=== PATIENT | female | born 1965 | race African-American/Black ===

== ENCOUNTER 2018-06-09 01:32 | Inpatient (IN) | payer OTHER ==
--- NOTE | 2018-06-09 01:49 | PDOC ---
History of Present Illness - General Chief Complaint: Altered Mental Status Stated Complaint: AMS Time Seen by Provider: 06/09/18 01:48 History Source: Long Term Records Exam Limitations: Clinical Condition - History of Present Illness Initial Comments: HPI: 52 y/o female BIBEMS to [facility] for altered mental status and fever. EMS reported the pt was altered, tachycardic, and felt warm to the touch. Unable to interview pt secondary to clinical condition. Medical history and current medications obtained from transfer paperwork. Past History - Past Medical History Allergies/Adverse Reactions: Allergies Allergy/AdvReac Type Severity Reaction Status Date / Time prednisone Allergy Mild GI UPSET Verified 06/09/18 01:53 Home Medications: Ambulatory Orders Albuterol So4/Ipratropium [Combivent Inhaler -] 1 inh PO QID 11/11/11 Baclofen 20 mg PO QID 11/11/11 Docusate Sodium [Colace -] 100 mg PO HS PRN 11/11/11 Gabapentin [Neurontin -] 600 mg PO Q8H 11/11/11 Oxybutynin Chloride [Ditropan Xl] 10 mg PO DAILY 11/11/11 Polyethylene Glycol 3350 [Miralax] 17 gm PO DAILY 11/11/11 clonazePAM [Klonopin -] 0.5 mg PO BID 11/11/11 Benztropine Mesylate [Cogentin -] 0.5 mg PO DAILY tablet 11/28/14 Acetaminophen [Tylenol -] 650 mg PO Q4H PRN 06/09/18 Bisacodyl [Dulcolax] 10 mg PO DAILY 06/09/18 Calcium Carbonate [Calcium] 1,200 mg PO DAILY 06/09/18 Fluoxetine HCl [Prozac] 40 mg PO DAILY 06/09/18 Haloperidol [Haldol -] 5 mg PO DAILY 06/09/18 Latanoprost 0.005% Eye Drops [Xalatan 0.005% Eye Drops -] 1 drop OU HS 06/09/18 Linaclotide [Linzess] 72 mcg PO HS 06/09/18 Mineral Oil Enema [Fleet Mineral Oil Rectal Enema] 133 ml RC DAILY PRN 06/09/18 Montelukast Sodium [Singulair] 10 mg PO DAILY 06/09/18 Simethicone 80 mg PO Q8H PRN 06/09/18 clonazePAM [Klonopin -] 0.5 mg PO HS 06/09/18 Anemia: No Asthma: No Cancer: No Cardiac Disorders: No CVA: No COPD: No CHF: No Dementia: No Diabetes: Yes GI Disorders: Yes (SEMI CONTINENT) Disorders: Yes (NEUROGENIC BLADDER) HTN: No Hypercholesterolemia: Yes Liver Disease: No Seizures: No Thyroid Disease: No - Surgical History Abdominal Surgery: No Appendectomy: No Cardiac Surgery: No Cholecystectomy: No Lung Surgery: No Neurologic Surgery: No Orthopedic Surgery: No - Suicide/Smoking/Psychosocial Hx Smoking Status: Yes Smoking History: Current every day smoker Have you smoked in the past 12 months: Yes Number of Cigarettes Smoked Daily: 3 'Breaking Loose' booklet given: 11/24/14 Hx Alcohol Use: No Drug/Substance Use Hx: No Substance Use Type: None Review of Systems - Review of Systems Able to Perform ROS?: No (Pt condition) *Physical Exam - Vital Signs Vital Signs (72 hours) 06/09/18 06/09/18 01:33 03:18 Temperature 98.2 F 104.2 F H Pulse Rate 142 H 144 H Respiratory 24 H 20 Rate Blood Pressure 121/91 O2 Sat by Pulse 96 97 Oximetry (%) - Physical Exam Comments: Constitutional: Toxic appearing adult female in acute distress. Found semi- fowlers on hospital bed. Alert but disoriented. Unable to answer questions. Head: Normocephalic. No obvious external signs of trauma. Nose: No nasal discharge. Neck: Supple, trachea is midline. Spontaneously moving neck without obvious discomfort or nuchal rigidity. Cardiovascular / Chest: Tachycardic rate and regular rhythm. No murmur, rubs, clicks, or gallops. Peripheral pulses: radial pulses full. Respiratory: Tachypneic, shallow breathing. Equal chest rise and fall. Diffuse trace wheezing. No stridor or rhonchi. Gastrointestinal: abdomen is distended and taut. Pt grimaces when palpated in all four quadrants. No pulsatile masses. No overlying skin lesions or obvious signs of trauma. Neuro: Alert and completely disoriented. Moving all four extremities spontaneously. Skin: Hot and diaphoretic. No bruising, rashes, or other lesions. Procedures - Central Line Central Line Lumen: triple Central Line Position: femoral (L) Post Central Line Insertion: sutured, good blood return ED Treatment Course - LABORATORY CBC & Chemistry Diagram: 06/09/18 02:21 06/09/18 02:21 - ADDITIONAL ORDERS Additional order review: 06/09/18 08:23 06/09/18 06/09/18 06/09/18 04:46 02:45 02:21 PT with INR INR PTT (Actin FS) Anticoagulation Therapy No Result Required. Puncture Site No Result Required. ABG pH 7.39 ABG pCO2 at Pt Temp 35.9 ABG pO2 at Pt Temp 174.0 H* ABG HCO3 21.1 L ABG O2 Sat (Measured) 99.2 H ABG O2 Content 13.1 L ABG Base Excess -2.9 L Matthew Test No Result Required. Carboxyhemoglobin 0.7 Methemoglobin 0.6 O2 Delivery Device No Result Required. Oxygen Flow Rate No Result Required. Vent Mode No Result Required. Vent Rate No Result Required. Mechanical Rate No Result Required. Pressure Support Vent No Result Required. Sodium Potassium Chloride Carbon Dioxide Anion Gap BUN Creatinine Creat Clearance w eGFR Random Glucose Lactic Acid Calcium Total Bilirubin AST ALT Alkaline Phosphatase Troponin I < 0.02 Total Protein Albumin Urine Color Sussy Urine Appearance Slcloudy Urine pH 5.0 Ur Specific [place] 1.020 Urine Protein 1+ H Urine Glucose (UA) Negative Urine Ketones 1+ H Urine Blood Negative Urine Nitrite Negative Urine Bilirubin Negative Urine Urobilinogen 2.0 H Ur Leukocyte Esterase Negative Urine WBC (Auto) 6 Urine RBC (Auto) 1 Ur Epithelial Cells Rare Urine Mucus Few 06/09/18 06/09/18 06/09/18 02:21 02:21 02:21 PT with INR 16.50 H INR 1.39 H PTT (Actin FS) 29.1 Anticoagulation Therapy Puncture Site ABG pH ABG pCO2 at Pt Temp ABG pO2 at Pt Temp ABG HCO3 ABG O2 Sat (Measured) ABG O2 Content ABG Base Excess Matthew Test Carboxyhemoglobin Methemoglobin O2 Delivery Device Oxygen Flow Rate Vent Mode Vent Rate Mechanical Rate Pressure Support Vent Sodium 139 Potassium 3.4 L Chloride 105 Carbon Dioxide 22 Anion Gap 12 BUN 18 Creatinine 0.9 Creat Clearance w eGFR > 60 Random Glucose 187 H Lactic Acid 1.6 Calcium 10.0 Total Bilirubin 0.5 AST 26 ALT 18 Alkaline Phosphatase 116 Troponin I Total Protein 7.7 Albumin 3.4 Urine Color Urine Appearance Urine pH Ur Specific [place] Urine Protein Urine Glucose (UA) Urine Ketones Urine Blood Urine Nitrite Urine Bilirubin Urine Urobilinogen Ur Leukocyte Esterase Urine WBC (Auto) Urine RBC (Auto) Ur Epithelial Cells Urine Mucus 06/09/18 02:21 RBC 4.58 MCV 75.7 L MCHC 33.4 RDW 16.5 H MPV 8.1 Neutrophils % 79.3 Lymphocytes % 6.2 L D Monocytes % 14.3 H Eosinophils % 0.1 D Basophils % 0.1 - RADIOLOGY Radiology Studies Ordered: Category Date Time Status ABDOMEN & PELVIS CT W/O CONTR [CT] Stat CT Scan 06/09/18 02:[address] WITHOUT CONTRAST [CT] Stat CT Scan 06/09/18 02:24 Completed CHEST - PA [RAD] Stat Radiology 06/09/18 02:23 Completed Radiograph Interpretation: Non-con CT of Chest, Abdomen, and Pelvis ADDENDUM Comments: Dylan Childs MD wrote on Jun 09, 2018 at 05:36 AM: Referring Physician: BISHOP VAUGHN MELLISA GOEL Findings discussed with Dr. Jones at 5:34 AM Eastern One or more of the following dose reduction techniques were used: automated exposure control, adjustment of the mA and/or kV according to patient size, use of iterative reconstructive technique. THIS DOCUMENT HAS BEEN ELECTRONICALLY SIGNED Dylan Childs MD 06/09/2018 05:35 EST M.D. Please call Imaging Odd Bundle Worker [phone] ([phone]) with questions. Dylan Childs MD Comments: Dylan Childs MD wrote on Jun 09, 2018 at 05:26 AM: Referring Physician: BISHOP VAUGHN Patient Name: MELLISA GOEL THIS IS A PRELIMINARY REPORT FROM IMAGING BOTTLE BLOWING MACHINE TENDER DATE OF SERVICE: 2018-06-09 04:17:36 IMAGES: [id number] EXAM: CT chest abdomen and pelvis without contrast HISTORY: Sepsis altered mental status distended abdomen COMPARISON: None. FINDINGS: Chest: Limited by breathing motion artifact. No pulmonary infiltrates or pleural effusions. No pneumothorax or pneumomediastinum. There is a lobulated soft tissue mass in the right supraclavicular fossa partially included on the scan. I cannot determine if this is an enlarged thyroid, lymphadenopathy or mass. Recommend follow-up. Abdomen and pelvis: Positive for a sigmoid volvulus causing severe dilatation of the colon proximal to the volvulus. There is also free intraperitoneal air as well as air extending down into the right groin from the peritoneal cavity. Suspect bowel perforation related to the volvulus. No free fluid. Em catheter is noted. I cannot definitively confirm that the Em catheter balloon is in the urinary bladder or vagina. Please check for urine returned. No acute abnormalities of the liver, spleen, pancreas, or adrenal glands. No urinary tract obstruction. Prior spine surgery. One or more of the following dose reduction techniques were used: automated exposure control, adjustment of the mA and/or kV according to patient size, use of iterative reconstructive technique. THIS DOCUMENT HAS BEEN ELECTRONICALLY SIGNED Dylan Childs MD 06/09/2018 05:26 EST - Medications Given in the ED: ED Medications Discontinued Medications Generic Name Dose Route Start Last Admin Trade Name Freq PRN Reason Stop Dose Admin Acetaminophen 650 mg 06/09/18 04:46 06/09/18 04:59 Tylenol Suppository - KS 06/09/18 04:47 650 mg ONCE ONE Administration Sodium Chloride 3,402 mls @ 1,701 mls/hr 06/09/18 02:23 06/09/18 04:12 Normal Saline - 30 ml/kg infuse over 2 hr (3402 ml) 06/09/18 04:22 1,701 mls/hr IV Administration ONCE ONE Vancomycin HCl 1,500 mg/ 500 mls @ 250 mls/hr 06/09/18 04:09 06/09/18 05:37 Dextrose IVPB 06/09/18 06:08 250 mls/hr ONCE ONE Administration Protocol Piperacillin Sod/Tazobactam 50 mls @ 100 mls/hr 06/09/18 04:10 06/09/18 05:16 Sod 3.375 gm/ Dextrose IVPB 06/09/18 04:39 100 mls/hr ONCE ONE Administration Protocol Lorazepam 2 mg 06/09/18 05:30 06/09/18 06:23 Ativan Injection - IVPUSH 06/09/18 05:31 Not Given ONCE ONE Medical Decision Making - Medical Decision Making *Reviewed vital signs, nursing notes, and prior visit documentation (if available). 52 y/o paraplegic, schizophrenic female presenting with altered mental status, fever, tachycardia, and acute abdominal findings. Initiated ED sepsis protocol. Vancomycin and Zosyn were administered to broad spectrum antibiotics. Acetaminophen administered KS. Non-contrast CT of chest, abdomen, and pelvis was ordered to further evaluate. Left femoral central line and em catheter were placed. CBC revealed leukocytosis with left shift. Initial lactic acid was not elevated. No significant derangement in electrolytes, LFTs, or BUN/Cr. 05:34 Telephone conversation with [facility] radiologist for critical findings. Reports a sigmoid volvulus with perforation. Pneumoperitoneum with extension into the right groin. 05:[address] Vaughan, general surgery service. Verbally appraised of the pts HPI, ED course, and current plan of management. Requested placement of NG tube. Will evaluate the pt. 05:46 Microblog sent to [facility] for admission. Page sent to ICU pager. 06:14 Telephone consultation with resident Dr. Kelly. Verbally appraised of the pts HPI, ED course, and current plan of management. Will have day team evaluate pt. Pt to be admitted to ICU for attending Dr. Wilkinson. 06:18 Telephone consultation with MARCO Carvajal. Verbally appraised of the pts HPI, ED course, and current plan of management. Will admit pt to ICU for Dr. Jones. 06:33 Telephone conversation with pts father, listed as an emergency contact in [facility]. Briefly discussed findings of CT scan and likely need for an urgent operation. Will dress and come to the hospital. Attempted to place NG tube for >20 minutes. Pt would not tolerate placement. *DC/Admit/Observation/Transfer Diagnosis at time of Disposition: Sigmoid volvulus, Pneumoperitoneum Altered mental status Qualifiers: Altered mental status type: disorientation Qualified Code(s): R41.0 - Disorientation, unspecified - Discharge Dispostion Condition at time of disposition: Guarded Decision to Admit order: Yes - Referrals - Patient Instructions - Post Discharge Activity
[2018-06-09] MEDS ORDERED: SODIUM CHLORIDE 3,402 ML IV ONE (02:23)
[2018-06-09 02:51] LABS: BASO % 0.1 % (0-2.0); EOS % 0.1 % (0-4.5); HEMATOCRIT 34.7 % (32.4-45.2); HEMOGLOBIN 11.6 GM/dL (10.7-15.3); LYMPH % 6.2 % (8-40); MCH 25.3 pg (25.7-33.7); MCHC 33.4 g/dl (32.0-36.0); MEAN CELL VOLUME 75.7 fl (80-96); MEAN PLT VOLUME 8.1 fl (7.5-11.1); MONO % 14.3 % (3.8-10.2); NEUT % 79.3 % (42.8-82.8); PLATELET COUNT 512 K/MM3 (134-434); RBC 4.58 M/mm3 (3.60-5.2); RDW 16.5 % (11.6-15.6); WHITE BLOOD COUNT 15.6 K/mm3 (4.0-10.0)
[2018-06-09 03:01] LABS: URINE APPEARANCE SLCLOUDY; URINE BILIRUBIN NEGATIVE (<2.0 mg/dL); URINE COLOR AMBER; URINE GLUCOSE (UA) NEGATIVE (NEGATIVE); URINE KETONE 1+ (NEGATIVE); URINE LEUK ESTERASE NEGATIVE (NEGATIVE); URINE NITRITE NEGATIVE (NEGATIVE); URINE PROTEIN 1+ (NEGATIVE)
[2018-06-09 03:04] LABS: INR 1.39 (0.83-1.09); PROTHROMBIN TIME (PATIENT) 16.5 SEC (9.7-13.0)
[2018-06-09 03:06] LABS: ACTIVATED PTT 29.1 SECONDS (25.2-36.5)
[2018-06-09 03:07] LABS: EPI CELLS RARE /HPF (FEW); URINE MUCUS FEW
[2018-06-09 03:18] LABS: ALBUMIN 3.4 g/dl (3.4-5.0); ALK PHOS 116 U/L (45-117); ANION GAP 12 MMOL/L (8-16); BILIRUBIN,TOTAL 0.5 mg/dL (0.2-1); BLOOD UREA NITROGEN 18 mg/dL (7-18); CHLORIDE 105 mmol/L (98-107); CO2 22 mmol/L (21-32); CREATININE 0.9 mg/dL (0.55-1.3); GLUCOSE,RANDOM 187 mg/dL (74-106); POTASSIUM 3.4 mmol/L (3.5-5.1); SGOT/AST 26 U/L (15-37); SGPT/ALT 18 U/L (13-61); SODIUM 139 mmol/L (136-145); TOT PROT 7.7 g/dl (6.4-8.2)
[2018-06-09] MEDS ORDERED: VANCOMYCIN HCL 1,500 MG in DEXTROSE 5%-WATER - 500 ML IVPB ONE (04:09)
[2018-06-09] MEDS ORDERED: PIPERACILLIN/TAZOB 3.375 GM 3.375 GM in DEXTROSE 5%-WATER - 50 ML IVPB ONE (04:10)
[2018-06-09] MEDS ORDERED: ACETAMINOPHEN 650 MG SUPP.RECT PR ONE (04:46)
[2018-06-09] MEDS ORDERED: ACETAMINOPHEN 650 MG SUPP.RECT ONE (04:52)
[2018-06-09 05:25] LABS: ARTERIAL BLD GAS O2 SATURATION 99.2 % (90-98.9); ARTERIAL BLOOD GAS BASE EXCESS -2.9 meq/l (-2-2); ARTERIAL BLOOD GAS PCO2 35.9 mmHg (35-45); ARTERIAL BLOOD GAS pH 7.39 (7.35-7.45); CARBOXYHEMOGLOBIN 0.7 gm% (0.5-2.0)
--- NOTE | 2018-06-09 05:40 | PDOC ---
Attending Attestation - Resident Resident Name: Horace Jones - ED Attending Attestation I have performed the following: I have examined & evaluated the patient, The case was reviewed & discussed with the resident, I agree w/resident's findings & plan - HPI HPI: 06/09/18 05:36 52-year-old female with altered mental status and fever sent from a halfway for further evaluation. Patient has a history of paraplegia. Patient arrives confused, history unobtainable. - Physicial Exam PE: 06/09/18 05:37 Agree with resident's exam - Critical Care Time Total Critical Care Time: 120 Critical Care Statement: The care of this patient involved high complexity decision making to prevent further life threatening deterioration of the patient 's condition and/or to evaluate & treat vital organ system(s) failure or risk of failure. - Medical Decision Making 06/09/18 05:39 [id number] female with altered mental status fever and abdominal distention on exam CT scan of the chest abdomen and pelvis were performed and were significant for a perforated sigmoid volvulus with a large amount of free air Zosyn and vancomycin have been given IV access established, left femoral after failed attempts at the right internal jugular Call placed immediately to surgery for further management
[2018-06-09 05:57] LABS: ANISOCYTOSIS 2+; MACROCYTOSIS 1+; PLATELET ESTIMATE NORMAL
[2018-06-09] MEDS ORDERED: DEXTROSE 5%-0.45% SALINE 1,000 ML IV SCH (06:30)
[2018-06-09] MEDS ORDERED: fentaNYL CITRATE 250 MCG/5 ML VIAL ONE (06:59)
[2018-06-09] MEDS ORDERED: ROCURONIUM BROMIDE 50 MG/5 ML VIAL ONE ×5 (06:59→11:49)
[2018-06-09] MEDS ORDERED: SUCCINYLCHOLINE CHLORIDE 200 MG/10 ML VIAL ONE (06:59)
[2018-06-09] MEDS ORDERED: MIDAZOLAM HCL 2 MG/2 ML SINGLE DOSE VIAL ONE ×3 (06:59→10:42)
[2018-06-09] MEDS ORDERED: PROPOFOL 20 ML ONE ×2 (06:59→11:50)
[2018-06-09] MEDS ORDERED: ETOMIDATE 20 MG/10 ML AMPUL IVPUSH ONE (07:00)
[2018-06-09] MEDS ORDERED: ceFAZolin SODIUM 1 GM VIAL ONE (07:00)
[2018-06-09] MEDS ORDERED: LIDOCAINE HCL/PF 2% SDV 5ML VIAL ONE ×2 (07:31→11:49)
[2018-06-09] MEDS ORDERED: GLYCOPYRROLATE 0.2 MG/1 ML VIAL ONE (07:33)
[2018-06-09] MEDS ORDERED: DEXAMETHASONE SOD PHOSPHATE 4 MG/1 ML VIAL ONE ×2 (07:33→11:49)
[2018-06-09] MEDS ORDERED: KETOROLAC TROMETHAMINE 30 MG/1 ML VIAL ONE ×3 (07:33→11:51)
--- NOTE | 2018-06-09 07:55 | CONSULT ---
- Consultation REQUESTING PROVIDER: Bishop QUIJANO/Eliel KERN CONSULT REQUEST: We have been asked to surgically evaluate this patient for management of abdominal pain. PCP:José Miguel Jones HISTORY OF PRESENT ILLNESS: CTSP who is a 52 y/o A/A/female who is a resident of [facility] who was xferred to the [facility] ER for change in mental status and abdominal pain and abdominal distention; w/u in the ER revelas sigmoid volvulus and pneumoperitoneum. PMHx: schizophrenia and paraplegia due to a fall. PSHx: none Home Medications Medication Instructions Recorded Albuterol So4/Ipratropium 1 inh PO QID 11/11/11 [Combivent Inhaler -] Baclofen 20 mg PO QID 11/11/11 Docusate Sodium [Colace -] 100 mg PO HS PRN 11/11/11 Gabapentin [Neurontin -] 600 mg PO Q8H 11/11/11 Oxybutynin Chloride [Ditropan Xl] 10 mg PO DAILY 11/11/11 Polyethylene Glycol 3350 [Miralax] 17 gm PO DAILY 11/11/11 clonazePAM [Klonopin -] 0.5 mg PO BID 11/11/11 Benztropine Mesylate [Cogentin -] 0.5 mg PO DAILY tablet 11/28/14 Acetaminophen [Tylenol -] 650 mg PO Q4H PRN 06/09/18 Bisacodyl [Dulcolax] 10 mg PO DAILY 06/09/18 Calcium Carbonate [Calcium] 1,200 mg PO DAILY 06/09/18 Fluoxetine HCl [Prozac] 40 mg PO DAILY 06/09/18 Haloperidol [Haldol -] 5 mg PO DAILY 06/09/18 Latanoprost 0.005% Eye Drops 1 drop OU HS 06/09/18 [Xalatan 0.005% Eye Drops -] Linaclotide [Linzess] 72 mcg PO HS 06/09/18 Mineral Oil Enema [Fleet Mineral 133 ml RC DAILY PRN 06/09/18 Oil Rectal Enema] Montelukast Sodium [Singulair] 10 mg PO DAILY 06/09/18 Simethicone 80 mg PO Q8H PRN 06/09/18 clonazePAM [Klonopin -] 0.5 mg PO HS 06/09/18 Allergies Allergy/AdvReac Type Severity Reaction Status Date / Time prednisone Allergy Mild GI UPSET Verified 06/09/18 01:53 REVIEW OF SYSTEMS: not obtainable e/f old charts and reviewed PHYSICAL EXAM: GENERAL: Awake, alert, and not fully oriented, in acute distress. HEAD: Normal with no signs of trauma. EYES: PERRL, sclera anicteric, conjunctiva clear. NECK: Normal ROM, supple without lymphadenopathy, JVD, or masses. ABDOMEN: Soft, tender, markedly distended distended, absent bowel sounds, guarding is present, rebound is present, no masses. No organomegaly. ? umbilical hernia and ? RIH. MUSCULOSKELETAL: No CVA tenderness. UPPER EXTREMITIES: 2+ pulses, warm, well-perfused. No cyanosis. Cap refill <2 seconds. No peripheral edema. LOWER EXTREMITIES: 2+ pulses, warm, well-perfused. No calf tenderness. No peripheral edema. NEUROLOGICAL: Abnormal speech, gait not observed. PSYCH: Unooperative. Poor eye contact. Appropriate mood and affect due to pain. SKIN: Warm, dry, normal turgor, no rashes or lesions noted. Vital Signs Temperature 102.4 F H 06/09/18 07:09 Pulse Rate 127 H 06/09/18 07:09 Respiratory Rate 28 H 06/09/18 07:09 Blood Pressure 134/87 06/09/18 07:09 O2 Sat by Pulse Oximetry (%) 100 06/09/18 07:09 Lab Results WBC 15.6 K/mm3 (4.0-10.0) H 06/09/18 02:21 RBC 4.58 M/mm3 (3.60-5.2) 06/09/18 02:21 Hgb 11.6 GM/dL (10.7-15.3) 06/09/18 02:21 Hct 34.7 % (32.4-45.2) 06/09/18 02:21 MCV 75.7 fl (80-96) L 06/09/18 02:21 MCHC 33.4 g/dl (32.0-36.0) 06/09/18 02:21 RDW 16.5 % (11.6-15.6) H 06/09/18 02:21 Plt Count 512 K/MM3 (134-434) H D 06/09/18 02:21 Sodium 139 mmol/L (136-145) 06/09/18 02:21 Potassium 3.4 mmol/L (3.5-5.1) L 06/09/18 02:21 Chloride 105 mmol/L (98-107) 06/09/18 02:21 Carbon Dioxide 22 mmol/L (21-32) 06/09/18 02:21 Anion Gap 12 MMOL/L (8-16) 06/09/18 02:21 BUN 18 mg/dL (7-18) 06/09/18 02:21 Creatinine 0.9 mg/dL (0.55-1.3) 06/09/18 02:21 Random Glucose 187 mg/dL (74-106) H 06/09/18 02:21 Calcium 10.0 mg/dL (8.5-10.1) 06/09/18 02:21 INR 1.39 (0.83-1.09) H 06/09/18 02:21 CT scan a/p images and reports reviewed. IMP: pneumoperitoneum w/sigmoid volvulus PLAN: For ex-lap; possible Bella's procedure; possible subtotal colectomy and ileostomy; r/b/t/a's of these procedures d/w the patients father Stanley Meadows by telephone; he will be coming to the hospital to give informed consent; I explained to him if she has an ostomy it may be permanent; he understands this. Michael Vaughan MD FACS
[2018-06-09] MEDS ORDERED: BENZOIN TINCTURE SWABSTICK TP ONE (08:55)
[2018-06-09] MEDS ORDERED: PHENYLEPHRINE HCL 10 MG/1 ML SINGLE DOSE VIAL ONE ×2 (09:11→09:12)
[2018-06-09] MEDS ORDERED: VASOPRESSIN 20 UNITS/ML VIAL IV ONE ×2 (09:30→13:28)
[2018-06-09] MEDS ORDERED: SODIUM CHLORIDE 0.9% P/F 10 ML VIAL IJ ONE (09:30)
[2018-06-09] MEDS ORDERED: SODIUM BICARBONATE 8.4% - 100 ML ONE (09:43)
[2018-06-09] MEDS ORDERED: ACETAMINOPHEN 1000 MG/100 ML VIAL (NON FORMULARY) IVPB PRN ×3 (10:10→23:55)
--- NOTE | 2018-06-09 10:10 | HP ---
Admitting History and Physical - Primary Care Physician PCP: José Miguel Jones - Admission Chief Complaint: Abdominal pain. Sepsis. Perforated colon History of Present Illness: CTSP who is a 52 y/o A/A/female who is a resident of [facility] who was xferred to the [facility] ER for change in mental status and abdominal pain and abdominal distention; w/u in the ER revelas sigmoid volvulus and pneumoperitoneum. History Source: Medical Record Limitations to Obtaining History: Clinical Condition - Past Medical History COMFORT ADVISOR: Yes: Other (spinal cord trauma) Renal/: Yes: Neurogenic Bladder, UTI Psych: Yes: Addictions (tobacco abuse), Depression, Other (hx suicide attempt resulting in pt becoming a paraglegic) Dermatology: Yes: Other (L hallux ulcer, gluteal ulcer) - Past Surgical History Past Surgical History: Yes: , Tonsillectomy - Smoking History Smoking history: Current every day smoker Have you smoked in the past 12 months: Yes Aproximately how many cigarettes per day: 3 - Alcohol/Substance Use Hx Alcohol Use: No - Social History ADL: Support Services 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, 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 Home Medications - Allergies Allergies/Adverse Reactions: Allergies Allergy/AdvReac Type Severity Reaction Status Date / Time prednisone Allergy Mild GI UPSET Verified 06/09/18 01:53 - Home Medications Home Medications: Ambulatory Orders Albuterol So4/Ipratropium [Combivent Inhaler -] 1 inh PO QID 11/11/11 Baclofen 20 mg PO QID 11/11/11 Docusate Sodium [Colace -] 100 mg PO HS PRN 11/11/11 Gabapentin [Neurontin -] 600 mg PO Q8H 11/11/11 Oxybutynin Chloride [Ditropan Xl] 10 mg PO DAILY 11/11/11 Polyethylene Glycol 3350 [Miralax] 17 gm PO DAILY 11/11/11 clonazePAM [Klonopin -] 0.5 mg PO BID 11/11/11 Benztropine Mesylate [Cogentin -] 0.5 mg PO DAILY tablet 11/28/14 Acetaminophen [Tylenol -] 650 mg PO Q4H PRN 06/09/18 Bisacodyl [Dulcolax] 10 mg PO DAILY 06/09/18 Calcium Carbonate [Calcium] 1,200 mg PO DAILY 06/09/18 Fluoxetine HCl [Prozac] 40 mg PO DAILY 06/09/18 Haloperidol [Haldol -] 5 mg PO DAILY 06/09/18 Latanoprost 0.005% Eye Drops [Xalatan 0.005% Eye Drops -] 1 drop OU HS 06/09/18 Linaclotide [Linzess] 72 mcg PO HS 06/09/18 Mineral Oil Enema [Fleet Mineral Oil Rectal Enema] 133 ml RC DAILY PRN 06/09/18 Montelukast Sodium [Singulair] 10 mg PO DAILY 06/09/18 Simethicone 80 mg PO Q8H PRN 06/09/18 clonazePAM [Klonopin -] 0.5 mg PO HS 06/09/18 Family Disease History - Family Disease History Family Disease History: Diabetes: Mother, Brother Review of Systems Unable to obtain ROS, reason: AMS Physical Examination Vital Signs: Vital Signs Temperature 102.4 F H 06/09/18 07:09 Pulse Rate 127 H 06/09/18 07:09 Respiratory Rate 28 H 06/09/18 07:09 Blood Pressure 134/87 06/09/18 07:09 O2 Sat by Pulse Oximetry (%) 100 06/09/18 07:09 Constitutional: Yes: Well Nourished, No Distress, Obese Cardiovascular: Yes: Regular Rate and Rhythm Labs: CBC, BMP 06/09/18 02:21 06/09/18 02:21 Imaging - Results Chest X-ray: Report Reviewed Cat Scan: Report Reviewed Problem List - Problems (1) Altered mental status Assessment/Plan: -2/2 sepsis -IV abx -ID consult -Seen by Surgery -BC/UC pending -Acetaminophen IV for fever over 100.0F -Cooling blanket if needed for fever over 101.0F -monitor labs -lactic acid normal -IVF -will need ICU monitoring -possible Bella's procedure; possible subtotal colectomy and ileostomy Code(s): R41.82 - ALTERED MENTAL STATUS, UNSPECIFIED Qualifiers: Altered mental status type: disorientation Qualified Code(s): R41.0 - Disorientation, unspecified (2) Pneumoperitoneum Assessment/Plan: -IV abx -ID consult -Seen by Surgery -BC/UC pending -Acetaminophen IV for fever over 100.0F -Cooling blanket if needed for fever over 101.0F -monitor labs -lactic acid normal -IVF -will need ICU monitoring -possible Bella's procedure; possible subtotal colectomy and ileostomy Code(s): K66.8 - OTHER SPECIFIED DISORDERS OF PERITONEUM (3) Sigmoid volvulus Code(s): K56.2 - VOLVULUS (4) Diabetes Assessment/Plan: -BGM AC HS -On D5 1/2N/S+ KCl 20 meq @ 75 cc/hr -check A1c -Novolog sliding scale Code(s): E11.9 - TYPE 2 DIABETES MELLITUS WITHOUT COMPLICATIONS (5) Paraplegia Code(s): G82.20 - PARAPLEGIA, UNSPECIFIED (6) Hypokalemia Assessment/Plan: -2/2 to NPO status -replace as needed -Change IVF to D5 1/2N/S + KCl20 meq @ 75 cc/hr -monitor trend Code(s): E87.6 - HYPOKALEMIA Assessment/Plan see problem list
[2018-06-09] MEDS ORDERED: D5-1/2NS+20 MEQ KCL - 20 MEQ/1,000 ML INFUS.BAG IV SCH (10:15)
[2018-06-09] MEDS ORDERED: NOREPINEPHRINE BITARTRATE 4 MG/4 ML ML IV ONE (11:07)
--- NOTE | 2018-06-09 12:03 | OP ---
Operative Note - Note: Operative Date: 06/09/18 Pre-Operative Diagnosis: pneumoperitoneum Operation: Hartmans procedure Findings: obstructing sigmoid volvulus; redundant dilated sigmoid colon. Post-Operative Diagnosis: Other (obstructing sigmoid volvulus) Surgeon: Michael Vaughan Dna Analyst: Beau Terrazas Anesthesia: General Specimens Removed: redundant sigmoid colon Estimated Blood Loss (mls): 50 Drains & Tubes with Location: 10 mm DAISHA in pelvis
[2018-06-09] MEDS: NOREPINEPHRINE BITARTRATE 4,000 MCG in DEXTROSE 5%-WATER - 496 ML IV SCH (12:15)
[2018-06-09] MEDS ORDERED: LACTATED RINGERS SOLUTION 1,000 ML IV SCH (13:00)
--- NOTE | 2018-06-09 13:11 | CONSULT ---
Consultation: REQUESTING PROVIDER: CONSULT REQUEST: We have been asked to medically evaluate this patient for postoperative management, ICU admission. HISTORY OF PRESENT ILLNESS: Patient is a 52 year old female with history of paraplegia (after falling from elevated height from attempted suicide), major depressive disorder, anxiety, chronic obstructive pulmonary disease, diabetes mellitus, gastroesophageal reflus disease, glaucoma, presented to [facility] ED with altered mental status and fever. Workup including CT abdomen, pelvis showed sigmoid volvulus with severe dilation of proximal colon, and free intraperitoneal air, concerning for bowel perforation. Patient was evaluated by general surgery and underwent Bella's procedure. Estimated blood loss 50mL. Upon my encounter, patient remains residually sedated from intra-operative sedation. She is intubated, and mechanically ventilated. Patient is not responsive to name or sternal rub. REVIEW OF SYSTEMS: Unable to obtain, Patient is sedated, intubated. PHYSICAL EXAMINATION Vital Signs - 24 hr 06/09/18 06/09/18 06/09/18 01:33 03:18 07:09 Temperature 98.2 F 104.2 F H 102.4 F H Pulse Rate 142 H 144 H Pulse Rate [ 127 H Right] Respiratory 24 H 20 28 H Rate Blood Pressure 121/91 Blood Pressure 134/87 [Left Arm] O2 Sat by Pulse 96 97 100 Oximetry (%) GENERAL: female, sedated and intubated. HEENT: Normocephalic, atraumatic. PERRL, conjunctiva clear. Neck is supple without lymphadenopathy LUNGS: Intubated. Mechanical breath sounds equal, clear to auscultation bilaterally. No wheezes, and no crackles. HEART: Distant heart sounds. Regular rate and rhythm, normal S1 and S2 auscultated without murmur, rub or gallop. ABDOMEN: Obese. Soft, not distended. Hypoactive bowel sounds X4 quadrants. No hepatomegaly palpated or percussed. Abdominal surgical site bandaged clean, dry , intact. 1X DAISHA drain noted. Left sided colostomy bag in place. UPPER EXTREMITIES: 1+ radial pulses bilaterally, warm, well-perfused. Cap refill <2 seconds. LOWER EXTREMITIES: 1+ dorsalis pedis pulses bilaterally, warm, well-perfused. NEUROLOGICAL: Patient is sedated. Good muscle tone X4 extremities. SKIN: Warm, dry. Abdominal surgical site bandaged clean, dry, intact. Laboratory Results - last 24 hr 06/09/18 06/09/18 06/09/18 02:21 02:21 02:21 WBC 15.6 H RBC 4.58 Hgb 11.6 Hct 34.7 MCV 75.7 L MCH 25.3 L MCHC 33.4 RDW 16.5 H Plt Count 512 H D MPV 8.1 Absolute Neuts (auto) 12.4 H Neutrophils % 79.3 Neutrophils % (Manual) 58.0 Band Neutrophils % 30.0 Lymphocytes % 6.2 L D Lymphocytes % (Manual) 2.0 L Monocytes % 14.3 H Monocytes % (Manual) 10 Eosinophils % 0.1 D Eosinophils % (Manual) 0.0 Basophils % 0.1 Basophils % (Manual) 0.0 Myelocytes % (Man) 0 Promyelocytes % (Man) 0 Blast Cells % (Manual) 0 Nucleated RBC % 0 Metamyelocytes 0 Hypochromia 1+ Platelet Estimate Normal Polychromasia 0 Poikilocytosis 0 Anisocytosis 2+ Microcytosis 0 Macrocytosis 1+ PT with INR 16.50 H INR 1.39 H PTT (Actin FS) 29.1 Anticoagulation Therapy Puncture Site ABG pH ABG pCO2 at Pt Temp ABG pO2 at Pt Temp ABG HCO3 ABG O2 Sat (Measured) ABG O2 Content ABG Base Excess Matthew Test Carboxyhemoglobin Methemoglobin O2 Delivery Device Oxygen Flow Rate Vent Mode Vent Rate Mechanical Rate Pressure Support Vent Sodium 139 Potassium 3.4 L Chloride 105 Carbon Dioxide 22 Anion Gap 12 BUN 18 Creatinine 0.9 Creat Clearance w eGFR > 60 Random Glucose 187 H Lactic Acid Calcium 10.0 Total Bilirubin 0.5 AST 26 ALT 18 Alkaline Phosphatase 116 Creatine Kinase Creatine Kinase Index CK-MB (CK-2) Troponin I Total Protein 7.7 Albumin 3.4 Urine Color Urine Appearance Urine pH Ur Specific Hamilton Urine Protein Urine Glucose (UA) Urine Ketones Urine Blood Urine Nitrite Urine Bilirubin Urine Urobilinogen Ur Leukocyte Esterase Urine WBC (Auto) Urine RBC (Auto) Ur Epithelial Cells Urine Mucus Influenza A (Rapid) Influenza B (Rapid) Blood Type Antibody Screen Crossmatch IS Only 06/09/18 06/09/18 06/09/18 02:21 02:21 02:45 WBC RBC Hgb Hct MCV MCH MCHC RDW Plt Count MPV Absolute Neuts (auto) Neutrophils % Neutrophils % (Manual) Band Neutrophils % Lymphocytes % Lymphocytes % (Manual) Monocytes % Monocytes % (Manual) Eosinophils % Eosinophils % (Manual) Basophils % Basophils % (Manual) Myelocytes % (Man) Promyelocytes % (Man) Blast Cells % (Manual) Nucleated RBC % Metamyelocytes Hypochromia Platelet Estimate Polychromasia Poikilocytosis Anisocytosis Microcytosis Macrocytosis PT with INR INR PTT (Actin FS) Anticoagulation Therapy Puncture Site ABG pH ABG pCO2 at Pt Temp ABG pO2 at Pt Temp ABG HCO3 ABG O2 Sat (Measured) ABG O2 Content ABG Base Excess Matthew Test Carboxyhemoglobin Methemoglobin O2 Delivery Device Oxygen Flow Rate Vent Mode Vent Rate Mechanical Rate Pressure Support Vent Sodium Potassium Chloride Carbon Dioxide Anion Gap BUN Creatinine Creat Clearance w eGFR Random Glucose Lactic Acid 1.6 Calcium Total Bilirubin AST ALT Alkaline Phosphatase Creatine Kinase 157 Creatine Kinase Index 1.2 CK-MB (CK-2) 1.9 Troponin I < 0.02 Total Protein Albumin Urine Color Sussy Urine Appearance Slcloudy Urine pH 5.0 Ur Specific Hamilton 1.020 Urine Protein 1+ H Urine Glucose (UA) Negative Urine Ketones 1+ H Urine Blood Negative Urine Nitrite Negative Urine Bilirubin Negative Urine Urobilinogen 2.0 H Ur Leukocyte Esterase Negative Urine WBC (Auto) 6 Urine RBC (Auto) 1 Ur Epithelial Cells Rare Urine Mucus Few Influenza A (Rapid) Influenza B (Rapid) Blood Type Antibody Screen Crossmatch IS Only 06/09/18 06/09/18 06/09/18 04:46 05:35 07:40 WBC RBC Hgb Hct MCV MCH MCHC RDW Plt Count MPV Absolute Neuts (auto) Neutrophils % Neutrophils % (Manual) Band Neutrophils % Lymphocytes % Lymphocytes % (Manual) Monocytes % Monocytes % (Manual) Eosinophils % Eosinophils % (Manual) Basophils % Basophils % (Manual) Myelocytes % (Man) Promyelocytes % (Man) Blast Cells % (Manual) Nucleated RBC % Metamyelocytes Hypochromia Platelet Estimate Polychromasia Poikilocytosis Anisocytosis Microcytosis Macrocytosis PT with INR INR PTT (Actin FS) Anticoagulation Therapy No Result Required. Puncture Site No Result Required. ABG pH 7.39 ABG pCO2 at Pt Temp 35.9 ABG pO2 at Pt Temp 174.0 H* ABG HCO3 21.1 L ABG O2 Sat (Measured) 99.2 H ABG O2 Content 13.1 L ABG Base Excess -2.9 L Matthew Test No Result Required. Carboxyhemoglobin 0.7 Methemoglobin 0.6 O2 Delivery Device No Result Required. Oxygen Flow Rate No Result Required. Vent Mode No Result Required. Vent Rate No Result Required. Mechanical Rate No Result Required. Pressure Support Vent No Result Required. Sodium Potassium Chloride Carbon Dioxide Anion Gap BUN Creatinine Creat Clearance w eGFR Random Glucose Lactic Acid Calcium Total Bilirubin AST ALT Alkaline Phosphatase Creatine Kinase Creatine Kinase Index CK-MB (CK-2) Troponin I Total Protein Albumin Urine Color Urine Appearance Urine pH Ur Specific Hamilton Urine Protein Urine Glucose (UA) Urine Ketones Urine Blood Urine Nitrite Urine Bilirubin Urine Urobilinogen Ur Leukocyte Esterase Urine WBC (Auto) Urine RBC (Auto) Ur Epithelial Cells Urine Mucus Influenza A (Rapid) Negative Influenza B (Rapid) Negative Blood Type A POSITIVE Antibody Screen Negative Crossmatch IS Only See Detail Active Medications Generic Name Dose Route Start Last Admin Trade Name Freq PRN Reason Stop Dose Admin Acetaminophen 1,000 mg 06/09/18 10:10 Ofirmev Injection - IVPB Q6H PRN PAIN OR FEVER Chlorhexidine Gluconate 1 applic 06/09/18 22:00 Hibiclens For Decolonization - TP HS DANNA Potassium Chloride/Dextrose/Sod Cl 20 meq in 1,000 mls @ 75 mls/hr 06/09/18 10 :15 D5-1/2ns+20 Meq Kcl - IV ASDIR DANNA Lactated Ringer's 1,000 mls @ 75 mls/hr 06/09/18 13:00 Lactated Ringers Solution IV ASDIR DANNA Norepinephrine Bitartrate 4, 500 mls @ 37.5 mls/hr 06/09/18 13:00 000 mcg/ Dextrose IV TITR DANNA Protocol 5 MCG/MIN Midazolam HCl 100 mg/ Sodium 100 mls @ 4 mls/hr 06/09/18 13:00 Chloride IVPB TITR DANNA Protocol 4 MG/HR Insulin Aspart 1 vial 06/09/18 11:00 Novolog Vial Sliding Scale - SQ TIDAC [facility] Protocol Mupirocin 1 applic 06/09/18 10:00 Bactroban Ointment (For Decolonization) - NS 06/14/18 09:59 BID [facility] ASSESSMENT/PLAN: Patient is a 52 year old female with history of paraplegia (after falling from elevated height from attempted suicide), major depressive disorder, anxiety, chronic obstructive pulmonary disease, diabetes mellitus, gastroesophageal reflus disease, glaucoma, s/p Bella's Procedure. Admitted to ICU for postoperative management. Neurological, psychiatric -Patient is currently sedated -Midazolam drip -Consider reinstating home psychiatric medications once awake. -Monitor for signs of mental status change. Pulmonary -Patient is intubated, mechanically ventillated -Ventilator settings: Respiratory rate 10, Tidal volume 600, FiO2 50%, PEEP 5 Cardiovascular -Patient is currently hypotensive. Follow Arterial line pressures. -Norepinepherine drip titrate to maintain MAP greater than 65 -Monitor vital signs closely Gastrointestinal -Patient is POD #0 s/p Bella's procedure -General surgery recommendations appreciated -Follow colostomy bag output -Lactated Ringer's at 75mL/ hour -NPO Renal Hypokalemia, hypocalcemia -Potassium chloride 10meq X3 -Corrected Ca 8.9mg/dL -Follow repeat BMP -Patient currently urinating clear yellow urine into em catheter -Follow intake and output closely. Endocrine Diabetes mellitus -Insulin sliding scale TID -Fingerstick blood glucose monitoring TID Infectious disease -Zosyn 4.5 grams IV Q6H -ID recommendations (Dr. Hernández) appreciated. -Follow blood cultures -Follow urine cultures FEN -IV Lactated Ringer's at 125mL/ hour -Hypokalemia, hypocalcemia. Follow CMP, replete as necessary -NPO Lines, Tubes, Drains -Arterial line placed 06/09 -Left sided femoral line placed 06/09 -Abdominal DAISHA drain placed 06/09 -Em catheter placed 06/09 Prophylaxis -SCDs bilateral lower extremities Disposition: We will continue to follow the patient. Thank you for this consultative opportunity. Visit type - Emergency Visit Emergency Visit: Yes ED Registration Date: 06/09/18 Care time: The patient presented to the Emergency Department on the above date and was hospitalized for further evaluation of their emergent condition. - New Patient This patient is new to me today: Yes Date on this admission: 06/10/18 - Critical Care Critical Care patient: Yes Total Critical Care Time (in minutes): 35 Critical Care Statement: The care of this patient involved high complexity decision making to prevent further life threatening deterioration of the patient 's condition and/or to evaluate & treat vital organ system(s) failure or risk of failure.
[2018-06-09 13:44] LABS: HEMOGLOBIN 8.5 GM/dL (10.7-15.3); MCH 24.6 pg (25.7-33.7); MCHC 32.5 g/dl (32.0-36.0); MEAN CELL VOLUME 75.7 fl (80-96); MEAN PLT VOLUME 7.9 fl (7.5-11.1); PLATELET COUNT 364 K/MM3 (134-434); RBC 3.44 M/mm3 (3.60-5.2); RDW 16.4 % (11.6-15.6)
[2018-06-09] MEDS: VASOPRESSIN 50 UNITS in SODIUM CHLORIDE 97.5 ML IVPB SCH (13:49)
[2018-06-09 14:09] LABS: ANION GAP 9 MMOL/L (8-16); BLOOD UREA NITROGEN 14 mg/dL (7-18); CHLORIDE 113 mmol/L (98-107); CO2 22 mmol/L (21-32); CREATININE 0.7 mg/dL (0.55-1.3); GLUCOSE,RANDOM 256 mg/dL (74-106); SODIUM 144 mmol/L (136-145)
[2018-06-09 14:14] LABS: POTASSIUM 2.7 mmol/L (3.5-5.1)
[2018-06-09 14:15] LABS: CALCIUM 6.9 mg/dL (8.5-10.1)
--- NOTE | 2018-06-09 14:56 | SURG ---
Surgery Bottle House Pumper Note Bottle House Pumper: Beau Terrazas PA-C Date of Service: 06/09/18 Diagnosis: pneumoperitoneum Procedure: Hartmans procedure Intra-op findings: obstructing sigmoid volvulus; redundant dilated sigmoid colon. I was present for the entirety of the operative procedure. For further detail, please refer to operative report. Visit type - Case Type Case Type: ED Admission - Emergency Emergency Visit: Yes ED Registration Date: 06/09/18 Care time: The patient presented to the Emergency Department on the above date and was hospitalized for further evaluation of their emergent condition. - New patient This patient is new to me today: Yes Date on this admission: 06/09/18
[2018-06-09 15:04] LABS: ALBUMIN 1.5 g/dl (3.4-5.0)
[2018-06-09] MEDS: INSULIN SLIDING SCALE (NOVOLOG) 1 VIAL SQ SCH ×3 (15:05→22:28)
[2018-06-09] MEDS ORDERED: CEFTRIAXONE 1 GM in DEXTROSE 5%-WATER - 50 ML IVPB SCH (15:15)
[2018-06-09] MEDS ORDERED: GABAPENTIN 300 MG CAPSULE (FP) PO SCH (15:30)
[2018-06-09] MEDS ORDERED: cefTRIAXone SODIUM 1 GM VIAL ONE (15:33)
[2018-06-09] MEDS ORDERED: DEXTROSE 5%-WATER - 50 ML IVPB ONE (15:33)
[2018-06-09] MEDS ORDERED: morphine SULFATE 4 MG/ML VIAL IVPUSH PRN (15:39)
[2018-06-09 15:42] LABS: ARTERIAL BLD GAS O2 SATURATION 98.9 % (90-98.9); ARTERIAL BLOOD GAS BASE EXCESS -6.6 meq/l (-2-2); ARTERIAL BLOOD GAS PCO2 37.8 mmHg (35-45); ARTERIAL BLOOD GAS pH 7.31 (7.35-7.45)
[2018-06-09 15:53] LABS: ALLENS TEST POSITIVE
--- NOTE | 2018-06-09 16:04 | PN ---
Progress Note (short form) - Note Progress Note: ID consult dictated imp/reccd fever s/p perforated sigmoid colon-just returned from OR intubated fever to 104.5 in ED now on pressors postop cultures have been sent from ED has a femoral TLC open abdominal wound that is packed check TSH- neck mass noted on chest ct empiric zosyn d/w ICU residents Problem List - Problems (1) Sepsis Code(s): A41.9 - SEPSIS, UNSPECIFIED ORGANISM (2) Perforated sigmoid colon Code(s): K63.1 - PERFORATION OF INTESTINE (NONTRAUMATIC) (3) Sigmoid volvulus Code(s): K56.2 - VOLVULUS (4) Neck mass Code(s): R22.1 - LOCALIZED SWELLING, MASS AND LUMP, NECK
--- NOTE | 2018-06-09 16:13 | EKG ---
Test Reason : Blood Pressure : / mmHG Vent. Rate : 147 BPM Atrial Rate : 147 BPM P-R Int : 000 ms QRS Dur : 070 ms QT Int : 324 ms P-R-T Axes : 031 -12 057 degrees QTc Int : 507 ms POOR DATA QUALITY, INTERPRETATION MAY BE ADVERSELY AFFECTED SINUS TACHYCARDIA WITH PREMATURE ATRIAL COMPLEXES WITH ABERRANT CONDUCTION MINIMAL VOLTAGE CRITERIA FOR LVH, MAY BE NORMAL VARIANT INFERIOR INFARCT (CITED ON OR BEFORE 11-NOV-2011) ABNORMAL ECG WHEN COMPARED WITH ECG OF 23-NOV-2014 19:42, ABERRANT CONDUCTION IS NOW PRESENT VENT. RATE HAS INCREASED BY [address] NOW DEPRESSED IN LATERAL LEADS Confirmed by MD Dariel, Simeon ([id number]) on 06/09/2018 4:13:19 PM Referred By: Confirmed By:Simeon Vieira MD
[2018-06-09] MEDS ORDERED: PIPERACILLIN/TAZOB 4.5 GM 4.5 GM in DEXTROSE 5%-WATER 100 ML IVPB SCH (16:15)
[2018-06-09] MEDS ORDERED: PIPERACILLIN/TAZOBACTAM 4.5 GM VIAL IVPB ONE ×2 (16:34→21:32)
[2018-06-09] MEDS ORDERED: DEXTROSE 5%-WATER 100 ML IVPB ONE ×2 (16:34→21:32)
[2018-06-09] MEDS: KCL 10 MEQ IVPB 10 MEQ/100 ML INFUS.BAG IVPB SCH ×3 (16:35→18:55)
[2018-06-09] MEDS: LACTATED RINGERS SOLUTION 1,000 ML IV SCH (16:36)
[2018-06-09] MEDS: MIDAZOLAM 100 MG in SODIUM CHLORIDE 100 ML IVPB SCH (17:00)
[2018-06-09] MEDS: MUPIROCIN 2% TOPICAL OINTMENT FOR DECOLONIZATION NS SCH ×2 (17:34→21:37)
--- NOTE | 2018-06-09 17:46 | CON.CARD ---
Consult Consult Specialty:: cardiology Referred by:: Dr. Lopes Reason for Consultation:: sepsis, tachcyardia - History of Present Illness Chief Complaint: a History of Present Illness: 52 year old woman [place] resident admitted with abd pain, ams, found to have sigmoid volvulus and pneumoperitoneum, noted to be sinus tach. Pt went to OR s/p hartmans procedure. pt febrile and tachycardia preop. post op in icu intubated, mech ventilated, on pressor support. no arrhythmias seen seen in icu, intubated, responsive to questions. on pressors. 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: Yes: Other (spinal cord trauma) Renal/: Yes: Neurogenic Bladder, UTI Psych: Yes: Addictions (tobacco abuse), Depression, Other (hx suicide attempt resulting in pt becoming a paraglegic) Dermatology: Yes: Other (L hallux ulcer, gluteal ulcer) - Past Surgical History Past Surgical History: Yes: , Tonsillectomy - Alcohol/Substance Use Hx Alcohol Use: No - Smoking History Smoking history: Unknown if ever smoked Have you smoked in the past 12 months: Yes Aproximately how many cigarettes per day: 3 - Social History ADL: Support Services 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, 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 Home Medications - Allergies Allergies/Adverse Reactions: Allergies Allergy/AdvReac Type Severity Reaction Status Date / Time prednisone Allergy Mild GI UPSET Verified 06/09/18 01:53 - Home Medications Home Medications: Ambulatory Orders Albuterol So4/Ipratropium [Combivent Inhaler -] 1 inh PO QID 11/11/11 Baclofen 20 mg PO QID 11/11/11 Docusate Sodium [Colace -] 100 mg PO HS PRN 11/11/11 Gabapentin [Neurontin -] 600 mg PO Q8H 11/11/11 Oxybutynin Chloride [Ditropan Xl] 10 mg PO DAILY 11/11/11 Polyethylene Glycol 3350 [Miralax] 17 gm PO DAILY 11/11/11 clonazePAM [Klonopin -] 0.5 mg PO BID 11/11/11 Benztropine Mesylate [Cogentin -] 0.5 mg PO DAILY tablet 11/28/14 Acetaminophen [Tylenol -] 650 mg PO Q4H PRN 06/09/18 Bisacodyl [Dulcolax] 10 mg PO DAILY 06/09/18 Calcium Carbonate [Calcium] 1,200 mg PO DAILY 06/09/18 Fluoxetine HCl [Prozac] 40 mg PO DAILY 06/09/18 Haloperidol [Haldol -] 5 mg PO DAILY 06/09/18 Latanoprost 0.005% Eye Drops [Xalatan 0.005% Eye Drops -] 1 drop OU HS 06/09/18 Linaclotide [Linzess] 72 mcg PO HS 06/09/18 Mineral Oil Enema [Fleet Mineral Oil Rectal Enema] 133 ml RC DAILY PRN 06/09/18 Montelukast Sodium [Singulair] 10 mg PO DAILY 06/09/18 Simethicone 80 mg PO Q8H PRN 06/09/18 clonazePAM [Klonopin -] 0.5 mg PO HS 06/09/18 Family Disease History - Family Disease History Family Disease History: Diabetes: Mother, Brother Review of Systems - Review of Systems Constitutional: reports: Fever, Weakness, Other Gastrointestinal: reports: Abdominal Pain Vital Signs: Vital Signs Temperature 98.5 F 06/09/18 16:47 Pulse Rate 88 06/09/18 17:00 Respiratory Rate 11 06/09/18 17:00 Blood Pressure 102/90 06/09/18 17:00 O2 Sat by Pulse Oximetry (%) 100 06/09/18 16:57 Constitutional: Yes: No Distress Eyes: Yes: Conjunctiva Clear Respiratory: Yes: Regular, Intubated, Mechanically Ventilated. No: SOB, Wheezes Cardiovascular: Yes: Regular Rate and Rhythm. No: Bradycardia, Tachycardia, Pulse Irregular, Gallop, Rub, Varicosities JVD: No Carotid Bruit: No PMI: Non-Displaced Heart Sounds: Yes: S1, S2. No: Split S2, S3, S4, Clicks, Gallop, Rub, Bruit Murmur: No: Systolic Murmur, Diastolic Murmur, Grade 1, Grade 2 Edema: No Peripheral Pulses WNL: Yes Neurological: Yes: Alert Psychiatric: Yes: Alert - Other Data Labs, Other Data: CBC, BMP 06/09/18 13:30 06/09/18 13:30 INR, PTT INR 1.39 (0.83-1.09) H 06/09/18 02:21 Troponin, BNP 06/09/18 02:21 Troponin I < 0.02 Troponin, BNP 06/09/18 02:21 Troponin I < 0.02 sinus tach 147bpm with apcs and lvh Imaging - Results Chest X-ray: Report Reviewed, Image Reviewed EKG: Report Reviewed, Image Reviewed Other: Report Reviewed, Image Reviewed (tele-nsr, sinus tach) Assessment/Plan 52 year old [place] resident admitted with abd pain, ams, found to have sigmoid volvulus and pneumoperitoneum, noted to be sinus tach. Pt went to OR s/p hartmans procedure. pt febrile and tachycardia preop. post op in icu intubated, mech ventilated, on pressor support. no arrhythmias seen tachycardia-sinus tach secondary to septic shock, perforated colon, fever -no arrhythmias noted -cont pressor support -care as per ICU -would not use AV ila blockers to slow sinus tach -no cardiac work up needed at this time. Please call with any additional questions.
--- NOTE | 2018-06-09 19:34 | CONS ---
DATE OF CONSULTATION: DATE OF DICTATION: 06/09/2018 INFECTIOUS DISEASE CONSULTATION REQUESTING PHYSICIAN: José Miguel Jones M.D. CONSULTING PHYSICIAN: Kayla Lizama M.D. HISTORY OF PRESENT ILLNESS: This is a 52-year-old woman [facility] with fever to 104, abdominal pain, lethargy. She was found to have a pneumoperitoneum on imaging, and she was taken to the operating room. She was found to have a sigmoid perforation, and she underwent a Lobo procedure. I am asked to see her for antibiotic recommendation. She remains intubated postoperatively, and she is on 2 pressors. She is awakening slowly and is able to open her eyes and squeeze with her left hand. PAST MEDICAL HISTORY: Notable for paraplegia after falling from a elevator height from a suicide attempt, major depressive disorder, anxiety, chronic obstructive pulmonary disease, diabetes, GERD, glaucoma. She was found to have her surgical history notable for and tonsillectomy. She has a history of neurogenic bladder and UTI in the past as well. SOCIAL HISTORY: She has a history of cigarette use, no substance use. She is allergic to PREDNISONE which gives her a GI upset. MEDICATION: Her medications at the [facility] include simethicone, Singulair, Xalatan eyedrops, Prozac, Klonopin, Haldol, Fleet mineral oil enemas, calcium carbonate, Dulcolax, Tylenol, Klonopin, Miralax, Ditropan, Neurontin, Colace, Cogentin, and Combivent. SOCIAL HISTORY: She resides at the pen[facility]iary. REVIEW OF SYSTEMS: Not known, per the ER notes she was awake but unable to answer questions, and she had a distended taut abdomen with pain in the emergency room. PHYSICAL EXAMINATION: VITAL SIGNS: Her temperature is 98.5, T-max 104.2 in the ER, pulse of 84, blood pressure 112/67, respiratory rate is 10. HEENT: Normocephalic. Eyes are anicteric. NECK: Supple. She is already intubated. LUNGS: Diminished breath sounds at the bases. HEART: Regular rate and rhythm. ABDOMEN: Has a dressing intact. She has an ostomy that already has a little fluid in it. She has a midline wound that apparently is tacked. It is a fresh operative site, as she just had surgery today. She underwent Lobo procedure earlier today with findings of obstructing sigmoid volvulus, redundant dilated sigmoid colon. IMPRESSION: hypotension, fever- sepsis In summary, this is a 52-year-old woman with fever status post perforated sigmoid colon and Lobo pouch just returned from the operating room. She is intubated. As well she had a sigmoid volvulus. She has a femoral triple lumen catheter. Cultures have been sent from the emergency room. She has an open wound that is intact. I would suggest that we treat her with Zosyn at this time to cover intraabdominal process given the high grade fever and the pneumoperitoneum. I would suggest we check her TSH as well. She had a CAT scan of her chest done in the emergency room as well as abdomen and pelvis that was notable for a right superior mediastinal lower neck mass that may represent an enlarged right lobe of the thyroid. She also had a sigmoid volvulus with free intraabdominal air suspicious for bowel perforation on the CAT scan. So in summary, this is a 52-year-old woman with sepsis secondary to perforated sigmoid volvulus with sigmoid colon, just returned from the operating room being intubated on pressors. At this point, she remains intubated. Would treat her empirically with Zosyn and check a TSH. Further recommendations to follow. KAYLA LIZAMA M.D. [id number] MTDD
[2018-06-09 19:55] LABS: ANION GAP 10 MMOL/L (8-16); BLOOD UREA NITROGEN 12 mg/dL (7-18); CHLORIDE 110 mmol/L (98-107); CO2 20 mmol/L (21-32); CREATININE 0.7 mg/dL (0.55-1.3); POTASSIUM 3.1 mmol/L (3.5-5.1); SODIUM 140 mmol/L (136-145)
[2018-06-09 19:57] LABS: GLUCOSE,RANDOM 333 mg/dL (74-106)
[2018-06-09 19:58] LABS: CALCIUM 6.9 mg/dL (8.5-10.1)
[2018-06-09] MEDS: PIPERACILLIN/TAZOB 4.5 GM 4.5 GM in DEXTROSE 5%-WATER 100 ML IVPB SCH (21:36)
[2018-06-09] MEDS: HEPARIN NA (PORCINE) 5,000 UNITS/ML 1ML VIAL SQ SCH (21:37)
[2018-06-09] MEDS: CHLORHEXIDINE GLUCONATE 4% CLEANSER FOR DECOLONIZATION TP SCH (21:37)
[2018-06-09] MEDS: LATANOPROST 0.005% OPHTH SOLN 2.5ML BOTTLE OU SCH (21:38)
[2018-06-09] MEDS ORDERED: HEPARIN NA (PORCINE) 5,000 UNITS/ML 1ML VIAL SQ SCH (22:00)
[2018-06-10] MEDS ORDERED: PIPERACILLIN/TAZOBACTAM 4.5 GM VIAL IVPB ONE ×4 (01:53→19:41)
[2018-06-10] MEDS ORDERED: DEXTROSE 5%-WATER 100 ML IVPB ONE ×4 (01:53→19:41)
[2018-06-10] MEDS: INSULIN SLIDING SCALE (NOVOLOG) 1 VIAL SQ SCH ×6 (02:04→22:55)
[2018-06-10] MEDS: PIPERACILLIN/TAZOB 4.5 GM 4.5 GM in DEXTROSE 5%-WATER 100 ML IVPB SCH ×4 (02:10→20:19)
[2018-06-10] MEDS ORDERED: fentaNYL CITRATE 250 MCG/5 ML VIAL ONE ×4 (04:46→20:11)
[2018-06-10] MEDS: FENTANYL INJECTION 500 MCG in DEXTROSE 5%-WATER - 90 ML IVPB SCH ×4 (05:03→16:00)
[2018-06-10] MEDS: HEPARIN NA (PORCINE) 5,000 UNITS/ML 1ML VIAL SQ SCH ×3 (06:13→21:29)
[2018-06-10 06:18] LABS: BASO % 0.5 % (0-2.0); EOS % 0.1 % (0-4.5); HEMATOCRIT 25.7 % (32.4-45.2); HEMOGLOBIN 8.7 GM/dL (10.7-15.3); LYMPH % 15.2 % (8-40); MCH 25.4 pg (25.7-33.7); MCHC 33.7 g/dl (32.0-36.0); MEAN CELL VOLUME 75.4 fl (80-96); MEAN PLT VOLUME 8.2 fl (7.5-11.1); MONO % 10.7 % (3.8-10.2); NEUT % 73.5 % (42.8-82.8); PLATELET COUNT 343 K/MM3 (134-434); RBC 3.41 M/mm3 (3.60-5.2); RDW 16.4 % (11.6-15.6); WHITE BLOOD COUNT 11.2 K/mm3 (4.0-10.0)
[2018-06-10 07:01] LABS: ALBUMIN 1.6 g/dl (3.4-5.0); ALK PHOS 72 U/L (45-117); ANION GAP 10 MMOL/L (8-16); BILIRUBIN,TOTAL 1.2 mg/dL (0.2-1); BLOOD UREA NITROGEN 11 mg/dL (7-18); CHLORIDE 106 mmol/L (98-107); CO2 21 mmol/L (21-32); CREATININE 0.8 mg/dL (0.55-1.3); GLUCOSE,RANDOM 229 mg/dL (74-106); MAGNESIUM 1.2 mg/dL (1.8-2.4); PHOSPHOROUS 1.5 mg/dL (2.5-4.9); SGOT/AST 41 U/L (15-37); SGPT/ALT 23 U/L (13-61); SODIUM 137 mmol/L (136-145)
[2018-06-10 07:06] LABS: CALCIUM 6.8 mg/dL (8.5-10.1)
--- NOTE | 2018-06-10 07:42 | PN ---
Progress Note, Physician - Current Medication List Current Medications: Active Medications Acetaminophen (Ofirmev Injection -) 1,000 mg IVPB Q6H PRN PRN Reason: PAIN LEVEL 7 - 10 Chlorhexidine Gluconate (Hibiclens For Decolonization -) 1 applic TP HS DANNA Last Admin: 06/09/18 21:37 Dose: 1 applic Heparin Sodium (Porcine) (Heparin -) 5,000 unit SQ TID DANNA Last Admin: 06/10/18 06:13 Dose: 5,000 unit Norepinephrine Bitartrate 4, (000 mcg/ Dextrose) 500 mls @ 37.5 mls/hr IV TITR DANNA; Protocol Last Titration: 06/09/18 16:31 Dose: 12 mcg/min, 90 mls/hr Midazolam HCl 100 mg/ Sodium (Chloride) 100 mls @ 4 mls/hr IVPB TITR DANNA; Protocol Last Titration: 06/09/18 23:00 Dose: 5 mg/hr, 5 mls/hr Vasopressin 50 units/ Sodium (Chloride) 100 mls @ 4 mls/hr IVPB ASDIR DANNA; Protocol Last Titration: 06/09/18 18:55 Dose: 4 units/hr, 8 mls/hr Lactated Ringer's (Lactated Ringers Solution) 1,000 mls @ 125 mls/hr IV ASDIR DANNA Last Admin: 06/09/18 16:36 Dose: 125 mls/hr Piperacillin Sod/Tazobactam (Sod 4.5 gm/ Dextrose) 100 mls @ 200 mls/hr IVPB Q6H-IV DANNA; Protocol Last Admin: 06/10/18 02:10 Dose: 200 mls/hr Fentanyl 500 mcg/ Dextrose 100 mls @ 20 mls/hr IVPB TITR DANNA Last Admin: 06/10/18 05:03 Dose: 100 mcg/hr, 20 mls/hr Potassium Phosphate 20 mm/ (Sodium Chloride) 256.6667 mls @ 62.5 mls/hr IVPB ONCE ONE Stop: 06/10/18 11:36 Insulin Aspart (Novolog Vial Sliding Scale -) 1 vial SQ Q4HPO DANNA; Protocol Last Admin: 06/10/18 05:39 Dose: Not Given Latanoprost (Xalatan 0.005% Eye Drops -) 1 drop OU HS DANNA Last Admin: 06/09/18 21:38 Dose: 1 drop Magnesium Oxide (Mag-Ox -) 400 mg PO ONCE ONE Stop: 06/10/18 07:32 Morphine Sulfate (Morphine Sulfate) 4 mg IVPUSH Q4H PRN PRN Reason: PAIN LEVEL 1-5 Mupirocin (Bactroban Ointment (For Decolonization) -) 1 applic NS BID DANNA Stop: 06/14/18 09:59 Last Admin: 06/09/18 21:37 Dose: Not Given - Objective Vital Signs: Vital Signs Temperature 100 F H 06/10/18 05:58 Pulse Rate 82 06/10/18 05:58 Respiratory Rate 12 06/10/18 06:16 Blood Pressure 109/91 06/10/18 05:58 O2 Sat by Pulse Oximetry (%) 100 06/09/18 21:00 Cardiovascular: Yes: S1, S2 Respiratory: Yes: Mechanically Ventilated Gastrointestinal: Yes: Hypoactive Bowel Sounds Labs: CBC, BMP 06/10/18 05:30 06/10/18 05:30 INR, PTT INR 1.39 (0.83-1.09) H 06/09/18 02:21 Assessment/Plan - Problems (1) Altered mental status Assessment/Plan: -2/2 sepsis -IV abx -ID consult -BC/UC -Acetaminophen IV for fever over 100.0F -Cooling blanket if needed for fever over 101.0F -monitor labs -lactic acid normal -IVF -will need ICU monitoring Code(s): R41.82 - ALTERED MENTAL STATUS, UNSPECIFIED Qualifiers: Altered mental status type: disorientation Qualified Code(s): R41.0 - Disorientation, unspecified (2) Pneumoperitoneum Assessment/Plan: -IV abx -ID consult -Surgery Operative Date: 06/09/18 Pre-Operative Diagnosis: pneumoperitoneum Operation: Hartmans procedure Findings: obstructing sigmoid volvulus; redundant dilated sigmoid colon. Post-Operative Diagnosis: Other (obstructing sigmoid volvulus) Surgeon: Michael Vaughan -BC/UC -Acetaminophen IV for fever over 100.0F -Cooling blanket if needed for fever over 101.0F -monitor labs -IVF -will need ICU monitoring Code(s): K66.8 - OTHER SPECIFIED DISORDERS OF PERITONEUM (3) Sigmoid volvulus Code(s): K56.2 - VOLVULUS (4) Diabetes Assessment/Plan: -BGM AC HS -On D5 1/2N/S+ KCl 20 meq @ 75 cc/hr -check A1c -Novolog sliding scale Code(s): E11.9 - TYPE 2 DIABETES MELLITUS WITHOUT COMPLICATIONS (5) Paraplegia Code(s): G82.20 - PARAPLEGIA, UNSPECIFIED (6) Hypokalemia Assessment/Plan: -2/2 to NPO status -replace as needed -Change IVF to D5 1/2N/S + KCl20 meq @ 75 cc/hr -monitor trend Code(s): E87.6 - HYPOKALEMIA
[2018-06-10 07:51] LABS: BILIRUBIN,DIRECT 0.9 mg/dL (0.0-0.2)
[2018-06-10] MEDS: NOREPINEPHRINE BITARTRATE 4,000 MCG in DEXTROSE 5%-WATER - 496 ML IV SCH ×2 (07:53→13:37)
[2018-06-10] MEDS ORDERED: MAGNESIUM OXIDE 400 MG TABLET (FP) PO ONE (08:15)
[2018-06-10] MEDS: MIDAZOLAM 100 MG in SODIUM CHLORIDE 100 ML IVPB SCH ×3 (08:30→16:00)
[2018-06-10] MEDS ORDERED: POTASSIUM PHOSPHATE 20 MM in SODIUM CHLORIDE 250 ML IVPB ONE (08:30)
[2018-06-10] MEDS ORDERED: MAGNESIUM SULF 50% (8.12 MEQ/2 ML-1 GM VIAL) IVPB ONE (08:51)
[2018-06-10] MEDS ORDERED: MIDAZOLAM 100 MG/100 ML MG IVPB ONE ×3 (08:51→20:12)
--- NOTE | 2018-06-10 09:08 | PN ---
Progress Note (short form) - Note Progress Note: remains intubated required sedation last night remains on pressors Vital Signs Period Temp Pulse Resp BP Sys/Benito Pulse Ox Last 24 Hr 97.2 F-102 F 82-99 10-24 78-144/52-94 97-100 cor-rrr lungs clear abd dressing intact-open wound packed +ostomy with stool +BS ext no edema femoral TLC CBC, BMP 06/10/18 05:30 06/10/18 05:30 Microbiology 06/09/18 02:21 Blood - Peripheral Venous Blood Culture - Preliminary NO GROWTH OBTAINED AFTER 24 HOURS, INCUBATION TO CONTINUE FOR 4 DAYS. 06/09/18 02:21 Blood - Peripheral Venous Blood Culture - Preliminary NO GROWTH OBTAINED AFTER 24 HOURS, INCUBATION TO CONTINUE FOR 4 DAYS. Current Medications Acetaminophen (Ofirmev Injection -) 1,000 mg IVPB Q6H PRN PRN Reason: PAIN LEVEL 7 - 10 Chlorhexidine Gluconate (Hibiclens For Decolonization -) 1 applic TP HS DANNA Last Admin: 06/09/18 21:37 Dose: 1 applic Heparin Sodium (Porcine) (Heparin -) 5,000 unit SQ TID DANNA Last Admin: 06/10/18 06:13 Dose: 5,000 unit Norepinephrine Bitartrate 4, (000 mcg/ Dextrose) 500 mls @ 37.5 mls/hr IV TITR DANNA; Protocol Last Titration: 06/09/18 16:31 Dose: 12 mcg/min, 90 mls/hr Midazolam HCl 100 mg/ Sodium (Chloride) 100 mls @ 4 mls/hr IVPB TITR DANNA; Protocol Last Titration: 06/09/18 23:00 Dose: 5 mg/hr, 5 mls/hr Vasopressin 50 units/ Sodium (Chloride) 100 mls @ 4 mls/hr IVPB ASDIR DANNA; Protocol Last Titration: 06/09/18 18:55 Dose: 4 units/hr, 8 mls/hr Lactated Ringer's (Lactated Ringers Solution) 1,000 mls @ 125 mls/hr IV ASDIR DANNA Last Admin: 06/09/18 16:36 Dose: 125 mls/hr Piperacillin Sod/Tazobactam (Sod 4.5 gm/ Dextrose) 100 mls @ 200 mls/hr IVPB Q6H-IV DANNA; Protocol Last Admin: 06/10/18 02:10 Dose: 200 mls/hr Fentanyl 500 mcg/ Dextrose 100 mls @ 20 mls/hr IVPB TITR DANNA Last Admin: 06/10/18 05:03 Dose: 100 mcg/hr, 20 mls/hr Potassium Phosphate 20 mm/ (Sodium Chloride) 256.6667 mls @ 62.5 mls/hr IVPB ONCE ONE Stop: 06/10/18 12:36 Insulin Aspart (Novolog Vial Sliding Scale -) [address] [facility]; Protocol Last Admin: 06/10/18 05:39 Dose: Not Given Latanoprost (Xalatan 0.005% Eye Drops -) 1 drop OU HS DANNA Last Admin: 06/09/18 21:38 Dose: 1 drop Morphine Sulfate (Morphine Sulfate) 4 mg IVPUSH Q4H PRN PRN Reason: PAIN LEVEL 1-5 Mupirocin (Bactroban Ointment (For Decolonization) -) 1 applic NS BID DANNA Stop: 06/14/18 09:59 Last Admin: 06/09/18 21:37 Dose: Not Given a/p sepsis s/p ex lap for pneumoperitoneum/sigmoid volvolus-hartmans procedure pressors being tapered continue zosyn for empiric intraabdominal coverage surgery to do dressing change consider change femoral TLC f/u cultures Problem List - Problems (1) Sepsis Code(s): A41.9 - SEPSIS, UNSPECIFIED ORGANISM (2) Perforated sigmoid colon Code(s): K63.1 - PERFORATION OF INTESTINE (NONTRAUMATIC) (3) Sigmoid volvulus Code(s): K56.2 - VOLVULUS (4) Neck mass Code(s): R22.1 - LOCALIZED SWELLING, MASS AND LUMP, NECK
[2018-06-10] MEDS: VASOPRESSIN 50 UNITS in SODIUM CHLORIDE 97.5 ML IVPB SCH ×2 (09:52→16:00)
[2018-06-10] MEDS ORDERED: SOLIFENACIN SUCCINATE 5 MG TAB PO SCH (10:00)
[2018-06-10] MEDS ORDERED: FLUoxetine HCL 20 MG CAPSULE (FP) PO SCH (10:00)
[2018-06-10] MEDS: MUPIROCIN 2% TOPICAL OINTMENT FOR DECOLONIZATION NS SCH ×2 (10:08→21:25)
[2018-06-10 11:03] LABS: ANISOCYTOSIS 1+; MACROCYTOSIS 1+; PLATELET ESTIMATE NORMAL
--- NOTE | 2018-06-10 11:49 | PN ---
Physical Exam: SUBJECTIVE: Patient seen and examined at bedside this morning. She remains intubated sedated. Case discussed with patient's family at bedside. Obtained consent for central venous catheter placed today. OBJECTIVE: Vital Signs Period Temp Pulse Resp BP Sys/Benito Pulse Ox Last 24 Hr 97.2 F-102 F 82-99 10-24 78-144/50-94 97-100 GENERAL: female, sedated and intubated. HEENT: Normocephalic, atraumatic. PERRL, conjunctiva clear. Right sided internal jugular venous catheter. LUNGS: Intubated. Mechanical breath sounds equal, clear to auscultation bilaterally. No wheezes, and no crackles. HEART: Distant heart sounds. Regular rate and rhythm, normal S1 and S2 auscultated without murmur, rub or gallop. ABDOMEN: Obese. Soft, not distended. Hypoactive bowel sounds X4 quadrants. No hepatomegaly palpated or percussed. Abdominal surgical site bandaged clean, dry , intact. 1X DAISHA drain noted. Left sided colostomy bag in place. UPPER EXTREMITIES: 1+ radial pulses bilaterally, warm, well-perfused. Cap refill <2 seconds. LOWER EXTREMITIES: 1+ dorsalis pedis pulses bilaterally, warm, well-perfused. NEUROLOGICAL: Patient is sedated. Good muscle tone X4 extremities. SKIN: Warm, dry. Abdominal surgical site bandaged clean, dry, intact. Laboratory Results - last 24 hr 06/09/18 06/09/18 06/09/18 13:30 13:30 13:30 WBC 8.0 RBC 3.44 L Hgb 8.5 L Hct 26.0 L D MCV 75.7 L MCH 24.6 L MCHC 32.5 RDW 16.4 H Plt Count 364 D MPV 7.9 Absolute Neuts (auto) Neutrophils % Neutrophils % (Manual) Band Neutrophils % Lymphocytes % Lymphocytes % (Manual) Monocytes % Monocytes % (Manual) Eosinophils % Eosinophils % (Manual) Basophils % Basophils % (Manual) Myelocytes % (Man) Promyelocytes % (Man) Blast Cells % (Manual) Nucleated RBC % Metamyelocytes Hypochromia Platelet Estimate Polychromasia Poikilocytosis Anisocytosis Microcytosis Macrocytosis Anticoagulation Therapy Puncture Site ABG pH ABG pCO2 at Pt Temp ABG pO2 at Pt Temp ABG HCO3 ABG O2 Sat (Measured) ABG O2 Content ABG Base Excess Matthew Test O2 Delivery Device Oxygen Flow Rate Vent Mode Vent Rate Mechanical Rate PEEP Pressure Support Vent Sodium 144 Potassium 2.7 L* Chloride 113 H Carbon Dioxide 22 Anion Gap 9 BUN 14 Creatinine 0.7 Creat Clearance w eGFR > 60 POC Glucometer Random Glucose 256 H Hemoglobin A1c % Lactic Acid 3.5 H* Calcium 6.9 L* Phosphorus Magnesium Total Bilirubin Direct Bilirubin AST ALT Alkaline Phosphatase Total Protein Albumin 1.5 L TSH 06/09/18 06/09/18 06/09/18 15:15 18:45 18:45 WBC RBC Hgb Hct MCV MCH MCHC RDW Plt Count MPV Absolute Neuts (auto) Neutrophils % Neutrophils % (Manual) Band Neutrophils % Lymphocytes % Lymphocytes % (Manual) Monocytes % Monocytes % (Manual) Eosinophils % Eosinophils % (Manual) Basophils % Basophils % (Manual) Myelocytes % (Man) Promyelocytes % (Man) Blast Cells % (Manual) Nucleated RBC % Metamyelocytes Hypochromia Platelet Estimate Polychromasia Poikilocytosis Anisocytosis Microcytosis Macrocytosis Anticoagulation Therapy No Result Required. Puncture Site Arterial line ABG pH 7.31 L ABG pCO2 at Pt Temp 37.8 ABG pO2 at Pt Temp 149.0 H D ABG HCO3 18.5 L ABG O2 Sat (Measured) 98.9 ABG O2 Content 12.3 L ABG Base Excess -6.6 L Matthew Test Positive O2 Delivery Device Vent Oxygen Flow Rate 50% Vent Mode No Result Required. Vent Rate 10 Mechanical Rate A/c PEEP 5.0 Pressure Support Vent 600 Sodium 140 Potassium 3.1 L Chloride 110 H Carbon Dioxide 20 L Anion Gap 10 BUN 12 Creatinine 0.7 Creat Clearance w eGFR > 60 POC Glucometer Random Glucose 333 H* Hemoglobin A1c % Lactic Acid 2.5 H* Calcium 6.9 L* Phosphorus Magnesium Total Bilirubin Direct Bilirubin AST ALT Alkaline Phosphatase Total Protein Albumin [facility] 06/09/18 06/10/18 06/10/18 22:27 02:02 05:30 WBC 11.2 H RBC 3.41 L Hgb 8.7 L Hct 25.7 L MCV 75.4 L MCH 25.4 L MCHC 33.7 RDW 16.4 H Plt Count 343 MPV 8.2 Absolute Neuts (auto) 8.2 H Neutrophils % 73.5 Neutrophils % (Manual) 57.6 Band Neutrophils % 14.1 Lymphocytes % 15.2 D Lymphocytes % (Manual) 11.1 D Monocytes % 10.7 H Monocytes % (Manual) 9 Eosinophils % 0.1 Eosinophils % (Manual) 0.0 Basophils % 0.5 D Basophils % (Manual) 1.0 D Myelocytes % (Man) 0 Promyelocytes % (Man) 0 Blast Cells % (Manual) 0 Nucleated RBC % 0 Metamyelocytes 7 H D Hypochromia 0 Platelet Estimate Normal Polychromasia 0 Poikilocytosis 1+ Anisocytosis 1+ Microcytosis 0 Macrocytosis 1+ Anticoagulation Therapy Puncture Site ABG pH ABG pCO2 at Pt Temp ABG pO2 at Pt Temp ABG HCO3 ABG O2 Sat (Measured) ABG O2 Content ABG Base Excess Matthew Test O2 Delivery Device Oxygen Flow Rate Vent Mode Vent Rate Mechanical Rate PEEP Pressure Support Vent Sodium Potassium Chloride Carbon Dioxide Anion Gap BUN Creatinine Creat Clearance w eGFR POC Glucometer 286 237 Random Glucose Hemoglobin A1c % Lactic Acid Calcium Phosphorus Magnesium Total Bilirubin Direct Bilirubin AST ALT Alkaline Phosphatase Total Protein Albumin TSH 06/10/18 06/10/18 06/10/18 05:30 05:30 05:34 WBC RBC Hgb Hct MCV MCH MCHC RDW Plt Count MPV Absolute Neuts (auto) Neutrophils % Neutrophils % (Manual) Band Neutrophils % Lymphocytes % Lymphocytes % (Manual) Monocytes % Monocytes % (Manual) Eosinophils % Eosinophils % (Manual) Basophils % Basophils % (Manual) Myelocytes % (Man) Promyelocytes % (Man) Blast Cells % (Manual) Nucleated RBC % Metamyelocytes Hypochromia Platelet Estimate Polychromasia Poikilocytosis Anisocytosis Microcytosis Macrocytosis Anticoagulation Therapy Puncture Site ABG pH ABG pCO2 at Pt Temp ABG pO2 at Pt Temp ABG HCO3 ABG O2 Sat (Measured) ABG O2 Content ABG Base Excess Matthew Test O2 Delivery Device Oxygen Flow Rate Vent Mode Vent Rate Mechanical Rate PEEP Pressure Support Vent Sodium 137 Potassium 3.0 L Chloride 106 Carbon Dioxide 21 Anion Gap 10 BUN 11 Creatinine 0.8 Creat Clearance w eGFR > 60 POC Glucometer 198 Random Glucose 229 H Hemoglobin A1c % 6.3 Lactic Acid Calcium 6.8 L* Phosphorus 1.5 L Magnesium 1.2 L Total Bilirubin 1.2 H Direct Bilirubin 0.9 H AST 41 H ALT 23 Alkaline Phosphatase 72 Total Protein 4.0 L Albumin 1.6 L TSH 0.45 06/10/18 10:04 WBC RBC Hgb Hct MCV MCH MCHC RDW Plt Count MPV Absolute Neuts (auto) Neutrophils % Neutrophils % (Manual) Band Neutrophils % Lymphocytes % Lymphocytes % (Manual) Monocytes % Monocytes % (Manual) Eosinophils % Eosinophils % (Manual) Basophils % Basophils % (Manual) Myelocytes % (Man) Promyelocytes % (Man) Blast Cells % (Manual) Nucleated RBC % Metamyelocytes Hypochromia Platelet Estimate Polychromasia Poikilocytosis Anisocytosis Microcytosis Macrocytosis Anticoagulation Therapy Puncture Site ABG pH ABG pCO2 at Pt Temp ABG pO2 at Pt Temp ABG HCO3 ABG O2 Sat (Measured) ABG O2 Content ABG Base Excess Matthew Test O2 Delivery Device Oxygen Flow Rate Vent Mode Vent Rate Mechanical Rate PEEP Pressure Support Vent Sodium Potassium Chloride Carbon Dioxide Anion Gap BUN Creatinine Creat Clearance w eGFR POC Glucometer 170 Random Glucose Hemoglobin A1c % Lactic Acid Calcium Phosphorus Magnesium Total Bilirubin Direct Bilirubin AST ALT Alkaline Phosphatase Total Protein Albumin TSH Active Medications Generic Name Dose Route Start Last Admin Trade Name Mohamudq PRN Reason Stop Dose Admin Acetaminophen 1,000 mg 06/09/18 23:55 Ofirmev Injection - IVPB Q6H PRN PAIN LEVEL 7 - 10 Chlorhexidine Gluconate 1 applic 06/09/18 22:00 06/09/18 21:37 Hibiclens For Decolonization - TP 1 applic HS DANNA Administration Heparin Sodium (Porcine) 5,000 unit 06/09/18 22:00 06/10/18 06:13 Heparin - SQ 5,000 unit TID DANNA Administration Norepinephrine Bitartrate 4, 500 mls @ 37.5 mls/hr 06/09/18 13:00 06/10/18 10 :09 000 mcg/ Dextrose IV 6 mcg/min TITR DANNA 45 mls/hr Titration Protocol 5 MCG/MIN Midazolam HCl 100 mg/ Sodium 100 mls @ 4 mls/hr 06/09/18 13:00 06/10/18 08:30 Chloride IVPB 5 mg/hr TITR DANNA 5 mls/hr Administration Protocol 4 MG/HR Vasopressin 50 units/ Sodium 100 mls @ 4 mls/hr 06/09/18 13:45 06/10/18 09:52 Chloride IVPB 4 units/hr ASDIR DANNA 8 mls/hr Administration Protocol 2 UNITS/HR Lactated Ringer's 1,000 mls @ 125 mls/hr 06/09/18 15:31 06/09/18 16:36 Lactated Ringers Solution IV 125 mls/hr ASDIR DANNA Administration Piperacillin Sod/Tazobactam 100 mls @ 200 mls/hr 06/09/18 21:00 06/10/18 09: 51 Sod 4.5 gm/ Dextrose IVPB 200 mls/hr Q6H-IV DANNA Administration Protocol Fentanyl 500 mcg/ Dextrose 100 mls @ 20 mls/hr 06/10/18 04:45 06/10/18 09:52 IVPB 100 mcg/hr TITR DANNA 20 mls/hr Administration 100 MCG/HR Potassium Phosphate 20 mm/ 256.6667 mls @ 62.5 mls/hr 06/10/18 08:30 10:07 Sodium Chloride IVPB 06/10/18 12:36 62.5 mls/hr ONCE ONE Administration Insulin Aspart 1 vial 06/09/18 22:15 06/10/18 10:08 Novolog Vial Sliding Scale - SQ Not Given Q4HPO [facility] Protocol Latanoprost 1 drop 06/09/18 22:00 06/09/18 21:38 Xalatan 0.005% Eye Drops - OU 1 drop HS DANNA Administration Morphine Sulfate 4 mg 06/09/18 15:39 Morphine Sulfate IVPUSH Q4H PRN PAIN LEVEL 1-5 Mupirocin 1 applic 06/09/18 10:00 06/10/18 10:08 Bactroban Ointment (For Decolonization) - NS 06/14/18 09:59 1 applic BID DANNA Administration ASSESSMENT/PLAN: Patient is a 52 year old female with history of paraplegia (after falling from elevated height from attempted suicide), major depressive disorder, anxiety, chronic obstructive pulmonary disease, diabetes mellitus, gastroesophageal reflus disease, glaucoma, s/p Bella's procedure. Admitted to ICU for postoperative management. Neurological, psychiatric -Patient is currently sedated -Midazolam drip -Fentanyl drip -Consider reinstating home psychiatric medications once awake. -Monitor for signs of mental status change. Pulmonary -Patient is intubated, mechanically ventillated -Ventilator settings: Respiratory rate 10, Tidal volume 600, FiO2 40%, PEEP 5 Cardiovascular -Patient is currently hypotensive. Follow Arterial line pressures. -Norepinepherine drip, Vasopressin drip. Titrate to maintain MAP greater than 65 -Monitor vital signs closely Gastrointestinal -Patient is POD #1 s/p Bella's procedure -General surgery recommendations appreciated -Follow colostomy bag output -Lactated Ringer's at 125mL/ hour -NPO Renal -Patient currently urinating clear yellow urine into em catheter -Follow intake and output closely. Endocrine Diabetes mellitus -Insulin sliding scale TID -Fingerstick blood glucose monitoring TID Infectious disease -Zosyn 4.5 grams IV Q6H (day #2) -ID recommendations (Dr. Hernández) appreciated. -Blood cultures negative for growth after 24 hours -Urine culture growing presumptive pseudomonas aeruginosa FEN -IV Lactated Ringer's at 125mL/ hour -Hypokalemia, hypocalcemia, hypophosphatemia, hypomagnesemia -repelted. Follow CMP, replete as necessary -NPO Lines, Tubes, Drains -Arterial line placed 06/09 -Abdominal DAISHA drain placed 06/09 -Em catheter placed 06/09 -Right sided central venous catheter placed / Prophylaxis -Heparin 5000u subq TID Disposition: Continue care in ICU Visit type - Emergency Visit Emergency Visit: Yes ED Registration Date: 06/09/18 Care time: The patient presented to the Emergency Department on the above date and was hospitalized for further evaluation of their emergent condition. - New Patient This patient is new to me today: No - Critical Care Critical Care patient: Yes Total Critical Care Time (in minutes): 45 Critical Care Statement: The care of this patient involved high complexity decision making to prevent further life threatening deterioration of the patient 's condition and/or to evaluate & treat vital organ system(s) failure or risk of failure. - Discharge Referral Referred to [facility] Med [facility] No
--- NOTE | 2018-06-10 12:14 | PN ---
Teaching Attending Note Name of Resident: Dedrick Duncan ATTENDING PHYSICIAN STATEMENT I saw and evaluated the patient. I reviewed the resident's note and discussed the case with the resident. I agree with the resident's findings and plan as documented. SUBJECTIVE: Pt seen and examined in the ICU. Remains intubated, sedated on levophed and vasopressin gtts. OBJECTIVE: Vital Signs Period Temp Pulse Resp BP Sys/Benito Pulse Ox Last 24 Hr 97.2 F-102 F 82-99 10-24 78-144/50-94 97-100 Intake & Output 06/07/18 06/08/18 06/09/18 06/10/18 23:59 23:59 23:59 23:59 Intake Total 54104.5 2132 Output Total 4105 450 Balance 9997.5 1682 Weight 109.316 kg 107.955 kg Gen: intubated, sedated Heart: RRR Lung: decreased breath sounds at the bases Abd: soft, +ostomy pink Ext: + edema CBC, BMP 06/10/18 05:30 06/10/18 05:30 Active Medications Acetaminophen (Ofirmev Injection -) 1,000 mg IVPB Q6H PRN PRN Reason: PAIN LEVEL 7 - 10 Chlorhexidine Gluconate (Hibiclens For Decolonization -) 1 applic TP HS DANNA Last Admin: 06/09/18 21:37 Dose: 1 applic Heparin Sodium (Porcine) (Heparin -) 5,000 unit SQ TID DANNA Last Admin: 06/10/18 06:13 Dose: 5,000 unit Norepinephrine Bitartrate 4, (000 mcg/ Dextrose) 500 mls @ 37.5 mls/hr IV TITR DANNA; Protocol Last Titration: 06/10/18 10:09 Dose: 6 mcg/min, 45 mls/hr Midazolam HCl 100 mg/ Sodium (Chloride) 100 mls @ 4 mls/hr IVPB TITR DANNA; Protocol Last Admin: 06/10/18 08:30 Dose: 5 mg/hr, 5 mls/hr Vasopressin 50 units/ Sodium (Chloride) 100 mls @ 4 mls/hr IVPB ASDIR DANNA; Protocol Last Admin: 06/10/18 09:52 Dose: 4 units/hr, 8 mls/hr Lactated Ringer's (Lactated Ringers Solution) 1,000 mls @ 125 mls/hr IV ASDIR DANNA Last Admin: 06/09/18 16:36 Dose: 125 mls/hr Piperacillin Sod/Tazobactam (Sod 4.5 gm/ Dextrose) 100 mls @ 200 mls/hr IVPB Q6H-IV [facility]; Protocol Last Admin: 06/10/18 09:51 Dose: 200 mls/hr Fentanyl 500 mcg/ Dextrose 100 mls @ 20 mls/hr IVPB TITR [facility] Last Admin: 06/10/18 09:52 Dose: 100 mcg/hr, 20 mls/hr Potassium Phosphate 20 mm/ (Sodium Chloride) 256.6667 mls @ 62.5 mls/hr IVPB ONCE ONE Stop: 06/10/18 12:36 Last Admin: 06/10/18 10:07 Dose: 62.5 mls/hr Insulin Aspart (Novolog Vial Sliding Scale -) 1 vial SQ Q4HPO [facility]; Protocol Last Admin: 06/10/18 10:08 Dose: Not Given Latanoprost (Xalatan 0.005% Eye Drops -) 1 drop OU HS [facility] Last Admin: 06/09/18 21:38 Dose: 1 drop Morphine Sulfate (Morphine Sulfate) 4 mg IVPUSH Q4H PRN PRN Reason: PAIN LEVEL 1-5 Mupirocin (Bactroban Ointment (For Decolonization) -) 1 applic NS BID [facility] Stop: 06/14/18 09:59 Last Admin: 06/10/18 10:08 Dose: 1 applic ASSESSMENT AND PLAN: Sigmoid Volvulus/Pneumoperitoneum/Fecal Peritonitis s/p ex-lap/Bella's procedure Septic Shock Lactic/Metabolic Acidosis COPD DM Paraplegia Depression - continue antibiotics - f/u cultures - replace central line - check CVP - IVF resuscitation to keep CVP 8-12 - titrate pressors to maintain MAP >65 - monitor urine output, creatinine - O2 to keep Spo2 >90% - not a candidate for weaning at this time due to hemodynamic instability - DVT/GI prophylaxis - continue ICU monitoring critical care time spent in reviewing chart, evaluating patient and formulating plan 35 min
--- NOTE | 2018-06-10 12:19 | PN ---
Progress Note (short form) - Note Progress Note: POD#1 Pt remains intubated and on 2 pressors today. On IV versed otherwise overbreathing the vent. Vital Signs Period Temp Pulse Resp BP Sys/Benito Pulse Ox Last 24 Hr 98.4 F-102 F 82-99 10-24 78-144/50-94 97-100 Mathis: 200ml GEN: opens eyes with stimulation HEENT: Intubated ABD: soft, non-distended. Ostomy viable and with brown stool. Midline incision: Clean, Packing removed and iodoform/saline dressing applied. No drainage noed from the incision. Few you at umbilicus otherwise skin edges open. CBC, BMP 06/10/ 05:30 06/10/18 05:30 Microbiology 06/09/18 02:45 Urine - Urine Mathis Urine Culture - Preliminary Presumptive Ps Aeruginosa 06/09/18 02:21 Blood - Peripheral Venous Blood Culture - Preliminary NO GROWTH OBTAINED AFTER 24 HOURS, INCUBATION TO CONTINUE FOR 4 DAYS. 06/09/18 02:21 Blood - Peripheral Venous Blood Culture - Preliminary NO GROWTH OBTAINED AFTER 24 HOURS, INCUBATION TO CONTINUE FOR 4 DAYS. A/P: 52 yo female s/p hartmans for pneumoperitoneum Wean to extubated as per the ICU team Local wound care(orders written for daily care) D/w Dr. Clement RÍOS-KAY Rodas
[2018-06-10] MEDS: PANTOPRAZOLE SODIUM 40 MG VIAL IVPUSH SCH (13:36)
[2018-06-10] MEDS ORDERED: PT OWN MED DRAWER 7, Y5N ONE (14:28)
--- NOTE | 2018-06-10 14:41 | PROC ---
Central Line Insertion Indication: CVP Monitoring, Vasopressor Risks and Benefits Explained: Yes Consent on Chart: Yes Central Line: Triple Lumen Catheter Anesthesia: 1% Lidocaine Position: Right Internal Jugular Post Insertion: Yes: Bilateral Breath Sounds, Bilateral Chest Expansion, Chest X-Ray Ordered Sterile Dressing Applied: Yes
--- NOTE | 2018-06-10 15:40 | ECHO ---
Name: MELLISA GOEL Exam:Adult Echocardiogram Study Date: 06/10/2018 02:53 PM Age: 52 yrs Reason For Study: Pericardial Effusion Height: 59 in Weight: 225 lb BSA: 1.9 m2 BP: 108/6 mmHg MMode/2D Measurements & Calculations IVSd: 0.72 cm Ao root diam: 2.5 cm LVIDd: 4.3 cm LA dimension: 2.8 cm LVIDs: 3.2 cm LVPWd: 0.90 cm EDV(Teich): 81.4 ml LVOT diam: 2.1 cm ESV(Teich): 39.7 ml Doppler Measurements & Calculations MV E max reji: 52.4 cm/sec Ao V2 max: 108.6 cm/sec MV A max reji: 46.1 cm/sec Ao max P.7 mmHg MV E/A: 1.1 Ao V2 mean: 76.5 cm/sec Ao mean P.6 mmHg Ao V2 VTI: 19.7 cm CHERYL(I,D): 2.1 cm2 CHERYL(V,D): 2.1 cm2 LV V1 max P.7 mmHg SV(LVOT): 41.9 ml LV V1 mean P.77 mmHg LV V1 max: 65.0 cm/sec LV V1 mean: 40.7 cm/sec LV V1 VTI: 11.9 cm TR max reji: 259.9 cm/sec Lat Peak E' Reji: 10.8 cm/sec TR max P.1 mmHg Lat E/e': 4.9 Procedure A two-dimensional transthoracic echocardiogram with color flow and Doppler was performed. The study w as technically difficult with many images being suboptimal in quality. Left Ventricle The left ventricular size, thickness and function are normal. The left ventricular ejection fraction is normal. Left Ventricular Filling pattern is normal for age. The left ventricular wall motion is jan l. Right Ventricle The right ventricle is not well visualized. Atria Normal left and right atrial size and function. Mitral Valve The mitral valve is not well visualized. There is no mitral valve stenosis. There is trace to mild mi tral regurgitation. Tricuspid Valve There is mild tricuspid valve thickening. There is no tricuspid stenosis. There is moderate to severe tricuspid regurgitation. Right ventricular systolic pressure is normal. Great Vessels The aortic root is not well visualized. Pericardium/Pleura Small pericardial effusion (<1cm). Trivial pericardial effusion not hemodynamically significant. Interpretation Summary The left ventricular size, thickness and function are normal The left ventricular ejection fraction is normal. The study was technically difficult with many images being suboptimal in quality. Small pericardial effusion (<1cm) The left ventricular wall motion is normal. Right ventricular systolic pressure is normal. There is moderate to severe tricuspid regurgitation. Left Ventricular Filling pattern is normal for age. There is trace to mild mitral regurgitation. Trivial pericardial effusion not hemodynamically significant MD Wilbert Ivy 06/10/2018 03:40 PM
[2018-06-10] MEDS: LACTATED RINGERS SOLUTION 1,000 ML IV SCH (16:22)
[2018-06-10] MEDS ORDERED: NOREPINEPHRINE BITARTRATE 4 MG/4 ML ML IV ONE (19:40)
[2018-06-10] MEDS ORDERED: VASOPRESSIN 20 UNITS/ML VIAL IV ONE (20:23)
[2018-06-10] MEDS: LATANOPROST 0.005% OPHTH SOLN 2.5ML BOTTLE OU SCH (21:24)
[2018-06-10] MEDS: CHLORHEXIDINE GLUCONATE 4% CLEANSER FOR DECOLONIZATION TP SCH (21:30)
[2018-06-10] MEDS ORDERED: BENZTROPINE MESYLATE 0.5 MG TABLET (FP) PO SCH (22:00)
--- NOTE | 2018-06-10 23:56 | CONSULT ---
Consult Consult Specialty:: endocrine Referred by:: joaquin garcía Reason for Consultation:: DM 2 - History of Present Illness Chief Complaint: INTUBATED SEDATED History of Present Illness: 52 Y FEMALE PMH DM2,HTN,PARAPLEGIA,ADMITTED FOR ABDOMINAL PAIN,FOUND TO HAVE PERFORATED SIGMOID COLON AND PNEUMOPERITONEUM ON CT SCAN.SP HARTMANS PROCEDURE FOR SIGMOID VOLVULOS.HAS REQUIRED INTUBATION AND IV PRESORS GIVEN CLINICAL PRESENTATION.BLOOD SUGARS HAVE REQUIRED INSULIN DOSE COVERAGE STRESS RELATED CONDITION - Past Medical History HOME HEALTH MANAGER: Yes: Other (spinal cord trauma) Renal/: Yes: Neurogenic Bladder, UTI Psych: Yes: Addictions (tobacco abuse), Depression, Other (hx suicide attempt resulting in pt becoming a paraglegic) Dermatology: Yes: Other (L hallux ulcer, gluteal ulcer) - Past Surgical History Past Surgical History: Yes: , Tonsillectomy - Alcohol/Substance Use Hx Alcohol Use: No - Smoking History Smoking history: Unknown if ever smoked Have you smoked in the past 12 months: Yes Aproximately how many cigarettes per day: 3 - Social History ADL: Support Services 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, 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 Home Medications - Allergies Allergies/Adverse Reactions: Allergies Allergy/AdvReac Type Severity Reaction Status Date / Time prednisone Allergy Mild GI UPSET Verified 06/09/18 01:53 - Home Medications Home Medications: Ambulatory Orders Albuterol So4/Ipratropium [Combivent Inhaler -] 1 inh PO QID 11/11/11 Baclofen 20 mg PO QID 11/11/11 Docusate Sodium [Colace -] 100 mg PO HS PRN 11/11/11 Gabapentin [Neurontin -] 600 mg PO Q8H 11/11/11 Oxybutynin Chloride [Ditropan Xl] 10 mg PO DAILY 11/11/11 Polyethylene Glycol 3350 [Miralax] 17 gm PO DAILY 11/11/11 clonazePAM [Klonopin -] 0.5 mg PO BID 11/11/11 Benztropine Mesylate [Cogentin -] 0.5 mg PO DAILY tablet 11/28/14 Acetaminophen [Tylenol -] 650 mg PO Q4H PRN 06/09/18 Bisacodyl [Dulcolax] 10 mg PO DAILY 06/09/18 Calcium Carbonate [Calcium] 1,200 mg PO DAILY 06/09/18 Fluoxetine HCl [Prozac] 40 mg PO DAILY 06/09/18 Haloperidol [Haldol -] 5 mg PO DAILY 06/09/18 Latanoprost 0.005% Eye Drops [Xalatan 0.005% Eye Drops -] 1 drop OU HS 06/09/18 Linaclotide [Linzess] 72 mcg PO HS 06/09/18 Mineral Oil Enema [Fleet Mineral Oil Rectal Enema] 133 ml RC DAILY PRN 06/09/18 Montelukast Sodium [Singulair] 10 mg PO DAILY 06/09/18 Simethicone 80 mg PO Q8H PRN 06/09/18 clonazePAM [Klonopin -] 0.5 mg PO HS 06/09/18 Family Disease History - Family Disease History Family Disease History: Diabetes: Mother, Brother Physical Exam Vital Signs: Vital Signs Temperature 98.9 F 06/10/18 18:00 Pulse Rate 85 06/10/18 18:00 Respiratory Rate 10 06/10/18 23:48 Blood Pressure 121/68 06/10/18 18:00 O2 Sat by Pulse Oximetry (%) 97 06/10/18 10:00 Constitutional: Yes: Other Eyes: Yes: WNL HENT: Yes: WNL Neck: Yes: WNL Cardiovascular: Yes: Tachycardia Respiratory: Yes: Intubated Gastrointestinal: Yes: Abdomen, Obese ...Rectal Exam: Yes: Deferred Musculoskeletal: Yes: Muscle Weakness Edema: No Wound/Incision: Yes: Dressing Dry and Intact Neurological: Yes: Unresponsive Labs: CBC, BMP 06/10/18 05:30 06/10/18 05:30 Problem List - Problems (1) Altered mental status Code(s): R41.82 - ALTERED MENTAL STATUS, UNSPECIFIED Qualifiers: Altered mental status type: disorientation Qualified Code(s): R41.0 - Disorientation, unspecified (2) Hypokalemia Code(s): E87.6 - HYPOKALEMIA (3) Neck mass Code(s): R22.1 - LOCALIZED SWELLING, MASS AND LUMP, NECK (4) Perforated sigmoid colon Code(s): K63.1 - PERFORATION OF INTESTINE (NONTRAUMATIC) (5) Pneumoperitoneum Code(s): K66.8 - OTHER SPECIFIED DISORDERS OF PERITONEUM (6) Sepsis Code(s): A41.9 - SEPSIS, UNSPECIFIED ORGANISM (7) Sigmoid volvulus Code(s): K56.2 - VOLVULUS Assessment/Plan Current Active Problems DIABETES MELLITUS TYPE 2 HYPERGLYCEMIA INSULIN RESISTANT Altered mental status (Acute) Hypokalemia (Acute) Neck mass (Acute) Perforated sigmoid colon (Acute) Pneumoperitoneum (Acute) Sepsis (Acute) Sigmoid volvulus (Acute) Abnormal Lab Results 06/10/18 06/10/18 05:30 05:30 WBC 11.2 H RBC 3.41 L Hgb 8.7 L Hct 25.7 L MCV 75.4 L MCH 25.4 L RDW 16.4 H Absolute Neuts (auto) 8.2 H Monocytes % 10.7 H Metamyelocytes 7 H D Potassium 3.0 L Random Glucose 229 H Calcium 6.8 L* Phosphorus 1.5 L Magnesium 1.2 L Total Bilirubin 1.2 H Direct Bilirubin 0.9 H AST 41 H Total Protein 4.0 L Albumin 1.6 L Laboratory Results - last 24 hr 06/10/18 06/10/18 06/10/18 02:02 05:30 05:30 WBC 11.2 H RBC 3.41 L Hgb 8.7 L Hct 25.7 L MCV 75.4 L MCH 25.4 L MCHC 33.7 RDW 16.4 H Plt Count 343 MPV 8.2 Absolute Neuts (auto) 8.2 H Neutrophils % 73.5 Neutrophils % (Manual) 57.6 Band Neutrophils % 14.1 Lymphocytes % 15.2 D Lymphocytes % (Manual) 11.1 D Monocytes % 10.7 H Monocytes % (Manual) 9 Eosinophils % 0.1 Eosinophils % (Manual) 0.0 Basophils % 0.5 D Basophils % (Manual) 1.0 D Myelocytes % (Man) 0 Promyelocytes % (Man) 0 Blast Cells % (Manual) 0 Nucleated RBC % 0 Metamyelocytes 7 H D Hypochromia 0 Platelet Estimate Normal Polychromasia 0 Poikilocytosis 1+ Anisocytosis 1+ Microcytosis 0 Macrocytosis 1+ Sodium 137 Potassium 3.0 L Chloride 106 Carbon Dioxide 21 Anion Gap 10 BUN 11 Creatinine 0.8 Creat Clearance w eGFR > 60 POC Glucometer 237 Random Glucose 229 H Hemoglobin A1c % Calcium 6.8 L* Phosphorus 1.5 L Magnesium 1.2 L Total Bilirubin 1.2 H Direct Bilirubin 0.9 H AST 41 H ALT 23 Alkaline Phosphatase 72 Total Protein 4.0 L Albumin 1.6 L TSH 0.45 06/10/18 06/10/18 06/10/18 05:30 05:34 10:04 WBC RBC Hgb Hct MCV MCH MCHC RDW Plt Count MPV Absolute Neuts (auto) Neutrophils % Neutrophils % (Manual) Band Neutrophils % Lymphocytes % Lymphocytes % (Manual) Monocytes % Monocytes % (Manual) Eosinophils % Eosinophils % (Manual) Basophils % Basophils % (Manual) Myelocytes % (Man) Promyelocytes % (Man) Blast Cells % (Manual) Nucleated RBC % Metamyelocytes Hypochromia Platelet Estimate Polychromasia Poikilocytosis Anisocytosis Microcytosis Macrocytosis Sodium Potassium Chloride Carbon Dioxide Anion Gap BUN Creatinine Creat Clearance w eGFR POC Glucometer 198 170 Random Glucose Hemoglobin A1c % 6.3 Calcium Phosphorus Magnesium Total Bilirubin Direct Bilirubin AST ALT Alkaline Phosphatase Total Protein Albumin TSH 06/10/18 06/10/18 16:52 22:52 WBC RBC Hgb Hct MCV MCH MCHC RDW Plt Count MPV Absolute Neuts (auto) Neutrophils % Neutrophils % (Manual) Band Neutrophils % Lymphocytes % Lymphocytes % (Manual) Monocytes % Monocytes % (Manual) Eosinophils % Eosinophils % (Manual) Basophils % Basophils % (Manual) Myelocytes % (Man) Promyelocytes % (Man) Blast Cells % (Manual) Nucleated RBC % Metamyelocytes Hypochromia Platelet Estimate Polychromasia Poikilocytosis Anisocytosis Microcytosis Macrocytosis Sodium Potassium Chloride Carbon Dioxide Anion Gap BUN Creatinine Creat Clearance w eGFR POC Glucometer 138 135 Random Glucose Hemoglobin A1c % Calcium Phosphorus Magnesium Total Bilirubin Direct Bilirubin AST ALT Alkaline Phosphatase Total Protein Albumin TSH PLAN: BGM Q 4H WHILE INTUBATED IV FLUID VOLUME NEEDED ONCE FEEDING STARTED LEVEMIR DOSE TITRATION
[2018-06-11] MEDS ORDERED: fentaNYL CITRATE 250 MCG/5 ML VIAL ONE ×3 (01:08→22:45)
[2018-06-11] MEDS ORDERED: PIPERACILLIN/TAZOBACTAM 4.5 GM VIAL IVPB ONE ×3 (01:57→19:47)
[2018-06-11] MEDS ORDERED: DEXTROSE 5%-WATER 100 ML IVPB ONE ×3 (01:57→19:48)
[2018-06-11] MEDS: PIPERACILLIN/TAZOB 4.5 GM 4.5 GM in DEXTROSE 5%-WATER 100 ML IVPB SCH ×4 (02:28→20:38)
[2018-06-11] MEDS: INSULIN SLIDING SCALE (NOVOLOG) 1 VIAL SQ SCH ×6 (02:36→21:04)
[2018-06-11] MEDS: FENTANYL INJECTION 500 MCG in DEXTROSE 5%-WATER - 90 ML IVPB SCH ×3 (04:00→16:21)
[2018-06-11] MEDS: HEPARIN NA (PORCINE) 5,000 UNITS/ML 1ML VIAL SQ SCH ×3 (05:35→21:05)
[2018-06-11 06:34] LABS: BASO % 0.5 % (0-2.0); EOS % 0.3 % (0-4.5); HEMATOCRIT 23.1 % (32.4-45.2); HEMOGLOBIN 7.9 GM/dL (10.7-15.3); LYMPH % 8.3 % (8-40); MCH 25.1 pg (25.7-33.7); MCHC 34.2 g/dl (32.0-36.0); MEAN CELL VOLUME 73.5 fl (80-96); MONO % 5.8 % (3.8-10.2); NEUT % 85.1 % (42.8-82.8); PLATELET COUNT 329 K/MM3 (134-434); RBC 3.15 M/mm3 (3.60-5.2); RDW 16.5 % (11.6-15.6); WHITE BLOOD COUNT 15.6 K/mm3 (4.0-10.0)
[2018-06-11 07:23] LABS: ALBUMIN 1.6 g/dl (3.4-5.0); ALK PHOS 102 U/L (45-117); ANION GAP 9 MMOL/L (8-16); BILIRUBIN,TOTAL 1.3 mg/dL (0.2-1); BLOOD UREA NITROGEN 6 mg/dL (7-18); CHLORIDE 103 mmol/L (98-107); CO2 25 mmol/L (21-32); CREATININE 0.4 mg/dL (0.55-1.3); GLUCOSE,RANDOM 112 mg/dL (74-106); MAGNESIUM 1.4 mg/dL (1.8-2.4); PHOSPHOROUS 1.6 mg/dL (2.5-4.9); SGOT/AST 39 U/L (15-37); SGPT/ALT 24 U/L (13-61); SODIUM 137 mmol/L (136-145); TOT PROT 4.2 g/dl (6.4-8.2)
[2018-06-11] MEDS ORDERED: PT OWN MED DRAWER 7, Y5N ONE (08:03)
[2018-06-11] MEDS ORDERED: MAGNESIUM SULF 50% (8.12 MEQ/2 ML-1 GM VIAL) IVPB ONE (08:15)
[2018-06-11 08:18] LABS: POTASSIUM 2.7 mmol/L (3.5-5.1)
[2018-06-11 08:19] LABS: CALCIUM 6.4 mg/dL (8.5-10.1)
[2018-06-11] MEDS ORDERED: POTASSIUM PHOSPHATE 40 MM in SODIUM CHLORIDE 500 ML IVPB ONE (08:22)
--- NOTE | 2018-06-11 08:54 | PN ---
Physical Exam: SUBJECTIVE: Patient seen and examined at bedside. She remains intubated, and sedated with Fentanyl and Midazolam drip. Patient has been weaned of Vasopressin drip, and remains on Norepinepherine drip for blood pressure management. OBJECTIVE: Vital Signs Period Temp Pulse Resp BP Sys/Benito Pulse Ox Last 24 Hr 98.8 F-100.2 F 67-97 10-15 88-177/47-97 95-97 GENERAL: female, sedated and intubated. HEENT: Normocephalic, atraumatic. PERRL, conjunctiva clear. Right sided internal jugular venous catheter. LUNGS: Intubated. Mechanical breath sounds equal, clear to auscultation bilaterally. No wheezes, and no crackles. HEART: Distant heart sounds. Regular rate and rhythm, normal S1 and S2 auscultated without murmur, rub or gallop. ABDOMEN: Obese. Soft, not distended. Hypoactive bowel sounds X4 quadrants. No hepatomegaly palpated or percussed. Abdominal surgical site bandaged clean, dry , intact. 1X DAISHA drain noted. Left sided colostomy bag in place. UPPER EXTREMITIES: 1+ radial pulses bilaterally, warm, well-perfused. Cap refill <2 seconds. LOWER EXTREMITIES: 1+ dorsalis pedis pulses bilaterally, warm, well-perfused. NEUROLOGICAL: Patient is sedated. Good muscle tone X4 extremities. SKIN: Warm, dry. Abdominal surgical site bandaged clean, dry, intact. Laboratory Results - last 24 hr 06/10/18 06/10/18 06/10/18 05:30 10:04 16:52 WBC RBC Hgb Hct MCV MCH MCHC RDW Plt Count MPV Absolute Neuts (auto) Neutrophils % Neutrophils % (Manual) 57.6 Band Neutrophils % 14.1 Lymphocytes % Lymphocytes % (Manual) 11.1 D Monocytes % Monocytes % (Manual) 9 Eosinophils % Eosinophils % (Manual) 0.0 Basophils % Basophils % (Manual) 1.0 D Myelocytes % (Man) 0 Promyelocytes % (Man) 0 Blast Cells % (Manual) 0 Nucleated RBC % Metamyelocytes 7 H D Hypochromia 0 Platelet Estimate Normal Polychromasia 0 Poikilocytosis 1+ Anisocytosis 1+ Microcytosis 0 Macrocytosis 1+ Sodium Potassium Chloride Carbon Dioxide Anion Gap BUN Creatinine Creat Clearance w eGFR POC Glucometer 170 138 Random Glucose Calcium Phosphorus Magnesium Total Bilirubin AST ALT Alkaline Phosphatase Total Protein Albumin 06/10/18 06/11/18 06/11/18 22:52 02:34 05:30 WBC 15.6 H RBC 3.15 L Hgb 7.9 L Hct 23.1 L MCV 73.5 L MCH 25.1 L MCHC 34.2 RDW 16.5 H Plt Count 329 MPV 8.0 Absolute Neuts (auto) 13.3 H Neutrophils % 85.1 H Neutrophils % (Manual) Band Neutrophils % Lymphocytes % 8.3 D Lymphocytes % (Manual) Monocytes % 5.8 Monocytes % (Manual) Eosinophils % 0.3 D Eosinophils % (Manual) Basophils % 0.5 Basophils % (Manual) Myelocytes % (Man) Promyelocytes % (Man) Blast Cells % (Manual) Nucleated RBC % 0 Metamyelocytes Hypochromia Platelet Estimate Polychromasia Poikilocytosis Anisocytosis Microcytosis Macrocytosis Sodium Potassium Chloride Carbon Dioxide Anion Gap BUN Creatinine Creat Clearance w eGFR POC Glucometer 135 126 Random Glucose Calcium Phosphorus Magnesium Total Bilirubin AST ALT Alkaline Phosphatase Total Protein Albumin 06/11/18 06/11/18 05:30 06:22 WBC RBC Hgb Hct MCV MCH MCHC RDW Plt Count MPV Absolute Neuts (auto) Neutrophils % Neutrophils % (Manual) Band Neutrophils % Lymphocytes % Lymphocytes % (Manual) Monocytes % Monocytes % (Manual) Eosinophils % Eosinophils % (Manual) Basophils % Basophils % (Manual) Myelocytes % (Man) Promyelocytes % (Man) Blast Cells % (Manual) Nucleated RBC % Metamyelocytes Hypochromia Platelet Estimate Polychromasia Poikilocytosis Anisocytosis Microcytosis Macrocytosis Sodium 137 Potassium 2.7 L* Chloride 103 Carbon Dioxide 25 Anion Gap 9 BUN 6 L Creatinine 0.4 L Creat Clearance w eGFR > 60 POC Glucometer 112 Random Glucose 112 H Calcium 6.4 L* Phosphorus 1.6 L Magnesium 1.4 L Total Bilirubin 1.3 H AST 39 H ALT 24 Alkaline Phosphatase 102 Total Protein 4.2 L Albumin 1.6 L Active Medications Generic Name Dose Route Start Last Admin Trade Name Freq PRN Reason Stop Dose Admin Acetaminophen 1,000 mg 06/09/18 23:55 Ofirmev Injection - IVPB Q6H PRN PAIN LEVEL 7 - 10 Chlorhexidine Gluconate 1 applic 06/09/18 22:00 06/10/18 21:30 Hibiclens For Decolonization - TP 1 applic HS DANNA Administration Heparin Sodium (Porcine) 5,000 unit 06/09/18 22:00 06/11/18 05:35 Heparin - SQ 5,000 unit TID DANNA Administration Norepinephrine Bitartrate 4, 500 mls @ 37.5 mls/hr 06/09/18 13:00 06/11/18 06 :18 000 mcg/ Dextrose IV 2 mcg/min TITR DANNA 15 mls/hr Titration Protocol 5 MCG/MIN Midazolam HCl 100 mg/ Sodium 100 mls @ 4 mls/hr 06/09/18 13:00 06/10/18 16:00 Chloride IVPB 5 mg/hr TITR DANNA 5 mls/hr Administration Protocol 4 MG/HR Vasopressin 50 units/ Sodium 100 mls @ 4 mls/hr 06/09/18 13:45 06/11/18 08:01 Chloride IVPB 0 units/hr ASDIR DANNA 0 mls/hr Titration Protocol 2 UNITS/HR Lactated Ringer's 1,000 mls @ 125 mls/hr 06/09/18 15:31 06/10/18 16:22 Lactated Ringers Solution IV 125 mls/hr ASDIR DANNA Administration Piperacillin Sod/Tazobactam 100 mls @ 200 mls/hr 06/09/18 21:00 06/11/18 08: 13 Sod 4.5 gm/ Dextrose IVPB 200 mls/hr Q6H-IV DANNA Administration Protocol Fentanyl 500 mcg/ Dextrose 100 mls @ 20 mls/hr 06/10/18 04:45 06/11/18 04:00 IVPB 100 mcg/hr TITR DANNA 20 mls/hr Administration 100 MCG/HR Potassium Phosphate 40 mm/ 513.3333 mls @ 64.16 mls/hr 06/11/18 08:22 Sodium Chloride IVPB 06/11/18 16:22 ONCE ONE 40 MM/8 HR Insulin Aspart 1 vial 06/09/18 22:15 06/11/18 06:23 Novolog Vial Sliding Scale - SQ Not Given Q4HPO DANNA Protocol Latanoprost 1 drop 06/09/18 22:00 06/10/18 21:24 Xalatan 0.005% Eye Drops - OU 1 drop HS DANNA Administration Morphine Sulfate 4 mg 06/09/18 15:39 Morphine Sulfate IVPUSH Q4H PRN PAIN LEVEL 1-5 Mupirocin 1 applic 06/09/18 10:00 06/10/18 21:25 Bactroban Ointment (For Decolonization) - NS 06/14/18 09:59 1 applic BID DANNA Administration Pantoprazole Sodium 40 mg 06/10/18 12:45 06/10/18 13:36 Protonix Iv IVPUSH 40 mg DAILY DANNA Administration ASSESSMENT/PLAN: Patient is a 52 year old female with history of paraplegia (after falling from elevated height from attempted suicide), major depressive disorder, anxiety, chronic obstructive pulmonary disease, diabetes mellitus, gastroesophageal reflus disease, glaucoma, s/p Bella's procedure. Admitted to ICU for postoperative management. Neurological, psychiatric Paraplegia Depression -Patient is currently sedated with Midazolam drip, Fentanyl drip. -Consider reinstating home psychiatric medications once awake. -Monitor for signs of mental status change. Pulmonary COPD -Patient is intubated, mechanically ventillated -Ventilator settings: Respiratory rate 10, Tidal volume 600, FiO2 40%, PEEP 5 Cardiovascular -Patient is currently hypotensive, on Norepinepherine drip. -Titrate to maintain MAP greater than 65 -Monitor vital signs closely Gastrointestinal -Patient is POD #2 s/p Bella's procedure -General surgery recommendations appreciated -Follow colostomy bag output -Lactated Ringer's at 125mL/ hour -Protonix 40mg IV daily -Begin tube feeds once NG tube placement confirmed by radiograph Renal -Patient currently urinating clear yellow urine into em catheter -Follow intake and output closely. Endocrine Diabetes mellitus -Insulin sliding scale TID -Fingerstick blood glucose monitoring TID Infectious disease Septic shock -Zosyn 4.5 grams IV Q6H (day #2) -ID recommendations (Dr. Hernández) appreciated. -Blood cultures negative for growth after 48 hours -Urine culture growing presumptive pseudomonas aeruginosa FEN -IV Lactated Ringer's at 125mL/ hour -Hypokalemia, hypocalcemia, hypophosphatemia, hypomagnesemia -repelted. Follow CMP, replete as necessary -NPO. Begin tube feeds once NG tube placement confirmed by radiograph Lines, Tubes, Drains -Abdominal DAISHA drain placed 06/09 -Em catheter placed 06/09 -Right sided central venous catheter placed 06/10 -NG tube placed 06/11 Prophylaxis -Heparin 5000u subq TID -Protonix 40mg IV daily Disposition: Continue care in ICU Visit type - Emergency Visit Emergency Visit: Yes ED Registration Date: 06/09/18 Care time: The patient presented to the Emergency Department on the above date and was hospitalized for further evaluation of their emergent condition. - New Patient This patient is new to me today: No - Critical Care Critical Care patient: Yes Total Critical Care Time (in minutes): 35 Critical Care Statement: The care of this patient involved high complexity decision making to prevent further life threatening deterioration of the patient 's condition and/or to evaluate & treat vital organ system(s) failure or risk of failure. - Discharge Referral Referred to [facility] No
[2018-06-11] MEDS: PANTOPRAZOLE SODIUM 40 MG VIAL IVPUSH SCH (09:19)
[2018-06-11] MEDS: MUPIROCIN 2% TOPICAL OINTMENT FOR DECOLONIZATION NS SCH ×3 (09:28→21:06)
[2018-06-11] MEDS ORDERED: SODIUM CHLORIDE 1,000 ML IV STA (11:54)
--- NOTE | 2018-06-11 12:06 | PN ---
Teaching Attending Note Name of Resident: Dedrick Duncan ATTENDING PHYSICIAN STATEMENT I saw and evaluated the patient. I reviewed the resident's note and discussed the case with the resident. I agree with the resident's findings and plan as documented. SUBJECTIVE: Pt seen and examined in the ICU. Remains intubated, sedated. On lower levophed requirements. Off vasopressin gtt. OBJECTIVE: Vital Signs Period Temp Pulse Resp BP Sys/Benito Pulse Ox Last 24 Hr 98.8 F-99 F 67-102 10-15 88-177/47-97 95-100 Intake & Output 06/08/18 06/09/18 06/10/18 06/11/18 23:59 23:59 23:59 23:59 Intake Total 18208.5 4453 2213.0 Output Total 4105 990 1040 Balance 9997.5 3463 1173.0 Weight 109.316 kg 107.955 kg 113.1 kg Gen: intubated, sedated Heart: RRR Lung: scattered rhonchi Abd: soft, +ostomy pink with stool output Ext: + edema CBC, BMP 06/11/18 05:30 06/11/18 05:30 Active Medications Acetaminophen (Ofirmev Injection -) 1,000 mg IVPB Q6H PRN PRN Reason: PAIN LEVEL 7 - 10 Chlorhexidine Gluconate (Hibiclens For Decolonization -) 1 applic TP HS [facility] Last Admin: 06/10/18 21:30 Dose: 1 applic Heparin Sodium (Porcine) (Heparin -) 5,000 unit SQ TID [facility] Last Admin: 06/11/18 05:35 Dose: 5,000 unit Midazolam HCl 100 mg/ Sodium (Chloride) 100 mls @ 4 mls/hr IVPB TITR DANNA; Protocol Last Titration: 06/11/18 10:52 Dose: 4 mg/hr, 4 mls/hr Lactated Ringer's (Lactated Ringers Solution) 1,000 mls @ 125 mls/hr IV ASDIR [facility] Last Admin: 06/10/18 16:22 Dose: 125 mls/hr Piperacillin Sod/Tazobactam (Sod 4.5 gm/ Dextrose) 100 mls @ 200 mls/hr IVPB Q6H-IV DANNA; Protocol Last Admin: 06/11/18 08:13 Dose: 200 mls/hr Fentanyl 500 mcg/ Dextrose 100 mls @ 20 mls/hr IVPB TITR [facility] Last Titration: 06/11/18 10:53 Dose: 100 mcg/hr, 20 mls/hr Potassium Phosphate 40 mm/ (Sodium Chloride) 513.3333 mls @ 64.16 mls/hr IVPB ONCE ONE Stop: 06/11/18 16:22 Last Admin: 06/11/18 09:28 Dose: 64.16 mls/hr Sodium Chloride (Normal Saline -) 1,000 mls @ 1,000 mls/hr IV ASDIR STA Stop: 06/11/18 12:53 Insulin Aspart (Novolog Vial Sliding Scale -) 1 vial SQ Q4HPO [facility]; Protocol Last Admin: 06/11/18 10:23 Dose: Not Given Latanoprost (Xalatan 0.005% Eye Drops -) 1 drop OU HS [facility] Last Admin: 06/10/18 21:24 Dose: 1 drop Morphine Sulfate (Morphine Sulfate) 4 mg IVPUSH Q4H PRN PRN Reason: PAIN LEVEL 1-5 Mupirocin (Bactroban Ointment (For Decolonization) -) 1 applic NS BID [facility] Stop: 06/14/18 09:59 Last Admin: 06/11/18 09:28 Dose: Not Given Pantoprazole Sodium (Protonix Iv) 40 mg IVPUSH DAILY [facility] Last Admin: 06/11/18 09:19 Dose: 40 mg ASSESSMENT AND PLAN: Sigmoid Volvulus/Pneumoperitoneum/Fecal Peritonitis s/p ex-lap/Bella's procedure Septic Shock Volume Overload Lactic/Metabolic Acidosis COPD DM Paraplegia Depression - continue antibiotics - f/u cultures - IVF resuscitation to keep CVP 8-12 - titrate pressors to maintain MAP >65 - monitor urine output, creatinine - will need diuresis once hemodynamically stable - replete lytes - O2 to keep Spo2 >90% - can lighten sedation in AM to assess mental status - spontaneous breathing trials as tolerated when mental status improved - DVT/GI prophylaxis - continue ICU monitoring critical care time spent in reviewing chart, evaluating patient and formulating plan 35 min
--- NOTE | 2018-06-11 12:15 | PN ---
Progress Note, Physician Chief Complaint: patient seen in ICU sedated intubated POD day 3 ash procedure off pressors maintaining her BP - Current Medication List Current Medications: Active Medications Acetaminophen (Ofirmev Injection -) 1,000 mg IVPB Q6H PRN PRN Reason: PAIN LEVEL 7 - 10 Chlorhexidine Gluconate (Hibiclens For Decolonization -) 1 applic TP HS DANNA Last Admin: 06/10/18 21:30 Dose: 1 applic Heparin Sodium (Porcine) (Heparin -) 5,000 unit SQ TID DANNA Last Admin: 06/11/18 05:35 Dose: 5,000 unit Midazolam HCl 100 mg/ Sodium (Chloride) 100 mls @ 4 mls/hr IVPB TITR DANNA; Protocol Last Titration: 06/11/18 10:52 Dose: 4 mg/hr, 4 mls/hr Lactated Ringer's (Lactated Ringers Solution) 1,000 mls @ 125 mls/hr IV ASDIR DANNA Last Admin: 06/10/18 16:22 Dose: 125 mls/hr Piperacillin Sod/Tazobactam (Sod 4.5 gm/ Dextrose) 100 mls @ 200 mls/hr IVPB Q6H-IV DANNA; Protocol Last Admin: 06/11/18 08:13 Dose: 200 mls/hr Fentanyl 500 mcg/ Dextrose 100 mls @ 20 mls/hr IVPB TITR DANNA Last Titration: 06/11/18 10:53 Dose: 100 mcg/hr, 20 mls/hr Potassium Phosphate 40 mm/ (Sodium Chloride) 513.3333 mls @ 64.16 mls/hr IVPB ONCE ONE Stop: 06/11/18 16:22 Last Admin: 06/11/18 09:28 Dose: 64.16 mls/hr Sodium Chloride (Normal Saline -) 1,000 mls @ 1,000 mls/hr IV ASDIR STA Stop: 06/11/18 12:53 Last Admin: 06/11/18 12:07 Dose: 1,000 mls/hr Insulin Aspart (Novolog Vial Sliding Scale -) 1 vial SQ Q4HPO DANNA; Protocol Last Admin: 06/11/18 10:23 Dose: Not Given Latanoprost (Xalatan 0.005% Eye Drops -) 1 drop OU HS DANNA Last Admin: 06/10/18 21:24 Dose: 1 drop Morphine Sulfate (Morphine Sulfate) 4 mg IVPUSH Q4H PRN PRN Reason: PAIN LEVEL 1-5 Mupirocin (Bactroban Ointment (For Decolonization) -) 1 applic NS BID [facility] Stop: 06/14/18 09:59 Last Admin: 06/11/18 09:28 Dose: Not Given Pantoprazole Sodium (Protonix Iv) 40 mg IVPUSH DAILY [facility] Last Admin: 06/11/18 09:19 Dose: 40 mg - Objective Vital Signs: Vital Signs Temperature 99 F 06/11/18 08:48 Pulse Rate 100 H 06/11/18 11:30 Respiratory Rate 10 06/11/18 11:46 Blood Pressure 111/63 06/11/18 11:30 O2 Sat by Pulse Oximetry (%) 100 06/11/18 10:00 Constitutional: Yes: Calm Neck: Yes: Other (intubated) Cardiovascular: Yes: Regular Rate and Rhythm, S1, S2 Respiratory: Yes: Mechanically Ventilated Gastrointestinal: Yes: Soft, Other (midline abdominal wound and JPdrain with small amount of serosanginous drainage and colostomy bag with stool) Genitourinary: Yes: Mathis Present Labs: CBC, BMP 06/11/18 05:30 06/11/18 05:30 INR, PTT INR 1.39 (0.83-1.09) H 06/09/18 02:21 Problem List - Problems (1) Perforated sigmoid colon Assessment/Plan: POD day 3 s/p ash procedure NPO intubated and sedated on fentanyl and versed drip off pressors ivf monitor h/h drop may be dilutional replete lytes iv abx dvt ppx monitor calcium ng tube Code(s): K63.1 - PERFORATION OF INTESTINE (NONTRAUMATIC)
[2018-06-11] MEDS: POTASSIUM CHLORIDE ORAL LIQUID 20 MEQ/15 ML PO ONE ×2 (12:39→15:02)
--- NOTE | 2018-06-11 13:27 | PN ---
Progress Note (short form) - Note Progress Note: remains intubated required sedation last night off pressors Vital Signs Period Temp Pulse Resp BP Sys/Benito Pulse Ox Last 24 Hr 98.8 F-99 F 67-102 10-15 88-177/47-97 95-100 cor-rrr lungs clear abd soft,nt +dressing intact +drain ext trace edema right IJ cvp CBC, BMP 06/11/18 05:30 06/11/18 05:30 Microbiology 06/09/18 02:45 Urine - Urine Mathis Urine Culture - Final Pseudomonas Aeruginosa 06/09/18 02:21 Blood - Peripheral Venous Blood Culture - Preliminary NO GROWTH OBTAINED AFTER 48 HOURS, INCUBATION TO CONTINUE FOR 3 DAYS. 06/09/18 02:21 Blood - Peripheral Venous Blood Culture - Preliminary NO GROWTH OBTAINED AFTER 48 HOURS, INCUBATION TO CONTINUE FOR 3 DAYS. Current Medications Acetaminophen (Ofirmev Injection -) 1,000 mg IVPB Q6H PRN PRN Reason: PAIN LEVEL 7 - 10 Chlorhexidine Gluconate (Hibiclens For Decolonization -) 1 applic TP HS DANNA Last Admin: 06/10/18 21:30 Dose: 1 applic Heparin Sodium (Porcine) (Heparin -) 5,000 unit SQ TID DANNA Last Admin: 06/11/18 05:35 Dose: 5,000 unit Midazolam HCl 100 mg/ Sodium (Chloride) 100 mls @ 4 mls/hr IVPB TITR DANNA; Protocol Last Titration: 06/11/18 10:52 Dose: 4 mg/hr, 4 mls/hr Lactated Ringer's (Lactated Ringers Solution) 1,000 mls @ 125 mls/hr IV ASDIR DANNA Last Admin: 06/10/18 16:22 Dose: 125 mls/hr Piperacillin Sod/Tazobactam (Sod 4.5 gm/ Dextrose) 100 mls @ 200 mls/hr IVPB Q6H-IV DANNA; Protocol Last Admin: 06/11/18 08:13 Dose: 200 mls/hr Fentanyl 500 mcg/ Dextrose 100 mls @ 20 mls/hr IVPB TITR DANNA Last Titration: 06/11/18 10:53 Dose: 100 mcg/hr, 20 mls/hr Potassium Phosphate 40 mm/ (Sodium Chloride) 513.3333 mls @ 64.16 mls/hr IVPB ONCE ONE Stop: 06/11/18 16:22 Last Admin: 06/11/18 09:28 Dose: 64.16 mls/hr Insulin Aspart (Novolog Vial Sliding Scale -) 1 vial SQ Q4HPO [facility]; Protocol Last Admin: 06/11/18 10:23 Dose: Not Given Latanoprost (Xalatan 0.005% Eye Drops -) 1 drop OU HS [facility] Last Admin: 06/10/18 21:24 Dose: 1 drop Morphine Sulfate (Morphine Sulfate) 4 mg IVPUSH Q4H PRN PRN Reason: PAIN LEVEL 1-5 Mupirocin (Bactroban Ointment (For Decolonization) -) 1 applic NS BID [facility] Stop: 06/14/18 09:59 Last Admin: 06/11/18 09:28 Dose: Not Given Pantoprazole Sodium (Protonix Iv) 40 mg IVPUSH DAILY [facility] Last Admin: 06/11/18 09:19 Dose: 40 mg cxray no infiltrate a/p sepsis s/p ex lap for pneumoperitoneum/sigmoid volvolus-hartmans procedure pressors off remains intubated continue zosyn for empiric intraabdominal coverage Problem List - Problems (1) Sepsis Code(s): A41.9 - SEPSIS, UNSPECIFIED ORGANISM (2) Perforated sigmoid colon Code(s): K63.1 - PERFORATION OF INTESTINE (NONTRAUMATIC) (3) Sigmoid volvulus Code(s): K56.2 - VOLVULUS (4) Neck mass Code(s): R22.1 - LOCALIZED SWELLING, MASS AND LUMP, NECK
[2018-06-11 14:36] LABS: ANION GAP 7 MMOL/L (8-16); BLOOD UREA NITROGEN 5 mg/dL (7-18); CHLORIDE 111 mmol/L (98-107); CO2 27 mmol/L (21-32); CREATININE 0.4 mg/dL (0.55-1.3); GLUCOSE,RANDOM 81 mg/dL (74-106); MAGNESIUM 1.9 mg/dL (1.8-2.4); PHOSPHOROUS 2.6 mg/dL (2.5-4.9); SODIUM 144 mmol/L (136-145)
[2018-06-11 14:43] LABS: CALCIUM 6.9 mg/dL (8.5-10.1)
[2018-06-11] MEDS: MIDAZOLAM 100 MG in SODIUM CHLORIDE 100 ML IVPB SCH ×2 (15:05→16:22)
--- NOTE | 2018-06-11 16:00 | PN ---
Progress Note (short form) - Note Progress Note: 52yo F s/p ex-lap and Bella's procedure, pt seen and examined at bedside. Pt still intubated, but is arousable. No acute events overnight. Last Vital Signs Temp Pulse Resp BP Pulse Ox 99 F 101 H 15 107/54 L 100 06/11/18 15:00 06/11/18 15:00 06/11/18 15:00 06/11/18 15:00 06/11/18 10:00 CBC, BMP 06/11/18 05:30 06/11/18 13:00 PE: Gen: A&O x 3 Resp: breathing comfortably Abd: soft, mild distension, incision clean with serous drainage, no erythema. Colostomy has stool and air in the bag. Drain in place with serosanguinous drainage. Problem List - Problems (1) Perforated sigmoid colon Assessment/Plan: Plan -continue daily dressing changes, -critical care as per ICU team -good signs of colostomy function Code(s): K63.1 - PERFORATION OF INTESTINE (NONTRAUMATIC)
[2018-06-11] MEDS: LACTATED RINGERS SOLUTION 1,000 ML IV SCH (16:21)
[2018-06-11] MEDS: LATANOPROST 0.005% OPHTH SOLN 2.5ML BOTTLE OU SCH (21:06)
[2018-06-11] MEDS: CHLORHEXIDINE GLUCONATE 4% CLEANSER FOR DECOLONIZATION TP SCH (21:07)
[2018-06-11] MEDS ORDERED: MIDAZOLAM 100 MG/100 ML MG IVPB ONE (22:45)
[2018-06-12] MEDS: INSULIN SLIDING SCALE (NOVOLOG) 1 VIAL SQ SCH ×6 (02:28→22:30)
[2018-06-12] MEDS ORDERED: fentaNYL CITRATE 250 MCG/5 ML VIAL ONE ×3 (05:04→19:47)
[2018-06-12] MEDS: FENTANYL INJECTION 500 MCG in DEXTROSE 5%-WATER - 90 ML IVPB SCH ×4 (05:31→20:05)
[2018-06-12] MEDS: HEPARIN NA (PORCINE) 5,000 UNITS/ML 1ML VIAL SQ SCH ×3 (05:31→22:30)
[2018-06-12] MEDS: PIPERACILLIN/TAZOB 4.5 GM 4.5 GM in DEXTROSE 5%-WATER 100 ML IVPB SCH ×3 (06:01→22:30)
[2018-06-12 06:06] LABS: HEMATOCRIT 22.1 % (32.4-45.2); HEMOGLOBIN 7.4 GM/dL (10.7-15.3); MCH 24.5 pg (25.7-33.7); MCHC 33.5 g/dl (32.0-36.0); MEAN CELL VOLUME 73.1 fl (80-96); MEAN PLT VOLUME 7.9 fl (7.5-11.1); PLATELET COUNT 311 K/MM3 (134-434); RBC 3.02 M/mm3 (3.60-5.2); RDW 16.3 % (11.6-15.6); WHITE BLOOD COUNT 14.8 K/mm3 (4.0-10.0)
[2018-06-12 06:55] LABS: ALBUMIN 1.4 g/dl (3.4-5.0); ALK PHOS 102 U/L (45-117); ANION GAP 7 MMOL/L (8-16); BILIRUBIN,TOTAL 1.7 mg/dL (0.2-1); BLOOD UREA NITROGEN 4 mg/dL (7-18); CHLORIDE 113 mmol/L (98-107); CO2 25 mmol/L (21-32); CREATININE 0.3 mg/dL (0.55-1.3); GLUCOSE,RANDOM 77 mg/dL (74-106); PHOSPHOROUS 1.4 mg/dL (2.5-4.9); SGOT/AST 36 U/L (15-37); SGPT/ALT 27 U/L (13-61); SODIUM 145 mmol/L (136-145)
[2018-06-12 07:13] LABS: POTASSIUM 2.8 mmol/L (3.5-5.1)
[2018-06-12 07:15] LABS: CALCIUM 6.9 mg/dL (8.5-10.1)
--- NOTE | 2018-06-12 07:24 | PN ---
Physical Exam: SUBJECTIVE: Patient seen and examined at bedside this morning. She remains intubated, sedated. Patient afebrile overnight, no acute overnight events. OBJECTIVE: Vital Signs Period Temp Pulse Resp BP Sys/Benito Pulse Ox Last 24 Hr 99 F-100 F 91-104 10-20 99-133/54-79 95-100 GENERAL: female, sedated and intubated. HEENT: Normocephalic, atraumatic. PERRL, conjunctiva clear. Right sided internal jugular venous catheter. LUNGS: Intubated. Mechanical breath sounds equal, clear to auscultation bilaterally. No wheezes, and no crackles. HEART: Distant heart sounds. Regular rate and rhythm, normal S1 and S2 auscultated without murmur, rub or gallop. ABDOMEN: Obese. Soft, not distended. Hypoactive bowel sounds X4 quadrants. No hepatomegaly palpated or percussed. Abdominal surgical site bandaged clean, dry , intact. DAISHA drain noted. Left sided colostomy bag in place. UPPER EXTREMITIES: 1+ radial pulses bilaterally, warm, well-perfused. Cap refill <2 seconds. LOWER EXTREMITIES: 1+ dorsalis pedis pulses bilaterally, warm, well-perfused. NEUROLOGICAL: Patient is sedated. Good muscle tone X4 extremities. SKIN: Warm, dry. Abdominal surgical site bandaged clean, dry, intact. Laboratory Results - last 24 hr 06/11/18 06/11/18 06/11/18 05:30 05:30 10:22 WBC 15.6 H RBC 3.15 L Hgb 7.9 L Hct 23.1 L MCV 73.5 L MCH 25.1 L MCHC 34.2 RDW 16.5 H Plt Count 329 MPV 8.0 Absolute Neuts (auto) 13.3 H Neutrophils % 85.1 H Lymphocytes % 8.3 D Monocytes % 5.8 Eosinophils % 0.3 D Basophils % 0.5 Nucleated RBC % 0 Sodium Potassium 2.7 L* Chloride Carbon Dioxide Anion Gap BUN Creatinine Creat Clearance w eGFR POC Glucometer 87 Random Glucose Calcium 6.4 L* Phosphorus Magnesium Total Bilirubin AST ALT Alkaline Phosphatase Total Protein Albumin Blood Type Antibody Screen 06/11/18 06/11/18 06/11/18 13:00 13:00 16:25 WBC RBC Hgb Hct MCV MCH MCHC RDW Plt Count MPV Absolute Neuts (auto) Neutrophils % Lymphocytes % Monocytes % Eosinophils % Basophils % Nucleated RBC % Sodium 144 Potassium 3.0 L Chloride 111 H Carbon Dioxide 27 Anion Gap 7 L BUN 5 L Creatinine 0.4 L Creat Clearance w eGFR > 60 POC Glucometer 72 Random Glucose 81 Calcium 6.9 L* Phosphorus 2.6 Magnesium 1.9 Total Bilirubin AST ALT Alkaline Phosphatase Total Protein Albumin Blood Type A POSITIVE Antibody Screen Negative 06/11/18 06/12/18 06/12/18 21:03 02:16 05:30 WBC 14.8 H RBC 3.02 L Hgb 7.4 L Hct 22.1 L MCV 73.1 L MCH 24.5 L MCHC 33.5 RDW 16.3 H Plt Count 311 MPV 7.9 Absolute Neuts (auto) Neutrophils % Lymphocytes % Monocytes % Eosinophils % Basophils % Nucleated RBC % Sodium Potassium Chloride Carbon Dioxide Anion Gap BUN Creatinine Creat Clearance w eGFR POC Glucometer 66 68 Random Glucose Calcium Phosphorus Magnesium Total Bilirubin AST ALT Alkaline Phosphatase Total Protein Albumin Blood Type Antibody Screen 06/12/18 06/12/18 05:30 06:09 WBC RBC Hgb Hct MCV MCH MCHC RDW Plt Count MPV Absolute Neuts (auto) Neutrophils % Lymphocytes % Monocytes % Eosinophils % Basophils % Nucleated RBC % Sodium 145 Potassium 2.8 L* Chloride 113 H Carbon Dioxide 25 Anion Gap 7 L BUN 4 L Creatinine 0.3 L Creat Clearance w eGFR > 60 POC Glucometer 76 Random Glucose 77 Calcium 6.9 L* Phosphorus 1.4 L Magnesium 2.0 Total Bilirubin 1.7 H AST 36 ALT 27 Alkaline Phosphatase 102 Total Protein 4.0 L Albumin 1.4 L Blood Type Antibody Screen Active Medications Generic Name Dose Route Start Last Admin Trade Name Freq PRN Reason Stop Dose Admin Acetaminophen 1,000 mg 06/09/18 23:55 Ofirmev Injection - IVPB Q6H PRN PAIN LEVEL 7 - 10 Chlorhexidine Gluconate 1 applic 06/09/18 22:00 06/11/18 21:07 Hibiclens For Decolonization - TP 1 applic HS DANNA Administration Heparin Sodium (Porcine) 5,000 unit 06/09/18 22:00 06/12/18 05:31 Heparin - SQ 5,000 unit TID DANNA Administration Midazolam HCl 100 mg/ Sodium 100 mls @ 4 mls/hr 06/09/18 13:00 06/11/18 16:22 Chloride IVPB 4 mg/hr TITR DANNA 4 mls/hr Administration Protocol 4 MG/HR Lactated Ringer's 1,000 mls @ 125 mls/hr 06/09/18 15:31 06/11/18 16:21 Lactated Ringers Solution IV 125 mls/hr ASDIR DANNA Administration Fentanyl 500 mcg/ Dextrose 100 mls @ 20 mls/hr 06/10/18 04:45 06/12/18 05:31 IVPB 100 mcg/hr TITR DANNA 20 mls/hr Administration 100 MCG/HR Piperacillin Sod/Tazobactam 100 mls @ 200 mls/hr 06/11/18 13:30 06/12/18 06: 01 Sod 4.5 gm/ Dextrose IVPB 200 mls/hr Q8H DANNA Administration Protocol Insulin Aspart 1 vial 06/09/18 22:15 06/12/18 06:10 Novolog Vial Sliding Scale - SQ Not Given Q4HPO DANNA Protocol Latanoprost 1 drop 06/09/18 22:00 06/11/18 21:06 Xalatan 0.005% Eye Drops - OU 1 drop HS DANNA Administration Morphine Sulfate 4 mg 06/09/18 15:39 Morphine Sulfate IVPUSH Q4H PRN PAIN LEVEL 1-5 Mupirocin 1 applic 06/09/18 10:00 06/11/18 21:06 Bactroban Ointment (For Decolonization) - NS 06/14/18 09:59 1 applic BID DANNA Administration Pantoprazole Sodium 40 mg 06/10/18 12:45 06/11/18 09:19 Protonix Iv IVPUSH 40 mg DAILY DANNA Administration ASSESSMENT/PLAN: Patient is a 52 year old female with history of paraplegia (after falling from elevated height from attempted suicide), major depressive disorder, anxiety, chronic obstructive pulmonary disease, diabetes mellitus, gastroesophageal reflux disease, glaucoma, s/p Bella's procedure. Admitted to ICU for postoperative management. Neurological, psychiatric Paraplegia Depression -Patient is currently off sedation to assess mental function. -Consider reinstating home psychiatric medications once awake. -Monitor for signs of mental status change. Pulmonary COPD -Patient is intubated, mechanically ventillated. -Ventilator settings: Respiratory rate 10, Tidal volume 600, FiO2 40%, PEEP 5 Cardiovascular -Patient is currently normotensive, off Norepinepherine drip. -Will require diuresis once blood pressures are stable. -MAP greater than 65 -Monitor vital signs closely Gastrointestinal -Patient is POD #3 s/p Bella's procedure -General surgery recommendations appreciated -Follow colostomy bag output -Lactated Ringer's at 125mL/ hour -Protonix 40mg IV daily -Tube feeds Vital Renal -Patient currently urinating clear yellow urine into em catheter -Follow intake and output closely. Endocrine Diabetes mellitus -Insulin sliding scale TID -Fingerstick blood glucose monitoring TID Infectious disease Septic shock -Zosyn 4.5 grams IV Q6H (day 3) -ID recommendations (Dr. Hernández) appreciated. -Blood cultures negative for growth after 72 hours -Urine culture growing presumptive pseudomonas aeruginosa FEN -IV Lactated Ringer's at 125mL/ hour -Hypokalemia, hypocalcemia, hypophosphatemia, -repelted. Follow CMP, replete as necessary -Tube feeds Vital Lines, Tubes, Drains -Abdominal DAISHA drain placed 06/09 -Em catheter placed 06/09 -Right sided central venous catheter placed 06/10 -NG tube placed 06/11 Prophylaxis -Heparin 5000u subq TID -Protonix 40mg IV daily Disposition: Continue care in ICU Visit type - Emergency Visit Emergency Visit: Yes ED Registration Date: 06/09/18 Care time: The patient presented to the Emergency Department on the above date and was hospitalized for further evaluation of their emergent condition. - New Patient This patient is new to me today: No - Critical Care Critical Care patient: Yes Total Critical Care Time (in minutes): 37 Critical Care Statement: The care of this patient involved high complexity decision making to prevent further life threatening deterioration of the patient 's condition and/or to evaluate & treat vital organ system(s) failure or risk of failure. - Discharge Referral Referred to [facility] Med P.C.: No
[2018-06-12] MEDS ORDERED: POTASSIUM PHOSPHATE 40 MM in SODIUM CHLORIDE 500 ML IVPB ONE (09:00)
[2018-06-12] MEDS ORDERED: POTASSIUM PHOSPHATE 40 MM in SODIUM CHLORIDE 250 ML IVPB ONE (09:00)
[2018-06-12] MEDS: MUPIROCIN 2% TOPICAL OINTMENT FOR DECOLONIZATION NS SCH ×2 (09:42→22:30)
[2018-06-12] MEDS: PANTOPRAZOLE SODIUM 40 MG VIAL IVPUSH SCH (09:54)
--- NOTE | 2018-06-12 10:05 | PN ---
Progress Note (short form) - Note Progress Note: remains intubated Vital Signs Period Temp Pulse Resp BP Sys/Benito Pulse Ox Last 24 Hr 99 F-100 F 92-104 10-20 99-133/54-79 100-100 cor-rrr lungs decreased bs at bases abd soft,nt +colostomy, midline incision packed ext trace edema em Microbiology 06/09/18 02:21 Blood - Peripheral Venous Blood Culture - Preliminary NO GROWTH OBTAINED AFTER 72 HOURS, INCUBATION TO CONTINUE FOR 2 DAYS. 06/09/18 02:21 Blood - Peripheral Venous Blood Culture - Preliminary NO GROWTH OBTAINED AFTER 72 HOURS, INCUBATION TO CONTINUE FOR 2 DAYS. 06/09/18 02:45 Urine - Urine Em Urine Culture - Final Pseudomonas Aeruginosa Current Medications Acetaminophen (Ofirmev Injection -) 1,000 mg IVPB Q6H PRN PRN Reason: PAIN LEVEL 7 - 10 Chlorhexidine Gluconate (Hibiclens For Decolonization -) 1 applic TP HS DANNA Last Admin: 06/11/18 21:07 Dose: 1 applic Heparin Sodium (Porcine) (Heparin -) 5,000 unit SQ TID DANNA Last Admin: 06/12/18 05:31 Dose: 5,000 unit Midazolam HCl 100 mg/ Sodium (Chloride) 100 mls @ 4 mls/hr IVPB TITR [facility]; Protocol Last Admin: 06/11/18 16:22 Dose: 4 mg/hr, 4 mls/hr Lactated Ringer's (Lactated Ringers Solution) 1,000 mls @ 125 mls/hr IV ASDIR DANNA Last Admin: 06/11/18 16:21 Dose: 125 mls/hr Fentanyl 500 mcg/ Dextrose 100 mls @ 20 mls/hr IVPB TITR DANNA Last Admin: 06/12/18 05:31 Dose: 100 mcg/hr, 20 mls/hr Piperacillin Sod/Tazobactam (Sod 4.5 gm/ Dextrose) 100 mls @ 200 mls/hr IVPB Q8H [facility]; Protocol Last Admin: 06/12/18 06:01 Dose: 200 mls/hr Potassium Phosphate 40 mm/ (Sodium Chloride) 513.3333 mls @ 85.556 mls/hr IVPB ONCE ONE Stop: 06/12/18 14:59 Last Admin: 06/12/18 09:41 Dose: 85.556 mls/hr Insulin Aspart (Novolog Vial Sliding Scale -) 1 vial SQ Q4HPO [facility]; Protocol Last Admin: 06/12/18 06:10 Dose: Not Given Latanoprost (Xalatan 0.005% Eye Drops -) 1 drop OU HS [facility] Last Admin: 06/11/18 21:06 Dose: 1 drop Morphine Sulfate (Morphine Sulfate) 4 mg IVPUSH Q4H PRN PRN Reason: PAIN LEVEL 1-5 Mupirocin (Bactroban Ointment (For Decolonization) -) 1 applic NS BID [facility] Stop: 06/14/18 09:59 Last Admin: 06/12/18 09:42 Dose: 1 applic Pantoprazole Sodium (Protonix Iv) 40 mg IVPUSH DAILY [facility] Last Admin: 06/12/18 09:54 Dose: 40 mg cxray congetion, ?rRLL infiltrate a/p sepsis s/p ex lap for pneumoperitoneum/sigmoid volvolus-hartmans procedure remains intubated continue zosyn for empiric intraabdominal coverage Problem List - Problems (1) Sepsis Code(s): A41.9 - SEPSIS, UNSPECIFIED ORGANISM (2) Perforated sigmoid colon Code(s): K63.1 - PERFORATION OF INTESTINE (NONTRAUMATIC) (3) Sigmoid volvulus Code(s): K56.2 - VOLVULUS (4) Neck mass Code(s): R22.1 - LOCALIZED SWELLING, MASS AND LUMP, NECK
--- NOTE | 2018-06-12 12:08 | PN ---
Teaching Attending Note Name of Resident: Dedrick Duncan ATTENDING PHYSICIAN STATEMENT I saw and evaluated the patient. I reviewed the resident's note and discussed the case with the resident. I agree with the resident's findings and plan as documented. SUBJECTIVE: Patient seen and examined in the ICU. Remains intubated, sedated. 2 mcq NE for hemodynamic support. Off vasopressin drip. CXR: Increasing pulmonary vascular congestion OBJECTIVE: Intake & Output 06/09/18 06/10/18 06/11/18 06/12/18 23:59 23:59 23:59 23:59 Intake Total 94508.5 4453 5555.0 2515 Output Total 4105 990 4280 1400 Balance 9997.5 3463 1275.0 1115 Weight 241 lb 238 lb 238 lb 268 lb 15.423 oz Last Vital Signs Temp Pulse Resp BP Pulse Ox 99.3 F 94 H 18 120/75 100 06/12/18 09:07 06/12/18 11:00 06/12/18 11:11 06/12/18 11:00 06/12/18 11:13 Active Medications Acetaminophen (Ofirmev Injection -) 1,000 mg IVPB Q6H PRN PRN Reason: PAIN LEVEL 7 - 10 Chlorhexidine Gluconate (Hibiclens For Decolonization -) 1 applic TP HS DANNA Last Admin: 06/11/18 21:07 Dose: 1 applic Heparin Sodium (Porcine) (Heparin -) 5,000 unit SQ TID DANNA Last Admin: 06/12/18 05:31 Dose: 5,000 unit Midazolam HCl 100 mg/ Sodium (Chloride) 100 mls @ 4 mls/hr IVPB TITR [facility]; Protocol Last Admin: 06/11/18 16:22 Dose: 4 mg/hr, 4 mls/hr Lactated Ringer's (Lactated Ringers Solution) 1,000 mls @ 125 mls/hr IV ASDIR DANNA Last Admin: 06/11/18 16:21 Dose: 125 mls/hr Fentanyl 500 mcg/ Dextrose 100 mls @ 20 mls/hr IVPB TITR DANNA Last Admin: 06/12/18 05:31 Dose: 100 mcg/hr, 20 mls/hr Piperacillin Sod/Tazobactam (Sod 4.5 gm/ Dextrose) 100 mls @ 200 mls/hr IVPB Q8H [facility]; Protocol Last Admin: 06/12/18 06:01 Dose: 200 mls/hr Potassium Phosphate 40 mm/ (Sodium Chloride) 513.3333 mls @ 85.556 mls/hr IVPB ONCE ONE Stop: 06/12/18 14:59 Last Admin: 06/12/18 09:41 Dose: 85.556 mls/hr Insulin Aspart (Novolog Vial Sliding Scale -) 1 vial SQ Q4HPO [facility]; Protocol Last Admin: 06/12/18 11:25 Dose: Not Given Latanoprost (Xalatan 0.005% Eye Drops -) 1 drop OU HS [facility]ANNA Last Admin: 06/11/18 21:06 Dose: 1 drop Morphine Sulfate (Morphine Sulfate) 4 mg IVPUSH Q4H PRN PRN Reason: PAIN LEVEL 1-5 Mupirocin (Bactroban Ointment (For Decolonization) -) 1 applic NS BID [facility]ANNA Stop: 06/14/18 09:59 Last Admin: 06/12/18 09:42 Dose: 1 applic Pantoprazole Sodium (Protonix Iv) 40 mg IVPUSH DAILY [facility] Last Admin: 06/12/18 09:54 Dose: 40 mg Gen: intubated, sedated Heart: RRR Lung: scattered rhonchi Abd: soft, +ostomy pink with stool output Ext: + edema Laboratory Results - last 24 hr 06/11/18 06/11/18 06/11/18 13:00 13:00 16:25 WBC RBC Hgb Hct MCV MCH MCHC RDW Plt Count MPV Retic Count Sodium 144 Potassium 3.0 L Chloride 111 H Carbon Dioxide 27 Anion Gap 7 L BUN 5 L Creatinine 0.4 L Creat Clearance w eGFR > 60 Random Glucose 81 POC Glucometer 72 Calcium 6.9 L* Phosphorus 2.6 Magnesium 1.9 Total Bilirubin AST ALT Alkaline Phosphatase Total Protein Albumin Vitamin B12 Serum Folate Blood Type A POSITIVE Antibody Screen Negative 06/11/18 06/12/18 06/12/18 21:03 02:16 05:30 WBC 14.8 H RBC 3.02 L Hgb 7.4 L Hct 22.1 L MCV 73.1 L MCH 24.5 L MCHC 33.5 RDW 16.3 H Plt Count 311 MPV 7.9 Retic Count Sodium Potassium Chloride Carbon Dioxide Anion Gap BUN Creatinine Creat Clearance w eGFR Random Glucose POC Glucometer 66 68 Calcium Phosphorus Magnesium Total Bilirubin AST ALT Alkaline Phosphatase Total Protein Albumin Vitamin B12 Serum Folate Blood Type Antibody Screen 06/12/18 06/12/18 06/12/18 05:30 06:09 09:45 WBC RBC Hgb Hct MCV MCH MCHC RDW Plt Count MPV Retic Count Sodium 145 Potassium 2.8 L* Chloride 113 H Carbon Dioxide 25 Anion Gap 7 L BUN 4 L Creatinine 0.3 L Creat Clearance w eGFR > 60 Random Glucose 77 POC Glucometer 76 Calcium 6.9 L* Phosphorus 1.4 L Magnesium 2.0 Total Bilirubin 1.7 H AST 36 ALT 27 Alkaline Phosphatase 102 Total Protein 4.0 L Albumin 1.4 L Vitamin B12 4311 H Serum Folate 13 Blood Type Antibody Screen 06/12/18 06/12/18 09:45 11:24 WBC RBC Hgb Hct MCV MCH MCHC RDW Plt Count MPV Retic Count 0.86 Sodium Potassium Chloride Carbon Dioxide Anion Gap BUN Creatinine Creat Clearance w eGFR Random Glucose POC Glucometer 87 Calcium Phosphorus Magnesium Total Bilirubin AST ALT Alkaline Phosphatase Total Protein Albumin Vitamin B12 Serum Folate Blood Type Antibody Screen ASSESSMENT AND PLAN: Sigmoid Volvulus/Pneumoperitoneum/Fecal Peritonitis s/p ex-lap/Bella's procedure Septic Shock Volume Overload Lactic/Metabolic Acidosis COPD DM Paraplegia Depression - continue antibiotics - f/u final cultures - IVF resuscitation to keep CVP 8-12 - titrate pressors to maintain MAP >65 - monitor urine output, creatinine - will need diuresis once hemodynamically stable - replete lytes - O2 to keep Spo2 >90% - Lighten sedation to assess mental status - spontaneous breathing trials as tolerated when mental status improved - DVT/GI prophylaxis - continue ICU monitoring Dr Garcia critical care time spent in reviewing chart, evaluating patient and formulating plan 35 min
[2018-06-12] MEDS: MIDAZOLAM 100 MG in SODIUM CHLORIDE 100 ML IVPB SCH (13:14)
--- NOTE | 2018-06-12 13:21 | PN ---
Progress Note, Physician Chief Complaint: patient seen in icu on fentanyl intubated, AC mode off pressors - Current Medication List Current Medications: Active Medications Acetaminophen (Ofirmev Injection -) 1,000 mg IVPB Q6H PRN PRN Reason: PAIN LEVEL 7 - 10 Calcium Gluconate (Calcium Gluconate 10% -) 1,000 mg IVPB ONCE ONE Stop: 06/12/18 13:14 Chlorhexidine Gluconate (Hibiclens For Decolonization -) 1 applic TP HS [facility] Last Admin: 06/11/18 21:07 Dose: 1 applic Heparin Sodium (Porcine) (Heparin -) 5,000 unit SQ TID [facility] Last Admin: 06/12/18 05:31 Dose: 5,000 unit Midazolam HCl 100 mg/ Sodium (Chloride) 100 mls @ 4 mls/hr IVPB TITR [facility]; Protocol Last Admin: 06/12/18 13:14 Dose: Not Given Lactated Ringer's (Lactated Ringers Solution) 1,000 mls @ 125 mls/hr IV ASDIR [facility] Last Admin: 06/11/18 16:21 Dose: 125 mls/hr Fentanyl 500 mcg/ Dextrose 100 mls @ 20 mls/hr IVPB TITR [facility] Last Admin: 06/12/18 05:31 Dose: 100 mcg/hr, 20 mls/hr Piperacillin Sod/Tazobactam (Sod 4.5 gm/ Dextrose) 100 mls @ 200 mls/hr IVPB Q8H [facility]; Protocol Last Admin: 06/12/18 06:01 Dose: 200 mls/hr Potassium Phosphate 40 mm/ (Sodium Chloride) 513.3333 mls @ 85.556 mls/hr IVPB ONCE ONE Stop: 06/12/18 14:59 Last Admin: 06/12/18 09:41 Dose: 85.556 mls/hr Insulin Aspart (Novolog Vial Sliding Scale -) 1 vial SQ Q4HPO [facility]; Protocol Last Admin: 06/12/18 11:25 Dose: Not Given Latanoprost (Xalatan 0.005% Eye Drops -) 1 drop OU HS [facility] Last Admin: 06/11/18 21:06 Dose: 1 drop Morphine Sulfate (Morphine Sulfate) 4 mg IVPUSH Q4H PRN PRN Reason: PAIN LEVEL 1-5 Mupirocin (Bactroban Ointment (For Decolonization) -) 1 applic NS BID [facility] Stop: 06/14/18 09:59 Last Admin: 06/12/18 09:42 Dose: 1 applic Pantoprazole Sodium (Protonix Iv) 40 mg IVPUSH DAILY [facility] Last Admin: 06/12/18 09:54 Dose: 40 mg - Objective Vital Signs: Vital Signs Temperature 99.3 F 06/12/18 09:07 Pulse Rate 95 H 06/12/18 13:00 Respiratory Rate 14 06/12/18 13:00 Blood Pressure 127/76 06/12/18 13:00 O2 Sat by Pulse Oximetry (%) 100 06/12/18 11:13 Constitutional: Yes: Calm Neck: Yes: Other (intubated) Cardiovascular: Yes: Regular Rate and Rhythm, S1, S2 Respiratory: Yes: Mechanically Ventilated Gastrointestinal: Yes: Soft, Other (midline incision with shalini drain serosanginous drainage, colostomy) Genitourinary: Yes: Mathis Present Labs: CBC, BMP 06/12/18 05:30 06/12/18 05:30 INR, PTT INR 1.39 (0.83-1.09) H 06/09/18 02:21 Problem List - Problems (1) Perforated sigmoid colon Assessment/Plan: POD day 4 s/p ash procedure intubated and sedated on fentanyl off pressors ivf monitor h/h drop may be dilutional replete lytes iv abx dvt ppx iv ppI monitor calcium - will replete ng tube with tube feeds Code(s): K63.1 - PERFORATION OF INTESTINE (NONTRAUMATIC) (2) UTI (urinary tract infection) Assessment/Plan: Microbiology 06/09/18 02:45 Urine - Urine Mathis Urine Culture - Final Pseudomonas Aeruginosa zosyn Code(s): N39.0 - URINARY TRACT INFECTION, SITE NOT SPECIFIED (3) Electrolyte abnormality Assessment/Plan: magnesium,phosphorous,potassium repleted calcium repleted repeat labs Code(s): E87.8 - OTH DISORDERS OF ELECTROLYTE AND FLUID BALANCE, NEC
[2018-06-12] MEDS ORDERED: DEXTROSE 5%-WATER 100 ML IVPB ONE ×2 (13:28→21:55)
[2018-06-12] MEDS ORDERED: PIPERACILLIN/TAZOBACTAM 4.5 GM VIAL IVPB ONE ×2 (13:28→21:55)
[2018-06-12] MEDS ORDERED: CALCIUM GLUCONATE 10% - 1,000 MG/10 ML VIAL IVPB ONE (13:30)
--- NOTE | 2018-06-12 17:19 | PN ---
Progress Note (short form) - Note Progress Note: Attending Surgeon POD #3 Remains intubated in the ICU; off pressors; remians intubated; on tube feeding VSS AF abdo-ostomy viable and functioning; wound care in progress WBC 14.8 Psedomonas in urine drain-erous IMP: stable PLAN:Continue as per ICU; wean to extubate; wound care. Michael Vaughan MD FACS
--- NOTE | 2018-06-12 17:21 | PATH ---
Surgical Pathology Report Patient Name: MELLISA GOEL [facility]. Rec. #: [id number] /Age/Gender: 1965 (Age: 52) / F Account: [id number] Location: ICU [facility] Taken: 06/09/2018 Received: 06/10/2018 Reported: 06/12/2018 Physicians: Michael Vaughan MD PHYSICIAN EMERGENCY DEPT Specimen(s) Received SIGMOID COLON Clinical History Acute abdomen, sigmoid volvulus Final Diagnosis SIGMOID COLON, RESECTION: SEGMENT OF COLON WITH AREAS OF TRANSMURAL ISCHEMIA, HEMORRHAGE, ACUTE INFLAMMATION AND NECROSIS. ACUTE SEROSITIS. THREE BENIGN LYMPH NODES (0/3). SURGICAL MARGINS ARE VIABLE. Electronically Signed Nuha Best M.D. Gross Description Received in formalin labeled "sigmoid," is a 45 cm in length dilated portion of colon with 2 open mucosal margins and moderate attached pericolonic adipose tissue. The serosa is peralta-patel with focal attached exudate. The mucosa is brown green with inflammation, focal ischemia and flattened folds. No mucosal masses are identified. There is a 0.7 cm in greatest dimension palpable lymph node identified within the pericolonic adipose tissue. Patient'S Librarian sections are submitted in 7 cassettes as follows: 7-9-[id number] mucosal margins; 2-9-fbqgyjcwzese submitted sections of mucosa; 7-one bisected lymph node. 06/11/201806/11/2018
[2018-06-12] MEDS: LACTATED RINGERS SOLUTION 1,000 ML IV SCH (19:00)
[2018-06-12] MEDS ORDERED: PT OWN MED DRAWER 7, Y5N ONE (21:55)
[2018-06-12] MEDS: LATANOPROST 0.005% OPHTH SOLN 2.5ML BOTTLE OU SCH (22:30)
[2018-06-12] MEDS: CHLORHEXIDINE GLUCONATE 4% CLEANSER FOR DECOLONIZATION TP SCH (22:30)
[2018-06-13] MEDS: FENTANYL INJECTION 500 MCG in DEXTROSE 5%-WATER - 90 ML IVPB SCH ×3 (02:00→08:00)
[2018-06-13] MEDS ORDERED: fentaNYL CITRATE 250 MCG/5 ML VIAL ONE ×4 (02:05→13:14)
[2018-06-13] MEDS: INSULIN SLIDING SCALE (NOVOLOG) 1 VIAL SQ SCH ×6 (03:13→21:59)
[2018-06-13] MEDS ORDERED: PIPERACILLIN/TAZOBACTAM 4.5 GM VIAL IVPB ONE ×4 (04:51→21:42)
[2018-06-13] MEDS ORDERED: DEXTROSE 5%-WATER 100 ML IVPB ONE ×4 (04:52→21:43)
[2018-06-13] MEDS: HEPARIN NA (PORCINE) 5,000 UNITS/ML 1ML VIAL SQ SCH ×3 (05:02→21:45)
[2018-06-13] MEDS: PIPERACILLIN/TAZOB 4.5 GM 4.5 GM in DEXTROSE 5%-WATER 100 ML IVPB SCH ×3 (05:02→21:44)
[2018-06-13 06:01] LABS: BASO % 0.6 % (0-2.0); EOS % 0.5 % (0-4.5); HEMATOCRIT 21.2 % (32.4-45.2); HEMOGLOBIN 7.4 GM/dL (10.7-15.3); LYMPH % 11.6 % (8-40); MCH 25.1 pg (25.7-33.7); MCHC 34.6 g/dl (32.0-36.0); MEAN CELL VOLUME 72.4 fl (80-96); MEAN PLT VOLUME 7.8 fl (7.5-11.1); MONO % 7.2 % (3.8-10.2); NEUT % 80.1 % (42.8-82.8); PLATELET COUNT 299 K/MM3 (134-434); RBC 2.93 M/mm3 (3.60-5.2); RDW 16.1 % (11.6-15.6); WHITE BLOOD COUNT 9.2 K/mm3 (4.0-10.0)
[2018-06-13 06:38] LABS: ALBUMIN 1.4 g/dl (3.4-5.0); ALK PHOS 100 U/L (45-117); ANION GAP 7 MMOL/L (8-16); BILIRUBIN,TOTAL 1.5 mg/dL (0.2-1); BLOOD UREA NITROGEN 5 mg/dL (7-18); CHLORIDE 114 mmol/L (98-107); CO2 26 mmol/L (21-32); CREATININE 0.4 mg/dL (0.55-1.3); GLUCOSE,RANDOM 138 mg/dL (74-106); PHOSPHOROUS 1.8 mg/dL (2.5-4.9); SGOT/AST 17 U/L (15-37); SGPT/ALT 21 U/L (13-61); SODIUM 147 mmol/L (136-145); TOT PROT 4.1 g/dl (6.4-8.2)
[2018-06-13 07:02] LABS: POTASSIUM 2.8 mmol/L (3.5-5.1)
[2018-06-13 07:03] LABS: CALCIUM 6.8 mg/dL (8.5-10.1)
[2018-06-13 08:06] LABS: SERUM IRON SATURATION 32 % (15-55); TOTAL IRON BINDING CAPACITY 104 ug/dL (250-450); UIBC 71 ug/dL (131-425)
[2018-06-13] MEDS ORDERED: FUROSEMIDE 40 MG/4 ML INJECTABLE VIAL IVPUSH ONE ×2 (08:30→19:20)
[2018-06-13] MEDS ORDERED: FUROSEMIDE 40 MG/4 ML INJECTABLE VIAL ONE (08:34)
--- NOTE | 2018-06-13 08:36 | PN ---
Progress Note (short form) - Note Progress Note: Pulm/CCM SUBJECTIVE: Patient seen and examined in the ICU. -off pressors -stool output from ostomy -starting diuesis CXR: RLL atelectesis vs infiltrated, pulm congestion OBJECTIVE: Vital Signs Temp 98.6 F 06/13/18 02:00 Pulse 93 H 06/13/18 08:20 Resp 14 06/13/18 08:20 BP 136/85 06/13/18 06:00 Pulse Ox 100 06/13/18 08:20 Intake & Output 06/12/18 06/12/18 06/13/18 11:59 23:59 11:59 Intake Total 2515 2337 2055 Output Total 1400 1195 300 Balance 1115 1142 1755 Weight 122 kg Intake: IV 1812 1664 1855 Lactated Ringers Solution 1500 1000 1500 1,000 ml @ 125 mls/hr IV [facility]IR [facility] Rx#: [id number] Sublimaze Injection - 500 240 160 325 Mcg In D5w - 90 ml @ 100 MCG/HR 20 mls/hr IVPB TITR [facility] Rx#:[id number] Versed - 100 mg In Normal 72 4 30 Saline - 100 ml @ 4 MG/ HR 4 mls/hr IVPB TITR [facility] Rx#:[id number] potassium phos 500 IVPB 200 200 200 Oral 0 Tube Feeding 323 334 0 Tube Irrigant 180 139 0 Output: Gastric Drainage 325 Drainage 100 150 50 Right Abdomen 100 150 50 Urine 1300 600 Mathis 1300 600 Colostomy 100 50 Emesis 20 200 Other: Voiding Method Indwelling Catheter Indwelling Catheter Weight Measurement Method Built in [facility] Active Medications Acetaminophen (Ofirmev Injection -) 1,000 mg IVPB Q6H PRN PRN Reason: PAIN LEVEL 7 - 10 Chlorhexidine Gluconate (Hibiclens For Decolonization -) 1 applic TP HS [facility] Last Admin: 06/12/18 22:30 Dose: 1 applic Furosemide (Lasix Injection -) 40 mg IVPUSH ONCE ONE Stop: 06/13/18 08:31 Heparin Sodium (Porcine) (Heparin -) 5,000 unit SQ TID [facility] Last Admin: 06/13/18 05:02 Dose: 5,000 unit Midazolam HCl 100 mg/ Sodium (Chloride) 100 mls @ 4 mls/hr IVPB TITR [facility]; Protocol Last Titration: 06/13/18 02:00 Dose: 4 mg/hr, 4 mls/hr Fentanyl 500 mcg/ Dextrose 100 mls @ 20 mls/hr IVPB TITR [facility] Last Admin: 06/13/18 08:00 Dose: 100 mcg/hr, 20 mls/hr Piperacillin Sod/Tazobactam (Sod 4.5 gm/ Dextrose) 100 mls @ 200 mls/hr IVPB Q8H [facility]; Protocol Last Admin: 06/13/18 05:02 Dose: 200 mls/hr Insulin Aspart (Novolog Vial Sliding Scale -) 1 vial SQ Q4HPO [facility]; Protocol Last Admin: 06/13/18 05:14 Dose: Not Given Latanoprost (Xalatan 0.005% Eye Drops -) 1 drop OU HS [facility] Last Admin: 06/12/18 22:30 Dose: 1 drop Morphine Sulfate (Morphine Sulfate) 4 mg IVPUSH Q4H PRN PRN Reason: PAIN LEVEL 1-5 Mupirocin (Bactroban Ointment (For Decolonization) -) 1 applic NS BID [facility] Stop: 06/14/18 09:59 Last Admin: 06/12/18 22:30 Dose: 1 applic Pantoprazole Sodium (Protonix Iv) 40 mg IVPUSH DAILY [facility] Last Admin: 06/12/18 09:54 Dose: 40 mg Potassium Chloride (Potassium Chloride 20 Meq Premix Ivpb -) 20 meq IVPB Q60M [facility] Stop: 06/13/18 09:16 Gen: intubated, sedated, awakens to loud voice. Heart: RRR Lung: scattered rhonchi, diminished bases Abd: soft, +ostomy pink with stool output Ext: + edema CBCD WBC 9.2 K/mm3 (4.0-10.0) 06/13/18 05:30 RBC 2.93 M/mm3 (3.60-5.2) L 06/13/18 05:30 Hgb 7.4 GM/dL (10.7-15.3) L 06/13/18 05:30 Hct 21.2 % (32.4-45.2) L 06/13/18 05:30 MCV 72.4 fl (80-96) L 06/13/18 05:30 MCHC 34.6 g/dl (32.0-36.0) 06/13/18 05:30 RDW 16.1 % (11.6-15.6) H 06/13/18 05:30 Plt Count 299 K/MM3 (134-434) 06/13/18 05:30 MPV 7.8 fl (7.5-11.1) 06/13/18 05:30 CMP Sodium 147 mmol/L (136-145) H 06/13/18 05:30 Potassium 2.8 mmol/L (3.5-5.1) L* 06/13/18 05:30 Chloride 114 mmol/L (98-107) H 06/13/18 05:30 Carbon Dioxide 26 mmol/L (21-32) 06/13/18 05:30 Anion Gap 7 MMOL/L (8-16) L 06/13/18 05:30 BUN 5 mg/dL (7-18) L 06/13/18 05:30 Creatinine 0.4 mg/dL (0.55-1.3) L 06/13/18 05:30 Creat Clearance w eGFR > 60 (>60) 06/13/18 05:30 Calcium 6.8 mg/dL (8.5-10.1) L* 06/13/18 05:30 Total Bilirubin 1.5 mg/dL (0.2-1) H 06/13/18 05:30 AST 17 U/L (15-37) 06/13/18 05:30 ALT 21 U/L (13-61) 06/13/18 05:30 Alkaline Phosphatase 100 U/L (45-117) 06/13/18 05:30 Total Protein 4.1 g/dl (6.4-8.2) L 06/13/18 05:30 Albumin 1.4 g/dl (3.4-5.0) L 06/13/18 05:30 ASSESSMENT AND PLAN: Sigmoid Volvulus/Pneumoperitoneum/Fecal Peritonitis s/p ex-lap/Bella's procedure Septic Shock Volume Overload Lactic/Metabolic Acidosis COPD DM Paraplegia Depression - continue antibiotics - f/u final cultures - monitor urine output, creatinine - diuesis - replete lytes - O2 to keep Spo2 >90%, will increase peep to 8 give body habitus - Lighten sedation to assess mental status - spontaneous breathing trials as tolerated when mental status improved and after diuesis - DVT/GI prophylaxis - continue ICU monitoring [place] ACNP [id number]
--- NOTE | 2018-06-13 09:00 | PN ---
Progress Note (short form) - Note Progress Note: Attending Surgeon POD #4 Remains vented in the ICU; did not tolerate tube feeding well VSS AF abdo-soft; incision intact and packed and granulating; you in place at the umbilicus; DAISHA serous WBC-nl Pseudomonas growing in the urine Pathology noted IMP: stable PLAN: As per ICU; if patient is not being fed suggest NGT to LCS; d/w patients family yesterday hospital course to date. Michael Vaughan MD FACS
--- NOTE | 2018-06-13 09:56 | PN ---
Progress Note, Physician - Current Medication List Current Medications: Active Medications Acetaminophen (Ofirmev Injection -) 1,000 mg IVPB Q6H PRN PRN Reason: PAIN LEVEL 7 - 10 Chlorhexidine Gluconate (Hibiclens For Decolonization -) 1 applic TP HS [facility] Last Admin: 06/12/18 22:30 Dose: 1 applic Heparin Sodium (Porcine) (Heparin -) 5,000 unit SQ TID [facility] Last Admin: 06/13/18 05:02 Dose: 5,000 unit Midazolam HCl 100 mg/ Sodium (Chloride) 100 mls @ 4 mls/hr IVPB TITR [facility]; Protocol Last Titration: 06/13/18 02:00 Dose: 4 mg/hr, 4 mls/hr Fentanyl 500 mcg/ Dextrose 100 mls @ 20 mls/hr IVPB TITR [facility] Last Admin: 06/13/18 08:00 Dose: 100 mcg/hr, 20 mls/hr Piperacillin Sod/Tazobactam (Sod 4.5 gm/ Dextrose) 100 mls @ 200 mls/hr IVPB Q8H [facility]; Protocol Last Admin: 06/13/18 05:02 Dose: 200 mls/hr Insulin Aspart (Novolog Vial Sliding Scale -) 1 vial SQ Q4HPO [facility]; Protocol Last Admin: 06/13/18 05:14 Dose: Not Given Latanoprost (Xalatan 0.005% Eye Drops -) 1 drop OU HS [facility] Last Admin: 06/12/18 22:30 Dose: 1 drop Morphine Sulfate (Morphine Sulfate) 4 mg IVPUSH Q4H PRN PRN Reason: PAIN LEVEL 1-5 Mupirocin (Bactroban Ointment (For Decolonization) -) 1 applic NS BID [facility] Stop: 06/14/18 09:59 Last Admin: 06/12/18 22:30 Dose: 1 applic Pantoprazole Sodium (Protonix Iv) 40 mg IVPUSH DAILY [facility] Last Admin: 06/12/18 09:54 Dose: 40 mg - Objective Vital Signs: Vital Signs Temperature 98.6 F 06/13/18 02:00 Pulse Rate 93 H 06/13/18 08:20 Respiratory Rate 14 06/13/18 08:20 Blood Pressure 136/85 06/13/18 06:00 O2 Sat by Pulse Oximetry (%) 100 06/13/18 08:20 Cardiovascular: Yes: S1, S2 Respiratory: Yes: Mechanically Ventilated Gastrointestinal: Yes: Hypoactive Bowel Sounds, Other (colostomy) Labs: CBC, BMP 06/13/18 05:30 06/13/18 05:30 INR, PTT INR 1.39 (0.83-1.09) H 06/09/18 02:21 Assessment/Plan - Problems (1) Perforated sigmoid colon Assessment/Plan: POD day 4 s/p ash procedure intubated and sedated on fentanyl off pressors ivf monitor h/h drop may be dilutional replete lytes iv abx dvt ppx iv ppI monitor calcium - will replete ng tube with tube feeds Code(s): K63.1 - PERFORATION OF INTESTINE (NONTRAUMATIC) (2) UTI (urinary tract infection) Assessment/Plan: Microbiology 06/09/18 02:45 Urine - Urine Mathis Urine Culture - Final Pseudomonas Aeruginosa zosyn Code(s): N39.0 - URINARY TRACT INFECTION, SITE NOT SPECIFIED (3) Electrolyte abnormality Assessment/Plan: potassium repleted repeat labs Code(s): E87.8 - OTH DISORDERS OF ELECTROLYTE AND FLUID BALANCE, NEC (4) Anemia Assessment/Plan: prbc
[2018-06-13] MEDS ORDERED: PT OWN MED DRAWER 7, Y5N ONE (10:03)
[2018-06-13] MEDS: POTASSIUM CHLORIDE 20 MEQ PREMIX IVPB 100 ML IVPB SCH (10:05)
[2018-06-13] MEDS: MUPIROCIN 2% TOPICAL OINTMENT FOR DECOLONIZATION NS SCH ×2 (10:08→21:45)
[2018-06-13] MEDS: PANTOPRAZOLE SODIUM 40 MG VIAL IVPUSH SCH (10:08)
--- NOTE | 2018-06-13 10:46 | PN ---
Progress Note, Physician History of Present Illness: INTUBATED LOW GRADE TEMP EPISODE OF VOMITING YESTERDAY WBC IMPROVED WNL BC NO GROWTH URINE C/S PSEUDOMONAS SP. - Current Medication List Current Medications: Active Medications Acetaminophen (Ofirmev Injection -) 1,000 mg IVPB Q6H PRN PRN Reason: PAIN LEVEL 7 - 10 Chlorhexidine Gluconate (Hibiclens For Decolonization -) 1 applic TP HS [facility] Last Admin: 06/12/18 22:30 Dose: 1 applic Heparin Sodium (Porcine) (Heparin -) 5,000 unit SQ TID [facility] Last Admin: 06/13/18 05:02 Dose: 5,000 unit Midazolam HCl 100 mg/ Sodium (Chloride) 100 mls @ 4 mls/hr IVPB TITR [facility]; Protocol Last Titration: 06/13/18 02:00 Dose: 4 mg/hr, 4 mls/hr Fentanyl 500 mcg/ Dextrose 100 mls @ 20 mls/hr IVPB TITR [facility] Last Admin: 06/13/18 08:00 Dose: 100 mcg/hr, 20 mls/hr Piperacillin Sod/Tazobactam (Sod 4.5 gm/ Dextrose) 100 mls @ 200 mls/hr IVPB Q8H [facility]; Protocol Last Admin: 06/13/18 05:02 Dose: 200 mls/hr Insulin Aspart (Novolog Vial Sliding Scale -) 1 vial SQ Q4HPO [facility]; Protocol Last Admin: 06/13/18 05:14 Dose: Not Given Latanoprost (Xalatan 0.005% Eye Drops -) 1 drop OU HS [facility] Last Admin: 06/12/18 22:30 Dose: 1 drop Morphine Sulfate (Morphine Sulfate) 4 mg IVPUSH Q4H PRN PRN Reason: PAIN LEVEL 1-5 Mupirocin (Bactroban Ointment (For Decolonization) -) 1 applic NS BID [facility] Stop: 06/14/18 09:59 Last Admin: 06/13/18 10:08 Dose: 1 applic Pantoprazole Sodium (Protonix Iv) 40 mg IVPUSH DAILY [facility] Last Admin: 06/13/18 10:08 Dose: 40 mg - Objective Vital Signs: Vital Signs Temperature 99.7 F H 06/13/18 08:00 Pulse Rate 92 H 06/13/18 10:00 Respiratory Rate 14 06/13/18 10:34 Blood Pressure 127/74 06/13/18 10:00 O2 Sat by Pulse Oximetry (%) 100 06/13/18 09:00 Constitutional: Yes: No Distress, Obese Cardiovascular: Yes: Regular Rate and Rhythm, S1, S2 Respiratory: Yes: Mechanically Ventilated Gastrointestinal: Yes: Normal Bowel Sounds, Soft, Abdomen, Obese, Other (+ OSTOMY). No: Tenderness Edema: Yes Labs: CBC, BMP 06/13/18 05:30 06/13/18 05:30 INR, PTT INR 1.39 (0.83-1.09) H 06/09/18 02:21 Assessment/Plan S/P HARTMANS PROCEDURE/ PERFORATED VISCUS RESP FAILURE ? PNEUMONIA + URINE C/S PSEUDOMONAS CONTINUE ZOSYN VENTILATORY SUPPORT
[2018-06-13 13:38] LABS: ANISOCYTOSIS 2+; MACROCYTOSIS 0; OVALOCYTE 1+; PLATELET ESTIMATE NORMAL; TARGET CELLS 1+; TEAR DROP CELLS 1+
[2018-06-13] MEDS: MIDAZOLAM 100 MG in SODIUM CHLORIDE 100 ML IVPB SCH (13:45)
[2018-06-13] MEDS: KCL 10 MEQ IVPB 10 MEQ/100 ML INFUS.BAG IVPB SCH ×3 (16:03→21:44)
[2018-06-13] MEDS ORDERED: POTASSIUM CHLORIDE 20 MEQ PREMIX IVPB 100 ML IVPB ONE (19:21)
[2018-06-13] MEDS: CHLORHEXIDINE GLUCONATE 4% CLEANSER FOR DECOLONIZATION TP SCH (21:45)
[2018-06-13] MEDS: LATANOPROST 0.005% OPHTH SOLN 2.5ML BOTTLE OU SCH (21:55)
[2018-06-14] MEDS: INSULIN SLIDING SCALE (NOVOLOG) 1 VIAL SQ SCH ×6 (03:18→21:13)
[2018-06-14] MEDS: FENTANYL INJECTION 500 MCG in DEXTROSE 5%-WATER - 90 ML IVPB SCH (05:28)
[2018-06-14] MEDS ORDERED: PIPERACILLIN/TAZOBACTAM 4.5 GM VIAL IVPB ONE (05:30)
[2018-06-14] MEDS ORDERED: DEXTROSE 5%-WATER 100 ML IVPB ONE (05:31)
[2018-06-14] MEDS: PIPERACILLIN/TAZOB 4.5 GM 4.5 GM in DEXTROSE 5%-WATER 100 ML IVPB SCH (05:31)
[2018-06-14] MEDS: HEPARIN NA (PORCINE) 5,000 UNITS/ML 1ML VIAL SQ SCH ×3 (05:32→21:06)
[2018-06-14 06:10] LABS: BASO % 0.4 % (0-2.0); HEMATOCRIT 25.4 % (32.4-45.2); HEMOGLOBIN 8.8 GM/dL (10.7-15.3); LYMPH % 15.2 % (8-40); MCH 25.6 pg (25.7-33.7); MCHC 34.5 g/dl (32.0-36.0); MEAN CELL VOLUME 74.2 fl (80-96); MEAN PLT VOLUME 8.3 fl (7.5-11.1); NEUT % 72.4 % (42.8-82.8); PLATELET COUNT 334 K/MM3 (134-434); RBC 3.43 M/mm3 (3.60-5.2); WHITE BLOOD COUNT 8.7 K/mm3 (4.0-10.0)
[2018-06-14 06:36] LABS: ALBUMIN 1.5 g/dl (3.4-5.0); ALK PHOS 102 U/L (45-117); ANION GAP 6 MMOL/L (8-16); BILIRUBIN,TOTAL 1.9 mg/dL (0.2-1); BLOOD UREA NITROGEN 4 mg/dL (7-18); CHLORIDE 107 mmol/L (98-107); CO2 29 mmol/L (21-32); CREATININE 0.7 mg/dL (0.55-1.3); GLUCOSE,RANDOM 115 mg/dL (74-106); SGOT/AST 23 U/L (15-37); SGPT/ALT 18 U/L (13-61); SODIUM 142 mmol/L (136-145)
[2018-06-14 06:38] LABS: POTASSIUM 2.8 mmol/L (3.5-5.1)
[2018-06-14 06:39] LABS: CALCIUM 6.9 mg/dL (8.5-10.1)
[2018-06-14] MEDS ORDERED: CALCIUM GLUCONATE 10% - 1,000 MG/10 ML VIAL IVPB ONE (06:51)
--- NOTE | 2018-06-14 07:57 | PN ---
Progress Note (short form) - Note Progress Note: Pulm/CCM SUBJECTIVE: Patient seen and examined in the ICU. -diuesing well -off sedation since yesterday, waking up, SBT this am -Tbili cont to rise, no alarcon, alk phos unchanged, no obvious bleeding no film, will extubated. OBJECTIVE: Vital Signs Temp 98.6 F 06/13/18 02:00 Pulse 93 H 06/13/18 08:20 Resp 14 06/13/18 08:20 BP 136/85 06/13/18 06:00 Pulse Ox 100 06/13/18 08:20 Intake & Output 06/12/18 06/12/18 06/13/18 11:59 23:59 11:59 Intake Total 2515 2337 2055 Output Total 1400 1195 300 Balance 1115 1142 1755 Weight 122 kg Intake: IV 1812 1664 1855 Lactated Ringers Solution 1500 1000 1500 1,000 ml @ 125 mls/hr IV [facility]IR [facility] Rx#: [id number] Sublimaze Injection - 500 240 160 325 Mcg In D5w - 90 ml @ 100 MCG/HR 20 mls/hr IVPB TITR [facility] Rx#:[id number] Versed - 100 mg In Normal 72 4 30 Saline - 100 ml @ 4 MG/ HR 4 mls/hr IVPB TITR [facility] Rx#:[id number] potassium phos 500 IVPB 200 200 200 Oral 0 Tube Feeding 323 334 0 Tube Irrigant 180 139 0 Output: Gastric Drainage 325 Drainage 100 150 50 Right Abdomen 100 150 50 Urine 1300 600 Mathis 1300 600 Colostomy 100 50 Emesis 20 200 Other: Voiding Method Indwelling Catheter Indwelling Catheter Weight Measurement Method Built in [facility] Active Medications Acetaminophen (Ofirmev Injection -) 1,000 mg IVPB Q6H PRN PRN Reason: PAIN LEVEL 7 - 10 Chlorhexidine Gluconate (Hibiclens For Decolonization -) 1 applic TP HS [facility] Last Admin: 06/12/18 22:30 Dose: 1 applic Furosemide (Lasix Injection -) 40 mg IVPUSH ONCE ONE Stop: 06/13/18 08:31 Heparin Sodium (Porcine) (Heparin -) 5,000 unit SQ TID [facility] Last Admin: 06/13/18 05:02 Dose: 5,000 unit Midazolam HCl 100 mg/ Sodium (Chloride) 100 mls @ 4 mls/hr IVPB TITR [facility]; Protocol Last Titration: 06/13/18 02:00 Dose: 4 mg/hr, 4 mls/hr Fentanyl 500 mcg/ Dextrose 100 mls @ 20 mls/hr IVPB TITR [facility] Last Admin: 06/13/18 08:00 Dose: 100 mcg/hr, 20 mls/hr Piperacillin Sod/Tazobactam (Sod 4.5 gm/ Dextrose) 100 mls @ 200 mls/hr IVPB Q8H [facility]; Protocol Last Admin: 06/13/18 05:02 Dose: 200 mls/hr Insulin Aspart (Novolog Vial Sliding Scale -) 1 vial SQ Q4HPO [facility]; Protocol Last Admin: 06/13/18 05:14 Dose: Not Given Latanoprost (Xalatan 0.005% Eye Drops -) 1 drop OU HS [facility] Last Admin: 06/12/18 22:30 Dose: 1 drop Morphine Sulfate (Morphine Sulfate) 4 mg IVPUSH Q4H PRN PRN Reason: PAIN LEVEL 1-5 Mupirocin (Bactroban Ointment (For Decolonization) -) 1 applic NS BID [facility] Stop: 06/14/18 09:59 Last Admin: 06/12/18 22:30 Dose: 1 applic Pantoprazole Sodium (Protonix Iv) 40 mg IVPUSH DAILY [facility] Last Admin: 06/12/18 09:54 Dose: 40 mg Potassium Chloride (Potassium Chloride 20 Meq Premix Ivpb -) 20 meq IVPB Q60M [facility] Stop: 06/13/18 09:16 Gen: opens eyes to voice Heart: RRR Lung: scattered rhonchi, diminished bases Abd: soft, +ostomy pink with stool output, no pain with palpation Ext: + edema, less Neuro: moves all 4 ext CBC, BMP 06/14/18 05:40 06/14/18 05:40 ASSESSMENT AND PLAN: Sigmoid Volvulus/Pneumoperitoneum/Fecal Peritonitis s/p ex-lap/Bella's procedure Septic Shock Volume Overload Lactic/Metabolic Acidosis COPD DM Paraplegia Depression - continue antibiotics - f/u final cultures - monitor urine output, creatinine - consider abd US, cont to follow bili, no evidence of obstruction, no transaminitis or elevated alk phos, will follow - diuesis 1-2L neg/day - replete lytes - O2 to keep Spo2 >90%, will increase peep to 8 give body habitus - off sedation - spontaneous breathing trials as tolerated when mental status improved and after diuesis - DVT/GI prophylaxis - continue ICU care [place] ACNP [id number]
[2018-06-14] MEDS: POTASSIUM CHLORIDE 20 MEQ PREMIX IVPB 100 ML IVPB SCH ×2 (08:13→09:28)
[2018-06-14] MEDS: PANTOPRAZOLE SODIUM 40 MG VIAL IVPUSH SCH (09:32)
[2018-06-14] MEDS ORDERED: FUROSEMIDE 40 MG/4 ML INJECTABLE VIAL IVPUSH ONE (10:35)
[2018-06-14] MEDS ORDERED: POTASSIUM CHLORIDE TABS 20 MEQ TABLET.ER (FP) PO ONE (10:36)
--- NOTE | 2018-06-14 13:35 | PN ---
Progress Note (short form) - Note Progress Note: Attending Surgeon POD #5 Remains in ICU; weaning to extubate and TF on hold VSS AF abdo-ostomy functioning; DAISHA serous; wound granulating labs noted IMP; improving PLAN: Continue as per ICU; will attempt to restart PO once extubated and alert. Michael Vaughan MD FACS
--- NOTE | 2018-06-14 15:47 | PN ---
Progress Note, Physician - Current Medication List Current Medications: Active Medications Acetaminophen (Ofirmev Injection -) 1,000 mg IVPB Q6H PRN PRN Reason: PAIN LEVEL 7 - 10 Last Admin: 06/13/18 15:59 Dose: 1,000 mg Chlorhexidine Gluconate (Hibiclens For Decolonization -) 1 applic TP HS [facility] Last Admin: 06/13/18 21:45 Dose: 1 applic Heparin Sodium (Porcine) (Heparin -) 5,000 unit SQ TID [facility] Last Admin: 06/14/18 13:50 Dose: 5,000 unit Insulin Aspart (Novolog Vial Sliding Scale -) 1 vial SQ Q4HPO [facility]; Protocol Last Admin: 06/14/18 13:50 Dose: Not Given Latanoprost (Xalatan 0.005% Eye Drops -) 1 drop OU HS [facility] Last Admin: 06/13/18 21:55 Dose: 1 drop Pantoprazole Sodium (Protonix Iv) 40 mg IVPUSH DAILY [facility] Last Admin: 06/14/18 09:32 Dose: 40 mg - Objective Vital Signs: Vital Signs Temperature 98.7 F 06/14/18 10:00 Pulse Rate 105 H 06/14/18 13:42 Respiratory Rate 10 06/14/18 13:31 Blood Pressure 100/65 06/14/18 12:00 O2 Sat by Pulse Oximetry (%) 100 06/14/18 13:42 Cardiovascular: Yes: S1, S2 Respiratory: Yes: Regular, CTA Bilaterally Gastrointestinal: Yes: Normal Bowel Sounds, Soft, Other (COLOSTOMY) Labs: CBC, BMP 06/14/18 05:40 06/14/18 05:40 INR, PTT INR 1.39 (0.83-1.09) H 06/09/18 02:21 Assessment/Plan - Problems (1) Perforated sigmoid colon Assessment/Plan: POD day 4 s/p ash procedure intubated and sedated on fentanyl off pressors ivf monitor h/h drop may be dilutional replete lytes iv abx dvt ppx iv ppI monitor calcium - will replete ng tube with tube feeds Code(s): K63.1 - PERFORATION OF INTESTINE (NONTRAUMATIC) (2) UTI (urinary tract infection) Assessment/Plan: Microbiology 06/09/18 02:45 Urine - Urine Mathis Urine Culture - Final Pseudomonas Aeruginosa zosyn Code(s): N39.0 - URINARY TRACT INFECTION, SITE NOT SPECIFIED (3) Electrolyte abnormality Assessment/Plan: potassium repleted repeat labs Code(s): E87.8 - OTH DISORDERS OF ELECTROLYTE AND FLUID BALANCE, NEC (4) Anemia Assessment/Plan: prbc
[2018-06-14] MEDS: LATANOPROST 0.005% OPHTH SOLN 2.5ML BOTTLE OU SCH (21:06)
[2018-06-14] MEDS: CHLORHEXIDINE GLUCONATE 4% CLEANSER FOR DECOLONIZATION TP SCH (21:06)
[2018-06-15] MEDS: INSULIN SLIDING SCALE (NOVOLOG) 1 VIAL SQ SCH ×6 (03:24→21:45)
[2018-06-15] MEDS: HEPARIN NA (PORCINE) 5,000 UNITS/ML 1ML VIAL SQ SCH ×3 (05:25→21:44)
--- NOTE | 2018-06-15 07:38 | PN ---
Physical Exam: SUBJECTIVE: Patient seen and examined. Extubated yesterday. No new c/o. Patient still somnolent. Making stool in colostomy bag, still draining OBJECTIVE: Vital Signs Period Temp Pulse Resp BP Sys/Ebnito Pulse Ox Last 24 Hr 98 F-99.5 F 91-117 10-18 100-139/63-101 92-100 Vital Signs Temp 100.0 F H 06/15/18 11:00 Pulse 112 H 06/15/18 10:00 Resp 20 06/15/18 10:00 BP 135/80 06/15/18 10:00 Pulse Ox 99 06/15/18 10:00 Intake & Output 06/14/18 06/14/18 06/15/18 11:59 23:59 11:59 Intake Total 480 575 Output Total 3780 730 Balance -3300 -155 Weight 115.711 kg Intake: IV 35 triple lumen at [facility] 35 IVPB 300 Tube Feeding 60 300 Tube Irrigant 120 240 Output: Gastric Drainage 50 Drainage 30 30 Right Abdomen 30 30 Urine 3700 700 Em 3700 700 Other: Voiding Method Indwelling Catheter Indwelling Catheter Bowel Movement Weight Measurement Method Built in [facility] GENERAL: Obese patient, somnolent but arousable HEAD: Normal with no signs of trauma. EYES: PERRL, extraocular movements intact, sclera anicteric, conjunctiva clear. No ptosis. NECK: supple, [facility] 06/10/18 LUNGS: Breath sounds equal, no wheezes, no crackles HEART:Tachycardic, S1, S2 without murmur, rub or gallop. ABDOMEN: Soft, midline cenral tender, bowel sounds+, L colostomy bag with soft stool EXTREMITIES: 2+ pulses, warm, well-perfused, no edema, SCDs in place. NEUROLOGICAL: Obeys commands, able to grasp with L hand, no grasp with R hand noted SKIN: Sacral decubitus ulcer CBC, BMP 06/15/18 09:50 06/15/18 09:50 CBCD WBC 15.9 K/mm3 (4.0-10.0) H 06/15/18 09:50 RBC 3.85 M/mm3 (3.60-5.2) 06/15/18 09:50 Hgb 9.8 GM/dL (10.7-15.3) L 06/15/18 09:50 Hct 28.7 % (32.4-45.2) L 06/15/18 09:50 MCV 74.5 fl (80-96) L 06/15/18 09:50 MCHC 34.3 g/dl (32.0-36.0) 06/15/18 09:50 RDW 16.9 % (11.6-15.6) H 06/15/18 09:50 Plt Count 460 K/MM3 (134-434) H D 06/15/18 09:50 MPV 7.8 fl (7.5-11.1) 06/15/18 09:50 CMP Sodium 143 mmol/L (136-145) 06/15/18 09:50 Potassium 3.1 mmol/L (3.5-5.1) L 06/15/18 09:50 Chloride 104 mmol/L (98-107) 06/15/18 09:50 Carbon Dioxide 31 mmol/L (21-32) 06/15/18 09:50 Anion Gap 7 MMOL/L (8-16) L 06/15/18 09:50 BUN 5 mg/dL (7-18) L 06/15/18 09:50 Creatinine 0.4 mg/dL (0.55-1.3) L 06/15/18 09:50 Creat Clearance w eGFR > 60 (>60) 06/15/18 09:50 Random Glucose 133 mg/dL (74-106) H 06/15/18 09:50 Calcium 7.2 mg/dL (8.5-10.1) L 06/15/18 09:50 Total Bilirubin 1.5 mg/dL (0.2-1) H 06/15/18 09:50 AST 22 U/L (15-37) 06/15/18 09:50 ALT 22 U/L (13-61) 06/15/18 09:50 Alkaline Phosphatase 110 U/L (45-117) 06/15/18 09:50 Total Protein 4.8 g/dl (6.4-8.2) L 06/15/18 09:50 Albumin 1.7 g/dl (3.4-5.0) L 06/15/18 09:50 Abnormal Lab Results 06/15/18 06/15/18 09:50 09:50 WBC 15.9 H Hgb 9.8 L Hct 28.7 L MCV 74.5 L MCH 25.5 L RDW 16.9 H Plt Count 460 H D Absolute Neuts (auto) 11.8 H Monocytes % (Manual) 3 L Eosinophils % (Manual) 4.9 H D Potassium 3.1 L Anion Gap 7 L BUN 5 L Creatinine 0.4 L Random Glucose 133 H Calcium 7.2 L Phosphorus 1.5 L Magnesium 1.5 L Total Bilirubin 1.5 H Total Protein 4.8 L Albumin 1.7 L Laboratory Results - last 24 hr 06/14/18 06/14/18 06/14/18 08:38 12:32 17:08 POC Glucometer 98 112 109 06/14/18 06/15/18 06/15/18 21:12 03:24 05:31 POC Glucometer 123 123 116 Active Medications Generic Name Dose Route Start Last Admin Trade Name Freq PRN Reason Stop Dose Admin Acetaminophen 1,000 mg 06/09/18 23:55 06/13/18 15:59 Ofirmev Injection - IVPB 1,000 mg Q6H PRN Administration PAIN LEVEL 7 - 10 Chlorhexidine Gluconate 1 applic 06/09/18 22:00 06/14/18 21:06 Hibiclens For Decolonization - TP 1 applic HS [facility] Administration Heparin Sodium (Porcine) 5,000 unit 06/09/18 22:00 06/15/18 05:25 Heparin - SQ 5,000 unit TID DANNA Administration Insulin Aspart 1 vial 06/15/18 02:00 06/15/18 05:34 Novolog Vial Sliding Scale - SQ Not Given Q4HPO [facility] Protocol Latanoprost 1 drop 06/09/18 22:00 06/14/18 21:06 Xalatan 0.005% Eye Drops - OU 1 drop HS DANNA Administration Pantoprazole Sodium 40 mg 06/10/18 12:45 06/14/18 09:32 Protonix Iv IVPUSH 40 mg DAILY DANNA Administration Ambulatory Orders Albuterol So4/Ipratropium [Combivent Inhaler -] 1 inh PO QID 11/11/11 Baclofen 20 mg PO QID 11/11/11 Docusate Sodium [Colace -] 100 mg PO HS PRN 11/11/11 Gabapentin [Neurontin -] 600 mg PO Q8H 11/11/11 Oxybutynin Chloride [Ditropan Xl] 10 mg PO DAILY 11/11/11 Polyethylene Glycol 3350 [Miralax] 17 gm PO DAILY 11/11/11 clonazePAM [Klonopin -] 0.5 mg PO BID 11/11/11 Benztropine Mesylate [Cogentin -] 0.5 mg PO DAILY tablet 11/28/14 Acetaminophen [Tylenol -] 650 mg PO Q4H PRN 06/09/18 Bisacodyl [Dulcolax] 10 mg PO DAILY 06/09/18 Calcium Carbonate [Calcium] 1,200 mg PO DAILY 06/09/18 Fluoxetine HCl [Prozac] 40 mg PO DAILY 06/09/18 Haloperidol [Haldol -] 5 mg PO DAILY 06/09/18 Latanoprost 0.005% Eye Drops [Xalatan 0.005% Eye Drops -] 1 drop OU HS 06/09/18 Linaclotide [Linzess] 72 mcg PO HS 06/09/18 Mineral Oil Enema [Fleet Mineral Oil Rectal Enema] 133 ml RC DAILY PRN 06/09/18 Montelukast Sodium [Singulair] 10 mg PO DAILY 06/09/18 Simethicone 80 mg PO Q8H PRN 06/09/18 clonazePAM [Klonopin -] 0.5 mg PO HS 06/09/18 ASSESSMENT/PLAN: Patient is a 52 year old female with history of paraplegia (after falling from elevated height from attempted suicide), major depressive disorder, anxiety, chronic obstructive pulmonary disease, diabetes mellitus, gastroesophageal reflux disease, glaucoma, s/p Bella's procedure. Admitted to ICU for postoperative management. Neurological/psychiatric - Pt noted to be awake and able to feed herself in past -Post traumatic paraplegia - Pt with sacral decubitus ulcer, seen by Dr Vargas, for wound vac- continous 12 - Extubated 06/14/18 and off sedation 06/14/18, still somnolent (had been on midazolam and fentanyl), monitor - Hx of Depression, currently not on home meds -Patient is currently off sedation -Consider reinstating home psychiatric medications once awake. Pulmonary -s/p extubation, on nasal cannular Cardiovascular -Patient is currently normotensive, off Norepinepherine drip. -Will require diuresis once blood pressures are stable. -MAP greater than 65 -Monitor vital signs closely Gastrointestinal -Patient is s/p Bella's procedure- 06/10/18 (POD 5) -General surgery recommendations appreciated -Monitor colostomy bag output -Protonix 40mg IV daily -Tube feeds Vital @40 - Speech and swallow eval Renal -Patient currently urinating clear yellow urine into em catheter -Follow intake and output closely. - Replete electrolytes-Mg, Ph, K Endocrine Diabetes mellitus -Insulin sliding scale TID -Fingerstick blood glucose monitoring TID Visit type - Emergency Visit Emergency Visit: Yes ED Registration Date: 06/09/18 Care time: The patient presented to the Emergency Department on the above date and was hospitalized for further evaluation of their emergent condition. - New Patient This patient is new to me today: Yes Date on this admission: 06/15/18 - Critical Care Critical Care patient: Yes Total Critical Care Time (in minutes): 37 Critical Care Statement: The care of this patient involved high complexity decision making to prevent further life threatening deterioration of the patient 's condition and/or to evaluate & treat vital organ system(s) failure or risk of failure. - Discharge Referral Referred to [facility] No
[2018-06-15] MEDS: PANTOPRAZOLE SODIUM 40 MG VIAL IVPUSH SCH (09:57)
[2018-06-15 10:07] LABS: BASO % 0.3 % (0-2.0); EOS % 1.5 % (0-4.5); HEMATOCRIT 28.7 % (32.4-45.2); HEMOGLOBIN 9.8 GM/dL (10.7-15.3); LYMPH % 15.2 % (8-40); MCH 25.5 pg (25.7-33.7); MCHC 34.3 g/dl (32.0-36.0); MEAN CELL VOLUME 74.5 fl (80-96); MEAN PLT VOLUME 7.8 fl (7.5-11.1); MONO % 8.6 % (3.8-10.2); NEUT % 74.4 % (42.8-82.8); PLATELET COUNT 460 K/MM3 (134-434); RBC 3.85 M/mm3 (3.60-5.2); RDW 16.9 % (11.6-15.6); WHITE BLOOD COUNT 15.9 K/mm3 (4.0-10.0)
--- NOTE | 2018-06-15 10:10 | PN ---
Progress Note (short form) - Note Progress Note: extubated yesterday Vital Signs Period Temp Pulse Resp BP Sys/Benito Pulse Ox Last 24 Hr 98 F-99.5 F 91-117 10-20 100-139/65-101 92-100 cor-rrr lungs decreased bs at bases abd soft, +ostomy, midline wound packed ext no edema Microbiology 06/09/18 02:21 Blood - Peripheral Venous Blood Culture - Final NO GROWTH AFTER 5 DAYS INCUBATION 06/09/18 02:21 Blood - Peripheral Venous Blood Culture - Final NO GROWTH AFTER 5 DAYS INCUBATION 06/09/18 02:45 Urine - Urine Mathis Urine Culture - Final Pseudomonas Aeruginosa (UA negative) cbc, cmp pending cxray clear, bibasilar changes Current Medications Acetaminophen (Ofirmev Injection -) 1,000 mg IVPB Q6H PRN PRN Reason: PAIN LEVEL 7 - 10 Last Admin: 06/13/18 15:59 Dose: 1,000 mg Chlorhexidine Gluconate (Hibiclens For Decolonization -) 1 applic TP HS DANNA Last Admin: 06/14/18 21:06 Dose: 1 applic Heparin Sodium (Porcine) (Heparin -) 5,000 unit SQ TID DANNA Last Admin: 06/15/18 05:25 Dose: 5,000 unit Insulin Aspart (Novolog Vial Sliding Scale -) 1 vial SQ Q4HPO DANNA; Protocol Last Admin: 06/15/18 09:50 Dose: Not Given Latanoprost (Xalatan 0.005% Eye Drops -) 1 drop OU HS DANNA Last Admin: 06/14/18 21:06 Dose: 1 drop Pantoprazole Sodium (Protonix Iv) 40 mg IVPUSH DAILY DANNA Last Admin: 06/15/18 09:57 Dose: 40 mg a/p s/p ex lap for pneumoperitoneum/sigmoid volvolus-hartmans procedure extubated d/c zosyn encourage OOB encourage incentive spirometry persistent hypokalemia Problem List - Problems (1) Sepsis Code(s): A41.9 - SEPSIS, UNSPECIFIED ORGANISM (2) Perforated sigmoid colon Code(s): K63.1 - PERFORATION OF INTESTINE (NONTRAUMATIC) (3) Sigmoid volvulus Code(s): K56.2 - VOLVULUS (4) Neck mass Code(s): R22.1 - LOCALIZED SWELLING, MASS AND LUMP, NECK
--- NOTE | 2018-06-15 10:31 | PN ---
Progress Note (short form) - Note Progress Note: Attending Surgeon POD #6 Extubated; lethargic but arousable; TF in progress VSS AF abdo-distal wound appears to have Pseudomonas; wound o/w ok; ostomy viable and working WBC 15.9 IMP: improving PLAN: LWC/OOB/enteral feeding/pulmonary toilet/ drain has been removed this AM. Michael Vaughan MD FACS
[2018-06-15 10:38] LABS: ALBUMIN 1.7 g/dl (3.4-5.0); ALK PHOS 110 U/L (45-117); ANION GAP 7 MMOL/L (8-16); BILIRUBIN,TOTAL 1.5 mg/dL (0.2-1); BLOOD UREA NITROGEN 5 mg/dL (7-18); CALCIUM 7.2 mg/dL (8.5-10.1); CHLORIDE 104 mmol/L (98-107); CO2 31 mmol/L (21-32); CREATININE 0.4 mg/dL (0.55-1.3); GLUCOSE,RANDOM 133 mg/dL (74-106); MAGNESIUM 1.5 mg/dL (1.8-2.4); PHOSPHOROUS 1.5 mg/dL (2.5-4.9); POTASSIUM 3.1 mmol/L (3.5-5.1); SGOT/AST 22 U/L (15-37); SGPT/ALT 22 U/L (13-61); SODIUM 143 mmol/L (136-145); TOT PROT 4.8 g/dl (6.4-8.2)
[2018-06-15] MEDS ORDERED: POTASSIUM CHLORIDE ORAL LIQUID 20 MEQ/15 ML PO ONE (11:24)
[2018-06-15] MEDS ORDERED: NAPH,MB-DB/K PH,MBDB POWDER PACKET PO ONE (11:24)
[2018-06-15] MEDS ORDERED: MAGNESIUM SULF 50% (8.12 MEQ/2 ML-1 GM VIAL) IVPB ONE (11:24)
[2018-06-15] MEDS ORDERED: POTASSIUM PHOSPHATE 30 MM in SODIUM CHLORIDE 250 ML IVPB ONE (11:31)
--- NOTE | 2018-06-15 11:33 | PN ---
Progress Note, Physician Chief Complaint: patient extubated yesterday off pressor,no sedation tachycardiac no fever - Current Medication List Current Medications: Active Medications Acetaminophen (Ofirmev Injection -) 1,000 mg IVPB Q6H PRN PRN Reason: PAIN LEVEL 7 - 10 Last Admin: 06/13/18 15:59 Dose: 1,000 mg Chlorhexidine Gluconate (Hibiclens For Decolonization -) 1 applic TP HS DANNA Last Admin: 06/14/18 21:06 Dose: 1 applic Heparin Sodium (Porcine) (Heparin -) 5,000 unit SQ TID DANNA Last Admin: 06/15/18 05:25 Dose: 5,000 unit Insulin Aspart (Novolog Vial Sliding Scale -) 1 vial SQ Q4HPO DANNA; Protocol Last Admin: 06/15/18 09:50 Dose: Not Given Latanoprost (Xalatan 0.005% Eye Drops -) 1 drop OU HS DANNA Last Admin: 06/14/18 21:06 Dose: 1 drop Magnesium Sulfate (Magnesium Sulfate) 2 gm IVPB ONCE ONE Stop: 06/15/18 11:25 Pantoprazole Sodium (Protonix Iv) 40 mg IVPUSH DAILY DANNA Last Admin: 06/15/18 09:57 Dose: 40 mg Potassium Chloride (Potassium Chloride Oral Liquid) 40 meq PO ONCE ONE Stop: 06/15/18 11:25 Potassium Phos/Sodium Phos (Phos-Nak Packet -) 1 packet PO ONCE ONE Stop: 06/15/18 11:25 - Objective Vital Signs: Vital Signs Temperature 99.2 F 06/15/18 06:00 Pulse Rate 112 H 06/15/18 10:00 Respiratory Rate 20 06/15/18 10:00 Blood Pressure 135/80 06/15/18 10:00 O2 Sat by Pulse Oximetry (%) 99 06/15/18 10:00 Constitutional: Yes: Calm HENT: Yes: Other (NG tube) Cardiovascular: Yes: Regular Rate and Rhythm, Tachycardia, S1, S2 Respiratory: Yes: Diminished Gastrointestinal: Yes: Soft, Other (midlien wound colostomy with stool) Genitourinary: Yes: Mathis Present Edema: Yes Neurological: Yes: Other (awake) Labs: CBC, BMP 06/15/18 09:50 06/15/18 09:50 INR, PTT INR 1.39 (0.83-1.09) H 06/09/18 02:21 Problem List - Problems (1) Perforated sigmoid colon Assessment/Plan: POD day 6 s/p ash procedure exutbated off pressors on tube feeds incentive spirometry off abx Code(s): K63.1 - PERFORATION OF INTESTINE (NONTRAUMATIC) (2) UTI (urinary tract infection) Assessment/Plan: Microbiology 06/09/18 02:45 Urine - Urine Mathis Urine Culture - Final Pseudomonas Aeruginosa zosyn done Code(s): N39.0 - URINARY TRACT INFECTION, SITE NOT SPECIFIED (3) Electrolyte abnormality Assessment/Plan: magnesium,phosphorous,potassium repleted repeat labs Code(s): E87.8 - OTH DISORDERS OF ELECTROLYTE AND FLUID BALANCE, NEC (4) Tachycardia Assessment/Plan: sinus tachycardia ivf pain control Code(s): R00.0 - TACHYCARDIA, UNSPECIFIED (5) Wound of sacral region Assessment/Plan: wound care team - dr cadet consult collagenase dvt ppx paraplegic frequent turn and position Code(s): S31.000A - UNSP OPN WND LOW BACK AND PELV W/O PENET RETROPERITON, INIT
[2018-06-15 11:50] LABS: ANISOCYTOSIS 2+; MACROCYTOSIS 0; PLATELET ESTIMATE NORMAL; TARGET CELLS 1+
--- NOTE | 2018-06-15 11:51 | PN ---
Teaching Attending Note Name of Resident: Allie Olmedo ATTENDING PHYSICIAN STATEMENT I saw and evaluated the patient. I reviewed the resident's note and discussed the case with the resident. I agree with the resident's findings and plan as documented. SUBJECTIVE: Patient seen and examined in the ICU. Extubated but lethargic. Not able to follow commands. Off pressors. Intake & Output 06/12/18 06/13/18 06/14/18 06/15/18 22:59 22:59 23:59 23:59 Intake Total 575 Output Total 730 Balance -155 Weight 255 lb 1.6 oz Last Vital Signs Temp Pulse Resp BP Pulse Ox 100.0 F H 112 H 20 135/80 99 06/15/18 11:00 06/15/18 10:00 06/15/18 10:00 06/15/18 10:00 06/15/18 10:00 Active Medications Acetaminophen (Ofirmev Injection -) 1,000 mg IVPB Q6H PRN PRN Reason: PAIN LEVEL 7 - 10 Last Admin: 06/13/18 15:59 Dose: 1,000 mg Chlorhexidine Gluconate (Hibiclens For Decolonization -) 1 applic TP HS DANNA Last Admin: 06/14/18 21:06 Dose: 1 applic Collagenase (Santyl -) 1 applic TP DAILY DANNA; Protocol Heparin Sodium (Porcine) (Heparin -) 5,000 unit SQ TID DANNA Last Admin: 06/15/18 05:25 Dose: 5,000 unit Potassium Phosphate 30 mm/ (Sodium Chloride) 260 mls @ 43.333 mls/hr IVPB ONCE ONE Stop: 06/15/18 17:30 Insulin Aspart (Novolog Vial Sliding Scale -) 1 vial SQ Q4HPO DANNA; Protocol Last Admin: 06/15/18 09:50 Dose: Not Given Latanoprost (Xalatan 0.005% Eye Drops -) 1 drop OU HS DANNA Last Admin: 06/14/18 21:06 Dose: 1 drop Morphine Sulfate (Morphine Sulfate) 2 mg IVPUSH Q4H PRN PRN Reason: PAIN 1-6 Pantoprazole Sodium (Protonix Packets For Oral Suspension -) 40 mg NGT DAILY DANNA Sodium Hypochlorite (Dakin's Solution 0.25% (Half-Strength) -) 1 applic TP DAILY DANNA Gen: Extubated, lethargic Heart: RRR Lung: scattered rhonchi Abd: soft, +ostomy pink with stool output Ext: + edema Laboratory Results - last 24 hr 06/14/18 06/14/18 06/14/18 12:32 17:08 21:12 WBC RBC Hgb Hct MCV MCH MCHC RDW Plt Count MPV Absolute Neuts (auto) Neutrophils % Lymphocytes % Monocytes % Eosinophils % Basophils % Nucleated RBC % Sodium Potassium Chloride Carbon Dioxide Anion Gap BUN Creatinine Creat Clearance w eGFR POC Glucometer 112 109 123 Random Glucose Calcium Phosphorus Magnesium Total Bilirubin AST ALT Alkaline Phosphatase Total Protein Albumin 06/15/18 06/15/18 06/15/18 03:24 05:31 09:45 WBC RBC Hgb Hct MCV MCH MCHC RDW Plt Count MPV Absolute Neuts (auto) Neutrophils % Lymphocytes % Monocytes % Eosinophils % Basophils % Nucleated RBC % Sodium Potassium Chloride Carbon Dioxide Anion Gap BUN Creatinine Creat Clearance w eGFR POC Glucometer 123 116 136 Random Glucose Calcium Phosphorus Magnesium Total Bilirubin AST ALT Alkaline Phosphatase Total Protein Albumin 06/15/18 06/15/18 09:50 09:50 WBC 15.9 H RBC 3.85 Hgb 9.8 L Hct 28.7 L MCV 74.5 L MCH 25.5 L MCHC 34.3 RDW 16.9 H Plt Count 460 H D MPV 7.8 Absolute Neuts (auto) 11.8 H Neutrophils % 74.4 Lymphocytes % 15.2 Monocytes % 8.6 Eosinophils % 1.5 Basophils % 0.3 Nucleated RBC % 0 Sodium 143 Potassium 3.1 L Chloride 104 Carbon Dioxide 31 Anion Gap 7 L BUN 5 L Creatinine 0.4 L Creat Clearance w eGFR > 60 POC Glucometer Random Glucose 133 H Calcium 7.2 L Phosphorus 1.5 L Magnesium 1.5 L Total Bilirubin 1.5 H AST 22 ALT 22 Alkaline Phosphatase 110 Total Protein 4.8 L Albumin 1.7 L ASSESSMENT AND PLAN: Sigmoid Volvulus/Pneumoperitoneum/Fecal Peritonitis s/p ex-lap/Bella's procedure Septic Shock Volume Overload Lactic/Metabolic Acidosis COPD DM Paraplegia Depression - continue antibiotics - IVF to keep CVP 8-12 - pressors if MAP < 65 - monitor urine output, creatinine - Diuresis as needed - replete lytes - O2 to keep Spo2 >90% - Hold all sedation - DVT/GI prophylaxis - continue ICU monitoring due to tenuous overall status Dr Garcia critical care time spent in reviewing chart, evaluating patient and formulating plan 35 min
--- NOTE | 2018-06-15 16:18 | CONSULT ---
Admitting History and Physical - Primary Care Physician PCP: José Miguel Jones - Admission History of Present Illness: Per EMR: Patient is a 52 year old female with history of paraplegia (after falling from elevated height from attempted suicide), major depressive disorder, anxiety, chronic obstructive pulmonary disease, diabetes mellitus, gastroesophageal reflux disease, glaucoma, s/p Bella's procedure. Extubated 06/14/18 Selected Entries 06/15/18 06/15/18 06/15/18 02:00 04:00 06:00 Lunch Temperature 99.2 F 99 F 99.2 F 06/15/18 06/15/18 06/15/18 09:37 10:00 11:00 Lunch NPO NPO Temperature 100.0 F H Laboratory Tests 06/14/18 06/15/18 05:40 09:50 WBC 8.7 15.9 H CXR noted. 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: Other (spinal cord trauma) Renal/: Yes: Neurogenic Bladder, UTI Psych: Yes: Addictions (tobacco abuse), Depression, Other (hx suicide attempt resulting in pt becoming a paraglegic) Dermatology: Yes: Other (L hallux ulcer, gluteal ulcer) - Past Surgical History Past Surgical History: Yes: , Tonsillectomy - Smoking History Smoking history: Current every day smoker Have you smoked in the past 12 months: Yes Aproximately how many cigarettes per day: 3 - Alcohol/Substance Use Hx Alcohol Use: No - Social History ADL: Support Services 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, 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 History - Admission Reason For Visit: VOLVULUS OF SIGMOID COLON AMS PNEUMPERITONEUM - General Mental Status: Confused Attention: Distractible, Moderate Impairment Ability to Follow Directions: Poor Head/Neck Control: Needs Assist - Hearing Hearing: Normal Speech Evaluation - Communication Primary Language: MALTESE - Speech Characteristics Voice Loudness: Severely Soft/Quiet Voice Phonatory-based Quality: Yes: Breathy, Loss of Voice (Extubated yesterday) , Dysphonia Articulation: Yes: Precise - Language/Auditory Comprehension Observation: Able to respond to yes/no queries: No - Language/Verbal Expression Able to Communicate Wants and Needs: Yes: Severely Impaired (rare verbalizations. Distracted. Confused. Told me her name only.) - Swallow Evaluation/Bedside Assessment Current Nutritional Intake: NPO Facial Symmetry at Rest: Symmetrical Recommendations - Speech Evaluation, Impression/Plan Impression: Extubated yesterday. Severe Dysphonia-breathy, hypophonic. Rare verbalizations. Distracted. Confused. Told me her name only. High risk of aspiration,. - Disposition Discharge to: To be Determined - Dysphagia Impressions/Plan Swallowing Skills: Impaired Dysphagia Impressions: Severe Impairment, Ongoing Evaluation *Silent aspiration: cannot be R/O at bedside Recommendations: Modified Barium Swallow (possibly, once voice is stronger.) - Recommendations Diet Consistency: NPO Liquids: NPO, Other (NGT for feedings, meds, hydration if not medically contraindicated. Fever/elevated WBC?)
--- NOTE | 2018-06-15 16:23 | PN ---
Progress Note (short form) - Note Progress Note: Vascular Surgery Pt seen and examined. Stage 4 sacral ulcer with clean base and granulation. Will start vac therapy. 125 continuous. Will follow Marcos Vargas DO
[2018-06-15] MEDS ORDERED: PT OWN MED DRAWER 7, Y5N ONE (16:57)
[2018-06-15] MEDS: MORPHINE SULFATE 2 MG/ML VIAL IVPUSH PRN (21:41)
[2018-06-15] MEDS: LATANOPROST 0.005% OPHTH SOLN 2.5ML BOTTLE OU SCH (21:46)
[2018-06-15] MEDS: CHLORHEXIDINE GLUCONATE 4% CLEANSER FOR DECOLONIZATION TP SCH (21:50)
[2018-06-16] MEDS: MORPHINE SULFATE 2 MG/ML VIAL IVPUSH PRN ×3 (02:27→20:19)
[2018-06-16] MEDS: INSULIN SLIDING SCALE (NOVOLOG) 1 VIAL SQ SCH ×6 (02:28→23:09)
[2018-06-16 06:28] LABS: BASO % 0.1 % (0-2.0); HEMOGLOBIN 9.5 GM/dL (10.7-15.3); LYMPH % 15.3 % (8-40); MCH 25.1 pg (25.7-33.7); MCHC 33.8 g/dl (32.0-36.0); MEAN CELL VOLUME 74.2 fl (80-96); MEAN PLT VOLUME 8.2 fl (7.5-11.1); MONO % 8.7 % (3.8-10.2); NEUT % 74.9 % (42.8-82.8); PLATELET COUNT 497 K/MM3 (134-434); RBC 3.77 M/mm3 (3.60-5.2); RDW 17.3 % (11.6-15.6); WHITE BLOOD COUNT 18.5 K/mm3 (4.0-10.0)
[2018-06-16 06:43] LABS: ALBUMIN 1.8 g/dl (3.4-5.0); ALK PHOS 111 U/L (45-117); ANION GAP 6 MMOL/L (8-16); BILIRUBIN,TOTAL 1.4 mg/dL (0.2-1); BLOOD UREA NITROGEN 4 mg/dL (7-18); CALCIUM 7.3 mg/dL (8.5-10.1); CHLORIDE 106 mmol/L (98-107); CO2 28 mmol/L (21-32); CREATININE 0.3 mg/dL (0.55-1.3); GLUCOSE,RANDOM 149 mg/dL (74-106); MAGNESIUM 1.9 mg/dL (1.8-2.4); PHOSPHOROUS 1.9 mg/dL (2.5-4.9); POTASSIUM 3.7 mmol/L (3.5-5.1); SGOT/AST 23 U/L (15-37); SGPT/ALT 27 U/L (13-61); SODIUM 140 mmol/L (136-145)
[2018-06-16] MEDS: HEPARIN NA (PORCINE) 5,000 UNITS/ML 1ML VIAL SQ SCH ×3 (06:53→22:52)
[2018-06-16] MEDS ORDERED: POTASSIUM PHOSPHATE 30 MM in SODIUM CHLORIDE 250 ML IVPB ONE (07:58)
[2018-06-16] MEDS ORDERED: MAGNESIUM SULF 50% (8.12 MEQ/2 ML-1 GM VIAL) IVPB ONE (07:59)
--- NOTE | 2018-06-16 08:19 | PN ---
Physical Exam: SUBJECTIVE: Patient seen and examined at bedside. Overnight, pt removed NG tube. Currently awake and alert. Moving b/l upper extremities. No other events overnight. OBJECTIVE: Vital Signs Period Temp Pulse Resp BP Sys/Benito Pulse Ox Last 24 Hr 98.6 F-100.1 F 85-123 14-26 106-141/73-88 97-100 Intake & Output 06/13/18 06/14/18 06/15/18 06/16/18 22:59 23:59 23:59 23:59 Intake Total 1755 96.1 Output Total 2030 500 Balance -275 -403.9 Weight 115.711 kg 105.052 kg GENERAL: Obese patient, moaning. Able to verbally communicate. HEAD: Normal with no signs of trauma. EYES: PERRL, extraocular movements intact, sclera anicteric, conjunctiva clear. No ptosis. NECK: supple. site of RIJ, indurated. LIJ central line placed, dressing c/d/i. LUNGS: Breath sounds equal, no wheezes, no crackles HEART: RRR, S1, S2 without murmur, rub or gallop. ABDOMEN: Soft, midline central tender, +bowel sounds, L colostomy bag with soft stool EXTREMITIES: 2+ pulses, warm, well-perfused, no edema, SCDs in place. NEUROLOGICAL: Obeys commands, able to grasp with L hand, no grasp with R hand noted SKIN: Sacral decubitus ulcer CBC, BMP 06/16/18 05:30 06/16/18 05:30 Active Medications Acetaminophen (Ofirmev Injection -) 1,000 mg IVPB Q6H PRN PRN Reason: PAIN LEVEL 7 - 10 Last Admin: 06/13/18 15:59 Dose: 1,000 mg Chlorhexidine Gluconate (Hibiclens For Decolonization -) 1 applic TP HS DANNA Last Admin: 06/15/18 21:50 Dose: 1 applic Collagenase (Santyl -) 1 applic TP DAILY DANNA; Protocol Last Admin: 06/16/18 10:24 Dose: 1 applic Heparin Sodium (Porcine) (Heparin -) 5,000 unit SQ TID DANNA Last Admin: 06/16/18 06:53 Dose: 5,000 unit Potassium Phosphate 30 mm/ (Sodium Chloride) 260 mls @ 43.333 mls/hr IVPB ONCE ONE Stop: 06/16/18 13:57 Insulin Aspart (Novolog Vial Sliding Scale -) 1 vial SQ Q4HPO DANNA; Protocol Last Admin: 06/16/18 06:54 Dose: Not Given Latanoprost (Xalatan 0.005% Eye Drops -) 1 drop OU HS [facility] Last Admin: 06/15/18 21:46 Dose: 1 drop Morphine Sulfate (Morphine Sulfate) 2 mg IVPUSH Q4H PRN PRN Reason: PAIN 1-6 Last Admin: 06/16/18 06:54 Dose: 2 mg Pantoprazole Sodium (Protonix Packets For Oral Suspension -) 40 mg NGT DAILY [facility] Last Admin: 06/16/18 10:24 Dose: Not Given Sodium Hypochlorite (Dakin's Solution 0.25% (Half-Strength) -) 1 applic TP DAILY [facility] Last Admin: 06/16/18 10:25 Dose: 1 applic ASSESSMENT/PLAN: 52F with history of paraplegia (after falling from elevated height from attempted suicide), major depressive disorder, anxiety, chronic obstructive pulmonary disease, diabetes mellitus, gastroesophageal reflux disease, glaucoma , s/p Bella's procedure (06/09/18). Admitted to ICU for postoperative management. NEURO/PSYCH -Post-traumatic paraplegia -Pt with sacral decubitus ulcer, seen by Dr Vargas, for wound vac- continuous 12 -Extubated 06/14/18 and off sedation 06/14/18, now awake and alert -Hx of Depression, currently not on home meds -Consider reinstating home psychiatric medications once awake PULM -s/p extubation, on nasal cannula -Monitor O2 sat CV -Patient is currently normotensive, off Norepinepherine drip. -Will require diuresis once blood pressures are stable. -Maintain MAP > 65 -Monitor vital signs closely GI #s/p Bella's procedure- 06/10/18 (POD 7) -NG tube removed by patient -Monitor colostomy bag output -Protonix 40mg IV QD -Tube feeds Vital @40 -Per swallow eval, keep NPO except for meds with applesauce; reassess tomorrow possible PO feeding/MBS if indicated. RENAL -Patient currently urinating clear yellow urine into em catheter -Follow intake and output closely. -Replete electrolytes-Mg, Ph, K ENDO #Diabetes mellitus -Insulin sliding scale TID -Fingerstick blood glucose monitoring TID PROPHYLAXIS -Protonix 40 IVP QD FEN -No IVf -replete PRN -NPO except meds w/ applesauce LINES -RIJ removed today -LIJ central line placed (06/16/18) Dispo -transfer to med-surg Visit type - Emergency Visit Emergency Visit: Yes ED Registration Date: 06/09/18 Care time: The patient presented to the Emergency Department on the above date and was hospitalized for further evaluation of their emergent condition. - New Patient This patient is new to me today: Yes Date on this admission: 06/16/18 - Critical Care Critical Care patient: Yes Total Critical Care Time (in minutes): 50 Critical Care Statement: The care of this patient involved high complexity decision making to prevent further life threatening deterioration of the patient 's condition and/or to evaluate & treat vital organ system(s) failure or risk of failure.
[2018-06-16] MEDS ORDERED: PANTOPRAZOLE SOD 40 MG SUSPENSION PACKET NGT SCH (10:00)
[2018-06-16] MEDS ORDERED: SODIUM HYPOCHLORITE 0.25%- 473 ML BULK BOTTLE TP SCH (10:00)
[2018-06-16] MEDS ORDERED: COLLAGENASE CLOSTRIDIUM HIST. 30 GRAMS TUBE TP SCH (10:00)
--- NOTE | 2018-06-16 10:31 | PN ---
Progress Note (short form) - Note Progress Note: 52yo F s/p Ex-lap and [place] seen and examined in ICU. Pt is extubated, but continues to be confused. Is alert and answers questions but lethargic. Denies abd pain. Last Vital Signs Temp Pulse Resp BP Pulse Ox 98.6 F 90 26 H 140/82 97 06/16/18 08:00 06/16/18 08:00 06/16/18 08:00 06/16/18 08:00 06/15/18 21:00 CBC, BMP 06/16/18 05:30 06/16/18 05:30 PE: Gen: Alert, awake, confused but responsive to questions Resp: breathing comfortably Abd: soft, nondistended, nontender, colostomy with stool in bag. Problem List - Problems (1) Perforated sigmoid colon Assessment/Plan: Plan -WBC trending up, consider abx as per med/ID -can consider diet once pt less altered. -medical care as per ICU team Code(s): K63.1 - PERFORATION OF INTESTINE (NONTRAUMATIC)
--- NOTE | 2018-06-16 10:58 | PN ---
Progress Note, Physician History of Present Illness: extubated - Current Medication List Current Medications: Active Medications Acetaminophen (Ofirmev Injection -) 1,000 mg IVPB Q6H PRN PRN Reason: PAIN LEVEL 7 - 10 Last Admin: 06/13/18 15:59 Dose: 1,000 mg Chlorhexidine Gluconate (Hibiclens For Decolonization -) 1 applic TP HS [facility] Last Admin: 06/15/18 21:50 Dose: 1 applic Collagenase (Santyl -) 1 applic TP DAILY [facility]; Protocol Last Admin: 06/16/18 10:24 Dose: 1 applic Heparin Sodium (Porcine) (Heparin -) 5,000 unit SQ TID [facility] Last Admin: 06/16/18 06:53 Dose: 5,000 unit Potassium Phosphate 30 mm/ (Sodium Chloride) 260 mls @ 43.333 mls/hr IVPB ONCE ONE Stop: 06/16/18 13:57 Insulin Aspart (Novolog Vial Sliding Scale -) 1 vial SQ Q4HPO [facility]; Protocol Last Admin: 06/16/18 06:54 Dose: Not Given Latanoprost (Xalatan 0.005% Eye Drops -) 1 drop OU HS [facility] Last Admin: 06/15/18 21:46 Dose: 1 drop Morphine Sulfate (Morphine Sulfate) 2 mg IVPUSH Q4H PRN PRN Reason: PAIN 1-6 Last Admin: 06/16/18 06:54 Dose: 2 mg Pantoprazole Sodium (Protonix Packets For Oral Suspension -) 40 mg NGT DAILY [facility] Last Admin: 06/16/18 10:24 Dose: Not Given Sodium Hypochlorite (Dakin's Solution 0.25% (Half-Strength) -) 1 applic TP DAILY [facility] Last Admin: 06/16/18 10:25 Dose: 1 applic - Objective Vital Signs: Vital Signs Temperature 98.6 F 06/16/18 10:00 Pulse Rate 124 H 06/16/18 10:00 Respiratory Rate 26 H 06/16/18 10:00 Blood Pressure 148/86 06/16/18 10:00 O2 Sat by Pulse Oximetry (%) 98 06/16/18 09:00 Cardiovascular: Yes: S1, S2 Respiratory: Yes: Rhonchi Gastrointestinal: Yes: Normal Bowel Sounds, Soft, Other (colostomy) Labs: CBC, BMP 06/16/18 05:30 06/16/18 05:30 INR, PTT INR 1.39 (0.83-1.09) H 06/09/18 02:21 Assessment/Plan - Problems (1) Perforated sigmoid colon Assessment/Plan: POD day 6 s/p ash procedure exutbated off pressors on tube feeds incentive spirometry off abx Code(s): K63.1 - PERFORATION OF INTESTINE (NONTRAUMATIC) (2) UTI (urinary tract infection) Assessment/Plan: Microbiology 06/09/18 02:45 Urine - Urine Mathis Urine Culture - Final Pseudomonas Aeruginosa zosyn done Code(s): N39.0 - URINARY TRACT INFECTION, SITE NOT SPECIFIED (3) Electrolyte abnormality Assessment/Plan: magnesium,phosphorous,potassium repleted repeat labs Code(s): E87.8 - OTH DISORDERS OF ELECTROLYTE AND FLUID BALANCE, NEC (4) Tachycardia Assessment/Plan: sinus tachycardia ivf pain control Code(s): R00.0 - TACHYCARDIA, UNSPECIFIED (5) Wound of sacral region Assessment/Plan: wound care team - dr cadet consult collagenase dvt ppx paraplegic frequent turn and position Code(s): S31.000A - UNSP OPN WND LOW BACK AND PELV W/O PENET RETROPERITON, INIT
[2018-06-16 11:13] LABS: ANISOCYTOSIS 1+; MACROCYTOSIS 0; PLATELET ESTIMATE INCREASED; TARGET CELLS 1+
--- NOTE | 2018-06-16 11:48 | PN ---
Teaching Attending Note Name of Resident: Lily Harvey ATTENDING PHYSICIAN STATEMENT I saw and evaluated the patient. I reviewed the resident's note and discussed the case with the resident. I agree with the resident's findings and plan as documented. SUBJECTIVE: Patient seen and examined in the ICU. More awake today and responsive today. Agitated but redirects. Intake & Output 06/13/18 06/14/18 06/15/18 06/16/18 22:59 23:59 23:59 23:59 Intake Total 1755 96.1 Output Total 2030 500 Balance -275 -403.9 Weight 255 lb 1.6 oz 231 lb 9.6 oz Last Vital Signs Temp Pulse Resp BP Pulse Ox 98.6 F 124 H 26 H 148/86 98 06/16/18 10:00 06/16/18 10:00 06/16/18 10:00 06/16/18 10:00 06/16/18 09:00 Active Medications Acetaminophen (Ofirmev Injection -) 1,000 mg IVPB Q6H PRN PRN Reason: PAIN LEVEL 7 - 10 Last Admin: 06/13/18 15:59 Dose: 1,000 mg Chlorhexidine Gluconate (Hibiclens For Decolonization -) 1 applic TP HS [facility] Last Admin: 06/15/18 21:50 Dose: 1 applic Collagenase (Santyl -) 1 applic TP DAILY [facility]; Protocol Last Admin: 06/16/18 10:24 Dose: 1 applic Heparin Sodium (Porcine) (Heparin -) 5,000 unit SQ TID [facility] Last Admin: 06/16/18 06:53 Dose: 5,000 unit Potassium Phosphate 30 mm/ (Sodium Chloride) 260 mls @ 43.333 mls/hr IVPB ONCE ONE Stop: 06/16/18 13:57 Insulin Aspart (Novolog Vial Sliding Scale -) 1 vial SQ Q4HPO [facility]; Protocol Last Admin: 06/16/18 06:54 Dose: Not Given Latanoprost (Xalatan 0.005% Eye Drops -) 1 drop OU HS [facility] Last Admin: 06/15/18 21:46 Dose: 1 drop Morphine Sulfate (Morphine Sulfate) 2 mg IVPUSH Q4H PRN PRN Reason: PAIN 1-6 Last Admin: 06/16/18 06:54 Dose: 2 mg Pantoprazole Sodium (Protonix Packets For Oral Suspension -) 40 mg NGT DAILY [facility] Last Admin: 06/16/18 10:24 Dose: Not Given Sodium Hypochlorite (Dakin's Solution 0.25% (Half-Strength) -) 1 applic TP DAILY [facility] Last Admin: 06/16/18 10:25 Dose: 1 applic Gen: Extubated, more awake and responsive Heart: RRR Lung: scattered rhonchi Abd: soft, +ostomy pink with stool output Ext: + edema Laboratory Results - last 24 hr 06/15/18 06/15/18 06/15/18 09:50 17:02 21:29 WBC RBC Hgb Hct MCV MCH MCHC RDW Plt Count MPV Absolute Neuts (auto) Neutrophils % Neutrophils % (Manual) 63.4 Band Neutrophils % 11.9 Lymphocytes % Lymphocytes % (Manual) 13.8 D Monocytes % Monocytes % (Manual) 3 L Eosinophils % Eosinophils % (Manual) 4.9 H D Basophils % Basophils % (Manual) 1.0 D Myelocytes % (Man) 0 Promyelocytes % (Man) 0 Blast Cells % (Manual) 0 Nucleated RBC % 0 Metamyelocytes 0 Hypochromia 0 Platelet Estimate Normal Polychromasia 1+ Poikilocytosis 1+ Anisocytosis 2+ Microcytosis 1+ Macrocytosis 0 Target Cells 1+ Sodium Potassium Chloride Carbon Dioxide Anion Gap BUN Creatinine Creat Clearance w eGFR POC Glucometer 145 136 Random Glucose Calcium Phosphorus Magnesium Total Bilirubin AST ALT Alkaline Phosphatase Total Protein Albumin 06/16/18 06/16/18 06/16/18 02:23 05:30 05:30 WBC 18.5 H RBC 3.77 Hgb 9.5 L Hct 28.0 L MCV 74.2 L MCH 25.1 L MCHC 33.8 RDW 17.3 H Plt Count 497 H MPV 8.2 Absolute Neuts (auto) 13.9 H Neutrophils % 74.9 Neutrophils % (Manual) 73.1 Band Neutrophils % 4.8 Lymphocytes % 15.3 Lymphocytes % (Manual) 11.5 Monocytes % 8.7 Monocytes % (Manual) 9 D Eosinophils % 1.0 Eosinophils % (Manual) 0.0 D Basophils % 0.1 Basophils % (Manual) 0.0 Myelocytes % (Man) 1 D Promyelocytes % (Man) 0 Blast Cells % (Manual) 0 Nucleated RBC % 0 Metamyelocytes 0 Hypochromia 0 Platelet Estimate Increased Polychromasia 1+ Poikilocytosis 0 Anisocytosis 1+ Microcytosis 1+ Macrocytosis 0 Target Cells 1+ Sodium 140 Potassium 3.7 Chloride 106 Carbon Dioxide 28 Anion Gap 6 L BUN 4 L Creatinine 0.3 L Creat Clearance w eGFR > 60 POC Glucometer 139 Random Glucose 149 H Calcium 7.3 L Phosphorus 1.9 L Magnesium 1.9 Total Bilirubin 1.4 H AST 23 ALT 27 Alkaline Phosphatase 111 Total Protein 5.0 L Albumin 1.8 L 06/16/18 05:56 WBC RBC Hgb Hct MCV MCH MCHC RDW Plt Count MPV Absolute Neuts (auto) Neutrophils % Neutrophils % (Manual) Band Neutrophils % Lymphocytes % Lymphocytes % (Manual) Monocytes % Monocytes % (Manual) Eosinophils % Eosinophils % (Manual) Basophils % Basophils % (Manual) Myelocytes % (Man) Promyelocytes % (Man) Blast Cells % (Manual) Nucleated RBC % Metamyelocytes Hypochromia Platelet Estimate Polychromasia Poikilocytosis Anisocytosis Microcytosis Macrocytosis Target Cells Sodium Potassium Chloride Carbon Dioxide Anion Gap BUN Creatinine Creat Clearance w eGFR POC Glucometer 148 Random Glucose Calcium Phosphorus Magnesium Total Bilirubin AST ALT Alkaline Phosphatase Total Protein Albumin ASSESSMENT AND PLAN: Sigmoid Volvulus/Pneumoperitoneum/Fecal Peritonitis s/p ex-lap/Bella's procedure Septic Shock Volume Overload Lactic/Metabolic Acidosis COPD DM Paraplegia Depression - continue antibiotics - IVF - monitor urine output, creatinine - replete lytes - O2 to keep Spo2 >90% - Swallow evaluation - DVT/GI prophylaxis - Floor Dr Garcia
--- NOTE | 2018-06-16 12:03 | PN ---
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 o2 saturation 98-100. Vocal quality improving. Yesterday pt was Aphonic. Today, moderately dysphonic with intermittent inspiratory/expiratory wheezing, likely sec Vocal cord swelling/dysfunction. Swallow reflex is fairly brisk Suggest- NPO except for meds in applesauce. Reassess tmw for possible PO feeding /MBS if indicated.
--- NOTE | 2018-06-16 14:32 | PN ---
Progress Note (short form) - Note Progress Note: extubated alert off antibiotics pulled her cvp out Vital Signs Period Temp Pulse Resp BP Sys/Benito Pulse Ox Last 24 Hr 98.6 F-100.1 F 85-124 14-26 106-148/73-88 97-98 cor-rrr llungs decreased bs at bases abd soft, +ostomy abdominal wound is clean some serous drainage noted sacral ulcer stage 3- clean ext no edema CBC, BMP 06/16/18 05:30 06/16/18 05:30 Microbiology 06/09/18 02:21 Blood - Peripheral Venous Blood Culture - Final NO GROWTH AFTER 5 DAYS INCUBATION 06/09/18 02:21 Blood - Peripheral Venous Blood Culture - Final NO GROWTH AFTER 5 DAYS INCUBATION 06/09/18 02:45 Urine - Urine Mathis Urine Culture - Final Pseudomonas Aeruginosa Current Medications Acetaminophen (Ofirmev Injection -) 1,000 mg IVPB Q6H PRN PRN Reason: PAIN LEVEL 7 - 10 Last Admin: 06/13/18 15:59 Dose: 1,000 mg Chlorhexidine Gluconate (Hibiclens For Decolonization -) [address] [facility] Last Admin: 06/15/18 21:50 Dose: 1 applic Collagenase (Santyl -) [address] [facility]; Protocol Last Admin: 06/16/18 10:24 Dose: 1 applic Heparin Sodium (Porcine) (Heparin -) 5,[address] [facility] Last Admin: 06/16/18 06:53 Dose: 5,000 unit Insulin Aspart (Novolog Vial Sliding Scale -) [address] [facility]; Protocol Last Admin: 06/16/18 06:54 Dose: Not Given Latanoprost (Xalatan 0.005% Eye Drops -) [address] [facility] Last Admin: 06/15/18 21:46 Dose: 1 drop Morphine Sulfate (Morphine Sulfate) 2 mg IVPUSH Q4H PRN PRN Reason: PAIN 1-6 Last Admin: 06/16/18 06:54 Dose: 2 mg Pantoprazole Sodium (Protonix Packets For Oral Suspension -) [address] [facility] Last Admin: 06/16/18 10:24 Dose: Not Given Sodium Hypochlorite (Dakin's Solution 0.25% (Half-Strength) -) [address] [facility] Last Admin: 06/16/18 10:25 Dose: 1 applic a/p leukocytosis-reculture, observe off antibiotics repeat cxray if no source and leukocytosis persists ct scan abd/pelvis to look for intraabdominal abscess s/p ex lap for pneumoperitoneum/sigmoid volvolus-hartmans procedure Problem List - Problems (1) Sepsis Code(s): A41.9 - SEPSIS, UNSPECIFIED ORGANISM (2) Perforated sigmoid colon Code(s): K63.1 - PERFORATION OF INTESTINE (NONTRAUMATIC) (3) Sigmoid volvulus Code(s): K56.2 - VOLVULUS (4) Neck mass Code(s): R22.1 - LOCALIZED SWELLING, MASS AND LUMP, NECK
[2018-06-16] MEDS ORDERED: HALOPERIDOL LACTATE 5 MG/ML IM ONE (15:15)
[2018-06-16] MEDS ORDERED: LORazepam 2 MG/ML SDV VIAL IM ONE (15:30)
--- NOTE | 2018-06-16 17:20 | PROC ---
Central Line Insertion Indication: Poor Venous Access Risks and Benefits Explained: Yes Consent on Chart: Yes Central Line: Triple Lumen Catheter Anesthesia: 1% Lidocaine Sterile Technique: Yes Ultrasound Guided Assistance: Yes Position: Left Internal Jugular Post Insertion: Yes: Bilateral Breath Sounds, Bilateral Chest Expansion, Chest X-Ray Ordered Sterile Dressing Applied: Yes
[2018-06-16] MEDS ORDERED: ACETAMINOPHEN 1000 MG/100 ML VIAL (NON FORMULARY) IVPB PRN (21:19)
[2018-06-16] MEDS ORDERED: MORPHINE SULFATE 2 MG/ML VIAL IVPUSH PRN (21:19)
[2018-06-16] MEDS ORDERED: LATANOPROST 0.005% OPHTH SOLN 2.5ML BOTTLE OU SCH (22:00)
[2018-06-17] MEDS ORDERED: LORazepam 2 MG/ML SDV VIAL IVPUSH ONE ×2 (02:02→05:12)
[2018-06-17] MEDS: INSULIN SLIDING SCALE (NOVOLOG) 1 VIAL SQ SCH ×6 (02:19→22:55)
[2018-06-17] MEDS: HEPARIN NA (PORCINE) 5,000 UNITS/ML 1ML VIAL SQ SCH ×3 (05:20→22:36)
[2018-06-17 08:24] LABS: BASO % 0.1 % (0-2.0); EOS % 0.5 % (0-4.5); HEMOGLOBIN 9.4 GM/dL (10.7-15.3); LYMPH % 11.6 % (8-40); MCH 25.2 pg (25.7-33.7); MCHC 33.5 g/dl (32.0-36.0); MEAN CELL VOLUME 75.2 fl (80-96); MEAN PLT VOLUME 8.2 fl (7.5-11.1); MONO % 6.9 % (3.8-10.2); NEUT % 80.9 % (42.8-82.8); PLATELET COUNT 518 K/MM3 (134-434); RBC 3.72 M/mm3 (3.60-5.2); RDW 17.8 % (11.6-15.6)
[2018-06-17 09:20] LABS: ANION GAP 11 MMOL/L (8-16); BLOOD UREA NITROGEN 5 mg/dL (7-18); CHLORIDE 110 mmol/L (98-107); CO2 22 mmol/L (21-32); CREATININE 0.3 mg/dL (0.55-1.3); GLUCOSE,RANDOM 103 mg/dL (74-106); POTASSIUM 3.7 mmol/L (3.5-5.1); SODIUM 143 mmol/L (136-145)
[2018-06-17 09:21] LABS: ALK PHOS 134 U/L (45-117); CALCIUM 7.6 mg/dL (8.5-10.1); MAGNESIUM 1.9 mg/dL (1.8-2.4); PHOSPHOROUS 2.5 mg/dL (2.5-4.9); SGOT/AST 26 U/L (15-37); SGPT/ALT 25 U/L (13-61); TOT PROT 5.4 g/dl (6.4-8.2)
[2018-06-17] MEDS ORDERED: COLLAGENASE CLOSTRIDIUM HIST. 30 GRAMS TUBE TP SCH (10:00)
[2018-06-17] MEDS ORDERED: SODIUM HYPOCHLORITE 0.25%- 473 ML BULK BOTTLE TP SCH (10:00)
[2018-06-17] MEDS ORDERED: PANTOPRAZOLE SOD 40 MG SUSPENSION PACKET PO SCH (10:00)
[2018-06-17 10:52] LABS: ANISOCYTOSIS 1+; MACROCYTOSIS 0; PLATELET ESTIMATE INCREASED; TARGET CELLS 1+
--- NOTE | 2018-06-17 11:06 | EKG ---
Test Reason : Blood Pressure : / mmHG Vent. Rate : 120 BPM Atrial Rate : 120 BPM P-R Int : 116 ms QRS Dur : 058 ms QT Int : 360 ms P-R-T Axes : 051 -27 064 degrees QTc Int : 508 ms SINUS TACHYCARDIA LOW VOLTAGE QRS inverted t waves anterior leads INFERIOR INFARCT (CITED ON OR BEFORE 11-NOV-2011) ABNORMAL ECG Confirmed by JONATHAN ALVAREZ MD ([id number]) on 06/17/2018 11:06:14 AM Referred By: Jacquie CARMEN Confirmed By:JONATHAN ALVAREZ MD
[2018-06-17] MEDS ORDERED: ACETAMINOPHEN 325 MG TABLET (FP) PO PRN ×2 (11:11→16:41)
--- NOTE | 2018-06-17 11:13 | PN ---
Progress Note, Physician Chief Complaint: Pneumoperitoneum Sigmoid volvus Sepsis AMS Diabetes Mellitus History of Present Illness: Perforation of sigmoid colon Intubate/extubated earlier this admission Tachycardia Transferred to floor yesterday mild distress, C/o SOB and chest pain +trops EKG-ST + BC afebrile tachypenic - Current Medication List Current Medications: Active Medications Acetaminophen (Tylenol -) 650 mg PO Q4H PRN PRN Reason: PAIN OR FEVER Collagenase (Santyl -) 1 applic TP DAILY [facility]; Protocol Heparin Sodium (Porcine) (Heparin -) 5,000 unit SQ TID [facility] Last Admin: 06/17/18 05:20 Dose: 5,000 unit Insulin Aspart (Novolog Vial Sliding Scale -) 1 vial SQ Q4HPO [facility]; Protocol Last Admin: 06/17/18 10:44 Dose: Not Given Latanoprost (Xalatan 0.005% Eye Drops -) 1 drop OU HS [facility] Last Admin: 06/16/18 22:51 Dose: 1 drop Morphine Sulfate (Morphine Sulfate) 2 mg IVPUSH Q4H PRN PRN Reason: PAIN 1-6 Last Admin: 06/17/18 04:55 Dose: 2 mg Pantoprazole Sodium (Protonix Packets For Oral Suspension -) 40 mg PO DAILY [facility] Last Admin: 06/17/18 10:45 Dose: Not Given Sodium Hypochlorite (Dakin's Solution 0.25% (Half-Strength) -) 1 applic TP DAILY [facility] - Objective Vital Signs: Vital Signs Temperature 98.7 F 06/17/18 05:00 Pulse Rate 130 H 06/17/18 09:00 Respiratory Rate 22 H 06/17/18 09:00 Blood Pressure 112/60 06/17/18 09:00 O2 Sat by Pulse Oximetry (%) 98 06/17/18 09:00 Constitutional: Yes: Well Nourished, Calm, Mild Distress, Obese Cardiovascular: Yes: Tachycardia Respiratory: Yes: On Nasal O2, Rhonchi (diffuse), SOB Gastrointestinal: Yes: Normal Bowel Sounds, Abdomen, Obese, Other (mid abdomen incision) Musculoskeletal: Yes: Muscle Weakness Edema: No Peripheral Pulses WNL: Yes Wound/Incision: Yes: Dressing Dry and Intact (mid abdomen) Neurological: Yes: Alert, Pre-Existing Deficit Psychiatric: Yes: Alert Labs: CBC, BMP 06/17/18 06:30 06/17/18 06:30 INR, PTT INR 1.39 (0.83-1.09) H 06/09/18 02:21 Problem List - Problems (1) Altered mental status Assessment/Plan: -2/2 sepsis -ID on board -IV abx restarted -Seen by Surgery -Acetaminophen IV for fever over 100.0F -Cooling blanket if needed for fever over 101.0F -monitor labs -lactic acid normal -IVF -will need ICU monitoring Code(s): R41.82 - ALTERED MENTAL STATUS, UNSPECIFIED Qualifiers: Altered mental status type: disorientation Qualified Code(s): R41.0 - Disorientation, unspecified (2) Pneumoperitoneum Assessment/Plan: -IV abx -ID consult -Seen by Surgery -BC: Microbiology 06/16/18 16:25 Blood Culture - Preliminary Blood - Peripheral Venous Pending Organism 06/15/18 20:00 Gram Stain - Final Coccyx Wound Culture - Preliminary Lactose Fermenting Neg Bacilli Pending Organism Pending Organism#2 Pending Organism#3 Pending Organism#4 06/16/18 16:25 Blood Culture - Preliminary Blood - Peripheral Venous Pending Organism -Acetaminophen IV for fever over 100.0F -Cooling blanket if needed for fever over 101.0F -monitor labs -lactic acid normal -IVF-N/S 500 bolus -will need ICU monitoring Code(s): K66.8 - OTHER SPECIFIED DISORDERS OF PERITONEUM (3) Sigmoid volvulus Code(s): K56.2 - VOLVULUS (4) Diabetes Assessment/Plan: -[facility] HS -check A1c 6.3 -Novolog sliding scale Code(s): E11.9 - TYPE 2 DIABETES MELLITUS WITHOUT COMPLICATIONS (5) Paraplegia Code(s): G82.20 - PARAPLEGIA, UNSPECIFIED (6) Hypokalemia Assessment/Plan: -2/2 to NPO status -resolved Code(s): E87.6 - HYPOKALEMIA (7) Elevated troponin Assessment/Plan: -2/2 to demand ischemia vs acute AR -monitor trend -EKG-no changes-ST -cardiology re-consulted -ICU monitoring Code(s): R74.8 - ABNORMAL LEVELS OF OTHER SERUM ENZYMES (8) Tachycardia Code(s): R00.0 - TACHYCARDIA, UNSPECIFIED (9) Sepsis Assessment/Plan: -IV abx -ID consult -Seen by Surgery -BC: Microbiology 06/16/18 16:25 Blood Culture - Preliminary Blood - Peripheral Venous Pending Organism 06/15/18 20:00 Gram Stain - Final Coccyx Wound Culture - Preliminary Lactose Fermenting Neg Bacilli Pending Organism Pending Organism#2 Pending Organism#3 Pending Organism#4 06/16/18 16:25 Blood Culture - Preliminary Blood - Peripheral Venous Pending Organism -Acetaminophen IV for fever over 100.0F -Cooling blanket if needed for fever over 101.0F -monitor labs -lactic acid normal -IVF-N/S 500 bolus -will need ICU monitoring Code(s): A41.9 - SEPSIS, UNSPECIFIED ORGANISM Assessment/Plan see problem list
--- NOTE | 2018-06-17 11:21 | PN ---
Progress Note (short form) - Note Progress Note: awake and alert Vital Signs Period Temp Pulse Resp BP Sys/Benito Pulse Ox Last 24 Hr 97 F-99.2 F 110-130 20-23 112-152/60-85 98-98 cor-rrr lungs decreased bs at bases abd soft,nt wound packed with some seropurulent drainage +ostomy ext trace edema +vac CBC, BMP 06/17/18 06:30 06/17/18 06:30 Microbiology 06/15/18 20:00 Coccyx Gram Stain - Final 06/15/18 20:00 Coccyx Wound Culture - Preliminary Lactose Fermenting Neg Bacilli Pending Organism Pending Organism#2 Pending Organism#3 Pending Organism#4 06/16/18 16:25 Blood - Peripheral Venous Blood Culture - Preliminary Pending Organism 06/09/18 02:21 Blood - Peripheral Venous Blood Culture - Final NO GROWTH AFTER 5 DAYS INCUBATION 06/09/18 02:21 Blood - Peripheral Venous Blood Culture - Final NO GROWTH AFTER 5 DAYS INCUBATION 06/09/18 02:45 Urine - Urine Em Urine Culture - Final Pseudomonas Aeruginosa Current Medications Acetaminophen (Tylenol -) 650 mg PO Q4H PRN PRN Reason: PAIN OR FEVER Collagenase (Santyl -) 1 applic TP DAILY [facility]; Protocol Heparin Sodium (Porcine) (Heparin -) 5,000 unit SQ TID [facility] Last Admin: 06/17/18 05:20 Dose: 5,000 unit Insulin Aspart (Novolog Vial Sliding Scale -) 1 vial SQ Q4HPO [facility]; Protocol Last Admin: 06/17/18 10:44 Dose: Not Given Latanoprost (Xalatan 0.005% Eye Drops -) 1 drop OU HS [facility] Last Admin: 06/16/18 22:51 Dose: 1 drop Morphine Sulfate (Morphine Sulfate) 2 mg IVPUSH Q4H PRN PRN Reason: PAIN 1-6 Last Admin: 06/17/18 04:55 Dose: 2 mg Pantoprazole Sodium (Protonix Packets For Oral Suspension -) 40 mg PO DAILY [facility] Last Admin: 06/17/18 10:45 Dose: Not Given Sodium Hypochlorite (Dakin's Solution 0.25% (Half-Strength) -) 1 applic TP DAILY [facility] a/p gram negative bacteremia- start meropenem, recent zosyn- just d/romulo 06/14 ?source check bladder scan r/o retention-[address] UA and urine culture- em f/u blood cultures ct scan abd/pelvis to look for intraabdominal abscess s/p ex lap for pneumoperitoneum/sigmoid volvolus-hartmans procedure d/w hospitalist Problem List - Problems (1) Sepsis Code(s): A41.9 - SEPSIS, UNSPECIFIED ORGANISM (2) Perforated sigmoid colon Code(s): K63.1 - PERFORATION OF INTESTINE (NONTRAUMATIC) (3) Sigmoid volvulus Code(s): K56.2 - VOLVULUS (4) Neck mass Code(s): R22.1 - LOCALIZED SWELLING, MASS AND LUMP, NECK
--- NOTE | 2018-06-17 11:32 | PN ---
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 Nursing reports pt will go to Telemetry with c/o CP/SOB.
[2018-06-17] MEDS ORDERED: SODIUM CHLORIDE 500 ML IV STA (12:18)
--- NOTE | 2018-06-17 12:24 | PN ---
Teaching Attending Note ATTENDING PHYSICIAN STATEMENT I saw and evaluated the patient. I reviewed the resident's note and discussed the case with the resident. I agree with the resident's findings and plan as documented. SUBJECTIVE: Called to see patient as she is now tachycardic, most recent blood cultures growing gram negative rods. Had complained of chest pain and now with positive troponins. Pt unable to provide further history at this time. OBJECTIVE: Vital Signs Period Temp Pulse Resp BP Sys/Benito Pulse Ox Last 24 Hr 97 F-99.2 F 110-130 20-23 112-152/60-85 98-98 Intake & Output 06/14/18 06/15/18 06/16/18 06/17/18 23:59 23:59 23:59 23:59 Intake Total 1755 396.1 0 Output Total 2030 500 Balance -275 -103.9 0 Weight 115.711 kg 105.052 kg Gen: mildly tachypneic at rest Heart: tachycardic, regular Lung: scattered rhonchi Abd: soft, nontender, +ostomy Ext: trace edema CBC, BMP 06/17/18 06:30 06/17/18 06:30 Troponin, BNP 06/17/18 10:56 Troponin I 0.67 H* Active Medications Acetaminophen (Tylenol -) 650 mg PO Q4H PRN PRN Reason: PAIN OR FEVER Collagenase (Santyl -) 1 applic TP DAILY [facility]; Protocol Heparin Sodium (Porcine) (Heparin -) 5,000 unit SQ TID [facility] Last Admin: 06/17/18 05:20 Dose: 5,000 unit Meropenem 1 gm/ Dextrose 100 mls @ 200 mls/hr IVPB Q8H-IV [facility] Sodium Chloride (Normal Saline -) 500 mls @ 500 mls/hr IV ASDIR STA Stop: 06/17/18 13:17 Insulin Aspart (Novolog Vial Sliding Scale -) 1 vial SQ Q4HPO [facility]; Protocol Last Admin: 06/17/18 10:44 Dose: Not Given Latanoprost (Xalatan 0.005% Eye Drops -) 1 drop OU HS [facility] Last Admin: 06/16/18 22:51 Dose: 1 drop Morphine Sulfate (Morphine Sulfate) 2 mg IVPUSH Q4H PRN PRN Reason: PAIN 1-6 Last Admin: 06/17/18 04:55 Dose: 2 mg Pantoprazole Sodium (Protonix Packets For Oral Suspension -) 40 mg PO DAILY [facility] Last Admin: 06/17/18 10:45 Dose: Not Given Sodium Hypochlorite (Dakin's Solution 0.25% (Half-Strength) -) 1 applic TP DAILY [facility] ASSESSMENT AND PLAN: Sigmoid Volvulus/Pneumoperitoneum/Fecal Peritonitis s/p ex-lap/Bella's procedure Gram Negative Bacteremia Sepsis +Troponins COPD DM Paraplegia Depression - continue antibiotics per ID - f/u pending cultures - IVF resuscitation - trend cardiac enzymes, EKGs, lactate - monitor urine output, creatinine - will need repeat abdominal imaging when stable - O2 to keep Spo2 >90% - DVT/GI prophylaxis - can transfer back to ICU for closer monitoring
[2018-06-17] MEDS ORDERED: MEROPENEM 1 GM in DEXTROSE 5%-WATER 100 ML IVPB SCH (12:30)
[2018-06-17] MEDS ORDERED: PT OWN MED DRAWER 7, Y5N ONE (12:41)
--- NOTE | 2018-06-17 13:13 | PN ---
Physical Exam: SUBJECTIVE: Patient seen and examined at bedside. Transferred from med-surg floor today. Pt found to be tachycardic w/ +BCx. OBJECTIVE: Vital Signs Period Temp Pulse Resp BP Sys/Benito Pulse Ox Last 24 Hr 97 F-99.2 F 110-130 20-23 112-152/60-85 98-98 GENERAL: Obese patient, moaning. Able to verbally communicate and respond to questions. HEAD: Normal with no signs of trauma. EYES: PERRL, extraocular movements intact, sclera anicteric, conjunctiva clear. No ptosis. NECK: supple. site of RIJ (removed), indurated. LIJ central line placed, dressing c/d/i. LUNGS: Breath sounds equal, no wheezes, no crackles HEART: RRR, S1, S2 without murmur, rub or gallop. ABDOMEN: Soft, midline central tender, +bowel sounds, L colostomy bag with soft stool. Abd wound packed, no visible drainage; surgical dressing c/d/i. EXTREMITIES: 2+ pulses, warm, well-perfused, no edema, SCDs in place. NEUROLOGICAL: Obeys commands, able to grasp with L hand, no grasp with R hand noted SKIN: Sacral decubitus ulcer; wound vac in place. CBC, BMP 06/17/18 06:30 06/17/18 06:30 Active Medications Acetaminophen (Tylenol -) 650 mg PO Q4H PRN PRN Reason: PAIN OR FEVER Collagenase (Santyl -) 1 applic TP DAILY [facility]; Protocol Heparin Sodium (Porcine) (Heparin -) 5,000 unit SQ TID [facility] Last Admin: 06/17/18 05:20 Dose: 5,000 unit Meropenem 1 gm/ Dextrose 100 mls @ 200 mls/hr IVPB Q8H-IV [facility] Last Admin: 06/17/18 12:45 Dose: 200 mls/hr Sodium Chloride (Normal Saline -) 500 mls @ 500 mls/hr IV ASDIR STA Stop: 06/17/18 13:17 Last Admin: 06/17/18 12:44 Dose: 500 mls/hr Insulin Aspart (Novolog Vial Sliding Scale -) 1 vial SQ Q4HPO [facility]; Protocol Last Admin: 06/17/18 10:44 Dose: Not Given Latanoprost (Xalatan 0.005% Eye Drops -) 1 drop OU HS [facility] Last Admin: 06/16/18 22:51 Dose: 1 drop Morphine Sulfate (Morphine Sulfate) 2 mg IVPUSH Q4H PRN PRN Reason: PAIN 1-6 Last Admin: 06/17/18 04:55 Dose: 2 mg Pantoprazole Sodium (Protonix Packets For Oral Suspension -) 40 mg PO DAILY [facility] Last Admin: 06/17/18 10:45 Dose: Not Given Sodium Hypochlorite (Dakin's Solution 0.25% (Half-Strength) -) 1 applic TP DAILY [facility] CONSULT: Cardio- Dr. Turcios ID- Dr. Hernández ASSESSMENT/PLAN: 52F with history of paraplegia (after falling from elevated height from attempted suicide), major depressive disorder, anxiety, chronic obstructive pulmonary disease, diabetes mellitus, GERD, glaucoma, s/p ex lap/Bella's procedure (06/09/18). Returned ICU for close monitoring. NEURO/PSYCH -Extubated 06/14/18; awake and alert -Cont to monitor mental status -Morphine 2 mg Q4H IVP #Post-traumatic paraplegia #Hx of Depression -currently not on home meds -Consider reinstating home psychiatric medications once mental status improves PULM -s/p extubation on 06/15/18, on nasal cannula -Monitor O2 sat #COPD; not currently in exacerbation CV -Maintain MAP > 65 -Monitor vital signs closely #Sinus tachycardia -May be due to sepsis as pt has +BCx for GNB and GPC in clusters -Trop 0.67, repeat EKG showed sinus tach, unchanged, no evid of ST-T changes -Cardio consulted #Elevated troponins -Trops 0.67, will repeat at 3pm -EKG ordered GI #s/p Ex lap/Bella's procedure- 06/10/18 (POD 7) -NG tube removed by patient; Per swallow eval, cont with NPO except for meds -Monitor colostomy bag output -Tube feeds Vital @40 -Per swallow eval, keep NPO except for meds with applesauce; reassess tomorrow possible PO feeding/MBS if indicated. #GERD -Protonix 40mg IV QD RENAL -Has em catheter placed today; f/u UCx -Follow intake and output closely -Replete electrolytes-Mg, Ph, K ENDO #Diabetes mellitus -Insulin sliding scale TID -Fingerstick blood glucose monitoring TID ID #Sepsis 2/2 GNB/GPB bacteremia -BCx (06/16) +GNB, +GPC in clusters; UCx and U/A pending -Per ID, IV Meropenem started (Pt received Zosyn (d/c'd 06/14) due to UCx + Pseudomonas in the past) -CTAP ordered to look for intraabdominal abscess -Tylenol 650 Q4H for fever -NS x500 cc given -Lactate ordered DERM #Sacral Decubitus Ulcer -Not currently draining, margins clear and dry -Seen by Dr Vargas; Wound vac placed 06/16/18 -Frequent turns and positioning PROPHYLAXIS -Protonix 40 IVP QD -SQH FEN -NS x500cc given -replete PRN -NPO except meds w/ applesauce LINES -LIJ central line placed (06/16/18) Dispo -Spoke to family members regarding pt's clinical status yesterday. Aware of treatment plan to further monitor pt's swallowing fxn and mental status prior to restarting PO home meds. Visit type - Emergency Visit Emergency Visit: Yes ED Registration Date: 06/09/18 Care time: The patient presented to the Emergency Department on the above date and was hospitalized for further evaluation of their emergent condition. - New Patient This patient is new to me today: No - Critical Care Critical Care patient: Yes Total Critical Care Time (in minutes): 40 Critical Care Statement: The care of this patient involved high complexity decision making to prevent further life threatening deterioration of the patient 's condition and/or to evaluate & treat vital organ system(s) failure or risk of failure.
--- NOTE | 2018-06-17 13:37 | PN ---
Progress Note, Physician Chief Complaint: Follow up reconsult for persistent sinus tachycardia and elevated troponin. History of Present Illness: 52 year old woman [place] resident admitted 06/09/2018 with abd pain, altered mental status, found to have sigmoid volvulus and pneumoperitoneum, seen by Dr. Gregory on 06/09/2018 for sinus tachycardia in the setting of sepsis and fever. She was treated in ICU with [facility] ventilation and pressor support and underwent Hartmans procedure. The patient was transferred back to ICU for Gram negative bacteremia, persistent sinus tachycardia and mildly elevated troponin. Echo 06/10/2018: Normal LV size, wall motion and systolic function. Normal RV size and function. - Current Medication List Current Medications: Active Medications Acetaminophen (Tylenol -) 650 mg PO Q4H PRN PRN Reason: PAIN OR FEVER Collagenase (Santyl -) 1 applic TP DAILY [facility]; Protocol Heparin Sodium (Porcine) (Heparin -) 5,000 unit SQ TID [facility] Last Admin: 06/17/18 05:20 Dose: 5,000 unit Meropenem 1 gm/ Dextrose 100 mls @ 200 mls/hr IVPB Q8H-IV [facility] Last Admin: 06/17/18 12:45 Dose: 200 mls/hr Insulin Aspart (Novolog Vial Sliding Scale -) 1 vial SQ Q4HPO [facility]; Protocol Last Admin: 06/17/18 10:44 Dose: Not Given Latanoprost (Xalatan 0.005% Eye Drops -) 1 drop OU HS [facility] Last Admin: 06/16/18 22:51 Dose: 1 drop Morphine Sulfate (Morphine Sulfate) 2 mg IVPUSH Q4H PRN PRN Reason: PAIN 1-6 Last Admin: 06/17/18 04:55 Dose: 2 mg Pantoprazole Sodium (Protonix Packets For Oral Suspension -) 40 mg PO DAILY [facility] Last Admin: 06/17/18 10:45 Dose: Not Given Sodium Hypochlorite (Dakin's Solution 0.25% (Half-Strength) -) 1 applic TP DAILY [facility] - Objective Vital Signs: Vital Signs Temperature 98.7 F 06/17/18 05:00 Pulse Rate 130 H 06/17/18 09:00 Respiratory Rate 22 H 06/17/18 09:00 Blood Pressure 112/60 06/17/18 09:00 O2 Sat by Pulse Oximetry (%) 98 06/17/18 09:00 General: Well developed. Obese. Chronic ill. No acute distress. Head: Normocephalic. Atraumatic, Eyes: PERRLA, EOMI. Sclerae anicteric. Conjunctivae clear. Neck: Supple. No JVD. No bruits. Heart: Normal S1, S2: Regular rhythm and tahcycardia. No murmur. No gallop or rub. Lungs: Symmetrical coarse BS. No crackles. No wheezing or rhonchi. Abdomen: Soft. Bowel sound positive. Non tender. No masses. Extremities: No edema. No clubbing or cyanosis. PD 2+, equal bilaterally. Labs: CBC, BMP 06/17/18 06:30 06/17/18 06:30 INR, PTT INR 1.39 (0.83-1.09) H 06/09/18 02:21 Assessment/Plan 52 year old woman [place] resident admitted 06/09/2018 with abd pain, altered mental status, found to have sigmoid volvulus and pneumoperitoneum, seen by Dr. Gregory on 06/09/2018 for sinus tachycardia in the setting of sepsis and fever. She was treated in ICU with [facility] ventilation and pressor support and underwent Hartmans procedure. The patient was transferred back to ICU for Gram negative bacteremia, persistent sinus tachycardia and mildly elevated troponin. Echo 06/10/2018: Normal LV size, wall motion and systolic function. Normal RV size and function. 1) Persistent sinus tachycardia secondary to sepsis, anemia and deconditioning. -Add metoprolol tartrate 12.5 mg BID, titrate up as BP tolerated. 2) Elevated troponin, likely type II [place] due to persistent tachycardia and severe anemia. Heart rate control as above. Transfuse as needed. No cardiac work up needed at this time. Please call with any additional questions.
[2018-06-17 14:04] LABS: URINE APPEARANCE SLCLOUDY; URINE BILIRUBIN NEGATIVE (<2.0 mg/dL); URINE COLOR YELLOW; URINE GLUCOSE (UA) NEGATIVE (NEGATIVE); URINE KETONE 2+ (NEGATIVE); URINE LEUK ESTERASE NEGATIVE (NEGATIVE); URINE NITRITE NEGATIVE (NEGATIVE); URINE PROTEIN 1+ (NEGATIVE); URINE UROBILINOGEN NEGATIVE mg/dL (0.2-1.0)
[2018-06-17] MEDS ORDERED: ACETAMINOPHEN 1000 MG/100 ML VIAL (NON FORMULARY) IVPB ONE (14:16)
[2018-06-17 14:39] LABS: EPI CELLS RARE /HPF (FEW); URINE BACTERIA RARE /hpf (NONE SEEN)
[2018-06-17] MEDS ORDERED: VANCOMYCIN HCL 1,500 MG in DEXTROSE 5%-WATER - 250 ML IVPB SCH (15:00)
--- NOTE | 2018-06-17 15:15 | EKG ---
Test Reason : Blood Pressure : / mmHG Vent. Rate : 123 BPM Atrial Rate : 123 BPM P-R Int : 116 ms QRS Dur : 062 ms QT Int : 342 ms P-R-T Axes : 053 -47 073 degrees QTc Int : 489 ms SINUS TACHYCARDIA LEFT AXIS DEVIATION repolarization abnormalities. LOW VOLTAGE QRS INFERIOR INFARCT (CITED ON OR BEFORE 11-NOV-2011) ABNORMAL ECG WHEN COMPARED WITH ECG OF 17-JUN-2018 10:48, NO SIGNIFICANT CHANGE WAS FOUND Confirmed by JONATHAN ALVAREZ MD ([id number]) on 06/17/2018 3:14:56 PM Referred By: Jacquie CARMEN Confirmed By:JONATHAN ALVAREZ MD
[2018-06-17] MEDS ORDERED: VANCOMYCIN HCL 1,500 MG in DEXTROSE 5%-WATER - 500 ML IVPB SCH (16:14)
[2018-06-17] MEDS: VANCOMYCIN HCL 1,500 MG in DEXTROSE 5%-WATER - 500 ML IVPB SCH (17:00)
[2018-06-17] MEDS: MORPHINE SULFATE 2 MG/ML VIAL IVPUSH PRN (17:25)
[2018-06-17] MEDS: MEROPENEM 1 GM in DEXTROSE 5%-WATER 100 ML IVPB SCH (19:30)
[2018-06-17] MEDS: CHLORHEXIDINE GLUCONATE 4% CLEANSER FOR DECOLONIZATION TP SCH (21:10)
[2018-06-17] MEDS: LATANOPROST 0.005% OPHTH SOLN 2.5ML BOTTLE OU SCH (21:17)
[2018-06-17] MEDS: MUPIROCIN 2% TOPICAL OINTMENT FOR DECOLONIZATION NS SCH (21:20)
[2018-06-18] MEDS ORDERED: MORPHINE SULFATE 2 MG/ML VIAL IVPUSH PRN (00:34)
[2018-06-18] MEDS ORDERED: ACETAMINOPHEN 1000 MG/100 ML VIAL (NON FORMULARY) IVPB ONE (01:48)
[2018-06-18] MEDS: MEROPENEM 1 GM in DEXTROSE 5%-WATER 100 ML IVPB SCH ×3 (02:03→17:42)
[2018-06-18] MEDS: INSULIN SLIDING SCALE (NOVOLOG) 1 VIAL SQ SCH ×4 (02:11→21:23)
[2018-06-18] MEDS: VANCOMYCIN HCL 1,500 MG in DEXTROSE 5%-WATER - 500 ML IVPB SCH ×2 (05:30→18:00)
[2018-06-18] MEDS: HEPARIN NA (PORCINE) 5,000 UNITS/ML 1ML VIAL SQ SCH ×3 (06:18→21:19)
[2018-06-18 07:04] LABS: ALBUMIN 1.8 g/dl (3.4-5.0); ALK PHOS 120 U/L (45-117); ANION GAP 10 MMOL/L (8-16); BLOOD UREA NITROGEN 5 mg/dL (7-18); CHLORIDE 109 mmol/L (98-107); CO2 23 mmol/L (21-32); CREATININE 0.3 mg/dL (0.55-1.3); GLUCOSE,RANDOM 135 mg/dL (74-106); MAGNESIUM 1.5 mg/dL (1.8-2.4); PHOSPHOROUS 2.2 mg/dL (2.5-4.9); POTASSIUM 3.2 mmol/L (3.5-5.1); SGOT/AST 15 U/L (15-37); SGPT/ALT 22 U/L (13-61); SODIUM 142 mmol/L (136-145)
[2018-06-18 07:05] LABS: BASO % 0.2 % (0-2.0); EOS % 0.7 % (0-4.5); HEMATOCRIT 26.4 % (32.4-45.2); HEMOGLOBIN 8.8 GM/dL (10.7-15.3); LYMPH % 6.9 % (8-40); MCHC 33.4 g/dl (32.0-36.0); MEAN CELL VOLUME 74.7 fl (80-96); MEAN PLT VOLUME 8.1 fl (7.5-11.1); MONO % 4.1 % (3.8-10.2); NEUT % 88.1 % (42.8-82.8); PLATELET COUNT 498 K/MM3 (134-434); RBC 3.53 M/mm3 (3.60-5.2); WHITE BLOOD COUNT 19.1 K/mm3 (4.0-10.0)
[2018-06-18 07:09] LABS: CALCIUM 6.9 mg/dL (8.5-10.1)
[2018-06-18] MEDS: SODIUM HYPOCHLORITE 0.25%- 473 ML BULK BOTTLE TP SCH (08:00)
--- NOTE | 2018-06-18 08:30 | PN ---
Physical Exam: SUBJECTIVE: Patient seen and examined at bedside. Pt temp overnight ~100, Tylenol given. No other acute events overnight. OBJECTIVE: Vital Signs Period Temp Pulse Resp BP Sys/Benito Pulse Ox Last 24 Hr 100 F-101.6 F 115-130 20-25 112-140/60-88 98-100 GENERAL: Obese patient, moaning. Able to verbally communicate and respond to questions. HEAD: Normal with no signs of trauma. EYES: PERRL, extraocular movements intact, sclera anicteric, conjunctiva clear. No ptosis. NECK: supple. site of RIJ (removed), indurated. LIJ central line placed, dressing c/d/i. LUNGS: Breath sounds equal, no wheezes, no crackles HEART: RRR, S1, S2 without murmur, rub or gallop. ABDOMEN: Soft, midline central tender, +bowel sounds, L colostomy bag with soft stool. Abd wound packed, no visible drainage; surgical dressing c/d/i. EXTREMITIES: 2+ pulses, warm, well-perfused, no edema, SCDs in place. NEUROLOGICAL: Obeys commands, able to grasp with L hand, no grasp with R hand noted SKIN: Sacral decubitus ulcer; wound vac in place. CBC, BMP 06/18/18 05:30 06/18/18 05:30 Active Medications Acetaminophen (Tylenol -) 650 mg PO Q4H PRN PRN Reason: PAIN OR FEVER Baclofen (Lioresal -) 20 mg PO QID [facility] Chlorhexidine Gluconate (Hibiclens For Decolonization -) 1 applic TP HS [facility] Collagenase (Santyl -) 1 applic TP DAILY [facility]; Protocol Last Admin: 06/18/18 11:22 Dose: 1 applic Fluoxetine HCl (Prozac -) 40 mg PO DAILY [facility] Haloperidol (Haldol -) 5 mg PO DAILY [facility] Heparin Sodium (Porcine) (Heparin -) 5,000 unit SQ TID [facility] Last Admin: 06/17/18 22:36 Dose: 5,000 unit Vancomycin HCl 1,500 mg/ (Dextrose) 500 mls @ 250 mls/hr IVPB Q12H [facility]; Protocol Last Admin: 06/17/18 17:00 Dose: 250 mls/hr Meropenem 1 gm/ Dextrose 100 mls @ 200 mls/hr IVPB Q8H-IV [facility] Last Admin: 06/18/18 10:00 Dose: 200 mls/hr Potassium Phosphate 30 mm/ (Sodium Chloride) 260 mls @ 62.5 mls/hr IVPB ONCE ONE Stop: 06/18/18 14:09 Last Admin: 06/18/18 11:00 Dose: 62.5 mls/hr Insulin Aspart (Novolog Vial Sliding Scale -) 1 vial SQ Q4HPO [facility]; Protocol Last Admin: 06/18/18 02:11 Dose: Not Given Latanoprost (Xalatan 0.005% Eye Drops -) 1 drop OU HS [facility] Morphine Sulfate (Morphine Sulfate) 2 mg IVPUSH Q4H PRN PRN Reason: PAIN 1-6 Last Admin: 06/18/18 11:07 Dose: 2 mg Mupirocin (Bactroban Ointment (For Decolonization) -) 1 applic NS BID [facility] Stop: 06/22/18 21:59 Pantoprazole Sodium (Protonix Packets For Oral Suspension -) 40 mg PO DAILY [facility] Last Admin: 06/18/18 11:09 Dose: 40 mg Sodium Hypochlorite (Dakin's Solution 0.25% (Half-Strength) -) 1 applic TP DAILY [facility] CONSULT: Cardio- Dr. Karolina RÍOS- Dr. Hernández Wound care- Dr. Vargas ASSESSMENT/PLAN: 52F with history of paraplegia (after falling from elevated height from attempted suicide), major depressive disorder, anxiety, chronic obstructive pulmonary disease, diabetes mellitus, GERD, glaucoma, s/p ex lap/Bella's procedure (06/09/18). Returned ICU for close monitoring. NEURO/PSYCH -Extubated 06/14/18; awake and alert -Cont to monitor mental status -Morphine 2 mg Q4H IVP #Post-traumatic paraplegia -Restart home meds: Baclofen 20 QID #Hx of Depression -Restart home meds: Prozac 40 QD #Hx of Schizophrenia -Restart home med: Haldol 5 QD PULM -s/p extubation on 06/15/18, on nasal cannula -Monitor O2 sat #COPD; not currently in exacerbation CV -Maintain MAP > 65 -Monitor vital signs closely #Sinus tachycardia -likely 2/2 sepsis bacteremia -repeat EKG showed sinus tach, unchanged, no evid. of ST-T changes -Per cardio, likely 2/2 sepsis, anemia, deconditioning; May add Metoprolol Tartrate 12.5 BID #Elevated troponins -Trops 0.67 --> 0.45 -EKG showed sinus tach, no acute events GI #s/p Ex lap/Bella's procedure- 06/10/18 (POD 9) -NG tube removed by patient; Per swallow eval, cont with NPO except for meds -Monitor colostomy bag output -F/u swallow eval #GERD -Protonix 40mg IV QD RENAL -Has em catheter placed today; f/u UCx -Follow intake and output closely -Replete electrolytes-Mg, Ph, K ENDO #Diabetes mellitus -Insulin sliding scale TID -Fingerstick blood glucose monitoring TID ID #Sepsis 2/2 GNB/GPB bacteremia; source from sacral decubitus ulcer vs. abdomen -BCx (06/16) +GNB, +GPC in clusters; UCx and U/A pending -Wound cx from sacral ulcer +Enterobacter Aerogenes, NLFGNB, Pseudomonas Aeruginosa, MRSA, Enterococcus, -Isolation precautions -Per ID, IV Meropenem started 06/17/18 (Pt received Zosyn (d/c'd 06/14) due to UCx +Pseudomonas in the past) -Vancomycin 1500 mg IVPB Q12H (started 06/17/18) -CTAP ordered to look for intraabdominal abscess -Tylenol 650 Q4H for fever -Lactate 1.1 -Wound vac placed on sacral decubitus ulcer PROPHYLAXIS -Protonix 40 IVP QD -SQH FEN -LR -replete PRN -NPO except meds w/ applesauce; f/u swallow eval, possible MBS today LINES -LIJ central line placed (06/16/18) Dispo -Transfer to tele -Spoke to family members regarding pt's clinical status. Aware of treatment plan to further monitor pt's swallowing fxn and mental status prior to restarting PO home meds. Visit type - Emergency Visit Emergency Visit: Yes ED Registration Date: 06/09/18 Care time: The patient presented to the Emergency Department on the above date and was hospitalized for further evaluation of their emergent condition. - New Patient This patient is new to me today: No - Critical Care Critical Care patient: Yes Total Critical Care Time (in minutes): 40 Critical Care Statement: The care of this patient involved high complexity decision making to prevent further life threatening deterioration of the patient 's condition and/or to evaluate & treat vital organ system(s) failure or risk of failure.
[2018-06-18] MEDS ORDERED: MAGNESIUM OXIDE 400 MG TABLET (FP) PO ONE (09:15)
[2018-06-18] MEDS ORDERED: POTASSIUM PHOSPHATE 30 MM in SODIUM CHLORIDE 250 ML IVPB ONE (10:00)
[2018-06-18] MEDS: MUPIROCIN 2% TOPICAL OINTMENT FOR DECOLONIZATION NS SCH ×2 (10:00→21:20)
[2018-06-18] MEDS ORDERED: PT OWN MED DRAWER 7, Y5N ONE ×4 (10:37→20:59)
--- NOTE | 2018-06-18 11:05 | PN ---
Progress Note (short form) - Note Progress Note: Attending Surgeon POD #9 xferred back to the ICU yesterday after < 24 hours on the Med-Surg floor; appears to be doing better today; knows her name and responds appropriately VSS AF abdo-soft; non tender; wound care in progress; ostomy viable and functioning WBC-19 Cultures noted IMP: doing well PLAN: Continue present tx.; CT scan a/p; restart feeding; wound care. Michael Vaughan MD FACS
[2018-06-18] MEDS: MORPHINE SULFATE 2 MG/ML VIAL IVPUSH PRN ×2 (11:07→17:52)
[2018-06-18] MEDS: PANTOPRAZOLE SOD 40 MG SUSPENSION PACKET PO SCH (11:09)
[2018-06-18] MEDS: COLLAGENASE CLOSTRIDIUM HIST. 30 GRAMS TUBE TP SCH (11:22)
[2018-06-18] MEDS ORDERED: MAGNESIUM SULF 50% (8.12 MEQ/2 ML-1 GM VIAL) IVPB ONE (11:32)
--- NOTE | 2018-06-18 11:40 | PN ---
Progress Note, Physician Chief Complaint: patient low grade temp 100 labs noted watery diarhhea right now - Current Medication List Current Medications: Active Medications Acetaminophen (Tylenol -) 650 mg PO Q4H PRN PRN Reason: PAIN OR FEVER Baclofen (Lioresal -) 20 mg PO QID [facility] Chlorhexidine Gluconate (Hibiclens For Decolonization -) 1 applic TP HS [facility] Collagenase (Santyl -) 1 applic TP DAILY [facility]; Protocol Last Admin: 06/18/18 11:22 Dose: 1 applic Fluoxetine HCl (Prozac -) 40 mg PO DAILY [facility] Haloperidol (Haldol -) 5 mg PO DAILY [facility] Heparin Sodium (Porcine) (Heparin -) 5,000 unit SQ TID [facility] Last Admin: 06/17/18 22:36 Dose: 5,000 unit Vancomycin HCl 1,500 mg/ (Dextrose) 500 mls @ 250 mls/hr IVPB Q12H [facility]; Protocol Last Admin: 06/17/18 17:00 Dose: 250 mls/hr Meropenem 1 gm/ Dextrose 100 mls @ 200 mls/hr IVPB Q8H-IV [facility] Last Admin: 06/18/18 10:00 Dose: 200 mls/hr Potassium Phosphate 30 mm/ (Sodium Chloride) 260 mls @ 62.5 mls/hr IVPB ONCE ONE Stop: 06/18/18 14:09 Last Admin: 06/18/18 11:00 Dose: 62.5 mls/hr Insulin Aspart (Novolog Vial Sliding Scale -) 1 vial SQ Q4HPO [facility]; Protocol Last Admin: 06/18/18 02:11 Dose: Not Given Latanoprost (Xalatan 0.005% Eye Drops -) 1 drop OU HS [facility] Morphine Sulfate (Morphine Sulfate) 2 mg IVPUSH Q4H PRN PRN Reason: PAIN 1-6 Last Admin: 06/18/18 11:07 Dose: 2 mg Mupirocin (Bactroban Ointment (For Decolonization) -) 1 applic NS BID [facility] Stop: 06/22/18 21:59 Pantoprazole Sodium (Protonix Packets For Oral Suspension -) 40 mg PO DAILY [facility] Last Admin: 06/18/18 11:09 Dose: 40 mg Sodium Hypochlorite (Dakin's Solution 0.25% (Half-Strength) -) 1 applic TP DAILY [facility] - Objective Vital Signs: Vital Signs Temperature 98.5 F 06/18/18 10:15 Pulse Rate 118 H 06/18/18 10:08 Respiratory Rate 21 H 06/18/18 06:00 Blood Pressure 144/76 06/18/18 10:08 O2 Sat by Pulse Oximetry (%) 100 06/17/18 20:48 Constitutional: Yes: Calm Cardiovascular: Yes: Regular Rate and Rhythm, S1, S2 Respiratory: Yes: Diminished Gastrointestinal: Yes: Soft, Other (colosotmy pink ostomy abdominal wound) Neurological: Yes: Alert Labs: CBC, BMP 06/18/18 05:30 06/18/18 05:30 INR, PTT INR 1.39 (0.83-1.09) H 06/09/18 02:21 Problem List - Problems (1) Perforated sigmoid colon Assessment/Plan: POD day 9 s/p ash procedure meorpenem-vancomcyin ct scan to look for intrabdominal abscess surgery on board arthur hampton on board NPO will have her see pateint again gi/dvt ppx Code(s): K63.1 - PERFORATION OF INTESTINE (NONTRAUMATIC) (2) UTI (urinary tract infection) Assessment/Plan: Microbiology 06/09/18 02:45 Urine - Urine Mathis Urine Culture - Final Pseudomonas Aeruginosa zosyn done Code(s): N39.0 - URINARY TRACT INFECTION, SITE NOT SPECIFIED (3) Electrolyte abnormality Assessment/Plan: magnesium,phosphorous,potassium repleted repeat labs Code(s): E87.8 - OTH DISORDERS OF ELECTROLYTE AND FLUID BALANCE, NEC (4) Tachycardia Assessment/Plan: sinus tachycardia ivf pain control Code(s): R00.0 - TACHYCARDIA, UNSPECIFIED (5) Wound of sacral region Assessment/Plan: wound care team - dr cadet consult collagenase dvt ppx paraplegic frequent turn and position Code(s): S31.000A - UNSP OPN WND LOW BACK AND PELV W/O PENET RETROPERITON, INIT (6) Bacteremia Assessment/Plan: gram negativebacteremia meorpenem Code(s): R78.81 - BACTEREMIA
[2018-06-18] MEDS: FLUoxetine HCL 20 MG CAPSULE (FP) PO SCH (12:33)
--- NOTE | 2018-06-18 12:49 | PN ---
Teaching Attending Note Name of Resident: Lily Harvey ATTENDING PHYSICIAN STATEMENT I saw and evaluated the patient. I reviewed the resident's note and discussed the case with the resident. I agree with the resident's findings and plan as documented. SUBJECTIVE: Patient seen and examined in the ICU. Transferred back due to (+) troponin. Awake, moaning, but in NAD. Agitated but redirects. Intake & Output 06/15/18 06/16/18 06/17/18 06/18/18 23:59 23:59 23:59 23:59 Intake Total 1755 396.1 1000 600 Output Total 2030 500 1100 350 Balance -275 -103.9 -100 250 Weight 255 lb 1.6 oz 231 lb 9.6 oz Last Vital Signs Temp Pulse Resp BP Pulse Ox 98.5 F 118 H 23 H 125/82 100 06/18/18 10:15 06/18/18 12:11 06/18/18 12:11 06/18/18 12:11 06/17/18 20:48 Active Medications Acetaminophen (Tylenol -) 650 mg PO Q4H PRN PRN Reason: PAIN OR FEVER Baclofen (Lioresal -) 20 mg PO QID [facility] Chlorhexidine Gluconate (Hibiclens For Decolonization -) 1 applic TP HS [facility] Collagenase (Santyl -) 1 applic TP DAILY [facility]; Protocol Last Admin: 06/18/18 11:22 Dose: 1 applic Fluoxetine HCl (Prozac -) 40 mg PO DAILY [facility] Last Admin: 06/18/18 12:33 Dose: 40 mg Haloperidol (Haldol -) 5 mg PO DAILY [facility] Heparin Sodium (Porcine) (Heparin -) 5,000 unit SQ TID [facility] Last Admin: 06/17/18 22:36 Dose: 5,000 unit Vancomycin HCl 1,500 mg/ (Dextrose) 500 mls @ 250 mls/hr IVPB Q12H [facility]; Protocol Last Admin: 06/17/18 17:00 Dose: 250 mls/hr Meropenem 1 gm/ Dextrose 100 mls @ 200 mls/hr IVPB Q8H-IV [facility] Last Admin: 06/18/18 10:00 Dose: 200 mls/hr Potassium Phosphate 30 mm/ (Sodium Chloride) 260 mls @ 62.5 mls/hr IVPB ONCE ONE Stop: 06/18/18 14:09 Last Admin: 06/18/18 11:00 Dose: 62.5 mls/hr Insulin Aspart (Novolog Vial Sliding Scale -) 1 vial SQ Q4HPO [facility]; Protocol Last Admin: 06/18/18 12:00 Dose: Not Given Latanoprost (Xalatan 0.005% Eye Drops -) 1 drop OU HS [facility] Morphine Sulfate (Morphine Sulfate) 2 mg IVPUSH Q4H PRN PRN Reason: PAIN 1-6 Last Admin: 06/18/18 11:07 Dose: 2 mg Mupirocin (Bactroban Ointment (For Decolonization) -) 1 applic NS BID [facility] Stop: 06/22/18 21:59 Pantoprazole Sodium (Protonix Packets For Oral Suspension -) 40 mg PO DAILY [facility] Last Admin: 06/18/18 11:09 Dose: 40 mg Sodium Hypochlorite (Dakin's Solution 0.25% (Half-Strength) -) 1 applic TP DAILY [facility] Last Admin: 06/18/18 08:00 Dose: 1 applic Gen: Awake and responsive, NAD Heart: RRR Lung: scattered rhonchi Abd: soft, +ostomy pink with stool output Ext: + edema Laboratory Results - last 24 hr 06/17/18 06/17/18 06/17/18 11:55 13:00 16:10 WBC RBC Hgb Hct MCV MCH MCHC RDW Plt Count MPV Absolute Neuts (auto) Neutrophils % Lymphocytes % Monocytes % Eosinophils % Basophils % Nucleated RBC % Sodium Potassium Chloride Carbon Dioxide Anion Gap BUN Creatinine Creat Clearance w eGFR POC Glucometer Random Glucose Lactic Acid 1.1 Calcium Phosphorus Magnesium Total Bilirubin AST ALT Alkaline Phosphatase Troponin I 0.70 H* Total Protein Albumin Urine Color Yellow Urine Appearance Slcloudy Urine pH 7.0 D Ur Specific [place] 1.013 Urine Protein 1+ H Urine Glucose (UA) Negative Urine Ketones 2+ H Urine Blood Negative Urine Nitrite Negative Urine Bilirubin Negative Urine Urobilinogen Negative Ur Leukocyte Esterase Negative Urine WBC (Auto) 1 Urine RBC (Auto) <1 Ur Epithelial Cells Rare Urine Bacteria Rare 06/17/18 06/17/18 06/17/18 16:16 22:54 23:45 WBC RBC Hgb Hct MCV MCH MCHC RDW Plt Count MPV Absolute Neuts (auto) Neutrophils % Lymphocytes % Monocytes % Eosinophils % Basophils % Nucleated RBC % Sodium Potassium Chloride Carbon Dioxide Anion Gap BUN Creatinine Creat Clearance w eGFR POC Glucometer 128 155 Random Glucose Lactic Acid Calcium Phosphorus Magnesium Total Bilirubin AST ALT Alkaline Phosphatase Troponin I 0.45 H Total Protein Albumin Urine Color Urine Appearance Urine pH Ur Specific [place] Urine Protein Urine Glucose (UA) Urine Ketones Urine Blood Urine Nitrite Urine Bilirubin Urine Urobilinogen Ur Leukocyte Esterase Urine WBC (Auto) Urine RBC (Auto) Ur Epithelial Cells Urine Bacteria 06/18/18 06/18/18 06/18/18 02:10 05:17 05:30 WBC 19.1 H RBC 3.53 L Hgb 8.8 L Hct 26.4 L MCV 74.7 L MCH 25.0 L MCHC 33.4 RDW 18.0 H Plt Count 498 H MPV 8.1 Absolute Neuts (auto) 16.8 H Neutrophils % 88.1 H Lymphocytes % 6.9 L D Monocytes % 4.1 Eosinophils % 0.7 Basophils % 0.2 Nucleated RBC % 0 Sodium Potassium Chloride Carbon Dioxide Anion Gap BUN Creatinine Creat Clearance w eGFR POC Glucometer 130 129 Random Glucose Lactic Acid Calcium Phosphorus Magnesium Total Bilirubin AST ALT Alkaline Phosphatase Troponin I Total Protein Albumin Urine Color Urine Appearance Urine pH Ur Specific [place] Urine Protein Urine Glucose (UA) Urine Ketones Urine Blood Urine Nitrite Urine Bilirubin Urine Urobilinogen Ur Leukocyte Esterase Urine WBC (Auto) Urine RBC (Auto) Ur Epithelial Cells Urine Bacteria 06/18/18 06/18/18 05:30 12:25 WBC RBC Hgb Hct MCV MCH MCHC RDW Plt Count MPV Absolute Neuts (auto) Neutrophils % Lymphocytes % Monocytes % Eosinophils % Basophils % Nucleated RBC % Sodium 142 Potassium 3.2 L Chloride 109 H Carbon Dioxide 23 Anion Gap 10 BUN 5 L Creatinine 0.3 L Creat Clearance w eGFR > 60 POC Glucometer 145 Random Glucose 135 H Lactic Acid Calcium 6.9 L* Phosphorus 2.2 L Magnesium 1.5 L Total Bilirubin 1.0 AST 15 ALT 22 Alkaline Phosphatase 120 H Troponin I Total Protein 5.0 L Albumin 1.8 L Urine Color Urine Appearance Urine pH Ur Specific [place] Urine Protein Urine Glucose (UA) Urine Ketones Urine Blood Urine Nitrite Urine Bilirubin Urine Urobilinogen Ur Leukocyte Esterase Urine WBC (Auto) Urine RBC (Auto) Ur Epithelial Cells Urine Bacteria ASSESSMENT AND PLAN: Sigmoid Volvulus/Pneumoperitoneum/Fecal Peritonitis s/p ex-lap/Bella's procedure Septic Shock Volume Overload Lactic/Metabolic Acidosis COPD DM Paraplegia Depression GM (-) Bacteremia Suspected Type II [place] - ABX per ID - IVF - monitor urine output, creatinine - replete lytes - O2 to keep Spo2 >90% - Swallow evaluation - DVT/GI prophylaxis - ASA - Cardiac Telemetry monitoring Dr Garcia
--- NOTE | 2018-06-18 13:43 | PN ---
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 Moans, occasionally verbal. Distractible, confused. NPO except for medication.Reported to be tolerating meds. Upon reassessment, Inspiratory wheeze, however staff report this is common for pt. Aspiration? Functional/psychogenic? Pt pending CT ab. MBS needs to be deferred until CT completed. mbs 06/19, hopefully pt will fit into Fluoro unit.
[2018-06-18] MEDS: BACLOFEN 10 MG TABLET (FP) PO SCH ×3 (14:00→21:19)
[2018-06-18 15:43] VITALS: BMI 46.6
[2018-06-18] MEDS: HALOPERIDOL 5 MG TABLET (FP) PO SCH (17:42)
--- NOTE | 2018-06-18 20:58 | PN ---
Progress Note (short form) - Note Progress Note: transferred to ICU yestrday with gram negative bacteremia and positive troponins also noted to hve gram positive cocci in blood cultures and vancomycin added to the meropenem went for ct scan today alert Vital Signs Period Temp Pulse Resp BP Sys/Benito Pulse Ox Last 24 Hr 98.5 F-100 F 114-125 20-25 120-144/66-83 98-98 cor-rrr lungs decresed bs at bases abd wound packed +ostomy function +sacral wound with vac em CBC, BMP 06/18/18 05:30 06/18/18 05:30 Microbiology 06/15/18 20:00 Coccyx Gram Stain - Final 06/15/18 20:00 Coccyx Wound Culture - Preliminary Enterobacter Aerogenes Non Lactose Fermenting Gnb Presumptive Ps Aeruginosa Presumptive Mrsa (Pbp2a Pos) Group D Strep Or Entero Coccus Pending Organism 06/16/18 16:25 Blood - Peripheral Venous Blood Culture - Preliminary Lactose Fermenting Neg Bacilli Bacillus Species 06/17/18 11:55 Urine - Urine Em Urine Culture - Preliminary Lactose Fermenting Neg Bacilli Non Lactose Fermenting Gnb 06/16/18 16:25 Blood - Peripheral Venous Blood Culture - Preliminary Staphylococcus Coagulase Neg 06/09/18 02:21 Blood - Peripheral Venous Blood Culture - Final NO GROWTH AFTER 5 DAYS INCUBATION 06/09/18 02:21 Blood - Peripheral Venous Blood Culture - Final NO GROWTH AFTER 5 DAYS INCUBATION 06/09/18 02:45 Urine - Urine Em Urine Culture - Final Pseudomonas Aeruginosa ct scan no abscess a/p bacteremia- await culture results repeat blood cultures in am check vanco trough continue vanco/meropenem s/p ex lap for pneumoperitoneum/sigmoid volvolus-hartmans procedure Problem List - Problems (1) Sepsis Code(s): A41.9 - SEPSIS, UNSPECIFIED ORGANISM (2) Perforated sigmoid colon Code(s): K63.1 - PERFORATION OF INTESTINE (NONTRAUMATIC) (3) Sigmoid volvulus Code(s): K56.2 - VOLVULUS (4) Neck mass Code(s): R22.1 - LOCALIZED SWELLING, MASS AND LUMP, NECK
[2018-06-18] MEDS: LATANOPROST 0.005% OPHTH SOLN 2.5ML BOTTLE OU SCH (21:19)
[2018-06-18] MEDS: CHLORHEXIDINE GLUCONATE 4% CLEANSER FOR DECOLONIZATION TP SCH (21:20)
[2018-06-18] MEDS ORDERED: HALOPERIDOL 1 MG TABLET (FP) PO ONE (22:56)
[2018-06-19] MEDS: MEROPENEM 1 GM in DEXTROSE 5%-WATER 100 ML IVPB SCH ×3 (03:00→17:48)
[2018-06-19] MEDS: INSULIN SLIDING SCALE (NOVOLOG) 1 VIAL SQ SCH ×5 (04:25→22:33)
[2018-06-19] MEDS ORDERED: PT OWN MED DRAWER 7, Y5N ONE ×3 (04:37→17:45)
[2018-06-19] MEDS: VANCOMYCIN HCL 1,500 MG in DEXTROSE 5%-WATER - 500 ML IVPB SCH ×2 (05:34→19:14)
[2018-06-19] MEDS: HEPARIN NA (PORCINE) 5,000 UNITS/ML 1ML VIAL SQ SCH ×3 (06:00→22:31)
[2018-06-19 06:33] LABS: BASO % 0.2 % (0-2.0); EOS % 1.4 % (0-4.5); HEMOGLOBIN 9.2 GM/dL (10.7-15.3); LYMPH % 9.6 % (8-40); MCH 25.6 pg (25.7-33.7); MCHC 34.1 g/dl (32.0-36.0); MONO % 7.2 % (3.8-10.2); NEUT % 81.6 % (42.8-82.8); PLATELET COUNT 617 K/MM3 (134-434); RDW 18.2 % (11.6-15.6); WHITE BLOOD COUNT 16.3 K/mm3 (4.0-10.0)
[2018-06-19 06:45] LABS: ALBUMIN 1.7 g/dl (3.4-5.0); ALK PHOS 123 U/L (45-117); ANION GAP 8 MMOL/L (8-16); BLOOD UREA NITROGEN 5 mg/dL (7-18); CALCIUM 7.4 mg/dL (8.5-10.1); CHLORIDE 105 mmol/L (98-107); CO2 25 mmol/L (21-32); CREATININE 0.2 mg/dL (0.55-1.3); GLUCOSE,RANDOM 132 mg/dL (74-106); MAGNESIUM 1.8 mg/dL (1.8-2.4); PHOSPHOROUS 2.8 mg/dL (2.5-4.9); POTASSIUM 3.4 mmol/L (3.5-5.1); SGOT/AST 21 U/L (15-37); SGPT/ALT 22 U/L (13-61); SODIUM 138 mmol/L (136-145); TOT PROT 5.2 g/dl (6.4-8.2)
--- NOTE | 2018-06-19 07:52 | PN ---
Physical Exam: SUBJECTIVE: Patient seen and examined at bedside. No acute events overnight. OBJECTIVE: Vital Signs Period Temp Pulse Resp BP Sys/Benito Pulse Ox Last 24 Hr 98.5 F-99.5 F 112-122 17-24 111-144/67-83 97-98 GENERAL: Obese patient, moaning. Able to verbally communicate and respond to questions. HEAD: Normal with no signs of trauma. EYES: PERRL, extraocular movements intact, sclera anicteric, conjunctiva clear. No ptosis. NECK: supple. LIJ central line placed, dressing c/d/i. LUNGS: Breath sounds equal, no wheezes, no crackles HEART: RRR, S1, S2 without murmur, rub or gallop. ABDOMEN: Soft, midline central tender, +bowel sounds, L colostomy bag with soft stool. Abd wound with brown drainage, borders clean, non-erythematous. EXTREMITIES: 2+ pulses, warm, well-perfused, no edema, SCDs in place. NEUROLOGICAL: Obeys commands, able to grasp with L hand, no grasp with R hand noted SKIN: Sacral decubitus ulcer; wound vac in place. CBC, BMP 06/19/18 05:30 06/19/18 05:30 Microbiology 06/16/18 16:25 Blood - Peripheral Venous Blood Culture - Preliminary Staphylococcus Coagulase Neg 06/16/18 16:25 Blood - Peripheral Venous Blood Culture - Preliminary Lactose Fermenting Neg Bacilli Bacillus Species, Not Antracis 06/15/18 20:00 Coccyx Gram Stain - Final 06/15/18 20:00 Coccyx Wound Culture - Preliminary Enterobacter Aerogenes Non Lactose Fermenting Gnb Presumptive Ps Aeruginosa Presumptive Mrsa (Pbp2a Pos) Group D Strep Or Entero Coccus Pending Organism 06/17/18 11:55 Urine - Urine Em Urine Culture - Preliminary Lactose Fermenting Neg Bacilli Non Lactose Fermenting Gnb Active Medications Acetaminophen (Tylenol -) 650 mg PO Q4H PRN PRN Reason: PAIN OR FEVER Baclofen (Lioresal -) 20 mg PO QID [facility] Last Admin: 06/18/18 21:19 Dose: 20 mg Chlorhexidine Gluconate (Hibiclens For Decolonization -) 1 applic TP HS [facility] Last Admin: 06/18/18 21:20 Dose: 1 applic Collagenase (Santyl -) 1 applic TP DAILY [facility]; Protocol Last Admin: 06/18/18 11:22 Dose: 1 applic Fluoxetine HCl (Prozac -) 40 mg PO DAILY [facility] Last Admin: 06/18/18 12:33 Dose: 40 mg Haloperidol (Haldol -) 5 mg PO DAILY [facility] Last Admin: 06/18/18 17:42 Dose: 5 mg Heparin Sodium (Porcine) (Heparin -) 5,000 unit SQ TID [facility] Last Admin: 06/19/18 06:00 Dose: 5,000 unit Vancomycin HCl 1,500 mg/ (Dextrose) 500 mls @ 250 mls/hr IVPB Q12H [facility]; Protocol Last Admin: 06/19/18 05:34 Dose: 250 mls/hr Meropenem 1 gm/ Dextrose 100 mls @ 200 mls/hr IVPB Q8H-IV [facility] Last Admin: 06/19/18 03:00 Dose: 200 mls/hr Insulin Aspart (Novolog Vial Sliding Scale -) 1 vial SQ ACHS [facility]; Protocol Last Admin: 06/19/18 06:00 Dose: Not Given Latanoprost (Xalatan 0.005% Eye Drops -) 1 drop OU HS [facility] Last Admin: 06/18/18 21:19 Dose: 1 drop Morphine Sulfate (Morphine Sulfate) 2 mg IVPUSH Q4H PRN PRN Reason: PAIN 1-6 Last Admin: 06/18/18 17:52 Dose: 2 mg Mupirocin (Bactroban Ointment (For Decolonization) -) 1 applic NS BID [facility] Stop: 06/22/18 21:59 Last Admin: 06/18/18 21:20 Dose: 1 applic Pantoprazole Sodium (Protonix Packets For Oral Suspension -) 40 mg PO DAILY [facility] Last Admin: 06/18/18 11:09 Dose: 40 mg Sodium Hypochlorite (Dakin's Solution 0.25% (Half-Strength) -) 1 applic TP DAILY [facility] Last Admin: 06/18/18 08:00 Dose: 1 applic CONSULT: Cardio- Dr. Karolina RÍOS- Dr. Hernández Wound care- Dr. Vargas IMAGING: * CTAP: Small amt of free intraperitoneal air adjacent to L hepatic lobe, may be residual in nature, post-op, and/or due to interval bowel perforation. Small amt of pelvic free fluid seen b/l. ASSESSMENT/PLAN: 52F with history of paraplegia (after falling from elevated height from attempted suicide), major depressive disorder, anxiety, chronic obstructive pulmonary disease, diabetes mellitus, GERD, glaucoma, s/p ex lap/Bella's procedure (06/09/18). Returned ICU for close monitoring. NEURO/PSYCH -Extubated 06/14/18; awake and alert -Cont to monitor mental status -Morphine 2 mg Q4H IVP #Post-traumatic paraplegia -Restart home meds: Baclofen 20 QID #Hx of Depression -Restart home meds: Prozac 40 QD #Hx of Schizophrenia -Restart home med: Haldol 5 QD PULM -s/p extubation on 06/15/18, on nasal cannula -Monitor O2 sat #COPD; not currently in exacerbation CV -Maintain MAP > 65 -Monitor vital signs closely #Sinus tachycardia -likely 2/2 sepsis bacteremia -repeat EKG showed sinus tach, unchanged, no evid. of ST-T changes -Per cardio, likely 2/2 sepsis, anemia, deconditioning; May add Metoprolol Tartrate 12.5 BID #Elevated troponins -Trops 0.67 --> 0.45 -EKG showed sinus tach, no acute events GI #s/p Ex lap/Bella's procedure- 06/10/18 (POD 9) -NG tube removed by patient; Per swallow eval, cont with NPO except for meds -Monitor colostomy bag output -MBS today; results pending #GERD -Protonix 40mg IV QD RENAL -Cont em; -Follow intake and output closely -Replete electrolytes-Mg, Ph, K ENDO #Diabetes mellitus -Insulin sliding scale TID -Fingerstick blood glucose monitoring TID ID #Sepsis 2/2 GNB/GPB bacteremia; source from sacral decubitus ulcer vs. abdomen -BCx (06/16) +Staph coag neg, +LFGNB = likely skin dedra. Per ID, d/c Vanc -UCx (06/16) +Enterobacter aerogenes, +Pseudomonas aeruginosa -Wound cx from sacral ulcer +Enterobacter Aerogenes, NLFGNB, Pseudomonas Aeruginosa, MRSA, Enterococcus, -Contact isolation precautions -Per ID, IV Meropenem started 06/17/18 (Pt received Zosyn (d/c'd 06/14) due to UCx +Pseudomonas in the past) -CTAP noted above, no abscess seen -Tylenol 650 Q4H for fever -Lactate 1.1 -Wound vac placed on sacral decubitus ulcer PROPHYLAXIS -Protonix 40 IVP QD -SQH FEN -LR -replete PRN -NPO except meds w/ applesauce; MBS today, await recs LINES -LIJ central line placed (06/16/18) -em (06/18/18) Dispo -Transfer to tele -Spoke to family members regarding pt's clinical status. Aware of treatment plan to further monitor pt's swallowing fxn and mental status prior to restarting PO home meds. Visit type - Emergency Visit Emergency Visit: Yes ED Registration Date: 06/09/18 Care time: The patient presented to the Emergency Department on the above date and was hospitalized for further evaluation of their emergent condition. - New Patient This patient is new to me today: No - Critical Care Critical Care patient: Yes Total Critical Care Time (in minutes): 35 Critical Care Statement: The care of this patient involved high complexity decision making to prevent further life threatening deterioration of the patient 's condition and/or to evaluate & treat vital organ system(s) failure or risk of failure.
[2018-06-19] MEDS ORDERED: POTASSIUM PHOSPHATE 30 MM in SODIUM CHLORIDE 250 ML IVPB ONE (07:57)
[2018-06-19] MEDS ORDERED: MAGNESIUM OXIDE 400 MG TABLET (FP) PO ONE (08:15)
[2018-06-19] MEDS: MORPHINE SULFATE 2 MG/ML VIAL IVPUSH PRN (10:04)
--- NOTE | 2018-06-19 10:30 | PN ---
Progress Note (short form) - Note Progress Note: 52yo F s/p Bella's, pt seen and examined in the ICU. Pt more awake today and is Oriented to name today. Pt wbc trending down and was afebrile overnight. Pt had CT abd/pel yesterday that showed no acute findings. Last Vital Signs Temp Pulse Resp BP Pulse Ox 99.1 F 115 H 26 H 130/75 97 06/19/18 08:00 06/19/18 08:00 06/19/18 08:00 06/19/18 08:00 06/18/18 21:00 CBC, BMP 06/19/18 05:30 06/19/18 05:30 PE: Gen: Awake, oriented to name Resp: breathing comfortably Abd: soft, nondistended, mild tenderness, incision is clean with no erythema or discharge good granulation tissue. Ostomy shows air and stool. Problem List - Problems (1) Perforated sigmoid colon Assessment/Plan: Plan -continue abx as per ID/medicine -daily dressing change with dakins -PO once cleared by speech and swallow. Code(s): K63.1 - PERFORATION OF INTESTINE (NONTRAUMATIC)
[2018-06-19] MEDS: MUPIROCIN 2% TOPICAL OINTMENT FOR DECOLONIZATION NS SCH ×2 (10:35→22:30)
[2018-06-19] MEDS: BACLOFEN 10 MG TABLET (FP) PO SCH ×4 (10:38→22:30)
[2018-06-19] MEDS: PANTOPRAZOLE SOD 40 MG SUSPENSION PACKET PO SCH (10:39)
[2018-06-19] MEDS: HALOPERIDOL 5 MG TABLET (FP) PO SCH (10:39)
[2018-06-19] MEDS: FLUoxetine HCL 20 MG CAPSULE (FP) PO SCH (10:39)
[2018-06-19] MEDS: COLLAGENASE CLOSTRIDIUM HIST. 30 GRAMS TUBE TP SCH (10:40)
[2018-06-19] MEDS ORDERED: HALOPERIDOL LACTATE 5 MG/ML IM ONE (10:45)
[2018-06-19] MEDS: SODIUM HYPOCHLORITE 0.25%- 473 ML BULK BOTTLE TP SCH (10:50)
[2018-06-19] MEDS ORDERED: MAGNESIUM SULF 50% (8.12 MEQ/2 ML-1 GM VIAL) IVPB ONE (11:34)
--- NOTE | 2018-06-19 11:44 | PN ---
Progress Note, Physician Chief Complaint: awake alert on nasal canula - Current Medication List Current Medications: Active Medications Acetaminophen (Tylenol -) 650 mg PO Q4H PRN PRN Reason: PAIN OR FEVER Baclofen (Lioresal -) 20 mg PO QID [facility] Last Admin: 06/19/18 10:38 Dose: Not Given Chlorhexidine Gluconate (Hibiclens For Decolonization -) 1 applic TP HS [facility] Last Admin: 06/18/18 21:20 Dose: 1 applic Collagenase (Santyl -) 1 applic TP DAILY [facility]; Protocol Last Admin: 06/18/18 11:22 Dose: 1 applic Fluoxetine HCl (Prozac -) 40 mg PO DAILY [facility] Last Admin: 06/19/18 10:39 Dose: Not Given Haloperidol (Haldol -) 5 mg PO DAILY [facility] Last Admin: 06/19/18 10:39 Dose: Not Given Heparin Sodium (Porcine) (Heparin -) 5,000 unit SQ TID [facility] Last Admin: 06/19/18 06:00 Dose: 5,000 unit Vancomycin HCl 1,500 mg/ (Dextrose) 500 mls @ 250 mls/hr IVPB Q12H [facility]; Protocol Last Admin: 06/19/18 05:34 Dose: 250 mls/hr Meropenem 1 gm/ Dextrose 100 mls @ 200 mls/hr IVPB Q8H-IV [facility] Last Admin: 06/19/18 03:00 Dose: 200 mls/hr Potassium Phosphate 30 mm/ (Sodium Chloride) 260 mls @ 62.5 mls/hr IVPB ONCE ONE Stop: 06/19/18 12:06 Last Admin: 06/19/18 10:11 Dose: 62.5 mls/hr Insulin Aspart (Novolog Vial Sliding Scale -) 1 vial SQ ACHS [facility]; Protocol Last Admin: 06/19/18 06:00 Dose: Not Given Latanoprost (Xalatan 0.005% Eye Drops -) 1 drop OU HS [facility] Last Admin: 06/18/18 21:19 Dose: 1 drop Magnesium Sulfate (Magnesium Sulfate) 1 gm IVPB ONCE ONE Stop: 06/19/18 11:35 Morphine Sulfate (Morphine Sulfate) 2 mg IVPUSH Q4H PRN PRN Reason: PAIN 1-6 Last Admin: 06/19/18 10:04 Dose: 2 mg Mupirocin (Bactroban Ointment (For Decolonization) -) 1 applic NS BID [facility] Stop: 06/22/18 21:59 Last Admin: 06/18/18 21:20 Dose: 1 applic Pantoprazole Sodium (Protonix Packets For Oral Suspension -) 40 mg PO DAILY [facility] Last Admin: 06/19/18 10:39 Dose: Not Given Sodium Hypochlorite (Dakin's Solution 0.25% (Half-Strength) -) 1 applic TP DAILY [facility] Last Admin: 06/18/18 08:00 Dose: 1 applic - Objective Vital Signs: Vital Signs Temperature 98.8 F 06/19/18 10:00 Pulse Rate 114 H 06/19/18 10:00 Respiratory Rate 15 06/19/18 10:00 Blood Pressure 142/78 06/19/18 10:00 O2 Sat by Pulse Oximetry (%) 99 06/19/18 10:00 Constitutional: Yes: Calm Cardiovascular: Yes: Regular Rate and Rhythm, S1, S2 Respiratory: Yes: CTA Bilaterally Gastrointestinal: Yes: Normal Bowel Sounds, Soft, Other (colostomy pink ostomy midline incision) Edema: Yes Integumentary: Yes: Other (wound vac) Neurological: Yes: Alert Psychiatric: Yes: Alert Labs: CBC, BMP 06/19/18 05:30 06/19/18 05:30 INR, PTT INR 1.39 (0.83-1.09) H 06/09/18 02:21 Problem List - Problems (1) Perforated sigmoid colon Assessment/Plan: POD day 10 s/p ash procedure meorpenem-vancomcyin ct scan done surgery on board to get MBS today prior to resuming feeds Code(s): K63.1 - PERFORATION OF INTESTINE (NONTRAUMATIC) (2) UTI (urinary tract infection) Assessment/Plan: Microbiology 06/09/18 02:45 Urine - Urine Mathis Urine Culture - Final Pseudomonas Aeruginosa zosyn done Code(s): N39.0 - URINARY TRACT INFECTION, SITE NOT SPECIFIED (3) Electrolyte abnormality Assessment/Plan: ,potassium repleted repeat labs Code(s): E87.8 - OTH DISORDERS OF ELECTROLYTE AND FLUID BALANCE, NEC (4) Tachycardia Assessment/Plan: sinus tachycardia ivf pain control Code(s): R00.0 - TACHYCARDIA, UNSPECIFIED (5) Wound of sacral region Assessment/Plan: wound care team - dr cadet consult collagenase wound vac dvt ppx paraplegic frequent turn and position Code(s): S31.000A - UNSP OPN WND LOW BACK AND PELV W/O PENET RETROPERITON, INIT (6) Bacteremia Assessment/Plan: gram negativebacteremia meorpenem Code(s): R78.81 - BACTEREMIA
--- NOTE | 2018-06-19 12:41 | PN ---
Teaching Attending Note Name of Resident: Lily Harvey ATTENDING PHYSICIAN STATEMENT I saw and evaluated the patient. I reviewed the resident's note and discussed the case with the resident. I agree with the resident's findings and plan as documented. SUBJECTIVE: Patient seen and examined in the ICU. More awake and responsive today. Less moaning. Denies CP or SOB. Intake & Output 06/16/18 06/17/18 06/18/18 06/19/18 23:59 23:59 23:59 23:59 Intake Total 396.1 1000 1550 750 Output Total 500 1100 600 600 Balance -103.9 -100 950 150 Weight 231 lb 9.6 oz Last Vital Signs Temp Pulse Resp BP Pulse Ox 98.8 F 114 H 15 142/78 99 06/19/18 10:00 06/19/18 10:00 06/19/18 10:00 06/19/18 10:00 06/19/18 10:00 Active Medications Acetaminophen (Tylenol -) 650 mg PO Q4H PRN PRN Reason: PAIN OR FEVER Baclofen (Lioresal -) 20 mg PO QID [facility] Last Admin: 06/19/18 10:38 Dose: Not Given Chlorhexidine Gluconate (Hibiclens For Decolonization -) 1 applic TP HS [facility] Last Admin: 06/18/18 21:20 Dose: 1 applic Collagenase (Santyl -) 1 applic TP DAILY [facility]; Protocol Last Admin: 06/18/18 11:22 Dose: 1 applic Fluoxetine HCl (Prozac -) 40 mg PO DAILY [facility] Last Admin: 06/19/18 10:39 Dose: Not Given Haloperidol (Haldol -) 5 mg PO DAILY [facility] Last Admin: 06/19/18 10:39 Dose: Not Given Heparin Sodium (Porcine) (Heparin -) 5,000 unit SQ TID [facility] Last Admin: 06/19/18 06:00 Dose: 5,000 unit Vancomycin HCl 1,500 mg/ (Dextrose) 500 mls @ 250 mls/hr IVPB Q12H [facility]; Protocol Last Admin: 06/19/18 05:34 Dose: 250 mls/hr Meropenem 1 gm/ Dextrose 100 mls @ 200 mls/hr IVPB Q8H-IV [facility] Last Admin: 06/19/18 03:00 Dose: 200 mls/hr Insulin Aspart (Novolog Vial Sliding Scale -) 1 vial SQ ACHS [facility]; Protocol Last Admin: 06/19/18 06:00 Dose: Not Given Latanoprost (Xalatan 0.005% Eye Drops -) 1 drop OU HS [facility] Last Admin: 06/18/18 21:19 Dose: 1 drop Morphine Sulfate (Morphine Sulfate) 2 mg IVPUSH Q4H PRN PRN Reason: PAIN 1-6 Last Admin: 06/19/18 10:04 Dose: 2 mg Mupirocin (Bactroban Ointment (For Decolonization) -) 1 applic NS BID [facility] Stop: 06/22/18 21:59 Last Admin: 06/18/18 21:20 Dose: 1 applic Pantoprazole Sodium (Protonix Packets For Oral Suspension -) 40 mg PO DAILY [facility] Last Admin: 06/19/18 10:39 Dose: Not Given Sodium Hypochlorite (Dakin's Solution 0.25% (Half-Strength) -) 1 applic TP DAILY [facility] Last Admin: 06/18/18 08:00 Dose: 1 applic Gen: Awake and responsive, NAD Heart: RRR Lung: scattered rhonchi Abd: soft, +ostomy pink with stool output Ext: + edema Laboratory Results - last 24 hr 06/18/18 06/18/18 06/18/18 18:11 18:34 21:22 WBC RBC Hgb Hct MCV MCH MCHC RDW Plt Count MPV Absolute Neuts (auto) Neutrophils % Lymphocytes % Monocytes % Eosinophils % Basophils % Nucleated RBC % Sodium Potassium Chloride Carbon Dioxide Anion Gap BUN Creatinine Creat Clearance w eGFR POC Glucometer 258 165 173 Random Glucose Calcium Phosphorus Magnesium Total Bilirubin AST ALT Alkaline Phosphatase Total Protein Albumin 06/19/18 06/19/18 06/19/18 05:29 05:30 05:30 WBC 16.3 H RBC 3.60 Hgb 9.2 L Hct 27.0 L MCV 75.0 L MCH 25.6 L MCHC 34.1 RDW 18.2 H Plt Count 617 H D MPV 8.0 Absolute Neuts (auto) 13.3 H Neutrophils % 81.6 Lymphocytes % 9.6 D Monocytes % 7.2 Eosinophils % 1.4 D Basophils % 0.2 Nucleated RBC % 0 Sodium 138 Potassium 3.4 L Chloride 105 Carbon Dioxide 25 Anion Gap 8 BUN 5 L Creatinine 0.2 L Creat Clearance w eGFR 370.15 POC Glucometer 126 Random Glucose 132 H Calcium 7.4 L Phosphorus 2.8 Magnesium 1.8 Total Bilirubin 1.0 AST 21 ALT 22 Alkaline Phosphatase 123 H Total Protein 5.2 L Albumin 1.7 L ASSESSMENT AND PLAN: Resolved Sigmoid Volvulus/Pneumoperitoneum/Fecal Peritonitis S/P ex-lap/Bella's procedure Septic Shock Volume Overload Lactic/Metabolic Acidosis COPD DM Paraplegia Depression GM (-) Bacteremia Suspected Type II DC - MBS - ABX per ID - IVF - monitor urine output, creatinine - replete lytes - O2 to keep Spo2 >90% - DVT/GI prophylaxis - ASA - Cardiac Telemetry monitoring Dr Garcia
--- NOTE | 2018-06-19 14:49 | PN ---
Progress Note (short form) - Note Progress Note: alert Vital Signs Period Temp Pulse Resp BP Sys/Benito Pulse Ox Last 24 Hr 98.8 F-99.5 F 112-122 15-26 111-142/67-78 97-99 cor-rrr lungs decreased bs at bases abd wound packed +ostomy function +sacral wound with vac em ct scan no abscess CBC, BMP 06/19/18 05:30 06/19/18 05:30 Microbiology 06/15/18 20:00 Coccyx Gram Stain - Final 06/15/18 20:00 Coccyx Wound Culture - Preliminary Enterobacter Aerogenes Providencia Stuartii Pseudomonas Aeruginosa Mr S Aureus Enterococcus Faecalis Pending Organism 06/16/18 16:25 Blood - Peripheral Venous Blood Culture - Final Enterobacter Aerogenes Bacillus Species, Not Antracis 06/16/18 16:25 Blood - Peripheral Venous Blood Culture - Final Staphylococcus Epidermidis 06/17/18 11:55 Urine - Urine Em Urine Culture - Final Enterobacter Aerogenes Pseudomonas Aeruginosa 06/09/18 02:21 Blood - Peripheral Venous Blood Culture - Final NO GROWTH AFTER 5 DAYS INCUBATION 06/09/18 02:21 Blood - Peripheral Venous Blood Culture - Final NO GROWTH AFTER 5 DAYS INCUBATION 06/09/18 02:45 Urine - Urine Em Urine Culture - Final Pseudomonas Aeruginosa a/p bacteremia- enterobacter- secondary to UTI most likely UTI enterobacter and pseudomonas sacral wound- appears clean- has vac leukocytosis improving staph epi and bacillus are skin contaminants - d/c vancomycin s/p ex lap for pneumoperitoneum/sigmoid volvolus-hartmans procedure contact isolation MRSA in wound Problem List - Problems (1) Sepsis Code(s): A41.9 - SEPSIS, UNSPECIFIED ORGANISM (2) Perforated sigmoid colon Code(s): K63.1 - PERFORATION OF INTESTINE (NONTRAUMATIC) (3) Sigmoid volvulus Code(s): K56.2 - VOLVULUS (4) Neck mass Code(s): R22.1 - LOCALIZED SWELLING, MASS AND LUMP, NECK
[2018-06-19] MEDS ORDERED: INSULIN (NOVOLOG) ASPART 100 UNITS/ML 10ML VIAL ONE (17:45)
[2018-06-19] MEDS: LATANOPROST 0.005% OPHTH SOLN 2.5ML BOTTLE OU SCH (22:37)
[2018-06-19] MEDS ORDERED: diphenhydrAMINE HCL 25 MG CAPSULE (FP) PO ONE (22:38)
[2018-06-19] MEDS: CHLORHEXIDINE GLUCONATE 4% CLEANSER FOR DECOLONIZATION TP SCH (22:43)
[2018-06-20] MEDS: MORPHINE SULFATE 2 MG/ML VIAL IVPUSH PRN (02:44)
[2018-06-20] MEDS: MEROPENEM 1 GM in DEXTROSE 5%-WATER 100 ML IVPB SCH ×3 (02:45→18:02)
[2018-06-20] MEDS: VANCOMYCIN HCL 1,500 MG in DEXTROSE 5%-WATER - 500 ML IVPB SCH (05:45)
[2018-06-20] MEDS: HEPARIN NA (PORCINE) 5,000 UNITS/ML 1ML VIAL SQ SCH ×3 (05:50→21:52)
[2018-06-20] MEDS: INSULIN SLIDING SCALE (NOVOLOG) 1 VIAL SQ SCH ×4 (05:59→21:49)
[2018-06-20 06:34] LABS: BASO % 0.6 % (0-2.0); EOS % 1.7 % (0-4.5); HEMATOCRIT 24.6 % (32.4-45.2); HEMOGLOBIN 8.5 GM/dL (10.7-15.3); LYMPH % 16.7 % (8-40); MCH 25.6 pg (25.7-33.7); MCHC 34.5 g/dl (32.0-36.0); MEAN CELL VOLUME 74.2 fl (80-96); MEAN PLT VOLUME 7.9 fl (7.5-11.1); MONO % 13.5 % (3.8-10.2); NEUT % 67.5 % (42.8-82.8); PLATELET COUNT 566 K/MM3 (134-434); RBC 3.31 M/mm3 (3.60-5.2); RDW 18.5 % (11.6-15.6); WHITE BLOOD COUNT 8.4 K/mm3 (4.0-10.0)
[2018-06-20 07:23] LABS: ALBUMIN 1.8 g/dl (3.4-5.0); ALK PHOS 173 U/L (45-117); ANION GAP 8 MMOL/L (8-16); BILIRUBIN,TOTAL 0.8 mg/dL (0.2-1); BLOOD UREA NITROGEN 4 mg/dL (7-18); CALCIUM 7.6 mg/dL (8.5-10.1); CHLORIDE 108 mmol/L (98-107); CO2 26 mmol/L (21-32); CREATININE 0.3 mg/dL (0.55-1.3); GLUCOSE,RANDOM 122 mg/dL (74-106); MAGNESIUM 1.6 mg/dL (1.8-2.4); POTASSIUM 3.5 mmol/L (3.5-5.1); SGOT/AST 39 U/L (15-37); SGPT/ALT 26 U/L (13-61); SODIUM 143 mmol/L (136-145)
--- NOTE | 2018-06-20 08:46 | PN ---
Progress Note (short form) - Note Progress Note: alert Vital Signs Period Temp Pulse Resp BP Sys/Benito Pulse Ox Last 24 Hr 98.2 F-99.8 F 107-119 10-24 113-142/67-84 98-100 cor-rrr lungs decreased bs at bases abd soft, +ostomy with stool midline incision packed ext no edema +em CBC, BMP 06/20/18 05:23 06/20/18 05:23 Microbiology 06/15/18 20:00 Coccyx Gram Stain - Final 06/15/18 20:00 Coccyx Wound Culture - Preliminary Enterobacter Aerogenes Providencia Stuartii Pseudomonas Aeruginosa Mr S Aureus Enterococcus Faecalis Pending Organism 06/16/18 16:25 Blood - Peripheral Venous Blood Culture - Final Enterobacter Aerogenes Bacillus Species, Not Antracis 06/16/18 16:25 Blood - Peripheral Venous Blood Culture - Final Staphylococcus Epidermidis 06/17/18 11:55 Urine - Urine Em Urine Culture - Final Enterobacter Aerogenes Pseudomonas Aeruginosa 06/09/18 02:21 Blood - Peripheral Venous Blood Culture - Final NO GROWTH AFTER 5 DAYS INCUBATION 06/09/18 02:21 Blood - Peripheral Venous Blood Culture - Final NO GROWTH AFTER 5 DAYS INCUBATION 06/09/18 02:45 Urine - Urine Em Urine Culture - Final Pseudomonas Aeruginosa a/p bacteremia- enterobacter- secondary to UTI most likely UTI enterobacter and pseudomonas sacral wound- appears clean- has vac abdominal wound packed leukocytosis improving staph epi and bacillus are skin contaminants - s/p ex lap for pneumoperitoneum/sigmoid volvolus-hartmans procedure contact isolation MRSA in wound continue meropenem d/c vancomycin wbc normal today Problem List - Problems (1) Sepsis Code(s): A41.9 - SEPSIS, UNSPECIFIED ORGANISM (2) Perforated sigmoid colon Code(s): K63.1 - PERFORATION OF INTESTINE (NONTRAUMATIC) (3) Sigmoid volvulus Code(s): K56.2 - VOLVULUS (4) Neck mass Code(s): R22.1 - LOCALIZED SWELLING, MASS AND LUMP, NECK
[2018-06-20] MEDS: PANTOPRAZOLE SOD 40 MG SUSPENSION PACKET PO SCH (10:42)
[2018-06-20] MEDS: HALOPERIDOL 5 MG TABLET (FP) PO SCH (10:43)
[2018-06-20] MEDS: FLUoxetine HCL 20 MG CAPSULE (FP) PO SCH (10:43)
[2018-06-20] MEDS: SODIUM HYPOCHLORITE 0.25%- 473 ML BULK BOTTLE TP SCH (10:45)
[2018-06-20] MEDS: BACLOFEN 10 MG TABLET (FP) PO SCH ×4 (10:48→21:51)
[2018-06-20] MEDS: COLLAGENASE CLOSTRIDIUM HIST. 30 GRAMS TUBE TP SCH (10:49)
[2018-06-20] MEDS: MUPIROCIN 2% TOPICAL OINTMENT FOR DECOLONIZATION NS SCH ×2 (10:50→21:53)
--- NOTE | 2018-06-20 11:42 | PN ---
Progress Note (short form) - Note Progress Note: PULMONARY Awake, alert. No fevers recorded. Vital Signs Period Temp Pulse Resp BP Sys/Benito Pulse Ox Last 24 Hr 98.2 F-99.8 F 107-119 10-24 113-135/67-84 98-100 Gen: NAD at rest Heart: tachycardic Lung: decreased breath sounds at the bases Abd: soft, nontender Ext: no edema CBC, BMP 06/20/18 05:23 06/20/18 05:23 Active Medications Acetaminophen (Tylenol -) 650 mg PO Q4H PRN PRN Reason: PAIN OR FEVER Baclofen (Lioresal -) 20 mg PO QID [facility] Last Admin: 06/20/18 10:48 Dose: 20 mg Chlorhexidine Gluconate (Hibiclens For Decolonization -) 1 applic TP HS [facility] Last Admin: 06/19/18 22:43 Dose: 1 applic Collagenase (Santyl -) 1 applic TP DAILY [facility]; Protocol Last Admin: 06/20/18 10:49 Dose: 1 applic Fluoxetine HCl (Prozac -) 40 mg PO DAILY [facility] Last Admin: 06/20/18 10:43 Dose: 40 mg Haloperidol (Haldol -) 5 mg PO DAILY [facility] Last Admin: 06/20/18 10:43 Dose: 5 mg Heparin Sodium (Porcine) (Heparin -) 5,000 unit SQ TID [facility] Last Admin: 06/20/18 05:50 Dose: 5,000 unit Meropenem 1 gm/ Dextrose 100 mls @ 200 mls/hr IVPB Q8H-IV [facility] Last Admin: 06/20/18 11:25 Dose: 200 mls/hr Insulin Aspart (Novolog Vial Sliding Scale -) 1 vial SQ ACHS [facility]; Protocol Last Admin: 06/20/18 05:59 Dose: Not Given Latanoprost (Xalatan 0.005% Eye Drops -) 1 drop OU HS [facility] Last Admin: 06/19/18 22:37 Dose: 1 drop Morphine Sulfate (Morphine Sulfate) 2 mg IVPUSH Q4H PRN PRN Reason: PAIN 1-6 Last Admin: 06/20/18 02:44 Dose: 2 mg Mupirocin (Bactroban Ointment (For Decolonization) -) 1 applic NS BID [facility] Stop: 06/22/18 21:59 Last Admin: 06/20/18 10:50 Dose: 1 applic Pantoprazole Sodium (Protonix Packets For Oral Suspension -) 40 mg PO DAILY [facility] Last Admin: 06/20/18 10:42 Dose: 40 mg Sodium Hypochlorite (Dakin's Solution 0.25% (Half-Strength) -) 1 applic TP DAILY [facility] Last Admin: 06/20/18 10:45 Dose: 1 applic A/P Sigmoid Volvulus/Pneumoperitoneum/Fecal Peritonitis s/p ex-lap/Bella's procedure Gram Negative Bacteremia UTI Sepsis +Troponins COPD DM Paraplegia Depression - continue antibiotics per ID - pain control - monitor urine output, creatinine - O2 to keep Spo2 >90% - DVT prophylaxis
--- NOTE | 2018-06-20 14:39 | PN ---
Progress Note, Physician - Current Medication List Current Medications: Active Medications Acetaminophen (Tylenol -) 650 mg PO Q4H PRN PRN Reason: PAIN OR FEVER Baclofen (Lioresal -) 20 mg PO QID [facility] Last Admin: 06/20/18 10:48 Dose: 20 mg Chlorhexidine Gluconate (Hibiclens For Decolonization -) 1 applic TP HS [facility] Last Admin: 06/19/18 22:43 Dose: 1 applic Collagenase (Santyl -) 1 applic TP DAILY [facility]; Protocol Last Admin: 06/20/18 10:49 Dose: 1 applic Fluoxetine HCl (Prozac -) 40 mg PO DAILY [facility] Last Admin: 06/20/18 10:43 Dose: 40 mg Haloperidol (Haldol -) 5 mg PO DAILY [facility] Last Admin: 06/20/18 10:43 Dose: 5 mg Heparin Sodium (Porcine) (Heparin -) 5,000 unit SQ TID [facility] Last Admin: 06/20/18 05:50 Dose: 5,000 unit Meropenem 1 gm/ Dextrose 100 mls @ 200 mls/hr IVPB Q8H-IV [facility] Last Admin: 06/20/18 11:25 Dose: 200 mls/hr Insulin Aspart (Novolog Vial Sliding Scale -) 1 vial SQ ACHS [facility]; Protocol Last Admin: 06/20/18 13:01 Dose: Not Given Latanoprost (Xalatan 0.005% Eye Drops -) 1 drop OU HS [facility] Last Admin: 06/19/18 22:37 Dose: 1 drop Morphine Sulfate (Morphine Sulfate) 2 mg IVPUSH Q4H PRN PRN Reason: PAIN 1-6 Last Admin: 06/20/18 02:44 Dose: 2 mg Mupirocin (Bactroban Ointment (For Decolonization) -) 1 applic NS BID [facility] Stop: 06/22/18 21:59 Last Admin: 06/20/18 10:50 Dose: 1 applic Pantoprazole Sodium (Protonix Packets For Oral Suspension -) 40 mg PO DAILY [facility] Last Admin: 06/20/18 10:42 Dose: 40 mg Sodium Hypochlorite (Dakin's Solution 0.25% (Half-Strength) -) 1 applic TP DAILY [facility] Last Admin: 06/20/18 10:45 Dose: 1 applic - Objective Vital Signs: Vital Signs Temperature 98.2 F 06/20/18 06:00 Pulse Rate 98 H 06/20/18 10:00 Respiratory Rate 20 06/20/18 10:00 Blood Pressure 115/78 06/20/18 10:00 O2 Sat by Pulse Oximetry (%) 100 06/20/18 09:00 Cardiovascular: Yes: S1, S2 Respiratory: Yes: Rhonchi Gastrointestinal: Yes: Normal Bowel Sounds, Soft, Other (colostomy) Labs: CBC, BMP 06/20/18 05:23 06/20/18 05:23 INR, PTT INR 1.39 (0.83-1.09) H 06/09/18 02:21 Assessment/Plan - Problems (1) Perforated sigmoid colon Assessment/Plan: POD day 10 s/p ash procedure meorpenem-vancomcyin ct scan done surgery on board to get MBS today prior to resuming feeds Code(s): K63.1 - PERFORATION OF INTESTINE (NONTRAUMATIC) (2) UTI (urinary tract infection) Assessment/Plan: Microbiology 06/09/18 02:45 Urine - Urine Mathis Urine Culture - Final Pseudomonas Aeruginosa zosyn done Code(s): N39.0 - URINARY TRACT INFECTION, SITE NOT SPECIFIED (3) Electrolyte abnormality Assessment/Plan: ,potassium repleted repeat labs Code(s): E87.8 - OTH DISORDERS OF ELECTROLYTE AND FLUID BALANCE, NEC (4) Tachycardia Assessment/Plan: sinus tachycardia ivf pain control Code(s): R00.0 - TACHYCARDIA, UNSPECIFIED (5) Wound of sacral region Assessment/Plan: wound care team - dr cadet consult collagenase wound vac dvt ppx paraplegic frequent turn and position Code(s): S31.000A - UNSP OPN WND LOW BACK AND PELV W/O PENET RETROPERITON, INIT (6) Bacteremia Assessment/Plan: gram negativebacteremia meorpenem Code(s): R78.81 - BACTEREMIA
[2018-06-20] MEDS ORDERED: PT OWN MED DRAWER 7, Y5N ONE ×2 (18:01→21:51)
[2018-06-20] MEDS ORDERED: diphenhydrAMINE HCL 25 MG CAPSULE (FP) PO PRN (21:04)
[2018-06-20] MEDS ORDERED: HALOPERIDOL LACTATE 5 MG/ML IM ONE (21:30)
[2018-06-20] MEDS: CHLORHEXIDINE GLUCONATE 4% CLEANSER FOR DECOLONIZATION TP SCH (21:49)
[2018-06-20] MEDS: LATANOPROST 0.005% OPHTH SOLN 2.5ML BOTTLE OU SCH (21:53)
[2018-06-21] MEDS ORDERED: PT OWN MED DRAWER 7, Y5N ONE ×5 (02:46→21:41)
[2018-06-21] MEDS: MEROPENEM 1 GM in DEXTROSE 5%-WATER 100 ML IVPB SCH ×3 (02:49→17:46)
[2018-06-21] MEDS: INSULIN SLIDING SCALE (NOVOLOG) 1 VIAL SQ SCH ×4 (06:31→22:46)
[2018-06-21] MEDS: HEPARIN NA (PORCINE) 5,000 UNITS/ML 1ML VIAL SQ SCH ×3 (06:32→21:59)
[2018-06-21 06:35] LABS: BASO % 0.3 % (0-2.0); EOS % 1.9 % (0-4.5); HEMATOCRIT 24.5 % (32.4-45.2); HEMOGLOBIN 8.3 GM/dL (10.7-15.3); LYMPH % 22.7 % (8-40); MCH 25.5 pg (25.7-33.7); MCHC 33.8 g/dl (32.0-36.0); MEAN CELL VOLUME 75.6 fl (80-96); MEAN PLT VOLUME 7.9 fl (7.5-11.1); MONO % 13.3 % (3.8-10.2); NEUT % 61.8 % (42.8-82.8); PLATELET COUNT 591 K/MM3 (134-434); RBC 3.24 M/mm3 (3.60-5.2); RDW 18.8 % (11.6-15.6); WHITE BLOOD COUNT 7.6 K/mm3 (4.0-10.0)
[2018-06-21 06:41] LABS: ALBUMIN 1.6 g/dl (3.4-5.0); ALK PHOS 173 U/L (45-117); ANION GAP 5 MMOL/L (8-16); BILIRUBIN,TOTAL 0.6 mg/dL (0.2-1); BLOOD UREA NITROGEN 3 mg/dL (7-18); CALCIUM 7.6 mg/dL (8.5-10.1); CHLORIDE 108 mmol/L (98-107); CO2 29 mmol/L (21-32); CREATININE 0.2 mg/dL (0.55-1.3); GLUCOSE,RANDOM 109 mg/dL (74-106); POTASSIUM 3.7 mmol/L (3.5-5.1); SGOT/AST 45 U/L (15-37); SGPT/ALT 34 U/L (13-61); SODIUM 142 mmol/L (136-145); TOT PROT 4.9 g/dl (6.4-8.2)
[2018-06-21] MEDS: FLUoxetine HCL 20 MG CAPSULE (FP) PO SCH (09:09)
[2018-06-21] MEDS: PANTOPRAZOLE SOD 40 MG SUSPENSION PACKET PO SCH (09:09)
[2018-06-21] MEDS: SODIUM HYPOCHLORITE 0.25%- 473 ML BULK BOTTLE TP SCH (09:10)
[2018-06-21] MEDS: BACLOFEN 10 MG TABLET (FP) PO SCH ×4 (09:10→21:59)
[2018-06-21] MEDS: HALOPERIDOL 5 MG TABLET (FP) PO SCH (09:10)
[2018-06-21] MEDS: MUPIROCIN 2% TOPICAL OINTMENT FOR DECOLONIZATION NS SCH (09:11)
[2018-06-21] MEDS: COLLAGENASE CLOSTRIDIUM HIST. 30 GRAMS TUBE TP SCH (09:11)
--- NOTE | 2018-06-21 09:52 | PN ---
Progress Note (short form) - Note Progress Note: PULMONARY Denies shortness of breath or chest pain. Still some abdominal discomfort. No fevers recorded. Vital Signs Period Temp Pulse Resp BP Sys/Benito Pulse Ox Last 24 Hr 98.2 F-98.9 F 78-105 14-102 107-116/61-78 100 Gen: NAD at rest Heart: RRR Lung: decreased breath sounds at the bases Abd: soft, nontender, +ostomy Ext: no edema CBC, BMP 06/21/18 05:15 06/21/18 05:15 Active Medications Acetaminophen (Tylenol -) 650 mg PO Q4H PRN PRN Reason: PAIN OR FEVER Last Admin: 06/21/18 09:11 Dose: 650 mg Baclofen (Lioresal -) 20 mg PO QID [facility] Last Admin: 06/21/18 09:10 Dose: 20 mg Chlorhexidine Gluconate (Hibiclens For Decolonization -) 1 applic TP HS [facility] Last Admin: 06/20/18 21:49 Dose: 1 applic Diphenhydramine HCl (Benadryl -) 50 mg PO HS PRN PRN Reason: INSOMNIA Fluoxetine HCl (Prozac -) 40 mg PO DAILY [facility] Last Admin: 06/21/18 09:09 Dose: 40 mg Haloperidol (Haldol -) 5 mg PO DAILY [facility] Last Admin: 06/21/18 09:10 Dose: 5 mg Heparin Sodium (Porcine) (Heparin -) 5,000 unit SQ TID [facility] Last Admin: 06/21/18 06:32 Dose: 5,000 unit Meropenem 1 gm/ Dextrose 100 mls @ 200 mls/hr IVPB Q8H-IV [facility] Last Admin: 06/21/18 09:11 Dose: 200 mls/hr Insulin Aspart (Novolog Vial Sliding Scale -) 1 vial SQ ACHS [facility]; Protocol Last Admin: 06/21/18 06:31 Dose: Not Given Latanoprost (Xalatan 0.005% Eye Drops -) 1 drop OU HS [facility] Last Admin: 06/20/18 21:53 Dose: 1 drop Morphine Sulfate (Morphine Sulfate) 2 mg IVPUSH Q4H PRN PRN Reason: PAIN 1-6 Last Admin: 06/20/18 02:44 Dose: 2 mg Mupirocin (Bactroban Ointment (For Decolonization) -) 1 applic NS BID [facility] Stop: 06/22/18 21:59 Last Admin: 06/21/18 09:11 Dose: 1 applic Pantoprazole Sodium (Protonix Packets For Oral Suspension -) 40 mg PO DAILY [facility] Last Admin: 06/21/18 09:09 Dose: 40 mg Sodium Hypochlorite (Dakin's Solution 0.25% (Half-Strength) -) 1 applic TP DAILY [facility] Last Admin: 06/21/18 09:10 Dose: 1 applic A/P Sigmoid Volvulus/Pneumoperitoneum/Fecal Peritonitis s/p ex-lap/Bella's procedure Polymicrobial Bacteremia UTI Sepsis +Troponins COPD DM Paraplegia Depression - continue antibiotics per ID - pain control - monitor urine output, creatinine - O2 to keep Spo2 >90% - DVT prophylaxis
--- NOTE | 2018-06-21 11:28 | PN ---
Progress Note, Physician Chief Complaint: Pneumoperitoneum Sigmoid volvus Sepsis AMS Diabetes Mellitus History of Present Illness: Perforation of sigmoid colon S/P extubation Operative Date: 06/09/18 Pre-Operative Diagnosis: pneumoperitoneum Operation: Hartmans procedure Findings: obstructing sigmoid volvulus; redundant dilated sigmoid colon. Post-Operative Diagnosis: Other (obstructing sigmoid volvulus) Surgeon: Michael Vaughan Current Medication List Current Medications: Active Medications Acetaminophen (Tylenol -) 650 mg PO Q4H PRN PRN Reason: PAIN OR FEVER Last Admin: 06/21/18 09:11 Dose: 650 mg Baclofen (Lioresal -) 20 mg PO QID [facility] [place] Last Admin: 06/21/18 09:10 Dose: 20 mg Chlorhexidine Gluconate (Hibiclens For Decolonization -) 1 applic TP HS [facility] Last Admin: 06/20/18 21:49 Dose: 1 applic Diphenhydramine HCl (Benadryl -) 50 mg PO HS PRN PRN Reason: INSOMNIA Fluoxetine HCl (Prozac -) 40 mg PO DAILY [facility] Last Admin: 06/21/18 09:09 Dose: 40 mg Haloperidol (Haldol -) 5 mg PO DAILY [facility] Last Admin: 06/21/18 09:10 Dose: 5 mg Heparin Sodium (Porcine) (Heparin -) 5,000 unit SQ TID [facility] Last Admin: 06/21/18 06:32 Dose: 5,000 unit Meropenem 1 gm/ Dextrose 100 mls @ 200 mls/hr IVPB Q8H-IV [facility] Last Admin: 06/21/18 09:11 Dose: 200 mls/hr Insulin Aspart (Novolog Vial Sliding Scale -) 1 vial SQ ACHS [facility] [place]; Protocol Last Admin: 06/21/18 06:31 Dose: Not Given Latanoprost (Xalatan 0.005% Eye Drops -) 1 drop OU HS [facility] [place] Last Admin: 06/20/18 21:53 Dose: 1 drop Morphine Sulfate (Morphine Sulfate) 2 mg IVPUSH Q4H PRN PRN Reason: PAIN 1-6 Last Admin: 06/20/18 02:44 Dose: 2 mg Mupirocin (Bactroban Ointment (For Decolonization) -) 1 applic NS BID [facility] [place] Stop: 06/22/18 21:59 Last Admin: 06/21/18 09:11 Dose: 1 applic Pantoprazole Sodium (Protonix Packets For Oral Suspension -) 40 mg PO DAILY [facility] [place] Last Admin: 06/21/18 09:09 Dose: 40 mg Sodium Hypochlorite (Dakin's Solution 0.25% (Half-Strength) -) 1 applic TP DAILY [facility] Last Admin: 06/21/18 09:10 Dose: 1 applic - Objective Vital Signs: Vital Signs Temperature 98.9 F 06/21/18 09:34 Pulse Rate 96 H 06/21/18 11:00 Respiratory Rate 16 06/21/18 11:00 Blood Pressure 122/65 06/21/18 11:00 O2 Sat by Pulse Oximetry (%) 100 06/20/18 21:00 Constitutional: Yes: Well Nourished, No Distress, Calm, Obese Cardiovascular: Yes: Regular Rate and Rhythm Respiratory: Yes: Regular Gastrointestinal: Yes: Normal Bowel Sounds, Soft Musculoskeletal: Yes: Muscle Weakness Edema: No Peripheral Pulses WNL: Yes Neurological: Yes: Alert, Pre-Existing Deficit Psychiatric: Yes: Alert Labs: CBC, BMP 06/21/18 05:15 06/21/18 05:15 INR, PTT INR 1.39 (0.83-1.09) H 06/09/18 02:21 Problem List - Problems (1) Altered mental status Assessment/Plan: -2/2 sepsis -ID on board -IV abx restarted -Seen by Surgery -Acetaminophen IV for fever over 100.0F -Cooling blanket if needed for fever over 101.0F -monitor labs -lactic acid normal -IVF -will need ICU monitoring Code(s): R41.82 - ALTERED MENTAL STATUS, UNSPECIFIED Qualifiers: Altered mental status type: disorientation Qualified Code(s): R41.0 - Disorientation, unspecified (2) Pneumoperitoneum Assessment/Plan: -IV abx -ID consult -Seen by Surgery -healing well -BC: Microbiology 06/16/18 16:25 Blood Culture - Preliminary Blood - Peripheral Venous Pending Organism 06/15/18 20:00 Gram Stain - Final Coccyx Wound Culture - Preliminary Lactose Fermenting Neg Bacilli Pending Organism Pending Organism#2 Pending Organism#3 Pending Organism#4 06/16/18 16:25 Blood Culture - Preliminary Blood - Peripheral Venous Pending Organism -Acetaminophen IV for fever over 100.0F -Cooling blanket if needed for fever over 101.0F -monitor labs Code(s): K66.8 - OTHER SPECIFIED DISORDERS OF PERITONEUM (3) Sigmoid volvulus Code(s): K56.2 - VOLVULUS (4) Diabetes Assessment/Plan: -BGM AC HS -check A1c 6.3 -Novolog sliding scale Code(s): E11.9 - TYPE 2 DIABETES MELLITUS WITHOUT COMPLICATIONS (5) Paraplegia Code(s): G82.20 - PARAPLEGIA, UNSPECIFIED (6) Hypokalemia Assessment/Plan: -resolved Code(s): E87.6 - HYPOKALEMIA (7) Elevated troponin Assessment/Plan: -2/2 to demand ischemia vs acute CO -monitor trend -EKG-no changes-ST -cardiology re-consulted -ICU monitoring Code(s): R74.8 - ABNORMAL LEVELS OF OTHER SERUM ENZYMES (8) Tachycardia Code(s): R00.0 - TACHYCARDIA, UNSPECIFIED (9) Sepsis Assessment/Plan: -IV abx -ID consult -Seen by Surgery -BC: Microbiology 06/16/18 16:25 Blood Culture - Preliminary Blood - Peripheral Venous Pending Organism 06/15/18 20:00 Gram Stain - Final Coccyx Wound Culture - Preliminary Lactose Fermenting Neg Bacilli Pending Organism Pending Organism#2 Pending Organism#3 Pending Organism#4 06/16/18 16:25 Blood Culture - Preliminary Blood - Peripheral Venous Pending Organism -Acetaminophen IV for fever over 100.0F -Cooling blanket if needed for fever over 101.0F -monitor labs -lactic acid normal Code(s): A41.9 - SEPSIS, UNSPECIFIED ORGANISM Assessment/Plan see problem list
[2018-06-21] MEDS ORDERED: ACETAMINOPHEN 325 MG TABLET (FP) PO PRN (19:40)
[2018-06-21] MEDS ORDERED: MORPHINE SULFATE 2 MG/ML VIAL IVPUSH PRN (19:40)
[2018-06-21] MEDS: LATANOPROST 0.005% OPHTH SOLN 2.5ML BOTTLE OU SCH (22:00)
[2018-06-22] MEDS: MEROPENEM 1 GM in DEXTROSE 5%-WATER 100 ML IVPB SCH ×3 (03:02→17:16)
[2018-06-22] MEDS: HEPARIN NA (PORCINE) 5,000 UNITS/ML 1ML VIAL SQ SCH ×3 (06:16→22:07)
[2018-06-22] MEDS: INSULIN SLIDING SCALE (NOVOLOG) 1 VIAL SQ SCH ×3 (06:17→17:24)
[2018-06-22 06:26] LABS: ALBUMIN 1.7 g/dl (3.4-5.0); ALK PHOS 170 U/L (45-117); ANION GAP 4 MMOL/L (8-16); BILIRUBIN,TOTAL 0.4 mg/dL (0.2-1); BLOOD UREA NITROGEN 3 mg/dL (7-18); CALCIUM 7.9 mg/dL (8.5-10.1); CHLORIDE 108 mmol/L (98-107); CO2 30 mmol/L (21-32); CREATININE 0.2 mg/dL (0.55-1.3); GLUCOSE,RANDOM 119 mg/dL (74-106); POTASSIUM 4.1 mmol/L (3.5-5.1); SGOT/AST 41 U/L (15-37); SGPT/ALT 37 U/L (13-61); SODIUM 142 mmol/L (136-145); TOT PROT 5.1 g/dl (6.4-8.2)
[2018-06-22 06:31] LABS: BASO % 0.3 % (0-2.0); EOS % 1.5 % (0-4.5); HEMOGLOBIN 8.3 GM/dL (10.7-15.3); LYMPH % 27.5 % (8-40); MCH 26.3 pg (25.7-33.7); MCHC 34.7 g/dl (32.0-36.0); MEAN CELL VOLUME 75.8 fl (80-96); MEAN PLT VOLUME 7.8 fl (7.5-11.1); MONO % 14.9 % (3.8-10.2); NEUT % 55.8 % (42.8-82.8); PLATELET COUNT 687 K/MM3 (134-434); RBC 3.17 M/mm3 (3.60-5.2); RDW 19.1 % (11.6-15.6); WHITE BLOOD COUNT 7.7 K/mm3 (4.0-10.0)
[2018-06-22] MEDS: BACLOFEN 10 MG TABLET (FP) PO SCH ×4 (11:03→22:06)
[2018-06-22] MEDS: SODIUM HYPOCHLORITE 0.25%- 473 ML BULK BOTTLE TP SCH (11:04)
[2018-06-22] MEDS: HALOPERIDOL 5 MG TABLET (FP) PO SCH (11:04)
--- NOTE | 2018-06-22 11:04 | PN ---
Progress Note (short form) - Note Progress Note: Attending Surgeon POD#13 Remains in ICU; awake/alert; tolerating PO VSS AF abdo-wounds healing by secondary intention; upper wound w/ some exudate; appears to be Pseudomonas by appearance/odor; you intact at the umbilicus; ostomy functioning. WBC-normal Cultures noted IMP: Surgically stable PLAN: Continue present tx.; LWC to proximal wound w/0.25% Dakins solution; lower wound may use normal saline; will f/u. Michael Vaughan MD FACS
[2018-06-22] MEDS: PANTOPRAZOLE SOD 40 MG SUSPENSION PACKET PO SCH (11:05)
[2018-06-22] MEDS: FLUoxetine HCL 20 MG CAPSULE (FP) PO SCH (11:05)
--- NOTE | 2018-06-22 11:06 | PN ---
Progress Note, Physician Chief Complaint: patient seen and examined in icu awake meropenem started on june 17 for gram negative bacteremia - Current Medication List Current Medications: Active Medications Acetaminophen (Tylenol -) 650 mg PO Q4H PRN PRN Reason: FEVER Baclofen (Lioresal -) 20 mg PO QID [facility] Last Admin: 06/21/18 21:59 Dose: 20 mg Diphenhydramine HCl (Benadryl -) 50 mg PO HS PRN PRN Reason: INSOMNIA Fluoxetine HCl (Prozac -) 40 mg PO DAILY DANNA Haloperidol (Haldol -) 5 mg PO DAILY [facility] Heparin Sodium (Porcine) (Heparin -) 5,000 unit SQ TID DANNA Last Admin: 06/22/18 06:16 Dose: 5,000 unit Meropenem 1 gm/ Dextrose 100 mls @ 200 mls/hr IVPB Q8H-IV DANNA Last Admin: 06/22/18 03:02 Dose: 200 mls/hr Insulin Aspart (Novolog Vial Sliding Scale -) 1 vial SQ ACHS [facility]; Protocol Last Admin: 06/22/18 06:17 Dose: Not Given Latanoprost (Xalatan 0.005% Eye Drops -) 1 drop OU HS DANNA Last Admin: 06/21/18 22:00 Dose: 1 drp Morphine Sulfate (Morphine Sulfate) 2 mg IVPUSH Q4H PRN PRN Reason: PAIN LEVEL 7 - 10 Pantoprazole Sodium (Protonix Packets For Oral Suspension -) 40 mg PO DAILY DANNA Sodium Hypochlorite (Dakin's Solution 0.25% (Half-Strength) -) 1 applic TP DAILY [facility] - Objective Vital Signs: Vital Signs Temperature 98.9 F 06/22/18 00:00 Pulse Rate 96 H 06/22/18 07:51 Respiratory Rate 17 06/22/18 07:51 Blood Pressure 105/58 L 06/22/18 07:51 O2 Sat by Pulse Oximetry (%) 100 06/20/18 21:00 Constitutional: Yes: Calm Cardiovascular: Yes: Regular Rate and Rhythm, Tachycardia, S1, S2 Respiratory: Yes: Diminished Gastrointestinal: Yes: Soft, Other (colosotmy ,pinik ostomy midline iwound covered) Genitourinary: Yes: Mathis Present Wound/Incision: Yes: Other (wound vac sacral wound) Neurological: Yes: Pre-Existing Deficit Labs: CBC, BMP 06/22/18 05:30 06/22/18 05:30 INR, PTT INR 1.39 (0.83-1.09) H 06/09/18 02:21 Problem List - Problems (1) Perforated sigmoid colon Assessment/Plan: POD day 13 s/p ash procedure meorpenem-for gram negative bacteremia started on june 17 stop vancomcyin isolation for MRSA in wound ct scan done no abscess surgery on board Code(s): K63.1 - PERFORATION OF INTESTINE (NONTRAUMATIC) (2) UTI (urinary tract infection) Assessment/Plan: Microbiology 06/09/18 02:45 Urine - Urine Mathis Urine Culture - Final Pseudomonas Aeruginosa zosyn done Code(s): N39.0 - URINARY TRACT INFECTION, SITE NOT SPECIFIED (3) Electrolyte abnormality Assessment/Plan: ,potassium repleted magnesium added to the lab work Code(s): E87.8 - OTH DISORDERS OF ELECTROLYTE AND FLUID BALANCE, NEC (4) Tachycardia Assessment/Plan: sinus tachycardia ivf pain control Code(s): R00.0 - TACHYCARDIA, UNSPECIFIED (5) Wound of sacral region Assessment/Plan: wound care team - dr cadet consult collagenase wound vac dvt ppx paraplegic frequent turn and position- heparin subQ Code(s): S31.000A - UNSP OPN WND LOW BACK AND PELV W/O PENET RETROPERITON, INIT (6) Bacteremia Assessment/Plan: gram negative bacteremia meropenem stared on june 17- day 6 of abx Code(s): R78.81 - BACTEREMIA
--- NOTE | 2018-06-22 12:04 | PN ---
Progress Note (short form) - Note Progress Note: PULMONARY No overnight events. Denies shortness of breath or chest pain. No fevers recorded. Vital Signs Period Temp Pulse Resp BP Sys/Benito Pulse Ox Last 24 Hr 98.8 F-99.6 F 92-105 14-18 103-138/54-77 Gen: NAD at rest Heart: RRR Lung: decreased breath sounds at the bases Abd: soft, nontender, +ostomy Ext: no edema CBC, BMP 06/22/18 05:30 06/22/18 05:30 Active Medications Acetaminophen (Tylenol -) 650 mg PO Q4H PRN PRN Reason: FEVER Baclofen (Lioresal -) 20 mg PO QID [facility] Last Admin: 06/22/18 11:03 Dose: 20 mg Diphenhydramine HCl (Benadryl -) 50 mg PO HS PRN PRN Reason: INSOMNIA Fluoxetine HCl (Prozac -) 40 mg PO DAILY [facility] Last Admin: 06/22/18 11:05 Dose: 40 mg Haloperidol (Haldol -) 5 mg PO DAILY [facility] Last Admin: 06/22/18 11:04 Dose: 5 mg Heparin Sodium (Porcine) (Heparin -) 5,000 unit SQ TID [facility] Last Admin: 06/22/18 06:16 Dose: 5,000 unit Meropenem 1 gm/ Dextrose 100 mls @ 200 mls/hr IVPB Q8H-IV [facility] Last Admin: 06/22/18 11:02 Dose: 200 mls/hr Insulin Aspart (Novolog Vial Sliding Scale -) 1 vial SQ ACHS [facility]; Protocol Last Admin: 06/22/18 12:00 Dose: Not Given Latanoprost (Xalatan 0.005% Eye Drops -) 1 drop OU HS [facility] Last Admin: 06/21/18 22:00 Dose: 1 drp Morphine Sulfate (Morphine Sulfate) 2 mg IVPUSH Q4H PRN PRN Reason: PAIN LEVEL 7 - 10 Pantoprazole Sodium (Protonix Packets For Oral Suspension -) 40 mg PO DAILY [facility] Last Admin: 06/22/18 11:05 Dose: 40 mg Sodium Hypochlorite (Dakin's Solution 0.25% (Half-Strength) -) 1 applic TP DAILY [facility] Last Admin: 06/22/18 11:04 Dose: 1 applic A/P Sigmoid Volvulus/Pneumoperitoneum/Fecal Peritonitis s/p ex-lap/Bella's procedure Polymicrobial Bacteremia UTI Sepsis +Troponins COPD DM Paraplegia Depression - continue antibiotics per ID - pain control - monitor urine output, creatinine - O2 to keep Spo2 >90% - DVT prophylaxis
--- NOTE | 2018-06-22 13:40 | DS ---
Physical Examination Vital Signs: Vital Signs Temperature 99.6 F 06/22/18 11:00 Pulse Rate 92 H 06/22/18 11:00 Respiratory Rate 14 06/22/18 11:00 Blood Pressure 138/77 06/22/18 11:00 O2 Sat by Pulse Oximetry (%) 100 06/20/18 21:00 Constitutional: Yes: Calm Cardiovascular: Yes: Regular Rate and Rhythm, S1, S2 Respiratory: Yes: CTA Bilaterally, On Nasal O2 Gastrointestinal: Yes: Normal Bowel Sounds, Soft, Other (midline wound colostomy - pink ostom) Wound/Incision: Yes: Other (sacral woun with vac) Neurological: Yes: Pre-Existing Deficit Labs: CBC, BMP 06/22/18 05:30 06/22/18 05:30 Discharge Summary Reason For Visit: VOLVULUS OF SIGMOID COLON AMS PNEUMPERITONEUM Current Active Problems Altered mental status (Acute) Bacteremia (Acute) Electrolyte abnormality (Acute) Elevated troponin (Acute) Hypokalemia (Acute) Neck mass (Acute) Perforated sigmoid colon (Acute) Pneumoperitoneum (Acute) Sepsis (Acute) Sigmoid volvulus (Acute) Tachycardia (Acute) Wound of sacral region (Acute) Condition: Guarded - Instructions Diet, Activity, Other Instructions: merepenem for 9 days via picc line weekly cmp,magnesium,cbc wound vac to sacral wound Referrals: Leo Steinberg MD [Primary Care Provider] - [facility] - Home Medications Comprehensive Discharge Medication List: Ambulatory Orders Albuterol So4/Ipratropium [Combivent Inhaler -] 1 inh PO QID 11/11/11 Baclofen 20 mg PO QID 11/11/11 Docusate Sodium [Colace -] 100 mg PO HS PRN 11/11/11 Gabapentin [Neurontin -] 600 mg PO Q8H 11/11/11 Oxybutynin Chloride [Ditropan Xl] 10 mg PO DAILY 11/11/11 Polyethylene Glycol 3350 [Miralax] 17 gm PO DAILY 11/11/11 clonazePAM [Klonopin -] 0.5 mg PO BID 11/11/11 Benztropine Mesylate [Cogentin -] 0.5 mg PO DAILY tablet 11/28/14 Acetaminophen [Tylenol -] 650 mg PO Q4H PRN 06/09/18 Bisacodyl [Dulcolax] 10 mg PO DAILY 06/09/18 Calcium Carbonate [Calcium] 1,200 mg PO DAILY 06/09/18 Fluoxetine HCl [Prozac] 40 mg PO DAILY 06/09/18 Haloperidol [Haldol -] 5 mg PO DAILY 06/09/18 Latanoprost 0.005% Eye Drops [Xalatan 0.005% Eye Drops -] 1 drop OU HS 06/09/18 Linaclotide [Linzess] 72 mcg PO HS 06/09/18 Mineral Oil Enema [Fleet Mineral Oil Rectal Enema] 133 ml RC DAILY PRN 06/09/18 Montelukast Sodium [Singulair] 10 mg PO DAILY 06/09/18 Simethicone 80 mg PO Q8H PRN 06/09/18 clonazePAM [Klonopin -] 0.5 mg PO HS 06/09/18
--- NOTE | 2018-06-22 14:21 | PN ---
Progress Note (short form) - Note Progress Note: called dr rice office told to speak with his assistant teaching professor to call dr rice regarding episode of liquid stool via the rectum which i was informed by nurse Problem List - Problems (1) Perforated sigmoid colon Code(s): K63.1 - PERFORATION OF INTESTINE (NONTRAUMATIC) (2) UTI (urinary tract infection) Code(s): N39.0 - URINARY TRACT INFECTION, SITE NOT SPECIFIED (3) Electrolyte abnormality Code(s): E87.8 - OTH DISORDERS OF ELECTROLYTE AND FLUID BALANCE, NEC (4) Tachycardia Code(s): R00.0 - TACHYCARDIA, UNSPECIFIED (5) Wound of sacral region Code(s): S31.000A - UNSP OPN WND LOW BACK AND PELV W/O PENET RETROPERITON, INIT (6) Bacteremia Code(s): R78.81 - BACTEREMIA
--- NOTE | 2018-06-22 14:47 | PN ---
Progress Note, [employer] - Note Progress Note: Selected Entries 06/21/18 06/21/18 06/21/18 02:00 06:00 09:34 Breakfast Lunch Supper Temperature 98.6 F 98.2 F 98.9 F 06/21/18 06/21/18 06/21/18 11:00 13:42 15:00 Breakfast 25% Lunch 25% Supper Temperature 98.8 F 06/21/18 06/21/18 06/22/18 17:54 20:40 00:00 Breakfast Lunch Supper 25% Temperature 99 F 98.9 F 06/22/18 06/22/18 11:00 14:33 Breakfast 25% Lunch Supper Temperature 99.6 F 99.4 F Laboratory Tests 06/22/18 05:30 WBC 7.7 MBS performed/reviewed. On pureed diet/nectar thick liquid.
--- NOTE | 2018-06-22 16:34 | PN ---
Progress Note, Physician History of Present Illness: NO COMPLAINTS AFEBRILE WBC IMPROVED WNL - Current Medication List Current Medications: Active Medications Acetaminophen (Tylenol -) 650 mg PO Q4H PRN PRN Reason: FEVER Baclofen (Lioresal -) 20 mg PO QID [facility] Last Admin: 06/22/18 14:29 Dose: 20 mg Diphenhydramine HCl (Benadryl -) 50 mg PO HS PRN PRN Reason: INSOMNIA Fluoxetine HCl (Prozac -) 40 mg PO DAILY [facility] Last Admin: 06/22/18 11:05 Dose: 40 mg Haloperidol (Haldol -) 5 mg PO DAILY [facility] Last Admin: 06/22/18 11:04 Dose: 5 mg Heparin Sodium (Porcine) (Heparin -) 5,000 unit SQ TID [facility] Last Admin: 06/22/18 14:28 Dose: 5,000 unit Meropenem 1 gm/ Dextrose 100 mls @ 200 mls/hr IVPB Q8H-IV [facility] Last Admin: 06/22/18 11:02 Dose: 200 mls/hr Insulin Aspart (Novolog Vial Sliding Scale -) 1 vial SQ ACHS [facility]; Protocol Last Admin: 06/22/18 12:00 Dose: Not Given Latanoprost (Xalatan 0.005% Eye Drops -) 1 drop OU HS [facility] Last Admin: 06/21/18 22:00 Dose: 1 drp Pantoprazole Sodium (Protonix Packets For Oral Suspension -) 40 mg PO DAILY [facility] Last Admin: 06/22/18 11:05 Dose: 40 mg Sodium Hypochlorite (Dakin's Solution 0.25% (Half-Strength) -) 1 applic TP DAILY [facility] Last Admin: 06/22/18 11:04 Dose: 1 applic - Objective Vital Signs: Vital Signs Temperature 99.4 F 06/22/18 14:33 Pulse Rate 100 H 06/22/18 14:33 Respiratory Rate 14 06/22/18 14:33 Blood Pressure 144/78 06/22/18 14:33 O2 Sat by Pulse Oximetry (%) 100 06/22/18 14:34 Constitutional: Yes: Obese Cardiovascular: Yes: Regular Rate and Rhythm, S1, S2 Respiratory: Yes: Diminished Gastrointestinal: Yes: Normal Bowel Sounds, Soft. No: Tenderness Edema: LLE: 1+, RLE: 1+ Labs: CBC, BMP 06/22/18 05:30 06/22/18 05:30 INR, PTT INR 1.39 (0.83-1.09) H 06/09/18 02:21 Assessment/Plan S/P HARTMANS PROCEDURE/ PERFORATED VISCUS S/P RESP FAILURE ? PNEUMONIA ENTEROBACTER SEPSIS CONTINUE MEROPENEM
--- NOTE | 2018-06-22 19:51 | CONSULT ---
Consult - text type - Consultation Consultation Note: Patient is a 52 year old female with history of paraplegia (after falling from elevated height from attempted suicide), major depressive disorder, anxiety, chronic obstructive pulmonary disease, diabetes mellitus, gastroesophageal reflus disease, glaucoma, presented to [facility] ED with altered mental status and fever. Workup including CT abdomen, pelvis showed sigmoid volvulus with severe dilation of proximal colon, and free intraperitoneal air, concerning for bowel perforation. Patient underwent Bella's procedure. PHYSICAL EXAMINATION Last Vital Signs Temp Pulse Resp BP Pulse Ox 99.1 F 96 H 14 121/68 100 06/22/18 17:25 06/22/18 17:25 06/22/18 17:25 06/22/18 17:25 06/22/18 14:34 Cor: RSR, No murmurs, No gallops Lungs: Clear to P&A Abd: Soft, Normal bowel sounds, colostomy +/ incision dressings Ext:No significant edema parapleAngic Abnormal Lab Results 06/22/18 06/22/18 05:30 05:30 RBC 3.17 L Hgb 8.3 L Hct 24.0 L MCV 75.8 L RDW 19.1 H Plt Count 687 H Monocytes % 14.9 H Chloride 108 H Anion Gap 4 L BUN 3 L Creatinine 0.2 L Random Glucose 119 H Calcium 7.9 L AST 41 H Alkaline Phosphatase 170 H Total Protein 5.1 L Albumin 1.7 L Active Medications Generic Name Dose Route Start Last Admin Trade Name Freq PRN Reason Stop Dose Admin Acetaminophen 650 mg 06/21/18 19:40 Tylenol - PO Q4H PRN FEVER Baclofen 20 mg 06/21/18 22:00 06/22/18 22:06 Lioresal - PO 20 mg QID DANNA Administration Diphenhydramine HCl 50 mg 06/20/18 21:04 Benadryl - PO HS PRN INSOMNIA Fluoxetine HCl 40 mg 06/22/18 10:00 06/22/18 11:05 Prozac - PO 40 mg DAILY DANNA Administration Haloperidol 5 mg 06/22/18 10:00 06/22/18 11:04 Haldol - PO 5 mg DAILY DANNA Administration Heparin Sodium (Porcine) 5,000 unit 06/21/18 22:00 06/22/18 22:07 Heparin - SQ 5,000 unit TID DANNA Administration Meropenem 1 gm/ Dextrose 100 mls @ 200 mls/hr 06/22/18 02:00 06/22/18 17:16 IVPB 200 mls/hr Q8H-IV DANNA Administration Insulin Aspart 1 vial 06/19/18 07:00 06/22/18 17:24 Novolog Vial Sliding Scale - SQ Not Given ACHS DANNA Protocol Latanoprost 1 drop 06/21/18 22:00 06/22/18 22:08 Xalatan 0.005% Eye Drops - OU 1 drp HS DANNA Administration Pantoprazole Sodium 40 mg 06/22/18 10:00 06/22/18 11:05 Protonix Packets For Oral Suspension - PO 40 mg DAILY [facility]ANNA Administration Sodium Hypochlorite 1 applic 06/22/18 10:00 06/22/18 11:04 Dakin's Solution 0.25% (Half-Strength) - TP 1 applic DAILY [facility]NA Administration ASSESSMENT/PLAN: Patient is a 52 year old female with history of paraplegia (after falling from elevated height from attempted suicide), major depressive disorder, anxiety, chronic obstructive pulmonary disease, diabetes mellitus, gastroesophageal reflux disease, glaucoma, presented to [facility] ED with altered mental status and fever. Workup including CT abdomen, pelvis showed sigmoid volvulus with severe dilation of proximal colon, and free intraperitoneal air, concerning for bowel perforation. Patient underwent Bella's procedure. Anemia--normal serum iron and saturation. Low TIBC. B12 high. Folate/TSH-nl Microcytic Nl WBC/platelets Suggestive of anemia of chronic disease due to ongoing intraabdominal process Transfuse if Hgb <7-8 or symptomatic
[2018-06-22] MEDS ORDERED: PT OWN MED DRAWER 7, Y5N ONE (22:05)
[2018-06-22] MEDS: LATANOPROST 0.005% OPHTH SOLN 2.5ML BOTTLE OU SCH (22:08)
[2018-06-23] MEDS: INSULIN SLIDING SCALE (NOVOLOG) 1 VIAL SQ SCH ×5 (00:54→22:00)
[2018-06-23] MEDS ORDERED: PT OWN MED DRAWER 7, Y5N ONE ×3 (01:01→22:28)
[2018-06-23] MEDS: MEROPENEM 1 GM in DEXTROSE 5%-WATER 100 ML IVPB SCH ×3 (01:14→18:54)
[2018-06-23 06:09] LABS: BASO % 0.5 % (0-2.0); EOS % 1.6 % (0-4.5); HEMATOCRIT 25.3 % (32.4-45.2); HEMOGLOBIN 8.7 GM/dL (10.7-15.3); LYMPH % 27.4 % (8-40); MCHC 34.3 g/dl (32.0-36.0); MEAN PLT VOLUME 7.4 fl (7.5-11.1); MONO % 17.9 % (3.8-10.2); NEUT % 52.6 % (42.8-82.8); PLATELET COUNT 758 K/MM3 (134-434); RBC 3.33 M/mm3 (3.60-5.2); RDW 19.5 % (11.6-15.6); WHITE BLOOD COUNT 7.3 K/mm3 (4.0-10.0)
[2018-06-23 06:45] LABS: ALBUMIN 1.8 g/dl (3.4-5.0); ALK PHOS 167 U/L (45-117); ANION GAP 4 MMOL/L (8-16); BILIRUBIN,TOTAL 0.5 mg/dL (0.2-1); CALCIUM 8.2 mg/dL (8.5-10.1); CHLORIDE 106 mmol/L (98-107); CO2 29 mmol/L (21-32); CREATININE 0.2 mg/dL (0.55-1.3); GLUCOSE,RANDOM 123 mg/dL (74-106); POTASSIUM 4.4 mmol/L (3.5-5.1); SGOT/AST 30 U/L (15-37); SGPT/ALT 34 U/L (13-61); SODIUM 140 mmol/L (136-145); TOT PROT 5.4 g/dl (6.4-8.2)
[2018-06-23 06:55] LABS: BLOOD UREA NITROGEN 2 mg/dL (7-18)
[2018-06-23] MEDS: HEPARIN NA (PORCINE) 5,000 UNITS/ML 1ML VIAL SQ SCH ×3 (07:16→22:43)
--- NOTE | 2018-06-23 08:23 | PN ---
Progress Note (short form) - Note Progress Note: POD #14 Remains in ICU. Awake/alert. Tolerating PO diet. No acute events per RN notes. Denies n/v/f/c, CP, SOB, VASQUEZ. Last Vital Signs Temp Pulse Resp BP Pulse Ox 99.7 F H 105 H 16 115/72 100 // 02:00 // 02:00 06/23/18 02:00 06/23/18 02:00 06/22/18 21:00 PE Gen: nad. ABD: wounds healing by secondary intention. upper pole w/ some fibrinous exudate (presumed to be Pseudomonas by appearance/odor); periumbilical you intact, ostomy functioning. LE: SCDs bilat Problem List - Problems (1) Perforated sigmoid colon Assessment/Plan: POD #14 s/p Exlap, sigmoid (redundant/volvulus) resection, Lobo's Procedure Cont present care per ICU Dakins 0.25% daily dressing changes to abd upper wound, Lower pole may use NS Downgrade to floor at ICU discretion Dr. Vaughan made aware and agrees with above plan. Code(s): K63.1 - PERFORATION OF INTESTINE (NONTRAUMATIC) (2) Sigmoid volvulus Code(s): K56.2 - VOLVULUS
[2018-06-23] MEDS: PANTOPRAZOLE SOD 40 MG SUSPENSION PACKET PO SCH (09:49)
[2018-06-23] MEDS: BACLOFEN 10 MG TABLET (FP) PO SCH ×4 (09:50→22:43)
[2018-06-23] MEDS: FLUoxetine HCL 20 MG CAPSULE (FP) PO SCH (09:50)
[2018-06-23] MEDS: HALOPERIDOL 5 MG TABLET (FP) PO SCH (09:51)
[2018-06-23] MEDS: SODIUM HYPOCHLORITE 0.25%- 473 ML BULK BOTTLE TP SCH (09:51)
--- NOTE | 2018-06-23 11:19 | PN ---
Progress Note, Physician Chief Complaint: Pneumoperitoneum Sigmoid volvus Sepsis AMS Diabetes Mellitus History of Present Illness: Perforation of sigmoid colon S/P extubation Operative Date: 06/09/18 Pre-Operative Diagnosis: pneumoperitoneum Operation: Hartmans procedure Findings: obstructing sigmoid volvulus; redundant dilated sigmoid colon. Post-Operative Diagnosis: Other (obstructing sigmoid volvulus) Surgeon: Michael Vaughan POD #14 - Current Medication List Current Medications: Active Medications Acetaminophen (Tylenol -) 650 mg PO Q4H PRN PRN Reason: FEVER Baclofen (Lioresal -) 20 mg PO QID [facility] Last Admin: 06/23/18 09:50 Dose: 20 mg Diphenhydramine HCl (Benadryl -) 50 mg PO HS PRN PRN Reason: INSOMNIA Fluoxetine HCl (Prozac -) 40 mg PO DAILY [facility] Last Admin: 06/23/18 09:50 Dose: 40 mg Haloperidol (Haldol -) 5 mg PO DAILY [facility] Last Admin: 06/23/18 09:51 Dose: 5 mg Heparin Sodium (Porcine) (Heparin -) 5,000 unit SQ TID [facility] Last Admin: 06/23/18 07:16 Dose: 5,000 unit Meropenem 1 gm/ Dextrose 100 mls @ 200 mls/hr IVPB Q8H-IV [facility] Last Admin: 06/23/18 09:49 Dose: 200 mls/hr Insulin Aspart (Novolog Vial Sliding Scale -) 1 vial SQ ACHS [facility]; Protocol Last Admin: 06/23/18 07:16 Dose: Not Given Latanoprost (Xalatan 0.005% Eye Drops -) 1 drop OU HS [facility] Last Admin: 06/22/18 22:08 Dose: 1 drp Pantoprazole Sodium (Protonix Packets For Oral Suspension -) 40 mg PO DAILY [facility] Last Admin: 06/23/18 09:49 Dose: 40 mg Sodium Hypochlorite (Dakin's Solution 0.25% (Half-Strength) -) 1 applic TP DAILY [facility] Last Admin: 06/23/18 09:51 Dose: 1 applic - Objective Vital Signs: Vital Signs Temperature 99.7 F H 06/23/18 02:00 Pulse Rate 105 H 06/23/18 02:00 Respiratory Rate 16 06/23/18 02:00 Blood Pressure 115/72 06/23/18 02:00 O2 Sat by Pulse Oximetry (%) 100 06/22/18 21:00 Constitutional: Yes: Well Nourished, No Distress, Calm, Obese Cardiovascular: Yes: Regular Rate and Rhythm Respiratory: Yes: Regular Gastrointestinal: Yes: WNL, Abdomen, Obese Musculoskeletal: Yes: Muscle Weakness Extremities: Yes: WNL Edema: No Peripheral Pulses WNL: Yes Neurological: Yes: Alert, Pre-Existing Deficit Psychiatric: Yes: Alert Labs: CBC, BMP 06/23/18 05:30 06/23/18 05:30 INR, PTT INR 1.39 (0.83-1.09) H 06/09/18 02:21 Problem List - Problems (1) Altered mental status Assessment/Plan: -much more awake and alert -ID on board -IV abx restarted -Seen by Surgery -Acetaminophen IV for fever over 100.0F -Cooling blanket if needed for fever over 101.0F -monitor labs -lactic acid normal Code(s): R41.82 - ALTERED MENTAL STATUS, UNSPECIFIED Qualifiers: Altered mental status type: disorientation Qualified Code(s): R41.0 - Disorientation, unspecified (2) Pneumoperitoneum Assessment/Plan: -IV abx -ID consult -Seen by Surgery -healing well -BC: Microbiology 06/15/18 20:00 Coccyx Gram Stain - Final 06/15/18 20:00 Coccyx Wound Culture - Preliminary Enterobacter Aerogenes Providencia Stuartii Pseudomonas Aeruginosa Mr S Aureus Enterococcus Faecalis Pending Organism 06/19/18 18:00 Stool Clostridioides difficile Antigen - Final 06/19/18 18:00 Stool Clostridioides difficile Toxin Assay - Final 06/16/18 16:25 Blood - Peripheral Venous Blood Culture - Final Enterobacter Aerogenes Bacillus Species, Not Antracis 06/16/18 16:25 Blood - Peripheral Venous Blood Culture - Final Staphylococcus Epidermidis 06/17/18 11:55 Urine - Urine Mathis Urine Culture - Final Enterobacter Aerogenes Pseudomonas Aeruginosa 06/09/18 02:21 Blood - Peripheral Venous Blood Culture - Final NO GROWTH AFTER 5 DAYS INCUBATION 06/09/18 02:21 Blood - Peripheral Venous Blood Culture - Final NO GROWTH AFTER 5 DAYS INCUBATION 06/09/18 02:45 Urine - Urine Mathis Urine Culture - Final Pseudomonas Aeruginosa -Acetaminophen IV for fever over 100.0F -Cooling blanket if needed for fever over 101.0F -monitor labs Code(s): K66.8 - OTHER SPECIFIED DISORDERS OF PERITONEUM (3) Sigmoid volvulus Code(s): K56.2 - VOLVULUS (4) Diabetes Assessment/Plan: -BGM AC HS -check A1c 6.3 -Novolog sliding scale Code(s): E11.9 - TYPE 2 DIABETES MELLITUS WITHOUT COMPLICATIONS (5) Paraplegia Code(s): G82.20 - PARAPLEGIA, UNSPECIFIED (6) Hypokalemia Assessment/Plan: -resolved Code(s): E87.6 - HYPOKALEMIA (7) Elevated troponin Assessment/Plan: -2/2 to demand ischemia vs acute ND -monitor trend -EKG-no changes-ST -Seen by cardiology Code(s): R74.8 - ABNORMAL LEVELS OF OTHER SERUM ENZYMES (8) Tachycardia Code(s): R00.0 - TACHYCARDIA, UNSPECIFIED (9) Sepsis Assessment/Plan: -IV abx -ID consult -Seen by Surgery -cultures reviewed -Acetaminophen IV for fever over 100.0F -Cooling blanket if needed for fever over 101.0F -monitor labs -lactic acid normal Code(s): A41.9 - SEPSIS, UNSPECIFIED ORGANISM Assessment/Plan see problem list physical therapy
--- NOTE | 2018-06-23 12:03 | PN ---
Progress Note, [employer] - Note Progress Note: Selected Entries 06/21/18 06/21/18 06/21/18 02:00 06:00 09:34 Breakfast Lunch Supper Temperature 98.6 F 98.2 F 98.9 F 06/21/18 06/21/18 06/21/18 11:00 13:42 15:00 Breakfast 25% Lunch 25% Supper Temperature 98.8 F 06/21/18 06/21/18 06/22/18 17:54 20:40 00:00 Breakfast Lunch Supper 25% Temperature 99 F 98.9 F 06/22/18 06/22/18 11:00 14:33 Breakfast 25% Lunch Supper Temperature 99.6 F 99.4 F Laboratory Tests 06/22/18 05:30 WBC 7.7 Selected Entries 06/22/18 06/22/18 06/22/18 00:00 11:00 14:33 Breakfast 25% Supper Temperature 98.9 F 99.6 F 99.4 F 06/22/18 06/22/18 06/23/18 17:25 22:25 02:00 Breakfast Supper 25% Temperature 99.1 F 99.7 F H 06/23/18 10:00 Breakfast 25% Supper Temperature MBS performed/reviewed. On pureed diet/nectar thick liquid.
--- NOTE | 2018-06-23 12:45 | PN ---
Progress Note (short form) - Note Progress Note: PULMONARY No overnight events. No fevers recorded. Vital Signs Period Temp Pulse Resp BP Sys/Benito Pulse Ox Last 24 Hr 99.1 F-99.7 F 96-105 14-16 115-144/68-78 100-100 Gen: NAD at rest Heart: RRR Lung: decreased breath sounds at the bases Abd: soft, nontender, +ostomy Ext: no edema CBC, BMP 06/23/18 05:30 06/23/18 05:30 Active Medications Acetaminophen (Tylenol -) 650 mg PO Q4H PRN PRN Reason: FEVER Baclofen (Lioresal -) 20 mg PO QID [facility] Last Admin: 06/23/18 09:50 Dose: 20 mg Diphenhydramine HCl (Benadryl -) 50 mg PO HS PRN PRN Reason: INSOMNIA Fluoxetine HCl (Prozac -) 40 mg PO DAILY [facility] Last Admin: 06/23/18 09:50 Dose: 40 mg Haloperidol (Haldol -) 5 mg PO DAILY [facility] Last Admin: 06/23/18 09:51 Dose: 5 mg Heparin Sodium (Porcine) (Heparin -) 5,000 unit SQ TID [facility] Last Admin: 06/23/18 07:16 Dose: 5,000 unit Meropenem 1 gm/ Dextrose 100 mls @ 200 mls/hr IVPB Q8H-IV [facility] Last Admin: 06/23/18 09:49 Dose: 200 mls/hr Insulin Aspart (Novolog Vial Sliding Scale -) 1 vial SQ ACHS [facility]; Protocol Last Admin: 06/23/18 07:16 Dose: Not Given Latanoprost (Xalatan 0.005% Eye Drops -) 1 drop OU HS [facility] Last Admin: 06/22/18 22:08 Dose: 1 drp Pantoprazole Sodium (Protonix Packets For Oral Suspension -) 40 mg PO DAILY [facility] Last Admin: 06/23/18 09:49 Dose: 40 mg Sodium Hypochlorite (Dakin's Solution 0.25% (Half-Strength) -) 1 applic TP DAILY [facility] Last Admin: 06/23/18 09:51 Dose: 1 applic A/P Sigmoid Volvulus/Pneumoperitoneum/Fecal Peritonitis s/p ex-lap/Bella's procedure Polymicrobial Bacteremia UTI Sepsis +Troponins COPD DM Paraplegia Depression - continue antibiotics per ID - wound care - pain control - monitor urine output, creatinine - O2 to keep Spo2 >90% - DVT prophylaxis
[2018-06-23] MEDS: LATANOPROST 0.005% OPHTH SOLN 2.5ML BOTTLE OU SCH (22:44)
[2018-06-24] MEDS: MEROPENEM 1 GM in DEXTROSE 5%-WATER 100 ML IVPB SCH ×3 (01:21→17:53)
[2018-06-24] MEDS: INSULIN SLIDING SCALE (NOVOLOG) 1 VIAL SQ SCH ×3 (06:06→18:05)
[2018-06-24] MEDS: HEPARIN NA (PORCINE) 5,000 UNITS/ML 1ML VIAL SQ SCH ×2 (06:08→17:53)
[2018-06-24] MEDS ORDERED: PT OWN MED DRAWER 7, Y5N ONE ×4 (08:42→17:47)
[2018-06-24] MEDS: PANTOPRAZOLE SOD 40 MG SUSPENSION PACKET PO SCH (09:41)
[2018-06-24] MEDS: BACLOFEN 10 MG TABLET (FP) PO SCH ×3 (09:43→18:06)
[2018-06-24] MEDS: FLUoxetine HCL 20 MG CAPSULE (FP) PO SCH (09:44)
[2018-06-24] MEDS: HALOPERIDOL 5 MG TABLET (FP) PO SCH (10:18)
--- NOTE | 2018-06-24 10:55 | DS ---
Physical Examination Vital Signs: Vital Signs Temperature 97.7 F 06/24/18 07:45 Pulse Rate 87 06/24/18 07:45 Respiratory Rate 16 06/24/18 04:00 Blood Pressure 118/60 06/24/18 07:45 O2 Sat by Pulse Oximetry (%) 100 06/24/18 07:28 Findings/Remarks: RANDOLPH who is a 52 y/o A/A/female who is a resident of [facility] who was xferred to the [facility] ER for change in mental status and abdominal pain and abdominal distention; w/u in the ER revelas sigmoid volvulus and pneumoperitoneum. Constitutional: Yes: Well Nourished, No Distress, Calm, Obese Cardiovascular: Yes: Regular Rate and Rhythm Respiratory: Yes: Regular Gastrointestinal: Yes: Normal Bowel Sounds, Soft, Abdomen, Obese Musculoskeletal: Yes: Muscle Weakness Edema: No Peripheral Pulses WNL: Yes Neurological: Yes: Alert, Oriented Psychiatric: Yes: Alert, Oriented Labs: CBC, BMP 06/23/18 05:30 06/23/18 05:30 Discharge Summary Reason For Visit: VOLVULUS OF SIGMOID COLON AMS PNEUMPERITONEUM Current Active Problems Altered mental status (Acute) Bacteremia (Acute) Electrolyte abnormality (Acute) Elevated troponin (Acute) Hypokalemia (Acute) Neck mass (Acute) Perforated sigmoid colon (Acute) Pneumoperitoneum (Acute) Sepsis (Acute) Sigmoid volvulus (Acute) Tachycardia (Acute) Wound of sacral region (Acute) Hospital Course: Laboratory Last Values WBC 7.3 K/mm3 (4.0-10.0) 06/23/18 05:30 RBC 3.33 M/mm3 (3.60-5.2) L 06/23/18 05:30 Hgb 8.7 GM/dL (10.7-15.3) L 06/23/18 05:30 Hct 25.3 % (32.4-45.2) L 06/23/18 05:30 MCV 76.0 fl (80-96) L 06/23/18 05:30 MCH 26.0 pg (25.7-33.7) 06/23/18 05:30 MCHC 34.3 g/dl (32.0-36.0) 06/23/18 05:30 RDW 19.5 % (11.6-15.6) H 06/23/18 05:30 Plt Count 758 K/MM3 (134-434) H 06/23/18 05:30 MPV 7.4 fl (7.5-11.1) L 06/23/18 05:30 Absolute Neuts (auto) 3.8 K/mm3 (1.5-8.0) 06/23/18 05:30 Neutrophils % 52.6 % (42.8-82.8) 06/23/18 05:30 Neutrophils % (Manual) 78.0 % (42.8-82.8) 06/17/18 06:30 Band Neutrophils % 2.0 % 06/17/18 06:30 Lymphocytes % 27.4 % (8-40) 06/23/18 05:30 Lymphocytes % (Manual) 11.0 % (8-40) 06/17/18 06:30 Monocytes % 17.9 % (3.8-10.2) H 06/23/18 05:30 Monocytes % (Manual) 7 % (3.8-10.2) 06/17/18 06:30 Eosinophils % 1.6 % (0-4.5) 06/23/18 05:30 Eosinophils % (Manual) 0.0 % (0-4.5) 06/17/18 06:30 Basophils % 0.5 % (0-2.0) 06/23/18 05:30 Basophils % (Manual) 0.0 % (0-2.0) 06/17/18 06:30 Myelocytes % (Man) 0 % (0-2) D 06/17/18 06:30 Promyelocytes % (Man) 0 % (0-2) 06/17/18 06:30 Blast Cells % (Manual) 0 % (0-0) 06/17/18 06:30 Nucleated RBC % 0 % (0-0) 06/23/18 05:30 Metamyelocytes 1 % (0-2) D 06/17/18 06:30 Hypochromia 0 06/17/18 06:30 Platelet Estimate Increased 06/17/18 06:30 Polychromasia 0 06/17/18 06:30 Poikilocytosis 0 06/17/18 06:30 Anisocytosis 1+ 06/17/18 06:30 Microcytosis 2+ 06/17/18 06:30 Macrocytosis 0 06/17/18 06:30 Spherocytes 1+ 06/13/18 05:30 Target Cells 1+ 06/17/18 06:30 Tear Drop Cells 1+ 06/13/18 05:30 Ovalocytes 1+ 06/13/18 05:30 Frederic Cells 1+ 06/13/18 05:30 Retic Count 0.86 % (0.5-1.5) 06/12/18 09:45 PT with INR 16.50 SEC (9.7-13.0) H 06/09/18 02:21 INR 1.39 (0.83-1.09) H 06/09/18 02:21 PTT (Actin FS) 29.1 SECONDS (25.2-36.5) 06/09/18 02:21 Anticoagulation Therapy No Result Required. 06/09/18 15:15 Puncture Site Arterial line 06/09/18 15:15 ABG pH 7.31 (7.35-7.45) L 06/09/18 15:15 ABG pCO2 at Pt Temp 37.8 mmHg (35-45) 06/09/18 15:15 ABG pO2 at Pt Temp 149.0 mmHg (80-100) H D 06/09/18 15:15 ABG HCO3 18.5 meq/L (22-26) L 06/09/18 15:15 ABG O2 Sat (Measured) 98.9 % (90-98.9) 06/09/18 15:15 ABG O2 Content 12.3 % vol (15-22) L 06/09/18 15:15 ABG Base Excess -6.6 meq/l (-2-2) L 06/09/18 15:15 Matthew Test Positive 06/09/18 15:15 Carboxyhemoglobin 0.7 gm% (0.5-2.0) 06/09/18 04:46 Methemoglobin 0.6 % (0.4-1.5) 06/09/18 04:46 O2 Delivery Device Vent 06/09/18 15:15 Oxygen Flow Rate 50% 06/09/18 15:15 Vent Mode No Result Required. 06/09/18 15:15 Vent Rate 10 06/09/18 15:15 Mechanical Rate A/c 06/09/18 15:15 PEEP 5.0 cmH2O 06/09/18 15:15 Pressure Support Vent 600 06/09/18 15:15 Sodium 140 mmol/L (136-145) 06/23/18 05:30 Potassium 4.4 mmol/L (3.5-5.1) 06/23/18 05:30 Chloride 106 mmol/L (98-107) 06/23/18 05:30 Carbon Dioxide 29 mmol/L (21-32) 06/23/18 05:30 Anion Gap 4 MMOL/L (8-16) L 06/23/18 05:30 BUN 2 mg/dL (7-18) L* 06/23/18 05:30 Creatinine 0.2 mg/dL (0.55-1.3) L 06/23/18 05:30 Creat Clearance w eGFR 370.15 (>60) 06/23/18 05:30 POC Glucometer 124 UNITS (80-120) 06/24/18 06:01 Random Glucose 123 mg/dL (74-106) H 06/23/18 05:30 Hemoglobin A1c % 6.3 % (4.2-6.3) 06/10/18 05:30 Lactic Acid 1.1 mmol/L (0.4-2.0) 06/17/18 13:00 Calcium 8.2 mg/dL (8.5-10.1) L 06/23/18 05:30 Phosphorus 3.0 mg/dL (2.5-4.9) 06/20/18 05:23 Magnesium 2.0 mg/dL (1.8-2.4) 06/23/18 05:30 Iron 33 ug/dL (27-159) 06/12/18 09:45 TIBC 104 ug/dL (250-450) L 06/12/18 09:45 Iron Saturation 32 % (15-55) 06/12/18 09:45 Transferrin 82 mg/dL (200-370) L 06/12/18 09:45 Direct Bilirubin 0.9 mg/dL (0.0-0.2) H 06/10/18 05:30 Ferritin 250.8 ng/ml (8-388) 06/23/18 05:30 Total Bilirubin 0.5 mg/dL (0.2-1) 06/23/18 05:30 AST 30 U/L (15-37) 06/23/18 05:30 ALT 34 U/L (13-61) 06/23/18 05:30 Alkaline Phosphatase 167 U/L (45-117) H 06/23/18 05:30 Creatine Kinase 157 U/L (26-192) 06/09/18 02:21 Creatine Kinase Index 1.2 % (0.0-5.0) 06/09/18 02:21 CK-MB (CK-2) 1.9 ng/mL (0.5-3.6) 06/09/18 02:21 Troponin I 0.45 ng/ml (0.00-0.05) H 06/17/18 23:45 Total Protein 5.4 g/dl (6.4-8.2) L 06/23/18 05:30 Albumin 1.8 g/dl (3.4-5.0) L 06/23/18 05:30 Vitamin B12 4311 pg/ml (193-986) H 06/12/18 09:45 Serum Folate 13 ng/mL (3.1-17.5) 06/12/18 09:45 TSH 0.45 uIU/ml (0.358-3.74) 06/10/18 05:30 Urine Color Yellow 06/17/18 11:55 Urine Appearance Slcloudy 06/17/18 11:55 Urine pH 7.0 (5.0-8.0) D 06/17/18 11:55 Ur Specific Weaver 1.013 (1.010-1.035) 06/17/18 11:55 Urine Protein 1+ (NEGATIVE) H 06/17/18 11:55 Urine Glucose (UA) Negative (NEGATIVE) 06/17/18 11:55 Urine Ketones 2+ (NEGATIVE) H 06/17/18 11:55 Urine Blood Negative (NEGATIVE) 06/17/18 11:55 Urine Nitrite Negative (NEGATIVE) 06/17/18 11:55 Urine Bilirubin Negative (<2.0 mg/dL) 06/17/18 11:55 Urine Urobilinogen Negative mg/dL (0.2-1.0) 06/17/18 11:55 Ur Leukocyte Esterase Negative (NEGATIVE) 06/17/18 11:55 Urine WBC (Auto) 1 /hpf (3-5) 06/17/18 11:55 Urine RBC (Auto) <1 /hpf (0-3) 06/17/18 11:55 Ur Epithelial Cells Rare /HPF (FEW) 06/17/18 11:55 Urine Mucus Few 06/09/18 02:45 Urine Bacteria Rare /hpf (NONE SEEN) 06/17/18 11:55 Influenza A (Rapid) Negative 06/09/18 05:35 Influenza B (Rapid) Negative 06/09/18 05:35 Blood Type A POSITIVE 06/11/18 13:00 Antibody Screen Negative 06/11/18 13:00 Crossmatch See Detail 06/11/18 13:00 Crossmatch IS Only See Detail 06/09/18 07:40 Microbiology 06/15/18 20:00 Coccyx Gram Stain - Final 06/15/18 20:00 Coccyx Wound Culture - Preliminary Enterobacter Aerogenes Providencia Stuartii Pseudomonas Aeruginosa Mr S Aureus Enterococcus Faecalis Pending Organism 06/19/18 18:00 Stool Clostridioides difficile Antigen - Final 06/19/18 18:00 Stool Clostridioides difficile Toxin Assay - Final 06/16/18 16:25 Blood - Peripheral Venous Blood Culture - Final Enterobacter Aerogenes Bacillus Species, Not Antracis 06/16/18 16:25 Blood - Peripheral Venous Blood Culture - Final Staphylococcus Epidermidis 06/17/18 11:55 Urine - Urine Mathis Urine Culture - Final Enterobacter Aerogenes Pseudomonas Aeruginosa 06/09/18 02:21 Blood - Peripheral Venous Blood Culture - Final NO GROWTH AFTER 5 DAYS INCUBATION 06/09/18 02:21 Blood - Peripheral Venous Blood Culture - Final NO GROWTH AFTER 5 DAYS INCUBATION 06/09/18 02:45 Urine - Urine Mathis Urine Culture - Final Pseudomonas Aeruginosa Vital Signs Temp 97.7 F 06/24/18 07:45 Pulse 87 06/24/18 07:45 Resp 16 06/24/18 04:00 BP 118/60 06/24/18 07:45 Pulse Ox 100 06/24/18 07:28 Intake & Output 06/23/18 06/23/18 06/24/18 11:59 23:59 11:59 Intake Total 220 300 Output Total 1100 1300 800 Balance -880 -1000 -800 Intake: IVPB 100 100 Oral 120 200 Output: Urine 1100 800 800 Mathis 1100 800 800 Colostomy 500 Other: Voiding Method Indwelling Catheter Incontinent Incontinent Bowel Movement Yes: Rectum No No # Bowel Movements 1 Condition: Stable - Instructions Diet, Activity, Other Instructions: meropenem for 9 days via picc line, last dose on 07/01/18 weekly cbc/cmp,magnesium wound vac to coccygeal wound 125 mm Hg continuous abdominal wound clean with 0.25 dakins solution damp to dry cover with 4/4 and change daily Dakins 0.25% daily dressing changes to abd upper wound, Lower pole may use NS Referrals: Leo Steinberg MD [Primary Care Provider] - Disposition: [facility] - Home Medications Comprehensive Discharge Medication List: Ambulatory Orders Albuterol So4/Ipratropium [Combivent Inhaler -] 1 inh PO QID 11/11/11 Baclofen 20 mg PO QID 11/11/11 Docusate Sodium [Colace -] 100 mg PO HS PRN 11/11/11 Polyethylene Glycol 3350 [Miralax] 17 gm PO DAILY 11/11/11 Acetaminophen [Tylenol .Regular Strength -] 650 mg PO Q4H PRN 06/09/18 Bisacodyl [Dulcolax] 10 mg PO DAILY 06/09/18 Calcium Carbonate [Calcium] 1,200 mg PO DAILY 06/09/18 Fluoxetine HCl [Prozac] 40 mg PO DAILY 06/09/18 Haloperidol [Haldol -] 5 mg PO DAILY 06/09/18 Latanoprost 0.005% Eye Drops [Xalatan 0.005% Eye Drops -] 1 drop OU HS 06/09/18 Linaclotide [Linzess] 72 mcg PO HS 06/09/18 Montelukast Sodium [Singulair] 10 mg PO DAILY 06/09/18 Simethicone 80 mg PO Q8H PRN 06/09/18 Collagenase Clostridium Hist. [Santyl -] 1 applic TP DAILY tube 06/22/18 Heparin - 5,000 unit SQ TID vial 06/22/18 Meropenem [Merrem (Restricted To Id) -] 1 gm IVPB Q8H-IV #30 vial MDD 3 Sodium Hypochlorite [Dakin's Solution 0.25% (Half-Strength) -] 1 applic TP DAILY ml 06/22/18
--- NOTE | 2018-06-24 11:07 | PN ---
Progress Note, Physician History of Present Illness: NO COMPLAINTS AFEBRILE WBC IMPROVED WNL - Current Medication List Current Medications: Active Medications Acetaminophen (Tylenol -) 650 mg PO Q4H PRN PRN Reason: FEVER Baclofen (Lioresal -) 20 mg PO QID [facility] Last Admin: 06/24/18 09:43 Dose: 20 mg Diphenhydramine HCl (Benadryl -) 50 mg PO HS PRN PRN Reason: INSOMNIA Fluoxetine HCl (Prozac -) 40 mg PO DAILY [facility] Last Admin: 06/24/18 09:44 Dose: 40 mg Haloperidol (Haldol -) 5 mg PO DAILY [facility] Last Admin: 06/24/18 10:18 Dose: 5 mg Heparin Sodium (Porcine) (Heparin -) 5,000 unit SQ TID [facility] Last Admin: 06/24/18 06:08 Dose: 5,000 unit Meropenem 1 gm/ Dextrose 100 mls @ 200 mls/hr IVPB Q8H-IV [facility] Last Admin: 06/24/18 09:44 Dose: 200 mls/hr Insulin Aspart (Novolog Vial Sliding Scale -) 1 vial SQ ACHS [facility]; Protocol Last Admin: 06/24/18 06:06 Dose: Not Given Latanoprost (Xalatan 0.005% Eye Drops -) 1 drop OU HS [facility] Last Admin: 06/23/18 22:44 Dose: 1 drp Pantoprazole Sodium (Protonix Packets For Oral Suspension -) 40 mg PO DAILY [facility] Last Admin: 06/24/18 09:41 Dose: 40 mg Sodium Hypochlorite (Dakin's Solution 0.25% (Half-Strength) -) 1 applic TP DAILY [facility] Last Admin: 06/23/18 09:51 Dose: 1 applic - Objective Vital Signs: Vital Signs Temperature 97.7 F 06/24/18 07:45 Pulse Rate 87 06/24/18 07:45 Respiratory Rate 16 06/24/18 04:00 Blood Pressure 118/60 06/24/18 07:45 O2 Sat by Pulse Oximetry (%) 100 06/24/18 07:28 Constitutional: Yes: No Distress, Obese Cardiovascular: Yes: Regular Rate and Rhythm, S1, S2 Respiratory: Yes: Diminished Gastrointestinal: Yes: Normal Bowel Sounds, Soft, Other (SURGICAL WOUND WITH PACKING + OSTOMY). No: Tenderness Edema: Yes Labs: CBC, BMP 06/23/18 05:30 06/23/18 05:30 INR, PTT INR 1.39 (0.83-1.09) H 06/09/18 02:21 Assessment/Plan S/P HARTMANS PROCEDURE/ PERFORATED VISCUS S/P RESP FAILURE ? PNEUMONIA ENTEROBACTER SEPSIS SECONDARY TO SOURCE CONTINUE MEROPENEM DAY#8 COMPLETE 14D
[2018-06-24] MEDS: SODIUM HYPOCHLORITE 0.25%- 473 ML BULK BOTTLE TP SCH (12:30)
--- NOTE | 2018-06-24 13:24 | PN ---
Progress Note (short form) - Note Progress Note: PULMONARY No current complaints. No fevers recorded. Vital Signs Period Temp Pulse Resp BP Sys/Benito Pulse Ox Last 24 Hr 97.7 F-99.6 F 87-102 13-18 116-123/60-73 100-100 Gen: NAD at rest Heart: RRR Lung: decreased breath sounds at the bases Abd: soft, nontender, +ostomy Ext: no edema CBC, BMP 06/23/18 05:30 06/23/18 05:30 Active Medications Acetaminophen (Tylenol -) 650 mg PO Q4H PRN PRN Reason: FEVER Baclofen (Lioresal -) 20 mg PO QID [facility] Last Admin: 06/24/18 09:43 Dose: 20 mg Diphenhydramine HCl (Benadryl -) 50 mg PO HS PRN PRN Reason: INSOMNIA Fluoxetine HCl (Prozac -) 40 mg PO DAILY [facility] Last Admin: 06/24/18 09:44 Dose: 40 mg Haloperidol (Haldol -) 5 mg PO DAILY [facility] Last Admin: 06/24/18 10:18 Dose: 5 mg Heparin Sodium (Porcine) (Heparin -) 5,000 unit SQ TID [facility] Last Admin: 06/24/18 06:08 Dose: 5,000 unit Meropenem 1 gm/ Dextrose 100 mls @ 200 mls/hr IVPB Q8H-IV [facility] Last Admin: 06/24/18 09:44 Dose: 200 mls/hr Insulin Aspart (Novolog Vial Sliding Scale -) 1 vial SQ ACHS [facility]; Protocol Last Admin: 06/24/18 12:15 Dose: Not Given Latanoprost (Xalatan 0.005% Eye Drops -) 1 drop OU HS [facility] Last Admin: 06/23/18 22:44 Dose: 1 drp Pantoprazole Sodium (Protonix Packets For Oral Suspension -) 40 mg PO DAILY [facility] Last Admin: 06/24/18 09:41 Dose: 40 mg Sodium Hypochlorite (Dakin's Solution 0.25% (Half-Strength) -) 1 applic TP DAILY [facility] Last Admin: 06/23/18 09:51 Dose: 1 applic A/P Sigmoid Volvulus/Pneumoperitoneum/Fecal Peritonitis s/p ex-lap/Bella's procedure Polymicrobial Bacteremia UTI Sepsis +Troponins COPD DM Paraplegia Depression - continue antibiotics per ID - wound care - pain control - monitor urine output, creatinine - O2 to keep Spo2 >90% - DVT prophylaxis
--- NOTE | 2018-06-24 13:49 | PN ---
Progress Note, [employer] - Note Progress Note: Selected Entries 06/23/18 06/23/18 06/24/18 10:00 18:52 02:37 Breakfast 25% Supper 75% Temperature 99.6 F 06/24/18 06/24/18 06/24/18 06:29 07:45 09:27 Breakfast 50% Supper Temperature 97.7 F 97.7 F Laboratory Tests 06/23/18 05:30 WBC 7.3 Pt eating more, requesting diet upgrade. Pt with difficulty masticating cookie during MBS. No longer wheezing. Suggest trial of chopped diet with 1-2 soft items. Trial sips of thin liquid. Monitor tolerance.
[2018-06-24 18:05] VITALS: BP 120/64; PULSE 96; TEMP 98.4
--- NOTE | 2018-07-02 10:13 | OP ---
DATE OF OPERATION: 06/09/2018 PREOPERATIVE DIAGNOSIS: Pneumoperitoneum. POSTOPERATIVE DIAGNOSIS: Obstructing sigmoid volvulus and redundant dilated sigmoid colon without evidence of pneumoperitoneum. PROCEDURE: Hartmanns procedure. SURGEON: Michael Vaughan MD DATABASE MANAGEMENT SPECIALIST: Beau Terrazas PA-C ANESTHESIA: General. OPERATIVE FINDINGS: There was an acute obstructing sigmoid volvulus with marked proximal dilatation of the large bowel. There was no evidence of gangrene. The sigmoid colon was markedly redundant, and the rest of the findings were unremarkable. DESCRIPTION OF PROCEDURE: The patient was placed on the operating table in supine position, and after the induction of general anesthesia and the placement of a Mathis catheter and sequential compression devices on the patients lower extremities, the abdomen was prepped with ChloraPrep and draped in sterile fashion. A time-out was taken, and the peritoneal cavity entered through a midline incision starting above and ending below the umbilicus. The previously noted findings were observed. The sigmoid volvulus was manually reduced, and then decision was made for resection of the markedly redundant segment at a point proximal to the obstruction and distal to the obstruction at the rectosigmoid. Starting proximally, a window was made in the mesentery, and the proximal colon stapled off using a LUCIANA stapling device and stapled distally, as well. The colon was divided, and then, the mesentery was scored with the electrocautery down to a point distal to the obstructed segment at the rectosigmoid. Next the mesentery was serially divided using the LigaSure device. The sigmoid was mobilized laterally along the white line of Toldt, Once the distal dissection was completed, the colon was divided there, as well, using a LUCIANA stapler proximally and distally, and dividing the rectosigmoid colon. The specimen was passed off the operative field and sent for pathological examination. The ends of the rectal stump were tagged with a 0 Prolene suture for possible further identification should colonic continuity be restored in the future. Hemostasis was checked for and noted to be good, and then, the operative field was copiously irrigated with sterile saline. An opening was made in the abdominal wall lateral to the umbilicus for creation of the colostomy. The size of this defect in the abdominal wall was made to 2 fingerbreadths in greatest dimension. The proximal colon was then brought through the defect after the colon was further mobilized laterally along the lateral peritoneal reflection. Again irrigation was carried out and hemostasis verified, and then, a 10-mm Dg-Headley drain was placed through the separate stab wound in the abdominal wall into the pelvis. The drain was secured to the skin with 2-0 silk suture. The abdomen was then closed in a single layer using continuous No. 1 looped Maxon after changing gown, gloves, and instruments. The subcutaneous tissue was irrigated with saline, and the skin about the umbilicus reapproximated with surgical you. The drain was connected to bulb self- suction, and the wound dressed with 1-inch Iodoform packing and dry sterile dressings. The colostomy was next matured by excising the LUCIANA stapling line and suturing the end of the colon to the abdominal wall skin with interrupted 3-0 Vicryl sutures. A colostomy appliance and bag were placed, and the procedure terminated at this point, and the patient transferred to the post-anesthesia care unit in stable condition , intubated. ESTIMATED BLOOD LOSS: 50 mL. REPLACEMENTS: Crystalloid. DRAINS: One 10-mm Dg-Headley. PELVIS SPECIMEN: Portion of sigmoid colon to Pathology. I, Michael Vaughan, was physically present in the operating room from the time the patient was placed on the operating table until she was transferred to the post-anesthesia care unit in my accompaniment. MD NAYLA Pendleton/[id number] MTDD
== END 2018-06-24 20:37 | DRG 853 ==
LOC: JER 01:32 → JERBED 06:23 → JICU 12:35 → J7W 06-16 18:38 → J4W 06-17 13:10 → JICU 06-17 13:19 → J2W 06-19 20:41
PROVIDERS: ADMIT Family Medicine; ATTEND Family Medicine
PROC: 0D1N4Z4 Bypass Sigmoid Colon to Cutaneous, Percutaneous Endoscopic Approach (ICD-10-PCS; 2018-06-09)
PROC: 5A1955Z Respiratory Ventilation, Greater than 96 Consecutive Hours (ICD-10-PCS; 2018-06-09)
PROC: 06HN33Z Insertion of Infusion Device into Left Femoral Vein, Percutaneous Approach (ICD-10-PCS; principal; 2018-06-09 09:00)
PROC: 0DBN4ZZ Excision of Sigmoid Colon, Percutaneous Endoscopic Approach (ICD-10-PCS; 2018-06-09 09:00)
PROC: 05HM33Z Insertion of Infusion Device into Right Internal Jugular Vein, Percutaneous Approach (ICD-10-PCS; 2018-06-10)
PROC: 05HN33Z Insertion of Infusion Device into Left Internal Jugular Vein, Percutaneous Approach (ICD-10-PCS; 2018-06-16)
PROC: B544ZZA Ultrasonography of Left Jugular Veins, Guidance (ICD-10-PCS; 2018-06-16)
DX: A41.59 Other Gram-negative sepsis (principal); L89.154 Pressure ulcer of sacral region, stage 4; K56.2 Volvulus; K63.1 Perforation of intestine (nontraumatic); R65.21 Severe sepsis with septic shock; J96.00 Acute respiratory failure, unspecified whether with hypoxia or hypercapnia; I21.A1 Myocardial infarction type 2; G82.20 Paraplegia, unspecified; L97.528 Non-pressure chronic ulcer of other part of left foot with other specified severity; L98.428 Non-pressure chronic ulcer of back with other specified severity; E87.2 Acidosis; N39.0 Urinary tract infection, site not specified; Z68.42 Body mass index [BMI] 45.0-49.9, adult; R50.9 Fever, unspecified; R00.0 Tachycardia, unspecified; N31.9 Neuromuscular dysfunction of bladder, unspecified; F32.9 Major depressive disorder, single episode, unspecified; R41.0 Disorientation, unspecified; K66.8 Other specified disorders of peritoneum; E11.9 Type 2 diabetes mellitus without complications; E87.6 Hypokalemia; J44.9 Chronic obstructive pulmonary disease, unspecified; H40.9 Unspecified glaucoma; K21.9 Gastro-esophageal reflux disease without esophagitis; R41.82 Altered mental status, unspecified; E83.51 Hypocalcemia; E83.39 Other disorders of phosphorus metabolism; E83.42 Hypomagnesemia; A41.89 Other specified sepsis; D64.9 Anemia, unspecified; E66.01 Morbid (severe) obesity due to excess calories; D47.3 Essential (hemorrhagic) thrombocythemia
CPT/HCPCS: 36415; 36430; 36569; 36600; 71045-TC-FY; 71250-TC; 74176-TC; 74230-TC-FY; 77001-TC-FY; 80048; 80053; 81003; 81015; 82040; 82248; 82375; 82550; 82553; 82607; 82728; 82746; 82803; 82962; 83036; 83050; 83540; 83550; 83605; 83735; 84100; 84443; 84466; 84484; 85025; 85027; 85044; 85610; 85730; 86850; 86900; 86901; 86922; 87040; 87070; 87077; 87086; 87186; 87205; 87324; 87449; 87804; 88307-TC; 92611-GN; 93005; 93010; 93306-TC; 94002; 94760; 97116-GP; 97162-GP; 99285-25; C1751; J0131; J0475; J1644; J7030; P9038; P9058

== ENCOUNTER 2018-07-21 10:08 | Inpatient (IN) | payer OTHER ==
--- NOTE | 2018-07-21 10:23 | PDOC ---
History of Present Illness - General Stated Complaint: ALTER MENTAL STATUS Time Seen by Provider: 07/21/18 10:20 - History of Present Illness Initial Comments: 07/21/18 11:33 The patient is a 52 year old female with a history of schizophrenia, diabetes, hyperlipidemia, COPD, recent history of a volvulus requireing resection partial colon and hartmans 07/02/18 and secondary ostomy who presents for evaluation of altered mental status. The patient has a secondary wound as well that is healing by secondary intention and is on antibiotics through a PICC line for MRSA. Per the patient's NH, the patient was noted to be altered 1 day ago and then less responsive today with contractions prompting her presentation to the ED for further evaluation. Per EMS, the patient was given 50mg of benadryl with some improvement in her symptoms. ROS is unobtainable due to the patient' s altered mental status. Past History - Past Medical History Allergies/Adverse Reactions: Allergies Allergy/AdvReac Type Severity Reaction Status Date / Time prednisone Allergy Mild GI UPSET Verified 06/09/18 01:53 Home Medications: Ambulatory Orders Albuterol So4/Ipratropium [Combivent Inhaler -] 1 inh PO QID 11/11/11 Baclofen 20 mg PO QID 11/11/11 Docusate Sodium [Colace -] 100 mg PO HS PRN 11/11/11 Polyethylene Glycol 3350 [Miralax] 17 gm PO DAILY 11/11/11 Bisacodyl [Dulcolax] 10 mg PO DAILY 06/09/18 Calcium Carbonate [Calcium] 1,200 mg PO DAILY 06/09/18 Fluoxetine HCl [Prozac] 40 mg PO DAILY 06/09/18 Montelukast Sodium [Singulair] 10 mg PO DAILY 06/09/18 Simethicone 80 mg PO Q8H PRN 06/09/18 Quetiapine Fumarate [Seroquel -] 50 mg PO HS 07/21/18 Silver Sulfadiazine 1% Top Cr [Silvadene -] 1 applic TP DAILY 07/21/18 Anemia: No Asthma: No Cancer: No Cardiac Disorders: No CVA: No COPD: No CHF: No Dementia: No Diabetes: Yes GI Disorders: Yes (GERD) Disorders: Yes (NEUROGENIC BLADDER) HTN: No Hypercholesterolemia: Yes Liver Disease: No Seizures: No Thyroid Disease: No - Surgical History Abdominal Surgery: No Appendectomy: No Cardiac Surgery: No Cholecystectomy: No Lung Surgery: No Neurologic Surgery: No Orthopedic Surgery: No - Suicide/Smoking/Psychosocial Hx Smoking Status: Yes Smoking History: Current every day smoker Have you smoked in the past 12 months: Yes Number of Cigarettes Smoked Daily: 3 'Breaking Loose' booklet given: 11/24/14 Hx Alcohol Use: No Drug/Substance Use Hx: No Substance Use Type: None Review of Systems - Review of Systems Able to Perform ROS?: No (Altered Mental Status) *Physical Exam - Physical Exam Comments: 07/21/18 11:42 General Appearance: Nourished. No Apparent Distress HEENT: EOMI, YULIYA. No Pharyngeal Erythema, Tonsillar Exudate, Tonsillar Erythema Neck: No Cervical Lymphadenopathy Respiratory/Chest: Lungs Clear, Normal Breath Sounds. No Crackles, Rales, Rhonchi, Wheezing Cardiovascular: Regular Rhythm, Regular Rate. No Murmur, Gallops, Rubs Gastrointestinal/Abdominal: Normal Bowel Sounds, Soft. Ostomy to the LLQ. Central open abdominal wound below the umbilicus with pink granulation tissue. No Guarding, Rebound, Tenderness Musculoskeletal: No CVA Tenderness Extremity: Normal Capillary Refill Integumentary: Normal Color, Dry, Warm Neurologic: Alert and oriented x1. Moving all extremities equally. Following commands. ED Treatment Course - LABORATORY CBC & Chemistry Diagram: 07/21/18 13:00 07/21/18 13:00 Medical Decision Making - Medical Decision Making 07/21/18 11:44 The patient is a 52 year old female with a history of schizophrenia, diabetes, hyperlipidemia, COPD, recent history of a volvulus requiring resection partial colon and hartmans 07/02/18 and secondary ostomy who presents for evaluation of altered mental status. Given the patient's history and physical exam, we will obtain a cbc, cmp, troponin, blood cultures, ekg, ua, urine culture, head CT, chest plain film to evaluate further. The patient has multiple sources of infection and it is possible her symptoms may be due to sepsis. We will treat with meropenim and iv fluids. We will continue to monitor and reassess while here in the ED. 07/21/18 18:15 CBC demonstrates an elevated WBC to 12. CMP is unremarkable. UA demonstrates positive leuk esterase with elevated WBC consistent with a UTI. Per the patient 's family, her antibiotics were discontinued 1 week ago. It is likely her symptoms may be due to Sepsis from UTI. Head CT is unremarkable as read by our radiologist. We discussed the case with the admitting team who accepted the patient for admission. *DC/Admit/Observation/Transfer Diagnosis at time of Disposition: Altered mental status Qualifiers: Altered mental status type: unspecified Qualified Code(s): R41.82 - Altered mental status, unspecified Sepsis Qualifiers: Sepsis type: sepsis due to unspecified organism Qualified Code(s): A41.9 - Sepsis, unspecified organism - Discharge Dispostion Condition at time of disposition: Stable Decision to Admit order: Yes - Referrals - Patient Instructions - Post Discharge Activity
--- NOTE | 2018-07-21 10:59 | PDOC ---
Attending Attestation - Resident Resident Name: Simeon Vazquez - ED Attending Attestation I have performed the following: I have examined & evaluated the patient, The case was reviewed & discussed with the resident, I agree w/resident's findings & plan, Exceptions are as noted - HPI HPI: 07/21/18 10:53 52-year-old female here from [facility] with a history of schizophrenia, diabetes, hyperlipidemia, COPD, recent history of a volvulus requiring resection partial colon and hartmans 07/02/18 (dr rice) abdominal wound which is currently healing by secondary intention. history of MRSA. patient currently has a PICC line receiving meropenem per dc papers. was brought here today for altered mental status. According to EMS nursing staff states the patient was altered since yesterday they found her today felt that she was contracted and not moving on EMS arrival they found the patient to be somewhat contracted and rigid they subsequently gave her 50 mg of IM Benadryl and she started talking and did show some improvement. Denies fevers chills nausea vomiting patient is a poor historian due to her altered mental status she does have an indwelling Em in addition 07/21/18 11:04 - Physicial Exam PE: 07/21/18 10:54 awake eyes open, but altered. dry mucous membranes lungs are clear bilaterally. heart is regular tachycardia abdomen is soft there is a left lowerquad ostomy. there is a central infraumbilical abdominal wound with pink granulation tissue healing secondarily, wet to dry dressing in place. indwelling Em catheter with cloudy urine and sediment in the bag. extremities are warm and dry she is able to follows commands. faces are symmetric. she moves bilateral upper ext. she is able to wiggle toes but has severe bilat lower ext weakness, no elicitaed clonus. or musle tension . passive range of motion legs.no noted tremors - Medical Decision Making 07/21/18 10:59 52 yo F h/o schizophrenia, abd wound, recent colostomy for volvulus, here with ams. differential dystonic reaction from antipsychotics. sepsis considered ( multiple sourses, right upper rext picc, indwelling em with obvious infection , pna, plan labs cxr septic protocol. ct head . will likley require admission. abx Heart Score/ECG Review #1 General ECG Interpretation: Sinus Rhythm, Normal Intervals, No acute ischemic changes Compared to previous ECG there are: Other (sinus tachycardia 108)
[2018-07-21] MEDS ORDERED: MEROPENEM 1 GM in DEXTROSE 5%-WATER 100 ML IVPB ONE (11:49)
[2018-07-21 11:58] LABS: EPI CELLS 25.5 /HPF (0-5/HPF); URINE APPEARANCE TURBID; URINE BILIRUBIN NEGATIVE (NEGATIVE); URINE CASTS 96 /lpf (0-8); URINE COLOR YELLOW; URINE GLUCOSE (UA) NEGATIVE (NEGATIVE); URINE KETONE 1+ (NEGATIVE); URINE LEUK ESTERASE 3+ (NEGATIVE); URINE NITRITE NEGATIVE (NEGATIVE); URINE PROTEIN 2+ (NEGATIVE); URINE RBC 3 /hpf (0-4); URINE UROBILINOGEN 0.2 mg/dL (0.2-1.0); URINE WBC 1192 /hpf (0-5)
[2018-07-21 12:28] LABS: URINE CRYSTALS NONE SEEN /hpf
[2018-07-21 12:29] LABS: YEAST NONE SEEN (NEGATIVE)
[2018-07-21 13:15] LABS: BASO % 0.8 % (0-2.0); EOS % 1.7 % (0-4.5); HEMATOCRIT 34.7 % (32.4-45.2); HEMOGLOBIN 11.2 GM/dL (10.7-15.3); LYMPH % 13.7 % (8-40); MCH 24.9 pg (25.7-33.7); MCHC 32.1 g/dl (32.0-36.0); MEAN CELL VOLUME 77.4 fl (80-96); MEAN PLT VOLUME 7.5 fl (7.5-11.1); MONO % 9.1 % (3.8-10.2); NEUT % 74.7 % (42.8-82.8); PLATELET COUNT 630 K/MM3 (134-434); RBC 4.49 M/mm3 (3.60-5.2); RDW 17.2 % (11.6-15.6); WHITE BLOOD COUNT 12.7 K/mm3 (4.0-10.0)
[2018-07-21 13:27] LABS: INR 1.28 (0.83-1.09); PROTHROMBIN TIME (PATIENT) 15.1 SEC (9.7-13.0)
[2018-07-21 13:58] LABS: ALBUMIN 3.2 g/dl (3.4-5.0); ALK PHOS 137 U/L (45-117); ANION GAP 10 MMOL/L (8-16); BILIRUBIN,TOTAL 0.5 mg/dL (0.2-1); BLOOD UREA NITROGEN 25 mg/dL (7-18); CALCIUM 10.9 mg/dL (8.5-10.1); CHLORIDE 107 mmol/L (98-107); CO2 27 mmol/L (21-32); CREATININE 1.1 mg/dL (0.55-1.3); GLUCOSE,RANDOM 95 mg/dL (74-106); SGOT/AST 8 U/L (15-37); SGPT/ALT 23 U/L (13-61); SODIUM 144 mmol/L (136-145); TOT PROT 7.5 g/dl (6.4-8.2)
[2018-07-21] MEDS ORDERED: SIMETHICONE 80 MG TAB.CHEW (FP) PO PRN (14:52)
[2018-07-21] MEDS ORDERED: VANCOMYCIN HCL 1,500 MG in DEXTROSE 5%-WATER - 500 ML IVPB ONE (14:52)
--- NOTE | 2018-07-21 15:36 | EKG ---
Test Reason : Blood Pressure : / mmHG Vent. Rate : 108 BPM Atrial Rate : 108 BPM P-R Int : 130 ms QRS Dur : 070 ms QT Int : 356 ms P-R-T Axes : 050 -09 037 degrees QTc Int : 477 ms SINUS TACHYCARDIA MINIMAL VOLTAGE CRITERIA FOR LVH, MAY BE NORMAL VARIANT POSSIBLE INFERIOR INFARCT (CITED ON OR BEFORE 11-NOV-2011) ABNORMAL ECG WHEN COMPARED WITH ECG OF 17-JUN-2018 13:59, QRS AXIS SHIFTED RIGHT NONSPECIFIC T WAVE ABNORMALITY NO LONGER EVIDENT IN LATERAL LEADS Confirmed by Parag Marie ([id number]) on 07/21/2018 3:35:49 PM Referred By: Confirmed By:Parag Marie
--- NOTE | 2018-07-21 16:49 | HP ---
Admitting History and Physical - Primary Care Physician PCP: Leo Steinberg - Admission Chief Complaint: AMS History of Present Illness: Patient is a 52 y/o female with past medical history of schizophrenia, DM, HLD, COPD, recent history of volvulus requiring resection of partial colon and Bella's 07/02/18 and secondary ostomy. Patient presented to [facility] for AMS. Patient is poor informant, currently alert and oriented to name and place, not time. Patient has a wound noted to abdomen with gauze packing that was positive for MRSA and was receiving ABT via PICC line. Patient was noted to have AMS beginning yesterday was progressively worsening. 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: Other (spinal cord trauma) Cardiovascular: Yes: Hyperlipdemia Pulmonary: Yes: COPD Gastrointestinal: Yes: Other (Volvulus) Renal/: Yes: Neurogenic Bladder, UTI Psych: Yes: Addictions (tobacco abuse), Depression, Other (hx suicide attempt resulting in pt becoming a paraglegic) Endocrine: Yes: Diabetes Mellitus Dermatology: Yes: Other (L hallux ulcer, gluteal ulcer) - Past Surgical History Past Surgical History: Yes: Colostomy, , Tonsillectomy - Smoking History Smoking history: Current every day smoker Have you smoked in the past 12 months: Yes Aproximately how many cigarettes per day: 3 - Alcohol/Substance Use Hx Alcohol Use: No - Social History Usual Living Arrangement: Yes: Alf ADL: Support Services 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, 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 History of Recent Travel: No Home Medications - Allergies Allergies/Adverse Reactions: Allergies Allergy/AdvReac Type Severity Reaction Status Date / Time prednisone Allergy Mild GI UPSET Verified 06/09/18 01:53 - Home Medications Home Medications: Ambulatory Orders Albuterol So4/Ipratropium [Combivent Inhaler -] 1 inh PO QID 11/11/11 Baclofen 20 mg PO QID 11/11/11 Docusate Sodium [Colace -] 100 mg PO HS PRN 11/11/11 Polyethylene Glycol 3350 [Miralax] 17 gm PO DAILY 11/11/11 Bisacodyl [Dulcolax] 10 mg PO DAILY 06/09/18 Calcium Carbonate [Calcium] 1,200 mg PO DAILY 06/09/18 Fluoxetine HCl [Prozac] 40 mg PO DAILY 06/09/18 Montelukast Sodium [Singulair] 10 mg PO DAILY 06/09/18 Simethicone 80 mg PO Q8H PRN 06/09/18 Quetiapine Fumarate [Seroquel -] 50 mg PO HS 07/21/18 Silver Sulfadiazine 1% Top Cr [Silvadene -] 1 applic TP DAILY 07/21/18 Cephalexin Monohydrate [Keflex -] 500 mg PO Q6HPO 7 Days #28 capsule 07/24/18 Collagenase Clostridium Hist. [Santyl -] 1 applic TP DAILY #1 tube 07/24/18 Docusate Sodium [Colace -] 100 mg PO DAILY capsule 07/24/18 Fluoxetine HCl [Prozac -] 40 mg PO DAILY capsule 07/24/18 Polyethylene Glycol 3350 [Miralax 119 gm Btl -] 17 gm PO DAILY bottle 07/24/18 Simethicone [Mylicon -] 80 mg PO Q6H PRN tab.chew 07/24/18 metFORMIN HCL [Glucophage -] 500 mg PO BID@0700,1630 tablet 07/24/18 Family Disease History - Family Disease History Family Disease History: Diabetes: Mother, Brother Review of Systems - Review of Systems Constitutional: reports: Weakness Eyes: reports: No Symptoms HENT: reports: No Symptoms Neck: reports: No Symptoms Cardiovascular: reports: No Symptoms Respiratory: reports: No Symptoms Gastrointestinal: reports: Abdominal Pain, Vomiting Genitourinary: reports: Dysuria Breasts: reports: No Symptoms Reported Musculoskeletal: reports: Muscle Weakness Integumentary: reports: Wound (open wound umbilical area down to suprapubic) Neurological: reports: Change in LOC Endocrine: reports: No Symptoms Hematology/Lymphatic: reports: No Symptoms Psychiatric: reports: No Symptoms Physical Examination Vital Signs: Vital Signs Temperature 97.6 F 07/21/18 11:55 Pulse Rate 97 H 07/21/18 14:46 Respiratory Rate 20 07/21/18 14:46 Blood Pressure 124/83 07/21/18 14:46 O2 Sat by Pulse Oximetry (%) 100 07/21/18 14:46 Constitutional: Yes: No Distress, Calm Eyes: Yes: Conjunctiva Clear HENT: Yes: Atraumatic Cardiovascular: Yes: Regular Rate and Rhythm Respiratory: Yes: Regular, CTA Bilaterally Gastrointestinal: Yes: Soft, Hypoactive Bowel Sounds, Tenderness (diffuse), Other (colostomy) Renal/: Yes: Mathis Present Musculoskeletal: Yes: Muscle Weakness Extremities: Yes: WNL Edema: No Wound/Incision: Yes: Open to air (gauze packing noted) Neurological: Yes: Alert, Confusion Psychiatric: Yes: Alert, Oriented (to person and place) Labs: CBC, BMP 07/21/18 13:00 07/21/18 13:00 Imaging - Results Chest X-ray: Report Reviewed Cat Scan: Report Reviewed Problem List - Problems (1) Altered mental status Assessment/Plan: -Head CT scan shows mild volume loss without CT evidence of acute intracranial pathology -2/2 to infection UTI vs wound?? -fall precaution -neuro check -neurology consult Code(s): R41.82 - ALTERED MENTAL STATUS, UNSPECIFIED Qualifiers: Altered mental status type: unspecified Qualified Code(s): R41.82 - Altered mental status, unspecified (2) Sepsis Assessment/Plan: -WBC 12.7 -LA 1.5 -UA shows 2+ protein, 1+ ketones, 2+ blood, 3+ leukocyte -UC and BC pending -ID consult -Vancomycin IV -CXR shows no acute process Code(s): A41.9 - SEPSIS, UNSPECIFIED ORGANISM Qualifiers: Sepsis type: sepsis due to unspecified organism Qualified Code(s): A41.9 - Sepsis, unspecified organism (3) Diabetes Assessment/Plan: -BGM ACHS -ISS -HgA1c ordered Code(s): E11.9 - TYPE 2 DIABETES MELLITUS WITHOUT COMPLICATIONS (4) UTI (urinary tract infection) Assessment/Plan: -WBC 12.75 -UA shows 2+ protein, 1+ ketones, 2+ blood, 3+ leukocyte -UC -ID consult -Vancomycin IV Code(s): N39.0 - URINARY TRACT INFECTION, SITE NOT SPECIFIED (5) Open wound of abdomen Assessment/Plan: -wound consult Code(s): S31.109A - UNSP OPN WND ABD WALL, UNSP Q W/O PENET PERIT CAV, INIT Assessment/Plan see problem list dvt ppx
[2018-07-21] MEDS: BACLOFEN 10 MG TABLET (FP) PO SCH ×2 (18:12→22:30)
[2018-07-21] MEDS: INSULIN SLIDING SCALE (NOVOLOG) 1 VIAL SQ SCH ×2 (18:13→22:37)
[2018-07-21] MEDS: HEPARIN NA (PORCINE) 5,000 UNITS/ML 1ML VIAL SQ SCH (22:31)
[2018-07-22] MEDS: INSULIN SLIDING SCALE (NOVOLOG) 1 VIAL SQ SCH ×2 (06:03→12:32)
[2018-07-22 08:11] LABS: BASO % 0.9 % (0-2.0); EOS % 3.6 % (0-4.5); HEMATOCRIT 33.2 % (32.4-45.2); LYMPH % 13.2 % (8-40); MCH 25.3 pg (25.7-33.7); MCHC 33.2 g/dl (32.0-36.0); MEAN CELL VOLUME 76.2 fl (80-96); MEAN PLT VOLUME 7.6 fl (7.5-11.1); MONO % 8.2 % (3.8-10.2); NEUT % 74.1 % (42.8-82.8); PLATELET COUNT 625 K/MM3 (134-434); RBC 4.36 M/mm3 (3.60-5.2); RDW 17.6 % (11.6-15.6); WHITE BLOOD COUNT 9.6 K/mm3 (4.0-10.0)
[2018-07-22] MEDS ORDERED: PT OWN MED DRAWER 7, Y5N ONE ×3 (08:54→23:11)
[2018-07-22 09:21] LABS: ALBUMIN 2.8 g/dl (3.4-5.0); ALK PHOS 128 U/L (45-117); AMYLASE 76 U/L (25-115); ANION GAP 10 MMOL/L (8-16); BILIRUBIN,TOTAL 0.4 mg/dL (0.2-1); BLOOD UREA NITROGEN 19 mg/dL (7-18); CALCIUM 10.3 mg/dL (8.5-10.1); CHLORIDE 106 mmol/L (98-107); CO2 24 mmol/L (21-32); CREATININE 0.6 mg/dL (0.55-1.3); GLUCOSE,RANDOM 104 mg/dL (74-106); LIPASE 276 U/L (73-393); MAGNESIUM 1.8 mg/dL (1.8-2.4); PHOSPHOROUS 4.3 mg/dL (2.5-4.9); POTASSIUM 3.6 mmol/L (3.5-5.1); SGOT/AST 13 U/L (15-37); SGPT/ALT 24 U/L (13-61); SODIUM 141 mmol/L (136-145); TOT PROT 6.8 g/dl (6.4-8.2)
[2018-07-22] MEDS: DOCUSATE SODIUM 100 MG CAPSULE (FP) PO SCH (09:32)
[2018-07-22] MEDS: FLUoxetine HCL 20 MG CAPSULE (FP) PO SCH (09:32)
[2018-07-22] MEDS: BACLOFEN 10 MG TABLET (FP) PO SCH ×4 (09:32→22:13)
[2018-07-22] MEDS: HEPARIN NA (PORCINE) 5,000 UNITS/ML 1ML VIAL SQ SCH ×2 (09:33→22:14)
[2018-07-22] MEDS: POLYETHYLENE GLYCOL 3350 119 GM BTL PO SCH (09:42)
--- NOTE | 2018-07-22 10:14 | CONSULT ---
Consult - text type - Consultation Consultation Note: NEUROLOGY CONSULT GREATLY APPRECIATED: Events reviewed and discussed with SHELLY Morales. Patient examined with her father at the bedside. This 52 yo F resides in [facility] PMHX DM, asthma, depression, schizophrenia , and suicide attempt 16 yrs ago resulting in LS fracture requiring surgery. She initially could walk after injury while at [facility], but has since been essentially bed-bound due to paraplegia Maintained on albuterol, baclofen, fluoxetine, montelukast, quetiapine. Admitted after 2 days of confusion and disorientation. Previously being treated for buttock wound infection via PICC for + MRSA. Head CT (reviewed): Mod atrophy. WBC 12.7 MCV 77.4 TSH 1.13 UA WBC= 1192- loaded with meropenem and vancomycin KJ: Obese. Cor reg. No bruit. Neck supple. Mathis in situ. Surgical scar to L ankle. Wheezing. NEURO: Awake, alert. Slow to respond with staring. Dysarthric, slow, hypophonic. Ox name. "[facility]." No month. 2019. TRUMP. CNII-CNXII: EOM intact with full berman appreciated. No facial. Motor: No drift. Strong grasps. Legs rest everted. Can wiggle toes. Reflexes brisk in arms, absent KJ's and AJ's. Plantars silent. Coordination: No FTN dystaxia Sensation: Reduced vibration in legs tyo the knees. Impression: 1. Toxic-Metabolic Encephalopathy (urosepsis, wound infection, PNA, etc.) 2. Fall with spinal cord compression with surgical intervention resulting in chronic paraplegia 3. Peripheral Neuropathy (c/w diabetes) Suggest: Continue antibiotics and hydration ID consult appreciated Wound care consultation. Order ESR, CRP, B12, TSH, A1c Doubt benefit of Baclofen. Would taper and D/C, Bedside PT Thank you very much, Dylan Solomon MD
--- NOTE | 2018-07-22 10:26 | PN ---
Progress Note (short form) - Note Progress Note: ID CONSULT DICTATED ALTERED MENTAL R/O TOXIC METABOLIC ENCEPHALOPATHY UTI R/O SEPSIS SECONDARY TO SOURCE ? PICC RELATED INFECTION AWAIT C/S EMPIRIC MEROPENEM + STAT DOSE VANCOMYCIN
--- NOTE | 2018-07-22 11:09 | PN ---
Progress Note, Physician Chief Complaint: AMS History of Present Illness: NAD alert and oriented em changed in ER Has non functioning RUE PICC line-IR to take it out Seen by ID Started on IV ABX afebrile no leukocytosis Cultures Microbiology 07/21/18 13:00 Blood - Peripheral Venous Blood Culture - Preliminary NO GROWTH OBTAINED AFTER 24 HOURS, INCUBATION TO CONTINUE FOR 4 DAYS. 07/21/18 13:00 Blood - Peripheral Venous Blood Culture - Preliminary NO GROWTH OBTAINED AFTER 24 HOURS, INCUBATION TO CONTINUE FOR 4 DAYS. 07/21/18 11:10 Urine - Urine Em Urine Culture - Preliminary Proteus Species - Current Medication List Current Medications: Active Medications Baclofen (Lioresal -) 20 mg PO QID [facility] Last Admin: 07/22/18 09:32 Dose: 20 mg Calcium Carbonate (Calcium Carbonate -) 1,300 mg PO DAILY [facility] Docusate Sodium (Colace -) 100 mg PO DAILY [facility] Last Admin: 07/22/18 09:32 Dose: 100 mg Fluoxetine HCl (Prozac -) 40 mg PO DAILY [facility] Last Admin: 07/22/18 09:32 Dose: 40 mg Heparin Sodium (Porcine) (Heparin -) 5,000 unit SQ BID [facility] Last Admin: 07/22/18 09:33 Dose: 5,000 unit Meropenem 1 gm/ Dextrose 100 mls @ 200 mls/hr IVPB Q8H-IV [facility] Vancomycin HCl 1,000 mg/ (Dextrose) 250 mls @ 166.667 mls/hr IVPB Q12H [facility]; Protocol Insulin Aspart (Novolog Vial Sliding Scale -) 1 vial SQ ACHS [facility]; Protocol Last Admin: 07/22/18 06:03 Dose: Not Given Polyethylene Glycol (Miralax (For Daily Use) -) 17 gm PO DAILY [facility] Last Admin: 07/22/18 09:42 Dose: 17 grams Simethicone (Mylicon -) 80 mg PO Q6H PRN PRN Reason: GAS - Objective Vital Signs: Vital Signs Temperature 97.9 F 07/22/18 10:00 Pulse Rate 101 H 07/22/18 10:00 Respiratory Rate 18 07/22/18 10:00 Blood Pressure 112/74 07/22/18 10:00 O2 Sat by Pulse Oximetry (%) 100 07/21/18 21:00 Constitutional: Yes: Well Nourished, No Distress, Calm Cardiovascular: Yes: Regular Rate and Rhythm Respiratory: Yes: Regular Gastrointestinal: Yes: WNL Musculoskeletal: Yes: Muscle Weakness Extremities: Yes: WNL Edema: No Peripheral Pulses WNL: Yes Neurological: Yes: Pre-Existing Deficit Labs: CBC, BMP 07/22/18 07:48 07/22/18 07:48 INR, PTT INR 1.28 (0.83-1.09) H 07/21/18 13:00 Assessment/Plan (1) Altered mental status Assessment/Plan: -Head CT unremarkable -2/2 UTI -fall precaution -neuro check -neurology consult Code(s): R41.82 - ALTERED MENTAL STATUS, UNSPECIFIED Qualifiers: Altered mental status type: unspecified Qualified Code(s): R41.82 - Altered mental status, unspecified (2) Sepsis Assessment/Plan: -WBC normalized -LA normal -UA shows 2+ protein, 1+ ketones, 2+ blood, 3+ leukocyte -UC and BC Microbiology 07/21/18 13:00 Blood - Peripheral Venous Blood Culture - Preliminary NO GROWTH OBTAINED AFTER 24 HOURS, INCUBATION TO CONTINUE FOR 4 DAYS. 07/21/18 13:00 Blood - Peripheral Venous Blood Culture - Preliminary NO GROWTH OBTAINED AFTER 24 HOURS, INCUBATION TO CONTINUE FOR 4 DAYS. 07/21/18 11:10 Urine - Urine Em Urine Culture - Preliminary Proteus Species -ID consult -Vancomycin IV -CXR shows no acute process Code(s): A41.9 - SEPSIS, UNSPECIFIED ORGANISM Qualifiers: Sepsis type: sepsis due to unspecified organism Qualified Code(s): A41.9 - Sepsis, unspecified organism (3) Diabetes Assessment/Plan: -D/C BGM and sliding scale insuline -start metformin 500 mg po bid -Diabetic diet -HgA1c 6.3 on 06/10/18 Code(s): E11.9 - TYPE 2 DIABETES MELLITUS WITHOUT COMPLICATIONS (4) UTI (urinary tract infection) Assessment/Plan: -UA shows 2+ protein, 1+ ketones, 2+ blood, 3+ leukocyte -UC -ID consult -Vancomycin IV Code(s): N39.0 - URINARY TRACT INFECTION, SITE NOT SPECIFIED (5) Open wound of abdomen Assessment/Plan: -wound consult Code(s): S31.109A - UNSP OPN WND ABD WALL, UNSP Q W/O PENET PERIT CAV, INIT
--- NOTE | 2018-07-22 11:34 | CONS ---
DATE OF CONSULTATION: DATE OF DICTATION: 07/22/2018 INFECTIOUS DISEASE CONSULTATION The patient is a 52-year-old female who is evaluated for possible sepsis. She was recently hospitalized at [facility] from June 09 through June 24. At that time, she was hospitalized with a sigmoid volvulus with perforation. She was taken to the operating room on June 09. A Lobo procedure was performed. Her postoperative course was complicated by Enterobacter bacteremia/sepsis. She received a course of IV meropenem and was discharged to a snf to complete a 2-week course of meropenem. She has apparently finished that course of antibiotic therapy. She is now readmitted after reports of altered mental status. The patient was taken to the emergency room from her alf facility with altered mental status for 1-day prior to admission. She was less responsive than normal and with contractions. She was seen in the emergency room where a CAT scan of the head was performed and was negative for acute infarct or bleed. Her course has been complicated by elevated white blood cell count of 12.7. Cultures were obtained. She was empirically treated with meropenem and vancomycin. Urinalysis shows many white cells. She is awake and responsive. However, she complained of abdominal discomfort. Patient has an indwelling Mathis catheter. She also complained of nausea and no reports of vomiting or diarrhea. She has a colostomy. Patient also has a sacral decubitus ulcer from which cultures were obtained and are polymicrobial including Morganella and MRSA. PAST MEDICAL HISTORY: Positive for schizophrenia, history of paraplegia, diabetes mellitus, COPD, hyperlipidemia, neurogenic bladder, sigmoid volvulus with resection Lobo procedure. ALLERGIES: PREDNISONE. MEDICATIONS: Include baclofen, Benadryl, Prozac, meropenem, vancomycin. SOCIAL HISTORY: She resides in a alf facility. She is dependent in activities of daily living. She is a smoker. No history of alcohol or illicit drug use. SYSTEM REVIEW: Neurologic: Positive for mental illness and paraplegia. Cardiac: Negative chest pain or palpitations. Respiratory: Negative cough or sputum production. Gastrointestinal: As per HPI. Genitourinary: As per HPI. LABORATORY DATA: White count 12.7, hematocrit 33.2, platelet count 625. BUN 19, creatinine 0.6. Urinalysis 1192 white cells, liver enzymes normal. Cultures are pending. CHEST X-RAY: Negative for acute infiltrate. PHYSICAL EXAMINATION: General: She is awake. She is in no acute distress. She responds appropriately. She has a flat affect. Vital Signs: Temperature 98.5, blood pressure 119/70, pulse 101 regular respirations 18 per minute. Eyes: Sclerae anicteric. Heart: Sounds S1, S2. Lungs: Clear. Poor inspiratory effort. Abdomen: Obese, soft. There is a surgical wound present which is packed. There was granulation tissue. No evidence of infection. The colostomy is in place. Extremities: 1+ lower extremity edema. Healed surgical scars. There is a sacral decubitus ulcer present. PICC line present right upper extremity, no erythema or tenderness. Genitourinary: No purulent drainage or foul odor. Mathis catheter is in place. Urine is no grossly purulent. IMPRESSION: 1. Altered mental status rule out toxic metabolic encephalopathy. 2. Urinary tract infection, rule out sepsis secondary to urinary tract infection. 3. Possible peripherally inserted central catheter line bacteremia/infection. 4. Status post Lobo procedure. 5. Sacral decubitus ulcer. POTENTIAL SOURCES FOR INFECTION: Include urinary tract infection and sacral decubitus ulcer. WOUND CULTURES: From the snf noted positive Morganella and MRSA. PLAN: Pending sepsis workup. Empiric antibiotic coverage with meropenem and vancomycin. Local wound care. Will follow. Thank you for the kind referral. URMILA GUTIERREZ M.D. [id number]
[2018-07-22] MEDS ORDERED: MEROPENEM 1 GM VIAL (RESTRICTED TO ID) IVPB ONE ×2 (12:19→16:43)
[2018-07-22] MEDS ORDERED: DEXTROSE 5%-WATER 100 ML IVPB ONE ×2 (12:19→16:43)
[2018-07-22] MEDS: MEROPENEM 1 GM in DEXTROSE 5%-WATER 100 ML IVPB SCH ×2 (12:39→18:31)
[2018-07-22] MEDS: VANCOMYCIN 1,000 MG in DEXTROSE 5%-WATER - 250 ML IVPB SCH (13:31)
[2018-07-22] MEDS: CALCIUM CARBONATE 650 MG TABLET PO SCH (14:10)
[2018-07-22] MEDS: metFORMIN HCL 500 MG TABLET (FP) PO SCH (16:50)
[2018-07-23] MEDS ORDERED: DEXTROSE 5%-WATER 100 ML IVPB ONE ×3 (01:51→16:47)
[2018-07-23] MEDS ORDERED: MEROPENEM 1 GM VIAL (RESTRICTED TO ID) IVPB ONE ×3 (01:51→16:47)
[2018-07-23] MEDS: MEROPENEM 1 GM in DEXTROSE 5%-WATER 100 ML IVPB SCH ×2 (01:53→09:46)
[2018-07-23] MEDS: VANCOMYCIN 1,000 MG in DEXTROSE 5%-WATER - 250 ML IVPB SCH ×2 (02:00→14:48)
[2018-07-23] MEDS: metFORMIN HCL 500 MG TABLET (FP) PO SCH ×2 (06:35→17:47)
[2018-07-23] MEDS: FLUoxetine HCL 20 MG CAPSULE (FP) PO SCH (09:46)
[2018-07-23] MEDS: DOCUSATE SODIUM 100 MG CAPSULE (FP) PO SCH (09:46)
[2018-07-23] MEDS: BACLOFEN 10 MG TABLET (FP) PO SCH ×4 (09:46→22:00)
[2018-07-23] MEDS: HEPARIN NA (PORCINE) 5,000 UNITS/ML 1ML VIAL SQ SCH ×2 (09:46→22:00)
--- NOTE | 2018-07-23 10:26 | PN ---
Progress Note (short form) - Note Progress Note: Attending Surgeon S/P Lobo's procedure for sigmoid volvulus 06/09/18; she was sent back to the hospital from [place] b/o altered mental status; she is eating and has a functioning colostomy. VSS AF abdo-ostomy viable and functioning; midline wound granulating; proximally w/ some nonviable exudate; distal wound clean and granulating. IMP: surgically stable w/open wound. PLAN:Would place Santyl BID on proximal open wound and continue NS wet to dry on distal wound; there is no indication to culture this wound nor are antibiotics indicated. Michael Vaughan MD FACS
[2018-07-23] MEDS: POLYETHYLENE GLYCOL 3350 119 GM BTL PO SCH (11:30)
--- NOTE | 2018-07-23 12:11 | PN ---
Progress Note, Physician Chief Complaint: AMS History of Present Illness: Previous notes and events reviewed awake and alert NAD complain of pain to abdomen surgical site - Current Medication List Current Medications: Active Medications Baclofen (Lioresal -) 20 mg PO QID [facility] Last Admin: 07/23/18 09:46 Dose: 20 mg Calcium Carbonate (Calcium Carbonate -) 1,300 mg PO DAILY [facility] Last Admin: 07/22/18 14:10 Dose: Not Given Docusate Sodium (Colace -) 100 mg PO DAILY [facility] Last Admin: 07/23/18 09:46 Dose: 100 mg Fluoxetine HCl (Prozac -) 40 mg PO DAILY [facility] Last Admin: 07/23/18 09:46 Dose: 40 mg Heparin Sodium (Porcine) (Heparin -) 5,000 unit SQ BID [facility] Last Admin: 07/23/18 09:46 Dose: 5,000 unit Meropenem 1 gm/ Dextrose 100 mls @ 200 mls/hr IVPB Q8H-IV [facility] Last Admin: 07/23/18 09:46 Dose: 200 mls/hr Vancomycin HCl 1,000 mg/ (Dextrose) 250 mls @ 166.667 mls/hr IVPB Q12H [facility]; Protocol Last Admin: 07/23/18 02:00 Dose: 166.667 mls/hr Metformin HCl (Glucophage -) 500 mg PO BID@0700,1630 [facility] Last Admin: 07/23/18 06:35 Dose: 500 mg Polyethylene Glycol (Miralax (For Daily Use) -) 17 gm PO DAILY [facility] Last Admin: 07/23/18 11:30 Dose: 17 grams Simethicone (Mylicon -) 80 mg PO Q6H PRN PRN Reason: GAS - Objective Vital Signs: Vital Signs Temperature 97.7 F 07/23/18 06:22 Pulse Rate 89 07/23/18 06:22 Respiratory Rate 18 07/23/18 06:22 Blood Pressure 114/75 07/23/18 06:22 O2 Sat by Pulse Oximetry (%) 100 07/22/18 21:00 Constitutional: Yes: No Distress, Calm Eyes: Yes: Conjunctiva Clear HENT: Yes: Atraumatic Cardiovascular: Yes: Regular Rate and Rhythm Respiratory: Yes: Regular, CTA Bilaterally Gastrointestinal: Yes: Normal Bowel Sounds, Soft, Tenderness Genitourinary: Yes: Mathis Present Musculoskeletal: Yes: Muscle Weakness Extremities: Yes: WNL Edema: No Integumentary: Yes: Pressure Ulcer (sacral) Wound/Incision: Yes: Dressing Dry and Intact Neurological: Yes: Alert, Pre-Existing Deficit Psychiatric: Yes: Alert Labs: CBC, BMP 07/22/18 07:48 07/22/18 07:48 INR, PTT INR 1.28 (0.83-1.09) H 07/21/18 13:00 Problem List - Problems (1) Altered mental status Assessment/Plan: -Head CT scan shows mild volume loss without CT evidence of acute intracranial pathology -2/2 to infection UTI -fall precaution -neuro check -neurology consult Code(s): R41.82 - ALTERED MENTAL STATUS, UNSPECIFIED Qualifiers: Altered mental status type: unspecified Qualified Code(s): R41.82 - Altered mental status, unspecified (2) Sepsis Assessment/Plan: -WBC 9.6 -LA 1.5 -UA shows 2+ protein, 1+ ketones, 2+ blood, 3+ leukocyte -UC and BC pending -ID on board -Vancomycin and Meropenem IV -CXR shows no acute process Code(s): A41.9 - SEPSIS, UNSPECIFIED ORGANISM Qualifiers: Sepsis type: sepsis due to unspecified organism Qualified Code(s): A41.9 - Sepsis, unspecified organism (3) Diabetes Assessment/Plan: -BGM ACHS -ISS + Metformin -HgA1c 5.1% Code(s): E11.9 - TYPE 2 DIABETES MELLITUS WITHOUT COMPLICATIONS (4) UTI (urinary tract infection) Assessment/Plan: -WBC 9.6 -UA shows 2+ protein, 1+ ketones, 2+ blood, 3+ leukocyte -UC positive proteus mirabalis -ID consult -Vancomycin and Meropenem IV Code(s): N39.0 - URINARY TRACT INFECTION, SITE NOT SPECIFIED (5) Open wound of abdomen Assessment/Plan: -surgery on board -daily wound dressing Code(s): S31.109A - UNSP OPN WND ABD WALL, UNSP Q W/O PENET PERIT CAV, INIT Assessment/Plan see problem list dvt ppx
[2018-07-23 13:30] VITALS: BMI 40.4
[2018-07-23] MEDS ORDERED: PT OWN MED DRAWER 7, Y5N ONE (14:18)
[2018-07-23] MEDS: CALCIUM CARBONATE 650 MG TABLET PO SCH (14:49)
--- NOTE | 2018-07-23 17:38 | PN ---
Progress Note, Physician History of Present Illness: AWAKE, ALERT NO COMPLAINTS AFEBRILE WBC NOW WNL BC (-) URINE C/S PROTEUS - Current Medication List Current Medications: Active Medications Baclofen (Lioresal -) 20 mg PO QID [facility] Last Admin: 07/23/18 14:48 Dose: 20 mg Calcium Carbonate (Calcium Carbonate -) 1,300 mg PO DAILY [facility] Last Admin: 07/23/18 14:49 Dose: 1,300 mg Collagenase (Santyl -) 1 applic TP DAILY [facility]; Protocol Docusate Sodium (Colace -) 100 mg PO DAILY [facility] Last Admin: 07/23/18 09:46 Dose: 100 mg Fluoxetine HCl (Prozac -) 40 mg PO DAILY [facility] Last Admin: 07/23/18 09:46 Dose: 40 mg Heparin Sodium (Porcine) (Heparin -) 5,000 unit SQ BID [facility] Last Admin: 07/23/18 09:46 Dose: 5,000 unit Meropenem 1 gm/ Dextrose 100 mls @ 200 mls/hr IVPB Q8H-IV [facility] Last Admin: 07/23/18 09:46 Dose: 200 mls/hr Vancomycin HCl 1,000 mg/ (Dextrose) 250 mls @ 166.667 mls/hr IVPB Q12H [facility]; Protocol Last Admin: 07/23/18 14:48 Dose: 166.667 mls/hr Metformin HCl (Glucophage -) 500 mg PO BID@0700,1630 [facility] Last Admin: 07/23/18 06:35 Dose: 500 mg Polyethylene Glycol (Miralax (For Daily Use) -) 17 gm PO DAILY [facility] Last Admin: 07/23/18 11:30 Dose: 17 grams Simethicone (Mylicon -) 80 mg PO Q6H PRN PRN Reason: GAS - Objective Vital Signs: Vital Signs Temperature 97.8 F 07/23/18 13:47 Pulse Rate 92 H 07/23/18 13:47 Respiratory Rate 18 07/23/18 13:47 Blood Pressure 123/75 07/23/18 13:47 O2 Sat by Pulse Oximetry (%) 100 07/23/18 09:00 Constitutional: Yes: No Distress, Obese Cardiovascular: Yes: Regular Rate and Rhythm, S1, S2 Respiratory: Yes: CTA Bilaterally Gastrointestinal: Yes: Normal Bowel Sounds, Other (SURGICAL WOUND CLEAR + OSTOMY). No: Tenderness Labs: CBC, BMP 07/22/18 07:48 07/22/18 07:48 INR, PTT INR 1.28 (0.83-1.09) H 07/21/18 13:00 Assessment/Plan UTI PROTEUS TOXIC METABOLIC ENCEPHALOPATHY IMPROVED LEUKOCYTOSIS RESOLVED SUBSTITUTE KEFLEX 500MG PO Q6H X 7D
[2018-07-23] MEDS: CEPHALEXIN MONOHYDRATE 500 MG CAPSULE (UD) PO SCH (18:35)
[2018-07-24] MEDS: CEPHALEXIN MONOHYDRATE 500 MG CAPSULE (UD) PO SCH ×3 (01:00→13:10)
[2018-07-24] MEDS: metFORMIN HCL 500 MG TABLET (FP) PO SCH (06:12)
[2018-07-24 08:16] LABS: HEMOGLOBIN 11.3 GM/dL (10.7-15.3); MCH 24.6 pg (25.7-33.7); MCHC 32.4 g/dl (32.0-36.0); MEAN CELL VOLUME 75.9 fl (80-96); MEAN PLT VOLUME 7.8 fl (7.5-11.1); PLATELET COUNT 637 K/MM3 (134-434); RBC 4.61 M/mm3 (3.60-5.2); RDW 17.2 % (11.6-15.6); WHITE BLOOD COUNT 8.9 K/mm3 (4.0-10.0)
[2018-07-24 08:44] LABS: ALBUMIN 2.9 g/dl (3.4-5.0); ALK PHOS 115 U/L (45-117); ANION GAP 6 MMOL/L (8-16); BILIRUBIN,TOTAL 0.3 mg/dL (0.2-1); BLOOD UREA NITROGEN 13 mg/dL (7-18); CALCIUM 10.4 mg/dL (8.5-10.1); CHLORIDE 103 mmol/L (98-107); CO2 27 mmol/L (21-32); CREATININE 0.5 mg/dL (0.55-1.3); GLUCOSE,RANDOM 101 mg/dL (74-106); POTASSIUM 4.2 mmol/L (3.5-5.1); SGOT/AST 12 U/L (15-37); SGPT/ALT 20 U/L (13-61); SODIUM 137 mmol/L (136-145); TOT PROT 6.9 g/dl (6.4-8.2)
[2018-07-24] MEDS ORDERED: COLLAGENASE CLOSTRIDIUM HIST. 30 GRAMS TUBE TP SCH (10:00)
[2018-07-24] MEDS: BACLOFEN 10 MG TABLET (FP) PO SCH ×2 (10:54→13:10)
[2018-07-24] MEDS: HEPARIN NA (PORCINE) 5,000 UNITS/ML 1ML VIAL SQ SCH (10:54)
[2018-07-24] MEDS: FLUoxetine HCL 20 MG CAPSULE (FP) PO SCH (10:54)
[2018-07-24] MEDS: DOCUSATE SODIUM 100 MG CAPSULE (FP) PO SCH (10:55)
[2018-07-24] MEDS: POLYETHYLENE GLYCOL 3350 119 GM BTL PO SCH (10:55)
[2018-07-24] MEDS: CALCIUM CARBONATE 650 MG TABLET PO SCH (11:02)
--- NOTE | 2018-07-24 12:19 | DS ---
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 Patient presented [facility] ER [facility] for AMS. Patient is poor informant, currently alert and oriented to name and place, not time. Patient has a wound noted to abdomen with gauze packing that was positive for MRSA and was receiving ABT via PICC line. Patient was noted to have AMS beginning yesterday was progressively worsening. Constitutional: Yes: No Distress, Calm Eyes: Yes: Conjunctiva Clear HENT: Yes: Atraumatic Cardiovascular: Yes: Regular Rate and Rhythm Respiratory: Yes: Regular, CTA Bilaterally, On Nasal O2 Gastrointestinal: Yes: Normal Bowel Sounds, Soft, Tenderness (incisional) Musculoskeletal: Yes: Muscle Weakness Extremities: Yes: WNL Edema: No Neurological: Yes: Alert, Pre-Existing Deficit Psychiatric: Yes: Alert Labs: CBC, BMP 07/24/18 06:30 07/24/18 06:30 Discharge Summary Reason For Visit: SEPSIS/ATLERED MENTAL STATUS Current Active Problems Altered mental status (Acute) Open wound of abdomen (Acute) Sepsis (Acute) Hospital Course: see progress note Laboratory Tests 07/21/18 07/21/18 07/21/18 11:10 13:00 13:00 WBC 12.7 H RBC 4.49 Hgb 11.2 Hct 34.7 D MCV 77.4 L MCH 24.9 L MCHC 32.1 RDW 17.2 H Plt Count 630 H MPV 7.5 Absolute Neuts (auto) 9.5 H Neutrophils % 74.7 D Lymphocytes % 13.7 D Monocytes % 9.1 Eosinophils % 1.7 Basophils % 0.8 Nucleated RBC % 0 ESR PT with INR INR PTT (Actin FS) Sodium 144 Potassium 4.0 Chloride 107 Carbon Dioxide 27 Anion Gap 10 BUN 25 H Creatinine 1.1 Creat Clearance w eGFR 51.76 POC Glucometer Random Glucose 95 Hemoglobin A1c % Lactic Acid Calcium 10.9 H Phosphorus Magnesium Total Bilirubin 0.5 AST 8 L ALT 23 Alkaline Phosphatase 137 H Creatine Kinase 17 L Troponin I C-Reactive Protein Total Protein 7.5 Albumin 3.2 L Total Amylase Lipase Vitamin B12 TSH Urine Color Yellow Urine Appearance Turbid Urine pH 8.0 Ur Specific [place] 1.010 Urine Protein 2+ H Urine Glucose (UA) Negative Urine Ketones 1+ H Urine Blood 2+ H Urine Nitrite Negative Urine Bilirubin Negative Urine Urobilinogen 0.2 Ur Leukocyte Esterase 3+ H Urine WBC (Auto) 1192 Urine RBC (Auto) 3 Urine Casts (Auto) 96 U Pathogenic Cast Auto [employer] U Epithel Cells (Auto) 25.5 Urine Crystals (Auto) None seen Urine Bacteria (Auto) 13.0 Urine Yeast (Auto) None seen 07/21/18 07/21/18 07/21/18 13:00 13:00 13:00 WBC RBC Hgb Hct MCV MCH MCHC RDW Plt Count MPV Absolute Neuts (auto) Neutrophils % Lymphocytes % Monocytes % Eosinophils % Basophils % Nucleated RBC % ESR PT with INR 15.10 H INR 1.28 H PTT (Actin FS) 40.0 H Sodium Potassium Chloride Carbon Dioxide Anion Gap BUN Creatinine Creat Clearance w eGFR POC Glucometer Random Glucose Hemoglobin A1c % Lactic Acid 1.5 Calcium Phosphorus Magnesium Total Bilirubin AST ALT Alkaline Phosphatase Creatine Kinase Troponin I < 0.02 C-Reactive Protein Total Protein Albumin Total Amylase Lipase Vitamin B12 787 TSH Urine Color Urine Appearance Urine pH Ur Specific [place] Urine Protein Urine Glucose (UA) Urine Ketones Urine Blood Urine Nitrite Urine Bilirubin Urine Urobilinogen Ur Leukocyte Esterase Urine WBC (Auto) Urine RBC (Auto) Urine Casts (Auto) U Pathogenic Cast Auto U Epithel Cells (Auto) Urine Crystals (Auto) Urine Bacteria (Auto) Urine Yeast (Auto) 07/21/18 07/21/18 07/22/18 18:12 22:36 06:01 WBC RBC Hgb Hct MCV MCH MCHC RDW Plt Count MPV Absolute Neuts (auto) Neutrophils % Lymphocytes % Monocytes % Eosinophils % Basophils % Nucleated RBC % ESR PT with INR INR PTT (Actin FS) Sodium Potassium Chloride Carbon Dioxide Anion Gap BUN Creatinine Creat Clearance w eGFR POC Glucometer 106 120 100 Random Glucose Hemoglobin A1c % Lactic Acid Calcium Phosphorus Magnesium Total Bilirubin AST ALT Alkaline Phosphatase Creatine Kinase Troponin I C-Reactive Protein Total Protein Albumin Total Amylase Lipase Vitamin B12 TSH Urine Color Urine Appearance Urine pH Ur Specific [place] Urine Protein Urine Glucose (UA) Urine Ketones Urine Blood Urine Nitrite Urine Bilirubin Urine Urobilinogen Ur Leukocyte Esterase Urine WBC (Auto) Urine RBC (Auto) Urine Casts (Auto) U Pathogenic Cast Auto U Epithel Cells (Auto) Urine Crystals (Auto) Urine Bacteria (Auto) Urine Yeast (Auto) 07/22/18 07/22/18 07/22/18 07:48 07:48 11:34 WBC 9.6 RBC 4.36 Hgb 11.0 Hct 33.2 MCV 76.2 L MCH 25.3 L MCHC 33.2 RDW 17.6 H Plt Count 625 H MPV 7.6 Absolute Neuts (auto) 7.1 Neutrophils % 74.1 Lymphocytes % 13.2 Monocytes % 8.2 Eosinophils % 3.6 D Basophils % 0.9 Nucleated RBC % 0 ESR PT with INR INR PTT (Actin FS) Sodium 141 Potassium 3.6 Chloride 106 Carbon Dioxide 24 Anion Gap 10 BUN 19 H Creatinine 0.6 Creat Clearance w eGFR 104.18 POC Glucometer 94 Random Glucose 104 Hemoglobin A1c % Lactic Acid Calcium 10.3 H Phosphorus 4.3 Magnesium 1.8 Total Bilirubin 0.4 AST 13 L ALT 24 Alkaline Phosphatase 128 H Creatine Kinase Troponin I C-Reactive Protein > 19.0 H Total Protein 6.8 Albumin 2.8 L Total Amylase 76 Lipase 276 Vitamin B12 Cancelled TSH 1.13 Urine Color Urine Appearance Urine pH Ur Specific [place] Urine Protein Urine Glucose (UA) Urine Ketones Urine Blood Urine Nitrite Urine Bilirubin Urine Urobilinogen Ur Leukocyte Esterase Urine WBC (Auto) Urine RBC (Auto) Urine Casts (Auto) U Pathogenic Cast Auto U Epithel Cells (Auto) Urine Crystals (Auto) Urine Bacteria (Auto) Urine Yeast (Auto) 07/23/18 07/23/18 07/23/18 06:33 09:10 09:10 WBC RBC Hgb Hct MCV MCH MCHC RDW Plt Count MPV Absolute Neuts (auto) Neutrophils % Lymphocytes % Monocytes % Eosinophils % Basophils % Nucleated RBC % ESR 91 H PT with INR INR PTT (Actin FS) Sodium Potassium Chloride Carbon Dioxide Anion Gap BUN Creatinine Creat Clearance w eGFR POC Glucometer 98 Random Glucose Hemoglobin A1c % 5.1 Lactic Acid Calcium Phosphorus Magnesium Total Bilirubin AST ALT Alkaline Phosphatase Creatine Kinase Troponin I C-Reactive Protein Total Protein Albumin Total Amylase Lipase Vitamin B12 TSH Urine Color Urine Appearance Urine pH Ur Specific [place] Urine Protein Urine Glucose (UA) Urine Ketones Urine Blood Urine Nitrite Urine Bilirubin Urine Urobilinogen Ur Leukocyte Esterase Urine WBC (Auto) Urine RBC (Auto) Urine Casts (Auto) U Pathogenic Cast Auto U Epithel Cells (Auto) Urine Crystals (Auto) Urine Bacteria (Auto) Urine Yeast (Auto) 07/23/18 07/24/18 07/24/18 11:05 06:11 06:30 WBC 8.9 RBC 4.61 Hgb 11.3 Hct 35.0 MCV 75.9 L MCH 24.6 L MCHC 32.4 RDW 17.2 H Plt Count 637 H MPV 7.8 Absolute Neuts (auto) Neutrophils % Lymphocytes % Monocytes % Eosinophils % Basophils % Nucleated RBC % ESR PT with INR INR PTT (Actin FS) Sodium Potassium Chloride Carbon Dioxide Anion Gap BUN Creatinine Creat Clearance w eGFR POC Glucometer 121 104 Random Glucose Hemoglobin A1c % Lactic Acid Calcium Phosphorus Magnesium Total Bilirubin AST ALT Alkaline Phosphatase Creatine Kinase Troponin I C-Reactive Protein Total Protein Albumin Total Amylase Lipase Vitamin B12 TSH Urine Color Urine Appearance Urine pH Ur Specific [place] Urine Protein Urine Glucose (UA) Urine Ketones Urine Blood Urine Nitrite Urine Bilirubin Urine Urobilinogen Ur Leukocyte Esterase Urine WBC (Auto) Urine RBC (Auto) Urine Casts (Auto) U Pathogenic Cast Auto U Epithel Cells (Auto) Urine Crystals (Auto) Urine Bacteria (Auto) Urine Yeast (Auto) 07/24/18 06:30 WBC RBC Hgb Hct MCV MCH MCHC RDW Plt Count MPV Absolute Neuts (auto) Neutrophils % Lymphocytes % Monocytes % Eosinophils % Basophils % Nucleated RBC % ESR PT with INR INR PTT (Actin FS) Sodium 137 Potassium 4.2 Chloride 103 Carbon Dioxide 27 Anion Gap 6 L BUN 13 Creatinine 0.5 L Creat Clearance w eGFR 128.57 POC Glucometer Random Glucose 101 Hemoglobin A1c % Lactic Acid Calcium 10.4 H Phosphorus Magnesium Total Bilirubin 0.3 AST 12 L ALT 20 Alkaline Phosphatase 115 Creatine Kinase Troponin I C-Reactive Protein Total Protein 6.9 Albumin 2.9 L Total Amylase Lipase Vitamin B12 TSH Urine Color Urine Appearance Urine pH Ur Specific [place] Urine Protein Urine Glucose (UA) Urine Ketones Urine Blood Urine Nitrite Urine Bilirubin Urine Urobilinogen Ur Leukocyte Esterase Urine WBC (Auto) Urine RBC (Auto) Urine Casts (Auto) U Pathogenic Cast Auto U Epithel Cells (Auto) Urine Crystals (Auto) Urine Bacteria (Auto) Urine Yeast (Auto) Home Medication List Medication Instructions Recorded Confirmed Type Albuterol So4/Ipratropium 1 inh PO QID 11/11/11 07/21/18 History [Combivent Inhaler -] Baclofen 20 mg PO QID 11/11/11 07/21/18 History Docusate Sodium [Colace -] 100 mg PO HS PRN 11/11/11 07/21/18 History Polyethylene Glycol 3350 [Miralax] 17 gm PO DAILY 11/11/11 07/21/18 History Bisacodyl [Dulcolax] 10 mg PO DAILY 06/09/18 07/21/18 History Calcium Carbonate [Calcium] 1,200 mg PO DAILY 06/09/18 07/21/18 History Fluoxetine HCl [Prozac] 40 mg PO DAILY 06/09/18 07/21/18 History Montelukast Sodium [Singulair] 10 mg PO DAILY 06/09/18 07/21/18 History Simethicone 80 mg PO Q8H PRN 06/09/18 07/21/18 History Quetiapine Fumarate [Seroquel -] 50 mg PO HS 07/21/18 07/21/18 History Silver Sulfadiazine 1% Top Cr 1 applic TP DAILY 07/21/18 07/21/18 History [Silvadene -] Active Medications Generic Name Dose Route Start Last Admin Trade Name Freq PRN Reason Stop Dose Admin Baclofen 20 mg 07/21/18 18:00 07/24/18 10:54 Lioresal - PO 20 mg QID [facility] Administration Calcium Carbonate 1,300 mg 07/22/18 10:00 07/24/18 11:02 Calcium Carbonate - PO 1,300 mg DAILY [facility] Administration Cephalexin HCl 500 mg 07/23/18 18:00 07/24/18 06:12 Keflex - PO 500 mg Q6HPO [facility] Administration Collagenase 1 applic 07/24/18 10:00 07/24/18 10:55 Santyl - TP 1 applic DAILY [facility] Administration Protocol Docusate Sodium 100 mg 07/22/18 10:00 07/24/18 10:55 Colace - PO 100 mg DAILY [facility] Administration Fluoxetine HCl 40 mg 07/22/18 10:00 07/24/18 10:54 Prozac - PO 40 mg DAILY [facility] Administration Heparin Sodium (Porcine) 5,000 unit 07/21/18 22:00 07/24/18 10:54 Heparin - SQ 5,000 unit BID [facility] Administration Metformin HCl 500 mg 07/22/18 16:30 07/24/18 06:12 Glucophage - PO 500 mg BID@0700,1630 [facility] Administration Polyethylene Glycol 17 gm 07/22/18 10:00 07/24/18 10:55 Miralax (For Daily Use) - PO 17 grams DAILY [facility] Administration Simethicone 80 mg 07/21/18 14:52 Mylicon - PO Q6H PRN GAS Microbiology 07/21/18 13:00 Blood - Peripheral Venous Blood Culture - Preliminary NO GROWTH OBTAINED AFTER 48 HOURS, INCUBATION TO CONTINUE FOR 3 DAYS. 07/21/18 13:00 Blood - Peripheral Venous Blood Culture - Preliminary NO GROWTH OBTAINED AFTER 48 HOURS, INCUBATION TO CONTINUE FOR 3 DAYS. 07/22/18 12:30 Urine - Urine [place] Urine Culture - Final 07/21/18 11:10 Urine - Urine [place] Urine Culture - Final Proteus Mirabilis Condition: Stable - Instructions Diet, Activity, Other Instructions: continue medication as prescribed daily wound care twice daily and dressing change Apply Santyl twice daily to proximal open wound and continue NS wet to dry on distal wound continue oral antibiotic course until completed Referrals: Michael Vaughan MD [Staff Physician] - Disposition: RESIDENTIAL FACILITY - Home Medications Comprehensive Discharge Medication List: Ambulatory Orders Albuterol So4/Ipratropium [Combivent Inhaler -] 1 inh PO QID 11/11/11 Baclofen 20 mg PO QID 11/11/11 Docusate Sodium [Colace -] 100 mg PO HS PRN 11/11/11 Polyethylene Glycol 3350 [Miralax] 17 gm PO DAILY 11/11/11 Bisacodyl [Dulcolax] 10 mg PO DAILY 06/09/18 Calcium Carbonate [Calcium] 1,200 mg PO DAILY 06/09/18 Fluoxetine HCl [Prozac] 40 mg PO DAILY 06/09/18 Montelukast Sodium [Singulair] 10 mg PO DAILY 06/09/18 Simethicone 80 mg PO Q8H PRN 06/09/18 Quetiapine Fumarate [Seroquel -] 50 mg PO HS 07/21/18 Silver Sulfadiazine 1% Top Cr [Silvadene -] 1 applic TP DAILY 07/21/18 Cephalexin Monohydrate [Keflex -] 500 mg PO Q6HPO 7 Days #28 capsule 07/24/18 Collagenase Clostridium Hist. [Santyl -] 1 applic TP DAILY #1 tube 07/24/18 Docusate Sodium [Colace -] 100 mg PO DAILY capsule 07/24/18 Fluoxetine HCl [Prozac -] 40 mg PO DAILY capsule 07/24/18 Polyethylene Glycol 3350 [Miralax 119 gm Btl -] 17 gm PO DAILY bottle 07/24/18 Simethicone [Mylicon -] 80 mg PO Q6H PRN tab.chew 07/24/18 metFORMIN HCL [Glucophage -] 500 mg PO BID@0700,1630 tablet 07/24/18
[2018-07-24 14:58] VITALS: BP 121/76; PULSE 93; TEMP 98.1
== END 2018-07-24 16:21 | DRG 871 ==
LOC: JER 10:08 → JERBED 14:49 → J7W 17:14
PROVIDERS: ADMIT Family Medicine; ATTEND Family Medicine
DX: A41.9 Sepsis, unspecified organism (principal); L89.153 Pressure ulcer of sacral region, stage 3; G92 Toxic encephalopathy; N39.0 Urinary tract infection, site not specified; E87.2 Acidosis; G82.20 Paraplegia, unspecified; L97.129 Non-pressure chronic ulcer of left thigh with unspecified severity; L97.529 Non-pressure chronic ulcer of other part of left foot with unspecified severity; E11.42 Type 2 diabetes mellitus with diabetic polyneuropathy; L89.159 Pressure ulcer of sacral region, unspecified stage; Z93.3 Colostomy status; F20.9 Schizophrenia, unspecified; E78.5 Hyperlipidemia, unspecified; J44.9 Chronic obstructive pulmonary disease, unspecified; N31.9 Neuromuscular dysfunction of bladder, unspecified; F17.210 Nicotine dependence, cigarettes, uncomplicated; F32.9 Major depressive disorder, single episode, unspecified; Z79.84 Long term (current) use of oral hypoglycemic drugs; B96.4 Proteus (mirabilis) (morganii) as the cause of diseases classified elsewhere
CPT/HCPCS: 36415; 70450-TC; 71045-TC-FY; 80053; 81003; 82150; 82550; 82607; 82962; 83036; 83605; 83690; 83735; 84100; 84436; 84443; 84484; 85025; 85027; 85610; 85651; 85730; 86140; 87040; 87070; 87086; 87186; 93005; 93010; 99284-25; J0475; J1644

== ENCOUNTER 2020-07-07 18:55 | Inpatient (IN) | payer OTHER ==
[2020-07-07] MEDS ORDERED: SODIUM CHLORIDE 0.9% 500 ML INFUS.BAG IV ONE ×2 (19:34→20:48)
[2020-07-07 21:12] LABS: VENOUS BASE EXCESS -22.3 mmol/L (-2-2); VENOUS O2 SATURATION 36.1 % (70-80); VENOUS PCO2 37.7 mmHg (38-52)
[2020-07-07 21:14] LABS: VENOUS PH 6.983 (7.310-7.410)
[2020-07-07 21:21] LABS: INR 1.13 (0.83-1.09); PROTHROMBIN TIME (PATIENT) 13.9 SEC (9.7-13.0)
[2020-07-07] MEDS ORDERED: SODIUM BICARBONATE 8.4% 50 MEQ/50 ML DISP.SYRIN IVPUSH ONE (21:23)
[2020-07-07 21:24] LABS: ACTIVATED PTT 29.9 SECONDS (25.2-36.5)
[2020-07-07] MEDS ORDERED: INSULIN REGULAR HUMAN 100 UNITS/ML *VIAL IVPUSH ONE ×2 (21:25→23:34)
[2020-07-07] MEDS ORDERED: INSULIN REGULAR HUMAN 100 UNITS/ML *VIAL* (FOR IVP) IVPUSH ONE (21:26)
[2020-07-07] MEDS ORDERED: INSULIN REGULAR 100 UNITS in SODIUM CHLORIDE 99 ML IVPB SCH (21:30)
[2020-07-07 21:33] LABS: ANION GAP 27 MMOL/L (8-16); CALCIUM 8.7 mg/dL (8.5-10.1); CHLORIDE 93 mmol/L (98-107); CO2 10 mmol/L (21-32); POTASSIUM 4.3 mmol/L (3.5-5.1); SODIUM 130 mmol/L (136-145)
[2020-07-07 21:34] LABS: BLOOD UREA NITROGEN 55.2 mg/dL (7-18)
[2020-07-07 21:37] LABS: CREATININE 2.4 mg/dL (0.55-1.3); SGOT/AST 12 U/L (15-37); SGPT/ALT 16 U/L (13-61)
[2020-07-07 21:39] LABS: BILIRUBIN,TOTAL 0.5 mg/dL (0.2-1); TOT PROT 8.1 g/dl (6.4-8.2)
[2020-07-07 21:40] LABS: ALK PHOS 214 U/L (45-117)
[2020-07-07] MEDS ORDERED: LACTATED RINGERS SOLUTION 1000 ML INFUS.BAG IV ONE ×2 (21:44→23:35)
[2020-07-07] MEDS ORDERED: SODIUM BICARBONATE 8.4% - 50 ML ONE (21:48)
[2020-07-07] MEDS ORDERED: INSULIN REGULAR HUMAN 100 UNITS/ML *VIAL ONE (21:48)
[2020-07-07 21:52] LABS: EPI CELLS 7 /uL (0-25.1); HYALINE CASTS 3 /uL (0-3.1); URINE APPEARANCE CLOUDY; URINE BACTERIA 168 /uL (0-1359); URINE BILIRUBIN NEGATIVE (NEGATIVE); URINE COLOR YELLOW; URINE GLUCOSE (UA) 3+ (NEGATIVE); URINE KETONE 2+ (NEGATIVE); URINE LEUK ESTERASE NEGATIVE (NEGATIVE); URINE NITRITE NEGATIVE (NEGATIVE); URINE PROTEIN 1+ (NEGATIVE); URINE UROBILINOGEN 0.2 mg/dL (0.2-1.0)
[2020-07-07 21:56] LABS: GLUCOSE,RANDOM 1045 mg/dL (74-106)
[2020-07-07] MEDS ORDERED: SODIUM BICARBONATE 8.4% - 150 MEQ in DEXTROSE 5%-WATER - 950 ML IVPB SCH (22:30)
[2020-07-07 22:32] LABS: BASO % 0.3 % (0-2.0); HEMATOCRIT 42.5 % (32.4-45.2); HEMOGLOBIN 12.3 GM/dL (10.7-15.3); LYMPH % 2.1 % (8-40); MCH 22.9 pg (25.7-33.7); MEAN PLT VOLUME 9.6 fl (7.5-11.1); MONO % 5.2 % (3.8-10.2); NEUT % 92.4 % (42.8-82.8); PLATELET COUNT 524 K/MM3 (134-434); RBC 5.38 M/mm3 (3.60-5.2); RDW 19.1 % (11.6-15.6); WHITE BLOOD COUNT 14.3 K/mm3 (4.0-10.0)
[2020-07-07 23:07] LABS: URINE RBC 48 /uL (0-23.9)
[2020-07-07 23:08] LABS: URINE WBC 2 /uL (0-25.8); YEAST PRESENT (NEGATIVE)
[2020-07-07] MEDS ORDERED: SODIUM CHLORIDE 1,000 ML IV SCH (23:15)
[2020-07-07] MEDS ORDERED: ACETAMINOPHEN 325 MG TABLET (FP) PO PRN ×2 (23:36→23:38)
[2020-07-07 23:39] LABS: ANISOCYTOSIS 1+; MACROCYTOSIS 0; OVALOCYTE 1+; PLATELET ESTIMATE NORMAL; ROULEAU 1+; TEAR DROP CELLS 1+
[2020-07-07] MEDS ORDERED: FLUCONAZOLE 200 MG/D5W 100 ML IVPB ONE (23:45)
[2020-07-07] MEDS ORDERED: levETIRAcetam 500 MG TABLET (FP) PO SCH (23:45)
[2020-07-08] MEDS ORDERED: MAGNESIUM 2GM/50ML STERILE WATER IVPB IVPB ONE (00:40)
[2020-07-08] MEDS ORDERED: ACETAMINOPHEN 1000 MG/100 ML VIAL (NON FORMULARY) IVPB PRN (00:58)
[2020-07-08 01:12] LABS: VENOUS BASE EXCESS -16.2 mmol/L (-2-2); VENOUS O2 SATURATION 28.5 % (70-80); VENOUS PCO2 44.7 mmHg (38-52)
[2020-07-08 01:32] LABS: ANION GAP 18 MMOL/L (8-16); BLOOD UREA NITROGEN 45.5 mg/dL (7-18); CO2 15 mmol/L (21-32); MAGNESIUM 1.8 mg/dL (1.8-2.4)
[2020-07-08 01:35] LABS: VENOUS PH 7.084 (7.310-7.410)
[2020-07-08 01:35] LABS: CREATININE 1.9 mg/dL (0.55-1.3)
[2020-07-08 01:47] LABS: LACTIC ACID 2.2 mmol/L (0.4-2.0)
[2020-07-08 01:48] LABS: GLUCOSE,RANDOM 750 mg/dL (74-106)
[2020-07-08] MEDS ORDERED: MAGNESIUM SULFATE IN WATER 2 GM/50 ML IVPB IVPB ONE (01:59)
[2020-07-08] MEDS: levETIRAcetam 500 MG/5 ML INJECTION VIAL IVPB SCH ×3 (02:04→21:05)
[2020-07-08 02:11] LABS: CALCIUM 7.5 mg/dL (8.5-10.1); CHLORIDE 104 mmol/L (98-107); POTASSIUM 3.1 mmol/L (3.5-5.1); SODIUM 138 mmol/L (136-145)
[2020-07-08] MEDS ORDERED: SODIUM CHLORIDE 1,000 ML with POTASSIUM CHLORIDE 20 MEQ IV SCH (02:25)
[2020-07-08] MEDS ORDERED: MAGNESIUM SULF 50% (8.12 MEQ/2 ML-1 GM VIAL) IVPB ONE (02:41)
[2020-07-08] MEDS ORDERED: INSULIN REGULAR 100 UNITS in SODIUM CHLORIDE 99 ML IVPB SCH (02:45)
[2020-07-08] MEDS ORDERED: SODIUM CHLORIDE 0.45%/POT 20 MEQ/1,000 ML INFUS.BAG IV SCH (03:00)
[2020-07-08] MEDS ORDERED: DEXTROSE 5%-WATER - 50 ML IVPB ONE ×4 (04:14→20:42)
[2020-07-08] MEDS ORDERED: PIPERACILLIN/TAZOBACTAM 2.25 GM VIAL IVPB ONE ×4 (04:14→20:41)
[2020-07-08] MEDS ORDERED: FLUCONAZOLE 200 MG/NS 100 ML IVPB ONE (04:15)
[2020-07-08] MEDS: PIPERACILLIN/TAZOB 2.25 GM 2.25 GM in DEXTROSE 5%-WATER - 50 ML IVPB SCH ×5 (04:17→21:04)
[2020-07-08] MEDS ORDERED: LORazepam 2 MG/ML SDV VIAL IVPUSH ONE ×2 (05:47→06:10)
[2020-07-08] MEDS: KCL 10 MEQ IVPB 10 MEQ/100 ML INFUS.BAG IVPB SCH ×2 (05:54→07:00)
[2020-07-08] MEDS: SODIUM CHLORIDE 0.45%/POT 20 MEQ/1,000 ML INFUS.BAG IV SCH ×2 (05:55→16:32)
[2020-07-08] MEDS ORDERED: CALCIUM GLUCONATE IN NACL 1 GM/50 ML BAG IVPB ONE (08:15)
[2020-07-08] MEDS: POTASSIUM CHLORIDE 20 MEQ PREMIX IVPB 100 ML IVPB SCH ×4 (08:45→09:30)
[2020-07-08] MEDS ORDERED: PT OWN MED DRAWER 7, Y5N ONE ×2 (09:27→13:26)
[2020-07-08] MEDS: HEPARIN NA (PORCINE) 5,000 UNITS/ML 1ML VIAL SQ SCH ×3 (09:30→21:04)
[2020-07-08] MEDS: FAMOTIDINE 20 MG/50 ML IVPB 20 MG/50 ML MG IVPB SCH (09:31)
[2020-07-08] MEDS ORDERED: ASCORBIC ACID 250 MG TABLET (FP) PO SCH (10:00)
[2020-07-08] MEDS ORDERED: FAMOTIDINE 20 MG TABLET PO SCH (10:00)
[2020-07-08] MEDS ORDERED: FAMOTIDINE 20 MG/50 ML IVPB 20 MG/50 ML MG IVPB SCH (10:00)
[2020-07-08] MEDS ORDERED: FERROUS SO4 325 MG TABLET (FP) PO SCH (10:00)
[2020-07-08 10:24] LABS: HEMATOCRIT 32.5 % (32.4-45.2); HEMOGLOBIN 10.5 GM/dL (10.7-15.3); MCHC 32.2 g/dl (32.0-36.0); MEAN CELL VOLUME 71.2 fl (80-96); MEAN PLT VOLUME 8.4 fl (7.5-11.1); PLATELET COUNT 350 K/MM3 (134-434); RBC 4.56 M/mm3 (3.60-5.2); RDW 17.6 % (11.6-15.6); WHITE BLOOD COUNT 8.5 K/mm3 (4.0-10.0)
[2020-07-08] MEDS ORDERED: ALBUTEROL SO4 0.083% IH SOL 2.5 MG/3 ML VIAL.NEB. NEB STA ×2 (10:25→10:26)
[2020-07-08 10:53] LABS: POTASSIUM 3.1 mmol/L (3.5-5.1)
[2020-07-08 10:55] LABS: CALCIUM 8.2 mg/dL (8.5-10.1)
[2020-07-08 10:56] LABS: BLOOD UREA NITROGEN 37.5 mg/dL (7-18); MAGNESIUM 2.6 mg/dL (1.8-2.4)
[2020-07-08 10:59] LABS: CREATININE 1.7 mg/dL (0.55-1.3); PHOSPHOROUS 1.4 mg/dL (2.5-4.9)
[2020-07-08] MEDS ORDERED: POTASSIUM PHOSPHATE 30 MM in SODIUM CHLORIDE 250 ML IVPB ONE (11:18)
[2020-07-08] MEDS ORDERED: LACTATED RINGERS SOLUTION 1000 ML INFUS.BAG IV STA (11:24)
[2020-07-08] MEDS: MUPIROCIN 2% TOPICAL OINTMENT FOR DECOLONIZATION NS SCH ×2 (13:10→21:04)
[2020-07-08 17:13] LABS: ARTERIAL BLOOD GAS PO2 115.3 mmHg (80-100)
[2020-07-08 17:23] LABS: ALLENS TEST POSITIVE; ARTERIAL BLD GAS O2 SATURATION 97.8 mmHg (95-98); ARTERIAL BLOOD GAS BASE EXCESS -5.3 mmol/L (-2-2)
[2020-07-08] MEDS: DOXYCYCLINE INJECTION 100 MG in DEXTROSE 5%-WATER - 100 ML IVPB SCH (21:05)
[2020-07-08 21:40] LABS: BLOOD UREA NITROGEN 27.9 mg/dL (7-18); CALCIUM 8.5 mg/dL (8.5-10.1)
[2020-07-08 21:41] LABS: MAGNESIUM 2.2 mg/dL (1.8-2.4)
[2020-07-08 21:43] LABS: CREATININE 1.1 mg/dL (0.55-1.3)
[2020-07-08 21:44] LABS: PHOSPHOROUS 2.7 mg/dL (2.5-4.9)
[2020-07-08] MEDS: CHLORHEXIDINE GLUCONATE 4% CLEANSER FOR DECOLONIZATION TP SCH (22:45)
[2020-07-09] MEDS ORDERED: PIPERACILLIN/TAZOBACTAM 2.25 GM VIAL IVPB ONE ×4 (02:05→20:27)
[2020-07-09] MEDS ORDERED: DEXTROSE 5%-WATER - 50 ML IVPB ONE ×4 (02:05→20:27)
[2020-07-09] MEDS: PIPERACILLIN/TAZOB 2.25 GM 2.25 GM in DEXTROSE 5%-WATER - 50 ML IVPB SCH ×4 (03:21→20:39)
[2020-07-09] MEDS: INSULIN SLIDING SCALE (NOVOLOG) 1 VIAL SQ SCH ×6 (03:21→22:52)
[2020-07-09] MEDS: HEPARIN NA (PORCINE) 5,000 UNITS/ML 1ML VIAL SQ SCH ×3 (06:07→22:41)
[2020-07-09] MEDS: SODIUM CHLORIDE 0.45%/POT 20 MEQ/1,000 ML INFUS.BAG IV SCH (06:08)
[2020-07-09 06:27] LABS: HEMATOCRIT 29.2 % (32.4-45.2); HEMOGLOBIN 9.6 GM/dL (10.7-15.3); MCH 23.3 pg (25.7-33.7); MCHC 32.8 g/dl (32.0-36.0); MEAN PLT VOLUME 8.7 fl (7.5-11.1); PLATELET COUNT 303 K/MM3 (134-434); RBC 4.11 M/mm3 (3.60-5.2); RDW 17.6 % (11.6-15.6); WHITE BLOOD COUNT 8.2 K/mm3 (4.0-10.0)
[2020-07-09 06:32] LABS: BLOOD UREA NITROGEN 24.1 mg/dL (7-18); CALCIUM 8.7 mg/dL (8.5-10.1); MAGNESIUM 2.2 mg/dL (1.8-2.4); POTASSIUM 3.5 mmol/L (3.5-5.1)
[2020-07-09 06:36] LABS: CREATININE 1.1 mg/dL (0.55-1.3); PHOSPHOROUS 1.9 mg/dL (2.5-4.9)
[2020-07-09 08:54] LABS: ERYTHROCYTE SEDIMENTATION RATE 71 mm/hr (0-30)
[2020-07-09] MEDS: MUPIROCIN 2% TOPICAL OINTMENT FOR DECOLONIZATION NS SCH ×2 (09:28→22:50)
[2020-07-09] MEDS: FAMOTIDINE 20 MG/50 ML IVPB 20 MG/50 ML MG IVPB SCH (09:40)
[2020-07-09] MEDS: levETIRAcetam 500 MG/5 ML INJECTION VIAL IVPB SCH ×2 (09:40→22:40)
[2020-07-09] MEDS: DOXYCYCLINE INJECTION 100 MG in DEXTROSE 5%-WATER - 100 ML IVPB SCH ×2 (09:40→22:41)
[2020-07-09] MEDS: NAPH,MB-DB/K PH,MBDB POWDER PACKET PO SCH ×2 (13:05→22:52)
[2020-07-09] MEDS: INSULIN (LEVEMIR) 100 UNITS/ML UNITS SQ SCH ×2 (13:05→22:51)
[2020-07-09] MEDS ORDERED: PT OWN MED DRAWER 7, Y5N ONE (22:33)
[2020-07-09] MEDS: CHLORHEXIDINE GLUCONATE 4% CLEANSER FOR DECOLONIZATION TP SCH (22:50)
[2020-07-09 23:38] VITALS: BMI 30.2
[2020-07-10] MEDS: INSULIN SLIDING SCALE (NOVOLOG) 1 VIAL SQ SCH ×5 (01:51→17:15)
[2020-07-10] MEDS ORDERED: PIPERACILLIN/TAZOBACTAM 2.25 GM VIAL IVPB ONE ×2 (03:43→10:46)
[2020-07-10] MEDS ORDERED: DEXTROSE 5%-WATER - 50 ML IVPB ONE ×2 (03:43→10:47)
[2020-07-10] MEDS: PIPERACILLIN/TAZOB 2.25 GM 2.25 GM in DEXTROSE 5%-WATER - 50 ML IVPB SCH ×2 (03:45→10:57)
[2020-07-10 06:37] LABS: BASO % 0.4 % (0-2.0); EOS % 0.5 % (0-4.5); HEMATOCRIT 28.2 % (32.4-45.2); HEMOGLOBIN 9.2 GM/dL (10.7-15.3); LYMPH % 20.4 % (8-40); MCH 23.2 pg (25.7-33.7); MCHC 32.7 g/dl (32.0-36.0); MEAN CELL VOLUME 70.9 fl (80-96); MEAN PLT VOLUME 8.7 fl (7.5-11.1); MONO % 10.2 % (3.8-10.2); NEUT % 68.5 % (42.8-82.8); PLATELET COUNT 275 K/MM3 (134-434); RBC 3.97 M/mm3 (3.60-5.2); RDW 17.7 % (11.6-15.6); WHITE BLOOD COUNT 9.1 K/mm3 (4.0-10.0)
[2020-07-10 06:57] LABS: POTASSIUM 3.6 mmol/L (3.5-5.1)
[2020-07-10 06:59] LABS: BLOOD UREA NITROGEN 14.7 mg/dL (7-18); CALCIUM 8.6 mg/dL (8.5-10.1)
[2020-07-10 07:00] LABS: MAGNESIUM 1.9 mg/dL (1.8-2.4)
[2020-07-10 07:02] LABS: CREATININE 0.8 mg/dL (0.55-1.3)
[2020-07-10 07:03] LABS: PHOSPHOROUS 2.2 mg/dL (2.5-4.9)
[2020-07-10 07:04] LABS: BILIRUBIN,TOTAL 0.7 mg/dL (0.2-1)
[2020-07-10 07:22] LABS: ALBUMIN 2.7 g/dl (3.4-5.0); TOT PROT 5.9 g/dl (6.4-8.2)
[2020-07-10] MEDS ORDERED: NAPH,MB-DB/K PH,MBDB POWDER PACKET PO SCH ×2 (10:00→22:00)
[2020-07-10] MEDS: FAMOTIDINE 20 MG/50 ML IVPB 20 MG/50 ML MG IVPB SCH (10:57)
[2020-07-10] MEDS: levETIRAcetam 500 MG/5 ML INJECTION VIAL IVPB SCH ×2 (10:58→21:34)
[2020-07-10] MEDS: MUPIROCIN 2% TOPICAL OINTMENT FOR DECOLONIZATION NS SCH (10:59)
[2020-07-10] MEDS: DOXYCYCLINE INJECTION 100 MG in DEXTROSE 5%-WATER - 100 ML IVPB SCH (10:59)
[2020-07-10] MEDS: INSULIN (LEVEMIR) 100 UNITS/ML UNITS SQ SCH (11:06)
[2020-07-10] MEDS: HEPARIN NA (PORCINE) 5,000 UNITS/ML 1ML VIAL SQ SCH ×3 (14:04→21:33)
[2020-07-10] MEDS: COLLAGENASE CLOSTRIDIUM HIST. 30 GRAMS TUBE TP SCH (15:45)
[2020-07-10] MEDS ORDERED: VANCOMYCIN 1 GM in D5W (PRE-DOCKED) 1,000 MG/250 ML IVPB ONE (16:22)
[2020-07-10] MEDS ORDERED: ALBUTEROL SO4 0.083% IH SOL 2.5 MG/3 ML VIAL.NEB. NEB STA (18:01)
[2020-07-10] MEDS: [UNRECOGNIZED DRUG - OTHER] TP SCH (18:04)
[2020-07-10] MEDS: SODIUM CHLORIDE 0.45%/POT 20 MEQ/1,000 ML INFUS.BAG IV SCH (18:05)
[2020-07-10] MEDS ORDERED: INSULIN SLIDING SCALE (NOVOLOG) 1 VIAL SQ SCH (22:00)
[2020-07-10] MEDS ORDERED: INSULIN (LEVEMIR) 100 UNITS/ML UNITS SQ SCH (22:00)
[2020-07-10] MEDS ORDERED: CHLORHEXIDINE GLUCONATE 4% CLEANSER FOR DECOLONIZATION TP SCH (22:00)
[2020-07-10] MEDS ORDERED: MUPIROCIN 2% TOPICAL OINTMENT FOR DECOLONIZATION NS SCH (22:00)
[2020-07-11] MEDS: INSULIN SLIDING SCALE (NOVOLOG) 1 VIAL SQ SCH ×4 (06:18→21:55)
[2020-07-11] MEDS: HEPARIN NA (PORCINE) 5,000 UNITS/ML 1ML VIAL SQ SCH ×3 (06:18→21:54)
[2020-07-11] MEDS: INSULIN (LEVEMIR) 100 UNITS/ML UNITS SQ SCH ×2 (06:18→17:24)
[2020-07-11 08:54] LABS: HEMATOCRIT 28.4 % (32.4-45.2); HEMOGLOBIN 9.4 GM/dL (10.7-15.3); MCH 23.4 pg (25.7-33.7); MCHC 33.1 g/dl (32.0-36.0); MEAN CELL VOLUME 70.7 fl (80-96); MEAN PLT VOLUME 8.9 fl (7.5-11.1); PLATELET COUNT 260 K/MM3 (134-434); RBC 4.02 M/mm3 (3.60-5.2); RDW 17.5 % (11.6-15.6); WHITE BLOOD COUNT 10.5 K/mm3 (4.0-10.0)
[2020-07-11 09:14] LABS: POTASSIUM 3.3 mmol/L (3.5-5.1)
[2020-07-11 09:19] LABS: ALBUMIN 2.6 g/dl (3.4-5.0); BLOOD UREA NITROGEN 10.6 mg/dL (7-18); CALCIUM 8.4 mg/dL (8.5-10.1); MAGNESIUM 1.6 mg/dL (1.8-2.4)
[2020-07-11 09:22] LABS: CREATININE 0.6 mg/dL (0.55-1.3)
[2020-07-11 09:23] LABS: BILIRUBIN,TOTAL 0.8 mg/dL (0.2-1); TOT PROT 5.8 g/dl (6.4-8.2)
[2020-07-11] MEDS: levETIRAcetam 500 MG/5 ML INJECTION VIAL IVPB SCH ×2 (10:15→21:54)
[2020-07-11] MEDS: FAMOTIDINE 20 MG/50 ML IVPB 20 MG/50 ML MG IVPB SCH (10:59)
[2020-07-11] MEDS: [UNRECOGNIZED DRUG - OTHER] TP SCH (11:16)
[2020-07-11] MEDS: COLLAGENASE CLOSTRIDIUM HIST. 30 GRAMS TUBE TP SCH (12:30)
[2020-07-11] MEDS: NAPH,MB-DB/K PH,MBDB POWDER PACKET PO SCH ×2 (14:00→14:26)
[2020-07-11] MEDS: POTASSIUM CHLORIDE TABS 10 MEQ TABLET.ER (FP) PO ONE ×2 (14:00→14:26)
[2020-07-11] MEDS ORDERED: POTASSIUM CHLORIDE ORAL LIQUID 20 MEQ/15 ML PO ONE (16:33)
[2020-07-11] MEDS: AMINO ACIDS/PROTEIN HYDROLYS 30 ML LIQUID.PKT PO SCH (18:30)
[2020-07-11] MEDS ORDERED: KCL 10 MEQ IVPB 10 MEQ/100 ML INFUS.BAG IVPB SCH (18:30)
[2020-07-11] MEDS: MAGNESIUM OXIDE 400 MG TABLET (FP) PO SCH (21:54)
[2020-07-12] MEDS: HEPARIN NA (PORCINE) 5,000 UNITS/ML 1ML VIAL SQ SCH ×2 (05:58→13:42)
[2020-07-12] MEDS: INSULIN SLIDING SCALE (NOVOLOG) 1 VIAL SQ SCH ×2 (05:59→12:00)
[2020-07-12] MEDS: INSULIN (LEVEMIR) 100 UNITS/ML UNITS SQ SCH (05:59)
[2020-07-12] MEDS: AMINO ACIDS/PROTEIN HYDROLYS 30 ML LIQUID.PKT PO SCH (08:44)
[2020-07-12] MEDS: levETIRAcetam 500 MG/5 ML INJECTION VIAL IVPB SCH (10:27)
[2020-07-12] MEDS: MAGNESIUM OXIDE 400 MG TABLET (FP) PO SCH (10:27)
[2020-07-12] MEDS: NAPH,MB-DB/K PH,MBDB POWDER PACKET PO SCH (10:27)
[2020-07-12 11:06] LABS: POTASSIUM 3.3 mmol/L (3.5-5.1)
[2020-07-12 11:15] LABS: BLOOD UREA NITROGEN 9.2 mg/dL (7-18); MAGNESIUM 1.8 mg/dL (1.8-2.4)
[2020-07-12 11:18] LABS: CREATININE 0.6 mg/dL (0.55-1.3)
[2020-07-12] MEDS: FAMOTIDINE 20 MG/50 ML IVPB 20 MG/50 ML MG IVPB SCH (11:50)
[2020-07-12] MEDS ORDERED: POTASSIUM CHLORIDE ORAL LIQUID 20 MEQ/15 ML PO ONE (13:00)
[2020-07-12] MEDS: KCL 10 MEQ IVPB 10 MEQ/100 ML INFUS.BAG IVPB SCH ×4 (13:39→16:09)
[2020-07-12 14:50] VITALS: BP 151/89; PULSE 101; TEMP 98.8
[2020-07-12] MEDS ORDERED: POTASSIUM CHLORIDE TABS 20 MEQ TABLET.ER (FP) PO ONE (15:45)
[2020-07-12] MEDS: COLLAGENASE CLOSTRIDIUM HIST. 30 GRAMS TUBE TP SCH (15:58)
== END 2020-07-12 17:28 | DRG 637 ==
LOC: JER 18:55 → JERBED 21:27 → JICU 07-08 02:40 → J7W 07-10 18:01
PROVIDERS: ADMIT Family Medicine; ATTEND Family Medicine
PROC: 02HV33Z Insertion of Infusion Device into Superior Vena Cava, Percutaneous Approach (ICD-10-PCS; principal; 2020-07-08)
PROC: B548ZZA Ultrasonography of Superior Vena Cava, Guidance (ICD-10-PCS; 2020-07-08)
DX: E11.10 Type 2 diabetes mellitus with ketoacidosis without coma (principal); J18.9 Pneumonia, unspecified organism; G82.20 Paraplegia, unspecified; N17.9 Acute kidney failure, unspecified; J44.9 Chronic obstructive pulmonary disease, unspecified; K21.9 Gastro-esophageal reflux disease without esophagitis; E78.5 Hyperlipidemia, unspecified; H40.9 Unspecified glaucoma; F32.9 Major depressive disorder, single episode, unspecified; F41.9 Anxiety disorder, unspecified; N31.9 Neuromuscular dysfunction of bladder, unspecified; D50.9 Iron deficiency anemia, unspecified; E66.9 Obesity, unspecified; Z68.31 Body mass index [BMI] 31.0-31.9, adult; I36.1 Nonrheumatic tricuspid (valve) insufficiency; E87.6 Hypokalemia; L89.150 Pressure ulcer of sacral region, unstageable
CPT/HCPCS: 36415; 36600; 71045-TC-FY; 80048; 80053; 80061; 81003; 82010; 82550; 82803; 82962; 83036; 83605; 83721; 83735; 84100; 84443; 84484; 85025; 85027; 85610; 85651; 85730; 86140; 87040; 87081; 87086; 87899; 93005; 93010; 94640; 94660; 99291; C9803; J0131; J1644; J3480; U0003; U0005

== ENCOUNTER → 2021-05-13 | Emergency (ER) | payer OTHER ==
[~2021-05-13] MED LIST: ACETAMINOPHEN 1000 MG/100 ML BAG IVPB ONE; ACETAMINOPHEN INJECTION 100 ML IVPB ONE; LACTATED RINGERS SOLUTION 1000 ML INFUS.BAG IV ONE; ONDANSETRON 4 MG/2 ML VIAL IVPUSH ONE; ONDANSETRON 4 MG/2 ML VIAL ONE; PANTOPRAZOLE SODIUM 40 MG VIAL IVPUSH ONE; PANTOPRAZOLE SODIUM 40 MG VIAL ONE
[2021-05-13 23:22] VITALS: BP 110/70; PULSE 110; TEMP 98.3; BMI 47.6
[2021-05-14 01:20] LABS: BASO % 0.5 % (0-2.0); EOS % 0.8 % (0-4.5); HEMATOCRIT 36.1 % (32.4-45.2); HEMOGLOBIN 11.9 GM/dL (10.7-15.3); LYMPH % 24.8 % (8-40); MCH 24.7 pg (25.7-33.7); MCHC 32.9 g/dl (32.0-36.0); MEAN CELL VOLUME 75.2 fl (80-96); MEAN PLT VOLUME 7.5 fl (7.5-11.1); MONO % 7.1 % (3.8-10.2); NEUT % 66.8 % (42.8-82.8); PLATELET COUNT 417 10^3/uL (134-434); RBC 4.81 M/mm3 (3.60-5.2); RDW 18.2 % (11.6-15.6); WHITE BLOOD COUNT 10.3 K/mm3 (4.0-10.0)
[2021-05-14 02:00] LABS: ALBUMIN 3.9 g/dl (3.4-5.0); BLOOD UREA NITROGEN 16.5 mg/dL (7-18); CALCIUM 9.2 mg/dL (8.5-10.1)
[2021-05-14 02:03] LABS: CREATININE 0.7 mg/dL (0.55-1.3)
[2021-05-14 02:04] LABS: BILIRUBIN,TOTAL 0.2 mg/dL (0.2-1); TOT PROT 7.7 g/dl (6.4-8.2)
== END ==
LOC: JER 22:30
PROC: 3E033GC Introduction of Other Therapeutic Substance into Peripheral Vein, Percutaneous Approach (ICD-10-PCS; principal; 2021-05-13)
DX: R11.2 Nausea with vomiting, unspecified (principal); R10.84 Generalized abdominal pain
CPT/HCPCS: 36415; 71045-TC-FY; 80053; 82272; 82550; 83605; 83690; 84484; 85025; 87804; 93005; 93010; 96374; 96375; 99285-25; C9803; J0131; U0003; U0005

== ENCOUNTER 2023-10-29 12:20 | Inpatient (IN) | payer OTHER ==
[2023-10-29 13:04] VITALS: BMI 36.3
[2023-10-29] MEDS ORDERED: FAMOTIDINE 20 MG/50 ML IVPB 20 MG/50 ML MG IVPB ONE (15:16)
[2023-10-29] MEDS ORDERED: ACETAMINOPHEN INJECTION 100 ML IVPB ONE (15:16)
[2023-10-29] MEDS: FAMOTIDINE 20 MG/50 ML IVPB 20 MG/50 ML MG IVPB ONE (18:11)
[2023-10-29] MEDS: ACETAMINOPHEN 1000 MG/100 ML BAG IVPB ONE (18:11)
[2023-10-29] MEDS: SODIUM CHLORIDE 0.9% 500 ML INFUS.BAG IV ONE (18:11)
[2023-10-29 18:22] LABS: VENOUS BASE EXCESS 5.1 mmol/L (-2-2); VENOUS PCO2 45.5 mmHg (38-52); VENOUS PH 7.438 (7.310-7.410)
[2023-10-29 18:31] LABS: CHLORIDE 98 mmol/L (98-107); INR 1.12 (0.83-1.09); PROTHROMBIN TIME (PATIENT) 12.8 SEC (9.7-13.0); SODIUM 135 mmol/L (136-145)
[2023-10-29 18:32] LABS: BASO % 0.2 % (0-2.0); EOS % 0.4 % (0-4.5); HEMATOCRIT 39.6 % (32.4-45.2); HEMOGLOBIN 12.8 GM/dL (10.7-15.3); LYMPH % 16.2 % (8-40); MCH 23.9 pg (25.7-33.7); MCHC 32.3 g/dl (32.0-36.0); MEAN PLT VOLUME 7.8 fl (7.5-11.1); NEUT % 75.2 % (42.8-82.8); PLATELET COUNT 456 10^3/uL (134-434); RBC 5.36 M/mm3 (3.60-5.2); RDW 17.4 % (11.6-15.6); WHITE BLOOD COUNT 18.3 K/mm3 (4.0-10.0)
[2023-10-29 18:33] LABS: ALBUMIN 3.4 g/dl (3.4-5.0); BLOOD UREA NITROGEN 17.4 mg/dL (7-18); CO2 27 mmol/L (21-32)
[2023-10-29 18:34] LABS: ACTIVATED PTT 35.2 SECONDS (25.2-36.5); GLUCOSE,RANDOM 109 mg/dL (74-106)
[2023-10-29 18:36] LABS: CREATININE 0.6 mg/dL (0.55-1.3); SGOT/AST 68 U/L (15-37); SGPT/ALT 60 U/L (13-61)
[2023-10-29 18:38] LABS: BILIRUBIN,TOTAL 0.8 mg/dL (0.2-1); TOT PROT 7.7 g/dl (6.4-8.2)
[2023-10-29 18:39] LABS: ALK PHOS 143 U/L (45-117)
[2023-10-29 18:56] LABS: ANION GAP 10 mmol/L (4-13)
[2023-10-29 20:36] LABS: POTASSIUM 4.7 mmol/L (3.5-5.1)
[2023-10-29 20:37] LABS: CALCIUM 8.8 mg/dL (8.5-10.1)
[2023-10-29 20:38] LABS: BLOOD UREA NITROGEN 17.6 mg/dL (7-18)
[2023-10-29 20:41] LABS: CREATININE 0.5 mg/dL (0.55-1.3)
[2023-10-29] MEDS: SODIUM CHLORIDE 1,000 ML IV SCH (21:30)
[2023-10-29] MEDS: levETIRAcetam 500 MG TABLET (FP) PO SCH (23:11)
[2023-10-29] MEDS: INSULIN ASPART SLIDING SCALE (NOVOLOG) 1 VIAL SQ SCH (23:16)
[2023-10-29] MEDS: ACETAMINOPHEN 1000 MG/100 ML BAG IVPB PRN (23:33)
[2023-10-30 07:26] LABS: BASO % 0.2 % (0-2.0); EOS % 0.9 % (0-4.5); HEMATOCRIT 39.8 % (32.4-45.2); HEMOGLOBIN 12.2 GM/dL (10.7-15.3); LYMPH % 20.6 % (8-40); MCH 23.5 pg (25.7-33.7); MCHC 30.7 g/dl (32.0-36.0); MEAN CELL VOLUME 76.4 fl (80-96); MEAN PLT VOLUME 7.7 fl (7.5-11.1); MONO % 8.2 % (3.8-10.2); NEUT % 70.1 % (42.8-82.8); PLATELET COUNT 430 10^3/uL (134-434); RBC 5.21 M/mm3 (3.60-5.2); RDW 17.3 % (11.6-15.6)
[2023-10-30 07:47] LABS: POTASSIUM 4.3 mmol/L (3.5-5.1)
[2023-10-30 07:57] LABS: BLOOD UREA NITROGEN 16.4 mg/dL (7-18)
[2023-10-30 07:58] LABS: ALBUMIN 3.1 g/dl (3.4-5.0); CALCIUM 9.3 mg/dL (8.5-10.1); MAGNESIUM 2.2 mg/dL (1.8-2.4)
[2023-10-30 08:01] LABS: BILIRUBIN,TOTAL 0.9 mg/dL (0.2-1); CREATININE 0.6 mg/dL (0.55-1.3); TOT PROT 6.9 g/dl (6.4-8.2)
[2023-10-30 08:03] LABS: PHOSPHOROUS 4.1 mg/dL (2.5-4.9)
[2023-10-30] MEDS: PIPERACILLIN/TAZOB 3.375 GM 3.375 GM in DEXTROSE 5%-WATER - 50 ML IVPB SCH ×2 (09:03→17:19)
[2023-10-30 19:55] LABS: POTASSIUM 3.8 mmol/L (3.5-5.1)
[2023-10-30 19:57] LABS: CALCIUM 8.9 mg/dL (8.5-10.1)
[2023-10-30 19:58] LABS: ALBUMIN 2.8 g/dl (3.4-5.0)
[2023-10-30 20:01] LABS: CREATININE 0.5 mg/dL (0.55-1.3)
[2023-10-30 20:03] LABS: BILIRUBIN,TOTAL 0.7 mg/dL (0.2-1); TOT PROT 6.2 g/dl (6.4-8.2)
[2023-10-30] MEDS: HEPARIN NA (PORCINE) 5,000 UNITS/ML 1ML VIAL SQ SCH (21:21)
[2023-10-31] MEDS: PIPERACILLIN/TAZOB 3.375 GM 3.375 GM in DEXTROSE 5%-WATER - 50 ML IVPB SCH (08:18)
[2023-10-31] MEDS: IRON SUCROSE INJECTION 200 MG in SODIUM CHLORIDE 100 ML IVPB ONE (17:22)
[2023-10-31] MEDS: CYCLOBENZAPRINE HCL 10 MG TABLET (FP) PO PRN (21:39)
[2023-11-01 05:57] VITALS: RESP 20
[2023-11-02] MEDS: MAG HYDROX/AL HYDROX/SIMETH 30 ML UNIT-DOSE CUP PO ONE (22:16)
[2023-11-03 09:30] LABS: BASO % 0.5 % (0-2.0); EOS % 3.2 % (0-4.5); HEMATOCRIT 33.7 % (32.4-45.2); HEMOGLOBIN 10.9 GM/dL (10.7-15.3); LYMPH % 21.2 % (8-40); MCH 24.5 pg (25.7-33.7); MCHC 32.3 g/dl (32.0-36.0); MEAN CELL VOLUME 75.7 fl (80-96); MEAN PLT VOLUME 7.7 fl (7.5-11.1); MONO % 7.2 % (3.8-10.2); NEUT % 67.9 % (42.8-82.8); PLATELET COUNT 411 10^3/uL (134-434); RBC 4.45 M/mm3 (3.60-5.2); RDW 17.6 % (11.6-15.6); WHITE BLOOD COUNT 8.4 K/mm3 (4.0-10.0)
[2023-11-03 09:41] LABS: POTASSIUM 4.1 mmol/L (3.5-5.1)
[2023-11-03 09:49] LABS: ALBUMIN 2.9 g/dl (3.4-5.0); CALCIUM 8.4 mg/dL (8.5-10.1)
[2023-11-03 09:52] LABS: CREATININE 0.4 mg/dL (0.55-1.3)
[2023-11-03 09:54] LABS: BILIRUBIN,TOTAL 0.6 mg/dL (0.2-1); TOT PROT 6.7 g/dl (6.4-8.2)
[2023-11-03 14:48] VITALS: BP 133/84; PULSE 119; TEMP 98.6
== END 2023-11-03 17:06 | DRG 392 ==
LOC: JER 12:20 → JERBED 18:38 → J8W 20:47
PROVIDERS: ADMIT Internal Medicine; ATTEND Internal Medicine
PROC: 0DB68ZX Excision of Stomach, Via Natural or Artificial Opening Endoscopic, Diagnostic (ICD-10-PCS; principal; 2023-10-31 14:00)
DX: R10.11 Right upper quadrant pain (principal); G82.20 Paraplegia, unspecified; K29.70 Gastritis, unspecified, without bleeding; K80.20 Calculus of gallbladder without cholecystitis without obstruction; E11.65 Type 2 diabetes mellitus with hyperglycemia; R00.0 Tachycardia, unspecified; Z93.3 Colostomy status; R11.2 Nausea with vomiting, unspecified
CPT/HCPCS: 36415; 74170-TC; 74177-TC; 76705-TC; 78226-TC; 80048; 80053; 82010; 82728; 82803; 82962; 82977; 83036; 83540; 83550; 83605; 83690; 83735; 84100; 85025; 85610; 85730; 86704; 86803; 86850; 86900; 86901; 87040; 87340; 87517; 88305-TC; 93005; 93010; 99285-25; A9537; E0186; J0131; J1644; J1756; Q9967